=== PATIENT | female | born 1935 | race Caucasian/White ===

== ENCOUNTER 2016-04-01 15:24 | Emergency (ER) | payer OTHER ==
[~2016-04-01] VITALS: Ht 152.4 cm; Wt 65.6 kg
[~2016-04-01 15:24] MED LIST: APR50 PO; ASCO500T3 PO; ASPI1TAB2 PO; ATOR-22 PO; CEPH500C2 PO; CHOL100010 PO; CLOP1TAB15 PO; CLR10 PO; LOSA100T65 PO; MAGNTAB4 PO; METF1000 PO; METO-479 PO; MULTCHW PO; REPA1TAB40 PO; SALI0.6517 NAE
[2016-04-01 15:26] VITALS: TEMP 36.8; Ht 152.4 cm; Wt 65.6 kg
[2016-04-01] MEDS ORDERED: CLONIDINE HCL 0.1 MG TAB PO ONE (15:45)
--- NOTE | 2016-04-01 15:50 | EMERGENCY ROOM VISIT NOTE ---
History Report prepared by Tyrell: Rey Mccurdy Under the Supervision of: Dr. Soto Hammond D.O. First contact with patient: 15:30 Chief Complaint: HYPERTENSION Stated Complaint: HIGH BLOOD PRESSURE History of Present Illness The patient is a 80 year old female who presents to the Emergency Room with complaints of persistent hypertension that started prior to arrival today. She uses a cuff at home. The patient says her blood pressure has peaked around 205/ 90 today. The patient takes hydralazine, metoprolol, and Cozaar for her hypertension, and she took all 3 today already. The patient also complains of a bad headache that started being persistent around 0530 this morning. She notes that she had a more minor headache yesterday. The patient's face feels flushed and she feels a bit queazy. She denies any chest pain, shortness of breath, or vomiting. The patient last saw a cull grader in November when she was here in the hospital. She has an appointment for the of this month. The patient was told to come to the ED if her blood pressure gets high. She has not been sick recently. Source of History: patient Onset: Prior to arrival today Position: other (global - hypertension) Symptom Intensity: 205/90 Timing: other (persistent) Associated Symptoms: + headache, No SOB, No chest pain, No vomiting Note: Associated symptoms: Face feels flushed, a bit queazy. Review of Systems See HPI for pertinent positives & negatives. A total of 10 systems reviewed and were otherwise negative. Past Medical & Surgical Medical Problems: (1) DM type 2 (diabetes mellitus, type 2) (2) Dyslipidemia (3) HTN (hypertension) (4) Hypomagnesemia (5) Hyponatremia (6) TIA (transient ischemic attack) Surgical Problems: (1) S/P carpal tunnel release (2) S/P cholecystectomy Family History Hypertension FATHER MOTHER Social History Smoking Status: Never Smoker Alcohol Use: none Drug Use: none Marital Status: Occupation Status: retired Current/Historical Medications Scheduled Aspirin (Wilfred Aspirin Ec Low Dose), 1 TAB PO HS Atorvastatin (Lipitor), 20 MG PO DAILY Cholecalciferol (Vitamin D), 1,000 INTER.UNIT PO DAILY Clonidine Hcl (Catapres), 0.1 MG PO BID Clopidogrel (Plavix), 75 MG PO DAILY Escitalopram (Lexapro), 10 MG PO DAILY Fluticasone Propionate (Nasal) (Flonase Allergy Relief), 2 SPRAYS TJ DAILY Hydralazine HCl (Hydralazine HCl), 50 MG PO TID Loratadine (Claritin), 10 MG PO DAILY Losartan Potassium (Cozaar), 50 MG PO DAILY Magnesium Chloride (Slow-Mag Tab), 64 MG PO BID Metformin Hcl (Glucophage), 1 TAB PO BID Metoprolol Succinate (Toprol Xl), 1 TAB PO DAILY Multiple Vitamins W/ Minerals (Centrum Silver), 1 TAB PO DAILY Repaglinide (Prandin), 1 MG PO UD Sodium Chloride ([place] Nasal), 2 SPRAYS TJ UD Allergies Coded Allergies: Amlodipine (Unverified Allergy, Severe, SWELLING AND FLUSHING, 04/01/16) Dust (Unverified Allergy, Mild, COUGH, 04/01/16) Molds and Smuts (Unverified Allergy, Mild, SINUS DRAINAGE/COUGH, 04/01/16) LORENA Inhibitors (Verified Adverse Reaction, Unknown, COUGH, 04/01/16) Physical Exam Vital Signs Date Time Temp Pulse Resp B/P Pulse Ox O2 Delivery O2 Flow Rate FiO2 04/01/16 18:27 69 16 148/79 96 Room Air 04/01/16 18:09 64 04/01/16 16:35 77 18 225/84 96 Room Air 04/01/16 15:51 95 Room Air 04/01/16 15:51 95 Room Air 04/01/16 15:26 36.8 84 18 233/104 95 Room Air Physical Exam GENERAL: Patient is awake, alert, and in no acute distress. Patient is resting comfortably and showing no signs of anxiety EYES: The conjunctivae are clear. The pupils are round and reactive. EARS, NOSE, MOUTH AND THROAT: The nose is without any evidence of any deformity. Mucous membranes are moist tongue is midline NECK: The neck is nontender and supple. RESPIRATORY: Normal respiratory effort is noted there is no evidence of wheezing rhonchi or rales CARDIOVASCULAR: Regular rate and rhythm noted there no murmurs rubs or gallops normal S1 normal S2 GASTROINTESTINAL: The abdomen is soft. Bowel sounds are present in all quadrants. Abdomen is nontender MUSCULOSKELETAL/EXTREMITIES: There is no evidence of gross deformity full range of motion is noted in the hips and shoulders SKIN: There is no obvious evidence of any rash. There are no petechiae, pallor or cyanosis noted. NEUROLOGIC: Patient is awake alert and oriented x3 strength is symmetric patellar reflexes are 2+ bilaterally Medical Decision & Procedures ER Provider Diagnostic Interpretation: X ray results and stated below per my interpretation and radiology interpretation. Other radiology results per my review and radiologist interpretation: HEAD CT NONCONTRAST CT DOSE: 537.48 mGy.cm HISTORY: Headache. TECHNIQUE: Multiaxial CT images of the head were performed without the use of intravenous contrast. Automated exposure control was utilized for this study. Comparison: Head CT 12/12/2015. Findings: The paranasal sinuses and mastoid air cells are clear. The calvarium and skull base are intact. There is no mass, hematoma, midline shift, acute infarct. White matter hypodensity is nonspecific but suggestive of microvascular ischemic change. The ventricles and sulci demonstrate mild age-related involutional changes. Impression: No acute intracranial abnormality. Atrophy and microvascular ischemic changes. Electronically signed by: Dave Cano M.D. 04/01/2016 5:00 PM CHEST ONE VIEW PORTABLE CLINICAL HISTORY: EVALUATE RESPIRATORY DISTRESS. DYSPNEA dyspnea COMPARISON STUDY: No previous studies for comparison. FINDINGS: The bones soft tissues and hemidiaphragms are normal. The cardiomediastinal silhouette is normal. The lungs are clear. The pulmonary vasculature is normal. IMPRESSION: Negative chest. Electronically signed by: Vince Samaniego M.D. 04/01/2016 4:39 PM Laboratory Results 04/01/16 16:35 Red Blood Count 4.56, Mean Corpuscular Volume 85.1, Mean Corpuscular Hemoglobin 30.5, Mean Corpuscular Hemoglobin Concent 35.8, Mean Platelet Volume 8.9, Neutrophils (%) (Auto) 70.7, Lymphocytes (%) (Auto) 18.0, Monocytes (%) (Auto) 8.0, Eosinophils (%) (Auto) 2.7, Basophils (%) (Auto) 0.5, Neutrophils # (Auto) 5.33, Lymphocytes # (Auto) 1.36, Monocytes # (Auto) 0.60, Eosinophils # (Auto) 0.20, Basophils # (Auto) 0.04 04/01/16 16:35 Test 04/01/16 16:35 04/01/16 17:10 White Blood Count 7.54 K/uL (4.8-10.8) Red Blood Count 4.56 M/uL (4.2-5.4) Hemoglobin 13.9 g/dL (12.0-16.0) Hematocrit 38.8 % (37-47) Mean Corpuscular Volume 85.1 fL (80-100) Mean Corpuscular Hemoglobin 30.5 pg (25-34) Mean Corpuscular Hemoglobin Concent 35.8 g/dl (32-36) Platelet Count 174 K/uL (130-400) Mean Platelet Volume 8.9 fL (7.4-10.4) Neutrophils (%) (Auto) 70.7 % Lymphocytes (%) (Auto) 18.0 % Monocytes (%) (Auto) 8.0 % Eosinophils (%) (Auto) 2.7 % Basophils (%) (Auto) 0.5 % Neutrophils # (Auto) 5.33 K/uL (1.4-6.5) Lymphocytes # (Auto) 1.36 K/uL (1.2-3.4) Monocytes # (Auto) 0.60 K/uL (0.11-0.59) Eosinophils # (Auto) 0.20 K/uL (0-0.5) Basophils # (Auto) 0.04 K/uL (0-0.2) RDW Standard Deviation 40.3 fL (36.4-46.3) RDW Coefficient of Variation 13.1 % (11.5-14.5) Immature Granulocyte % (Auto) 0.1 % Immature Granulocyte # (Auto) 0.01 K/uL (0.00-0.02) Prothrombin Time 11.3 SECONDS (9.0-12.0) Prothromb Time International Ratio 1.1 (0.9-1.1) Activated Partial Thromboplast Time 26.1 SECONDS (21.0-31.0) Partial Thromboplastin Ratio 1.0 Anion Gap 15.0 mmol/L (3-11) Est Creatinine Clear Calc Drug Dose 50.2 ml/min Estimated GFR () 84.4 Estimated GFR (Non- 72.8 BUN/Creatinine Ratio 15.9 (10-20) Calcium Level 9.7 mg/dl (8.5-10.1) Magnesium Level 1.5 mg/dl (1.8-2.4) Total Bilirubin 0.4 mg/dl (0.2-1) Aspartate Amino Transf (AST/SGOT) 18 U/L (15-37) Alanine Aminotransferase (ALT/SGPT) 27 U/L (12-78) Alkaline Phosphatase 55 U/L (45-117) Total Creatine Kinase 51 U/L (26-192) Creatine Kinase MB 1.0 ng/ml (0.5-3.6) Creatine Kinase MB Ratio 2.0 (0-3.0) Troponin I < 0.015 ng/ml (0-0.045) Total Protein 7.2 gm/dl (6.4-8.2) Albumin 4.0 gm/dl (3.4-5.0) Globulin 3.2 gm/dl (2.5-4.0) Albumin/Globulin Ratio 1.3 (0.9-2) Urine Color YELLOW Urine Appearance CLEAR (CLEAR) Urine pH 7.0 (4.5-7.5) Urine Specific [place] 1.002 (1.000-1.030) Urine Protein NEG (NEG) Urine Glucose (UA) NEG (NEG) Urine Ketones NEG (NEG) Urine Occult Blood NEG (NEG) Urine Nitrite NEG (NEG) Urine Bilirubin NEG (NEG) Urine Urobilinogen NEG (NEG) Urine Leukocyte Esterase TRACE (NEG) Urine WBC (Auto) 1-5 /hpf (0-5) Urine RBC (Auto) 0-4 /hpf (0-4) Urine Hyaline Casts (Auto) 0 /lpf (0-5) Urine Epithelial Cells (Auto) 0-5 /lpf (0-5) Urine Bacteria (Auto) NEG (NEG) Laboratory results per my review. Medications Administered Medications (Trade) Dose Ordered Sig/Erick Route Start Time Stop Time Status Last Admin Dose Admin Clonidine HCl (Catapres Tab) 0.2 mg NOW ONCE PO 04/01/16 15:45 04/01/16 15:47 DC 04/01/16 16:14 0.2 MG Magnesium Sulfate (Magnesium Sulfate) 2 gm NOW STAT IV 04/01/16 17:12 04/01/16 17:13 DC 04/01/16 17:41 2 GM ECG Indication: other (hypertension) Rate (beats per minute): 80 Rhythm: normal sinus Findings: no ectopy, other (No acute ST segment abnormalities, LVH noted by voltage criteria) Change: no significant change (compared to 12/12/15) ED Course 1540: The patient was evaluated in room B9. A complete history and physical examination were performed. 1545: Ordered Catapres Tab 0.2 mg PO. 1712: Ordered Magnesium Sulfate 2 gm IV. 1800: I reevaluated the patient and she is feeling much better. The patient verbally expressed agreement and understanding of the treatment plan. The patient will be discharged. Medical Decision The patient's history was concerning for hypertension. Differential diagnosis: Etiologies such as benign hypertension, hypertensive emergency, cardiovascular pathology, pheochromocytoma, electrolyte abnormality, renal disease, endorgan damage, as well as others were entertained. Nursing notes reviewed. Additional history is obtained from the patient's family members. The patient is a 80-year-old female who presented to the emergency department for an evaluation of elevated blood pressure. The patient is had similar symptoms in the past. She states that she has been compliant with her blood pressure medications. The patient did not have any focal neurologic deficits. She had no meningismus. I discussed the patient's laboratory and radiographic studies with her. She was treated with blood pressure medications and I also replaced her magnesium. On subsequent reevaluation her blood pressure had significantly improved. She was encouraged to rest and avoid any strenuous activity. She was encouraged to continue all medications as prescribed. The machine adjuster leader case trim in emergency department was able to set the patient up with a follow-up appointment this week. She was also encouraged to return to the emergency apartment immediately if symptoms change worsen or the need arises. Impression Primary Impression: HTN (hypertension) Additional Impression: Hypomagnesemia Scribe Attestation The scribe's documentation has been prepared under my direction and personally reviewed by me in its entirety. I confirm that the note above accurately reflects all work, treatment, procedures, and medical decision making performed by me. Departure Information Dispostion Home / Self-Care Prescriptions Clonidine Hcl (CATAPRES) 0.1 Mg Tab 0.1 MG PO BID, #60 TAB Prov: Soto Hammond, DO 04/01/16 Referrals Vince Hook M.D. (PCP) Forms HOME CARE DOCUMENTATION FORM, IMPORTANT VISIT INFORMATION, WORK / SCHOOL INSTRUCTIONS Patient Instructions A Signature Page, Hypertension Control, My [facility] Additional Instructions Follow-up with your family this week for reevaluation. Continue all medications as prescribed. Rest and avoid any strenuous activity.
[2016-04-01 15:51] VITALS: O2SAT 95
--- NOTE | 2016-04-01 16:41 | DIAGNOSTIC IMAGING REPORT ---
CHEST ONE VIEW PORTABLE CLINICAL HISTORY: EVALUATE RESPIRATORY DISTRESS. DYSPNEA dyspnea COMPARISON STUDY: No previous studies for comparison. FINDINGS: The bones soft tissues and hemidiaphragms are normal. The cardiomediastinal silhouette is normal. The lungs are clear. The pulmonary vasculature is normal. IMPRESSION: Negative chest. Electronically signed by: Vince Samaniego M.D. 04/01/2016 4:39 PM
[2016-04-01 16:42] LABS: BASO % 0.5 %; BASO ABS # 0.04 K/uL (0-0.2); COMPLETE YES; EOS % 2.7 %; HEMATOCRIT 38.8 % (37-47); IG% 0.1 %; LYMPH ABS # 1.36 K/uL (1.2-3.4); MEAN CELL VOLUME 85.1 fL (80-100); MEAN CORPUSCULAR HEMOGLOBIN 30.5 pg (25-34); MEAN CORPUSCULAR HGB CONC 35.8 g/dl (32-36); MEAN PLATELET VOLUME 8.9 fL (7.4-10.4); NEUT % 70.7 %; PLATELET COUNT 174 K/uL (130-400); RED BLOOD COUNT 4.56 M/uL (4.2-5.4); WHITE BLOOD COUNT 7.54 K/uL (4.8-10.8)
[2016-04-01 16:51] LABS: INR 1.1 (0.9-1.1); PROTHROMBIN TIME (PATIENT) 11.3 SECONDS (9.0-12.0)
[2016-04-01 17:01] LABS: ALT/SGPT 27 U/L (12-78); BLOOD UREA NITROGEN 12 mg/dl (7-18); BUN/CREATININE RATIO 15.9 (10-20); CALCIUM 9.7 mg/dl (8.5-10.1); CARBON DIOXIDE 23 mmol/L (21-32); CHLORIDE 97 mmol/L (98-107); CREATININE 0.78 mg/dl (0.60-1.20); GLUCOSE 147 mg/dl (70-99); MAGNESIUM 1.5 mg/dl (1.8-2.4); POTASSIUM 3.9 mmol/L (3.5-5.1); SODIUM 135 mmol/L (136-145)
--- NOTE | 2016-04-01 17:01 | DIAGNOSTIC IMAGING REPORT ---
HEAD CT NONCONTRAST CT DOSE: 537.48 mGy.cm HISTORY: Headache. TECHNIQUE: Multiaxial CT images of the head were performed without the use of intravenous contrast. Automated exposure control was utilized for this study. Comparison: Head CT 12/12/2015. Findings: The paranasal sinuses and mastoid air cells are clear. The calvarium and skull base are intact. There is no mass, hematoma, midline shift, acute infarct. White matter hypodensity is nonspecific but suggestive of microvascular ischemic change. The ventricles and sulci demonstrate mild age-related involutional changes. Impression: No acute intracranial abnormality. Atrophy and microvascular ischemic changes. Electronically signed by: Dave Cano M.D. 04/01/2016 5:00 PM
[2016-04-01 17:06] LABS: ALB/GLOB RATIO 1.3 (0.9-2); ALKALINE PHOSPHATASE 55 U/L (45-117); AST/SGOT 18 U/L (15-37)
[2016-04-01] MEDS ORDERED: MAGNESIUM SULFATE 1GM / D5W 1 GM BAG IV STA (17:12)
[2016-04-01] MEDS ORDERED: LOSA1TAB PO (17:17)
[2016-04-01 17:21] LABS: URINE APPEARANCE CLEAR (CLEAR); URINE BILIRUBIN NEG (NEG); URINE COLOR YELLOW; URINE EPITHELIAL CELL AUTO 0-5 /lpf (0-5); URINE NITRITE NEG (NEG); URINE SPECIFIC GRAVITY 1.002 (1.000-1.030); UROBILINOGEN NEG (NEG)
[2016-04-01 17:24] LABS: MANUAL MICROSCOPIC REQUIRED? NO; REVIEW REQ? NO
[2016-04-01] MEDS ORDERED: CTP/1 PO (18:07)
[2016-04-01 19:48] VITALS: BP 103/49; PULSE 58; O2SAT 96
[2016-04-02] MEDS ORDERED: ESCI10TA17 PO (17:17)
[2016-04-02] MEDS ORDERED: FLUT0.15 NAE (22:11)
[2017-03-20] MEDS ORDERED: FURO-85 PO (14:41)
== END 2016-04-01 20:05 | disposition home or self-care (01) ==
LOC: C.EDB 15:26
DX: I10 Essential (primary) hypertension (principal); E83.42 Hypomagnesemia; E11.9 Type 2 diabetes mellitus without complications; E78.5 Hyperlipidemia, unspecified; Z86.73 Personal history of transient ischemic attack (TIA), and cerebral infarction without residual deficits; Z90.49 Acquired absence of other specified parts of digestive tract; Z79.82 Long term (current) use of aspirin; Z79.4 Long term (current) use of insulin; Z79.899 Other long term (current) drug therapy

== ENCOUNTER 2016-04-02 21:41 | Emergency (ER) | payer OTHER ==
[~2016-04-02] VITALS: Ht 152.4 cm; Wt 67.1 kg
[~2016-04-02 21:41] MED LIST changes: -ASCO500T3 PO; -CEPH500C2 PO; +CTP/1 PO; +ESCI10TA17 PO; -LOSA100T65 PO; +LOSA1TAB PO; -METO-479 PO; +METO1TAB68 PO; -REPA1TAB40 PO; +REPA1TAB42 PO
[2016-04-02 21:49] VITALS: TEMP 36.8; Ht 152.4 cm; Wt 67.1 kg
[2016-04-02] MEDS ORDERED: FLUT0.15 NAE (22:11)
[2016-04-02] MEDS ORDERED: SODIUM CHLORIDE 0.9% 1000ML 250 ML IV STA (22:42)
[2016-04-02] MEDS ORDERED: SODIUM CHLORIDE 0.9% 1000ML 1,000 ML IV STA (22:42)
[2016-04-02 22:53] LABS: BASO % 0.3 %; BASO ABS # 0.02 K/uL (0-0.2); COMPLETE YES; EOS % 2.8 %; IG% 0.3 %; LYMPH % 22.9 %; LYMPH ABS # 1.57 K/uL (1.2-3.4); MEAN CELL VOLUME 84.4 fL (80-100); MEAN CORPUSCULAR HEMOGLOBIN 30.7 pg (25-34); MEAN CORPUSCULAR HGB CONC 36.3 g/dl (32-36); MEAN PLATELET VOLUME 9.4 fL (7.4-10.4); NEUT % 64.7 %; PLATELET COUNT 202 K/uL (130-400); WHITE BLOOD COUNT 6.87 K/uL (4.8-10.8)
--- NOTE | 2016-04-02 22:55 | EMERGENCY ROOM VISIT NOTE ---
History Report prepared by Tyrell: Cleve Benjamin Under the Supervision of: Dr. Lonny Rose M.D. First contact with patient: 22:29 Chief Complaint: HYPERTENSION Stated Complaint: HIGH BLOOD PRESSURE, SHAKING, HEADACHE, NAUSEA History of Present Illness The patient is a 80 year old female who presents to the Emergency Room with complaints of intermittent hypertension starting today. She also complains of a headache. The patient also reports intermittent shakiness. She notes the shakiness normally occurs with low sodium levels. She was evaluated in the Emergency Room yesterday for similar symptoms but she started having shakiness today. Her sodium level yesterday was normal. The patient denies any fevers, cough, chest pain, shortness of breath, or any other complaints. She has taken all of her prescribed medications today besides the Clonidine. She had a fall a few months ago from which she is slowly recovering due to the fibromyalgia. The patient has been feeling anxious due to her pain after the fall. Today, she took half of a Lexapro pill without relief. Source of History: patient, family Onset: today Position: other (global) Quality: other (hypertension) Timing: intermittent Modifying Factors (Relieving): other (half of a Lexapro pill without relief) Associated Symptoms: + headache, No SOB, No chest pain, No cough, No fevers Review of Systems See HPI for pertinent positives & negatives. A total of 10 systems reviewed and were otherwise negative. Past Medical & Surgical Medical Problems: (1) DM type 2 (diabetes mellitus, type 2) (2) Dyslipidemia (3) HTN (hypertension) (4) Hypomagnesemia (5) Hyponatremia (6) TIA (transient ischemic attack) Surgical Problems: (1) S/P carpal tunnel release (2) S/P cholecystectomy Old medical records were reviewed. Nurse's notes were reviewed and I agree with. Hypertension Family History Hypertension FATHER MOTHER Social History Smoking Status: Never Smoker Alcohol Use: none Drug Use: none Marital Status: Occupation Status: retired Current/Historical Medications Scheduled Aspirin (Wilfred Aspirin Ec Low Dose), 1 TAB PO HS Atorvastatin (Lipitor), 20 MG PO DAILY Cholecalciferol (Vitamin D), 1,000 INTER.UNIT PO DAILY Clonidine Hcl (Catapres), 0.1 MG PO BID Clopidogrel (Plavix), 75 MG PO DAILY Hydralazine HCl (Hydralazine HCl), 50 MG PO TID Losartan Potassium (Cozaar), 50 MG PO DAILY Magnesium Chloride (Slow-Mag Tab), 64 MG PO BID Metformin Hcl (Glucophage), 1 TAB PO BID Metoprolol Succinate (Toprol Xl), 1 TAB PO DAILY Multiple Vitamins W/ Minerals (Centrum Silver), 1 TAB PO DAILY Repaglinide (Prandin), 1 MG PO UD Sodium Chloride ([place] Nasal), 2 SPRAYS TJ UD Scheduled PRN Escitalopram (Lexapro), 5 MG PO DAILY PRN for Anxiety Fluticasone Propionate (Nasal) (Flonase Allergy Relief), 2 SPRAYS TJ DAILY PRN for Nasal Congestion Loratadine (Claritin), 10 MG PO DAILY PRN for ALLERGIC REACTION Allergies Coded Allergies: Amlodipine (Unverified Allergy, Severe, SWELLING AND FLUSHING, 04/01/16) Dust (Unverified Allergy, Mild, COUGH, 04/01/16) Molds and Smuts (Unverified Allergy, Mild, SINUS DRAINAGE/COUGH, 04/01/16) LORENA Inhibitors (Verified Adverse Reaction, Unknown, COUGH, 04/01/16) Physical Exam Vital Signs Date Time Temp Pulse Resp B/P Pulse Ox O2 Delivery O2 Flow Rate FiO2 04/03/16 01:31 75 18 176/80 95 04/03/16 00:45 178/90 04/03/16 00:07 200/89 04/02/16 23:43 82 18 190/105 94 Room Air 04/02/16 23:03 193/86 04/02/16 22:30 196/104 04/02/16 21:49 36.8 95 18 212/106 96 Room Air Physical Exam General: Non-ill appearing, older female, in no acute distress. Mildly anxious and shaky at times. HEENT: Normal cephalic atraumatic. Pupils are equal round and reactive to light. Extraocular movements are intact. No nystagmus. Oropharynx is pink with moist mucous membranes. No swelling of the mouth lips or tongue. Neck: Supple with a midline trachea. No meningeal signs or stiffness, no JVD or bruits. No Stridor. Chest: Clear to auscultation bilaterally. No wheezes or rhonchi. No increased work of breathing. Heart: regular rate and rhythm. Abdomen: Soft nontender, nondistended without rebound guarding or rigidity. Extremities: No cyanosis clubbing or edema. No calf tenderness or assymetry Spine/Back. Non tender to palpation. No CVA tenderness Skin: Good turgor without rashes. Neurologic exam: Cranial nerves two through 12 are intact. Motor and sensation are intact and symmetrical throughout. Medical Decision & Procedures Laboratory Results 04/02/16 22:08 Red Blood Count 4.50, Mean Corpuscular Volume 84.4, Mean Corpuscular Hemoglobin 30.7, Mean Corpuscular Hemoglobin Concent 36.3, Mean Platelet Volume 9.4, Neutrophils (%) (Auto) 64.7, Lymphocytes (%) (Auto) 22.9, Monocytes (%) (Auto) 9.0, Eosinophils (%) (Auto) 2.8, Basophils (%) (Auto) 0.3, Neutrophils # (Auto) 4.45, Lymphocytes # (Auto) 1.57, Monocytes # (Auto) 0.62, Eosinophils # (Auto) 0.19, Basophils # (Auto) 0.02 04/02/16 22:08 Test 04/02/16 22:08 White Blood Count 6.87 K/uL (4.8-10.8) Red Blood Count 4.50 M/uL (4.2-5.4) Hemoglobin 13.8 g/dL (12.0-16.0) Hematocrit 38.0 % (37-47) Mean Corpuscular Volume 84.4 fL (80-100) Mean Corpuscular Hemoglobin 30.7 pg (25-34) Mean Corpuscular Hemoglobin Concent 36.3 g/dl (32-36) Platelet Count 202 K/uL (130-400) Mean Platelet Volume 9.4 fL (7.4-10.4) Neutrophils (%) (Auto) 64.7 % Lymphocytes (%) (Auto) 22.9 % Monocytes (%) (Auto) 9.0 % Eosinophils (%) (Auto) 2.8 % Basophils (%) (Auto) 0.3 % Neutrophils # (Auto) 4.45 K/uL (1.4-6.5) Lymphocytes # (Auto) 1.57 K/uL (1.2-3.4) Monocytes # (Auto) 0.62 K/uL (0.11-0.59) Eosinophils # (Auto) 0.19 K/uL (0-0.5) Basophils # (Auto) 0.02 K/uL (0-0.2) RDW Standard Deviation 39.7 fL (36.4-46.3) RDW Coefficient of Variation 12.8 % (11.5-14.5) Immature Granulocyte % (Auto) 0.3 % Immature Granulocyte # (Auto) 0.02 K/uL (0.00-0.02) Anion Gap 13.0 mmol/L (3-11) Est Creatinine Clear Calc Drug Dose 46.6 ml/min Estimated GFR () 76.1 Estimated GFR (Non- 65.6 BUN/Creatinine Ratio 16.9 (10-20) Calcium Level 8.9 mg/dl (8.5-10.1) Magnesium Level 1.7 mg/dl (1.8-2.4) Total Bilirubin 0.3 mg/dl (0.2-1) Direct Bilirubin 0.1 mg/dl (0-0.2) Aspartate Amino Transf (AST/SGOT) 20 U/L (15-37) Alanine Aminotransferase (ALT/SGPT) 27 U/L (12-78) Alkaline Phosphatase 65 U/L (45-117) Total Protein 7.6 gm/dl (6.4-8.2) Albumin 4.2 gm/dl (3.4-5.0) Lipase 107 U/L (73-393) Laboratory studies as stated above per my review. Medications Administered Medications (Trade) Dose Ordered Sig/Erick Route Start Time Stop Time Status Last Admin Dose Admin Sodium Chloride 250 ml @ 999 mls/hr Q16M STAT IV 04/02/16 22:42 04/02/16 22:57 DC 04/02/16 23:02 999 MLS/HR Sodium Chloride (Nss 1000ml) 1,000 ml @ 100 mls/hr Q10H STAT IV 04/02/16 22:42 04/03/16 01:56 DC 04/02/16 23:01 100 MLS/HR Clonidine HCl (Catapres Tab) 0.1 mg NOW ONCE PO 04/02/16 23:00 04/02/16 23:01 DC 04/02/16 23:01 0.1 MG ECG Indication: other (Hypertension) Rate (beats per minute): 82 Rhythm: normal sinus Findings: no acute ischemic change, no ectopy, other (LVH) Comparison ECG Date: April 01, 2016 Change: no significant change ED Course 2228: Past medical records reviewed. The patient was evaluated in room A03, and a complete history and physical examination were performed. 2242: Sodium Chloride 1000 ml @ 100 mls/hr IV, Sodium Chloride 250 ml @ 999 mls/ hr IV 0023: i reevaluated the patient who is feeling better. 2300: Clonidine HCl 0.1 mg PO 0010: Upon reevaluation, the patient is resting comfortably. I discussed the results and treatment plan with her. She verbalized agreement of the treatment plan. The patient was discharged home. Medical Decision Differential diagnosis includes but is not limited to hypertension, anxiety, electrolyte or metabolic abnormality, infection, anemia, arrhythmia. This patient comes in with a complaint of hypertension. She says her face gets red and she has a headache when this gets high. she also felt shaky tonight. she 's had no chest pain or shortness but she was concerned that her sodium was low as well. IV access established was gently hydrated with IV normal saline blood work was obtained. Her sodium is 131 and it was 135 yesterday, so it's not significantly different. her magnesium is is 1.7 which is up from 1.5 yesterday. EKG does not suggest acute coronary syndrome or arrhythmia. She has no acute electrolyte or metabolic abnormalities. She did receive clonidine 0.2 mg yesterday and this seemed to drop her blood pressure little bit too much. in light of this, I did give her clonidine 0.1 mg and this dropped her blood pressure to the 170s over 80. She is feeling much better and would like to go home at this point. I think this is reasonable, she does have a prescription for clonidine 0.1 mg which she just got filled. I told her that she if she has another episode and her blood pressures elevated she could actually use one of those 0.1 mg. She's given a follow-up with Dr. Guzman in about 36 hours and I told her to keep the appointment. I told her rest and drink plenty of fluids. Some of this could be anxiety related as well or related to her fibromyalgia potentially. She should return if: recurrence of symptoms, worsening of symptoms, any new problems or concerns. Again her blood pressures now significant lower and she's asymptomatic and will be discharged home with close follow-up with her doctor in 1-2 days. Impression Primary Impression: HTN (hypertension) Additional Impression: Anxiety Scribe Attestation The scribe's documentation has been prepared under my direction and personally reviewed by me in its entirety. I confirm that the note above accurately reflects all work, treatment, procedures, and medical decision making performed by me. Departure Information Dispostion Home / Self-Care Referrals Vince Hook M.D. (PCP) Forms HOME CARE DOCUMENTATION FORM, IMPORTANT VISIT INFORMATION, WORK / SCHOOL INSTRUCTIONS Patient Instructions A Signature Page, My [facility] Additional Instructions Rest. Check and log your blood pressure frequently and take it to your doctor's office on Thursday with your appointment Return to ER if: Worsening symptoms, chest pain, shortness of breath, recurrence of symptoms, fever or chills, any new problems or concerns.
[2016-04-02] MEDS ORDERED: CLONIDINE HCL 0.1 MG TAB PO ONE (23:00)
[2016-04-02 23:03] LABS: BUN/CREATININE RATIO 16.9 (10-20); CALCIUM 8.9 mg/dl (8.5-10.1); CREATININE 0.85 mg/dl (0.60-1.20); MAGNESIUM 1.7 mg/dl (1.8-2.4); POTASSIUM 3.7 mmol/L (3.5-5.1)
[2016-04-03 01:31] VITALS: BP 176/80; PULSE 75; O2SAT 95
== END 2016-04-03 01:31 | disposition home or self-care (01) ==
LOC: C.EDB 21:43 → C.EDA 04-03 01:31
DX: I10 Essential (primary) hypertension (principal); F41.9 Anxiety disorder, unspecified; E11.9 Type 2 diabetes mellitus without complications; E78.5 Hyperlipidemia, unspecified; E83.42 Hypomagnesemia; Z86.73 Personal history of transient ischemic attack (TIA), and cerebral infarction without residual deficits; Z79.02 Long term (current) use of antithrombotics/antiplatelets; Z79.82 Long term (current) use of aspirin; Z79.84 Long term (current) use of oral hypoglycemic drugs; Z79.899 Other long term (current) drug therapy; Z88.8 Allergy status to other drugs, medicaments and biological substances; Z82.49 Family history of ischemic heart disease and other diseases of the circulatory system

== ENCOUNTER 2016-07-09 10:49 | Emergency (ER) | payer OTHER ==
[~2016-07-09] VITALS: Ht 152.4 cm; Wt 66.4 kg
[~2016-07-09 10:49] MED LIST changes: +FLUT0.15 NAE; +METO-479 PO; -METO1TAB68 PO; +REPA1TAB40 PO; -REPA1TAB42 PO
[2016-07-09 10:56] VITALS: TEMP 36.6; Ht 152.4 cm; Wt 66.4 kg
[2016-07-09] MEDS ORDERED: CLON0.2D4 TOP (11:40)
[2016-07-09] MEDS ORDERED: LOSA50TA6 PO (11:41)
[2016-07-09] MEDS ORDERED: FURO-85 PO (11:42)
[2016-07-09] MEDS ORDERED: POTA10CA28 PO (11:43)
[2016-07-09] MEDS ORDERED: HydrALAZINE HCL 20 MG/ML VIAL IV. STA (11:43)
[2016-07-09] MEDS ORDERED: SALI0.6510 INH (11:46)
[2016-07-09 11:47] LABS: BASO % 1.1 %; BASO ABS # 0.06 K/uL (0-0.2); COMPLETE YES; EOS % 3.3 %; HEMATOCRIT 37.7 % (37-47); IG% 0.2 %; LYMPH % 19.2 %; LYMPH ABS # 1.04 K/uL (1.2-3.4); MEAN CELL VOLUME 85.7 fL (80-100); MEAN PLATELET VOLUME 8.8 fL (7.4-10.4); MONO % 10.7 %; NEUT % 65.5 %; PLATELET COUNT 177 K/uL (130-400); WHITE BLOOD COUNT 5.41 K/uL (4.8-10.8)
[2016-07-09] MEDS ORDERED: CHOL100010 PO (11:47)
[2016-07-09] MEDS ORDERED: GARLIC CAPSULE PO (11:49)
[2016-07-09 12:00] LABS: ALT/SGPT 27 U/L (12-78); AST/SGOT 16 U/L (15-37); BLOOD UREA NITROGEN 10 mg/dl (7-18); BUN/CREATININE RATIO 10.6 (10-20); CALCIUM 9.4 mg/dl (8.5-10.1); CARBON DIOXIDE 29 mmol/L (21-32); CHLORIDE 97 mmol/L (98-107); CREATININE 0.98 mg/dl (0.60-1.20); GLUCOSE 141 mg/dl (70-99); POTASSIUM 3.8 mmol/L (3.5-5.1); SODIUM 134 mmol/L (136-145)
[2016-07-09] MEDS ORDERED: CLONIDINE HCL 0.1 MG TAB PO ONE (12:00)
[2016-07-09 12:04] LABS: ALB/GLOB RATIO 1.3 (0.9-2); ALKALINE PHOSPHATASE 62 U/L (45-117)
--- NOTE | 2016-07-09 13:29 | EMERGENCY ROOM VISIT NOTE ---
History Report prepared by Tyrell: Latasha Kim Under the Supervision of: Dr. Miguel Ca D.O. First contact with patient: 11:43 Chief Complaint: HYPERTENSION Stated Complaint: BLOOD PRESSURE ISSUES, REFERRED BY MD History of Present Illness The patient is a 81 year old female who presents to the Emergency Room with complaints of persistent high blood pressure starting this morning. The patient was at the doctors this morning when they found that her blood pressure was elevated. She was referred to the ED. She does not report any symptoms. She believes that she might be anxious because her family is coming to visit her this weekend. She checks her blood pressure at home twice a week and it usually runs in the 125-130 range. She has been in the hospital before for high blood pressure over 200. Her sodium runs low sometimes. She takes hydralazine 3 times a day. She has not missed any doses. Source of History: patient Onset: this morning Position: other (global) Quality: other (high blood pressure) Timing: other (persistent) Note: Pt reports feeling anxious. Review of Systems See HPI for pertinent positives & negatives. A total of 10 systems reviewed and were otherwise negative. Past Medical & Surgical Medical Problems: (1) DM type 2 (diabetes mellitus, type 2) (2) Dyslipidemia (3) HTN (hypertension) (4) Hypomagnesemia (5) Hyponatremia (6) TIA (transient ischemic attack) Surgical Problems: (1) S/P carpal tunnel release (2) S/P cholecystectomy Family History Hypertension FATHER MOTHER Social History Smoking Status: Never Smoker Alcohol Use: none Drug Use: none Marital Status: Occupation Status: retired Current/Historical Medications Scheduled Aspirin (Wilfred Aspirin Ec Low Dose), 1 TAB PO HS Atorvastatin (Lipitor), 20 MG PO DAILY Cholecalciferol (Vitamin D), 1 CAP PO DAILY Clonidine Hcl (Kutbfyxn-Upa-6), 1 PATCH TOP WK Clopidogrel (Plavix), 75 MG PO DAILY Furosemide (Lasix), 20 MG PO DAILY Hydralazine HCl (Hydralazine HCl), 50 MG PO TID Losartan Potassium (Cozaar), 50 MG PO BID Magnesium Chloride (Slow-Mag Tab), 64 MG PO BID Metformin Hcl (Glucophage), 1 TAB PO BID Metoprolol Succinate (Toprol Xl), 1 TAB PO DAILY Multiple Vitamins W/ Minerals (Centrum Silver), 1 TAB PO DAILY Potassium Chloride (Micro-K Ext Rel), 10 MEQ PO DAILY Repaglinide (Prandin), 1 MG PO UD [Garlic Capsule], 1 CAP PO DAILY Scheduled PRN Fluticasone Propionate (Nasal) (Flonase Allergy Relief), 2 SPRAYS TJ DAILY PRN for Nasal Congestion Loratadine (Claritin), 10 MG PO DAILY PRN for ALLERGIC REACTION Saline ([place] Nasal [place]), 2 SPRAYS INH DAILY PRN for Nasal Congestion Allergies Coded Allergies: Amlodipine (Unverified Allergy, Severe, SWELLING AND FLUSHING, 07/09/16) Dust (Unverified Allergy, Mild, COUGH, 07/09/16) Molds and Smuts (Unverified Allergy, Mild, SINUS DRAINAGE/COUGH, 07/09/16) LORENA Inhibitors (Verified Adverse Reaction, Unknown, COUGH, 07/09/16) Physical Exam Vital Signs Date Time Temp Pulse Resp B/P Pulse Ox O2 Delivery O2 Flow Rate FiO2 07/09/16 13:54 58 18 125/63 96 07/09/16 12:30 61 16 143/66 96 Room Air 07/09/16 12:00 68 20 186/89 96 Room Air 07/09/16 11:21 68 207/88 07/09/16 11:20 71 07/09/16 10:56 36.6 70 18 221/88 95 Room Air Physical Exam CONSTITUTIONAL/VITAL SIGNS: Reviewed / noted above. GENERAL: Non-toxic in appearance. INTEGUMENTARY: Warm, dry, and [place]. HEAD: Normocephalic. EYES: without scleral icterus or trauma. ENT/OROPHARYNX: clear and moist. LYMPHADENOPATHY/NECK: Is supple without lymphadenopathy or meningismus. RESPIRATORY: Lungs clear and equal. CARDIOVASCULAR: Regular rate and rhythm. GI/ABDOMEN: Soft and nontender. No organomegaly or pulsatile mass. No rebound or guarding. Normal bowel sounds. EXTREMITIES: Warm and well perfused. BACK: No CVA tenderness. NEUROLOGICAL: Intact without focal deficits. PSYCHIATRIC: normal affect. MUSCULOSKELETAL: Normally developed with good muscle tone. Medical Decision & Procedures Laboratory Results 07/09/16 11:30 Red Blood Count 4.40, Mean Corpuscular Volume 85.7, Mean Corpuscular Hemoglobin 30.0, Mean Corpuscular Hemoglobin Concent 35.0, Mean Platelet Volume 8.8, Neutrophils (%) (Auto) 65.5, Lymphocytes (%) (Auto) 19.2, Monocytes (%) (Auto) 10.7, Eosinophils (%) (Auto) 3.3, Basophils (%) (Auto) 1.1, Neutrophils # (Auto ) 3.54, Lymphocytes # (Auto) 1.04, Monocytes # (Auto) 0.58, Eosinophils # (Auto ) 0.18, Basophils # (Auto) 0.06 07/09/16 11:30 Test 07/09/16 11:30 White Blood Count 5.41 K/uL (4.8-10.8) Red Blood Count 4.40 M/uL (4.2-5.4) Hemoglobin 13.2 g/dL (12.0-16.0) Hematocrit 37.7 % (37-47) Mean Corpuscular Volume 85.7 fL (80-100) Mean Corpuscular Hemoglobin 30.0 pg (25-34) Mean Corpuscular Hemoglobin Concent 35.0 g/dl (32-36) Platelet Count 177 K/uL (130-400) Mean Platelet Volume 8.8 fL (7.4-10.4) Neutrophils (%) (Auto) 65.5 % Lymphocytes (%) (Auto) 19.2 % Monocytes (%) (Auto) 10.7 % Eosinophils (%) (Auto) 3.3 % Basophils (%) (Auto) 1.1 % Neutrophils # (Auto) 3.54 K/uL (1.4-6.5) Lymphocytes # (Auto) 1.04 K/uL (1.2-3.4) Monocytes # (Auto) 0.58 K/uL (0.11-0.59) Eosinophils # (Auto) 0.18 K/uL (0-0.5) Basophils # (Auto) 0.06 K/uL (0-0.2) RDW Standard Deviation 40.3 fL (36.4-46.3) RDW Coefficient of Variation 12.9 % (11.5-14.5) Immature Granulocyte % (Auto) 0.2 % Immature Granulocyte # (Auto) 0.01 K/uL (0.00-0.02) Anion Gap 8.0 mmol/L (3-11) Est Creatinine Clear Calc Drug Dose 39.6 ml/min Estimated GFR () 63.6 Estimated GFR (Non- 54.9 BUN/Creatinine Ratio 10.6 (10-20) Calcium Level 9.4 mg/dl (8.5-10.1) Total Bilirubin 0.5 mg/dl (0.2-1) Aspartate Amino Transf (AST/SGOT) 16 U/L (15-37) Alanine Aminotransferase (ALT/SGPT) 27 U/L (12-78) Alkaline Phosphatase 62 U/L (45-117) Troponin I < 0.015 ng/ml (0-0.045) Total Protein 7.7 gm/dl (6.4-8.2) Albumin 4.3 gm/dl (3.4-5.0) Globulin 3.4 gm/dl (2.5-4.0) Albumin/Globulin Ratio 1.3 (0.9-2) Laboratory results as stated above per my review. Medications Administered Medications (Trade) Dose Ordered Sig/Erick Route Start Time Stop Time Status Last Admin Dose Admin Hydralazine HCl (HydrALAZINE INJ) 10 mg NOW STAT IV. 07/09/16 11:43 07/09/16 11:45 DC 07/09/16 11:52 10 MG Clonidine HCl (Catapres Tab) 0.2 mg NOW ONCE PO 07/09/16 12:00 07/09/16 12:01 DC 07/09/16 11:57 0.2 MG ECG Indication: other (hypertension) Rate (beats per minute): 65 Rhythm: normal sinus Findings: no ectopy, other (no acute injury) ED Course 1141: Previous medical records were reviewed. The patient was evaluated in room B3B. A complete history and physical examination was performed. 1143: Hydralazine HCl 10 mg IV. 1200: Clonidine HCl 0.2 mg PO. 1323: On reevaluation, the patient is resting comfortably. I discussed the results and findings with the patient. She verbalized agreement of the treatment plan. She was discharged home. Medical Decision the differential was considered includes acute myocardial infarction, acute coronary syndrome, myocarditis, pericarditis, pericardial effusions /tamponade, esophageal perforation, thoracic aortic dissection, pulmonary embolism, pneumonia, pneumothorax, pancreatitis, shingles, acute cholecystitis, perforated abdominal viscus. This is a 81-year-old female who presents to the ED with a chief complaint of hypertension. The patient was seen by Dr. Vanessa and was noticed to have high blood pressure the office. She was asymptomatic. She is sent here for evaluation. The patient denies any symptoms. Initial blood pressure was 220 systolic. The patient's exam was normal. Blood work, chemistry panel and troponin are negative. The patient was treated with clonidine 0.2 mg by mouth and hydralazine 10 mg IV. On reassessment, the patient continues to feel well. Her blood pressure has improved to the 150 systolic range. She is felt to be stable for discharge. Impression Primary Impression: HTN (hypertension) Scribe Attestation The scribe's documentation has been prepared under my direction and personally reviewed by me in its entirety. I confirm that the note above accurately reflects all work, treatment, procedures, and medical decision making performed by me. Departure Information Referrals Vince Hook M.D. (PCP) Patient Instructions My [facility] Additional Instructions Follow-up with your doctor for further care and evaluation in 17 days. Return to the emergency department for worsening or new symptoms or any concerns. You have been examined and treated today on an emergency basis only. This is not a substitute for, or an effort to provide, complete comprehensive medical care. It is impossible to recognize and treat all injuries or illnesses in a single emergency department visit. It is therefore important that you follow up closely with your doctor. Call as soon as possible for an appointment. Monitor your blood pressure twice a week as suggested by your PCP and notify your doctor of high pressures.
[2016-07-09 13:54] VITALS: BP 125/63; PULSE 58; O2SAT 96
== END 2016-07-09 13:57 | disposition home or self-care (01) ==
LOC: C.EDB 10:51
DX: I10 Essential (primary) hypertension (principal); E11.9 Type 2 diabetes mellitus without complications; E78.5 Hyperlipidemia, unspecified; Z86.73 Personal history of transient ischemic attack (TIA), and cerebral infarction without residual deficits; Z90.49 Acquired absence of other specified parts of digestive tract; Z98.890 Other specified postprocedural states; Z79.82 Long term (current) use of aspirin; Z79.84 Long term (current) use of oral hypoglycemic drugs; Z79.899 Other long term (current) drug therapy; Z88.8 Allergy status to other drugs, medicaments and biological substances; Z91.09 Other allergy status, other than to drugs and biological substances; Z82.49 Family history of ischemic heart disease and other diseases of the circulatory system

== ENCOUNTER → 2016-07-30 | Outpatient (CLI) | payer OTHER ==
[~2016-07-30] MED LIST changes: +CLON0.2D4 TOP; -CTP/1 PO; -ESCI10TA17 PO; +FURO-85 PO; +GARLIC CAPSULE PO; -LOSA1TAB PO; +LOSA50TA6 PO; +POTA10CA28 PO; +SALI0.6510 INH; -SALI0.6517 NAE
--- NOTE | 2016-07-31 06:10 | PAP/PSG TECHNICIAN REPORT ---
[facility] Maintenance Superintendent Polysomnogram Report Study name: None Report date: 07/31/2016 Study date: 07/30/2016 Referring Physician: Tom Bauman M.D. Name: JUAN F ALANIZ Interpreting Physician: Francisco J Bauman M.D. Date of : 1935 Maintenance Superintendent: Katiuska Briscoe, PSGT. Sex: Female Age: 81 StudyType: PSG Weight: 145 lbs Height: 81 years, Height 5' 0" Neck Circum:14.5 inches BMI: 28.32 Medications: PLAVIX 75 MG, METFORMIN 1000 MG, CATAPRESS 0.2 MG, COZAAR 50 MG, POTASSIUM CHLORIDE ER 10 MEQ, LASIX 20 MG, LIPITOR 20 MG, APRESOLINE 50 MG, LOSARTAN 100 MG, PRANDIN 1 MG, VENTOLIN, LEXAPRO 10 MG, APRESOLINE 50 MG, FLONASE 50 MCG/ACT. Patient History 81 YR. OLD FEMALE IN ROOM 5, PRESENTS TONIGHT FOR A DIAGNOSTIC SLEEP STUDY. PT. STATES THAT SHE SNORES AND HER FAMILY HAS WITNESSED APNEA.NECK=14.5 INCHES, ESS=5. Parameters Monitored NPSG: E1-M2, E2-M1, Fp1-M2, Fp2-M1, F3-M2, F4-M2, F4-M1, C3-M2, C4-M2, C4-M1, O1-M2, O2-M2, O2-M1, T3-M2, T4-M1, P3-M2, P4-M1, CHIN1, CHIN2, HR, EKG, Legs, PFLOW, SNOR, FLOW, CFLOW, [place] Volume, THOR, ABDO, SpO2, PLTH, CPRESS, ETCO2 Wave, ETCO2, pH Sleep Architecture Sleep Stages Time at Lights Off 9:42:25 PM STAGES Time (min.) TST (%) Time at Lights On 5:17:25 AM Wake 59.0 -- Total Recording Time (TRT) 455.00 min. N1 3.5 1 Total Sleep Period (TSP) 433.0 min. N2 387.0 98 Total Sleep Time (TST) 395.5min. N3 0.0 0 Awake Time 59.5 min. REM 5.0 1 Wake after Sleep Onset 41.0 min. Sleep Efficiency (SE) 87 % Sleep Onset Latency (DOUGLAS) 18.5 min. Number of Stage 1 Shifts None Awakenings 4 Stage Changes 15 Number of REM periods 1 REM 5.0 1 REM Latency 402.0 min. NREM 390.5 99 Body Position Analysis Supine Right Left Side Prone Vertical Total Sleep Time (min.) 145.8 0.0 253.8 253.76 0.0 0.2 Total Sleep Time (%) 36% 0% 64% 64 0% N/A% Total Sleep Time REM (min.) 5.0 0.0 0.0 None 0.0 0.0 Total Sleep Time NREM (min.) 136.7 0.0 253.8 None 0.0 0.0 Intermittent Wake (min.) 4.1 0.0 54.8 None 0.0 0.2 Total Sleep Period (%) 33% None None None None None Arousals Myoclonus (PLM) * Events Count Index Events Count Index Spontaneous 74 11 Events Awake (PLMW) 1 1.0 Respiratory 19 2.9 Events Asleep w/ Arousal (PLMA) 13 2.0 PLM 13 2 Events Asleep w/o Arousal (PLMS) 310 47.0 Snoring 45 7 Total Asleep 323 49.0 Total 151 23 Total 324 43 Respiratory Analysis * CA OA MA CH H RERA Total Count 0 28 1 0 137 0 166 Index 0.0 4.2 0.2 0 20.8 0 25.2 Mean Duration 0.0 25.3 31.2 0.00 21.0 0.0 21.8 Longest Duration 0.0 36.3 31.2 0.00 31.2 0.0 56.7 Respiratory Event Summary Total Supine ~Supine Right Left Prone REM NREM Apneas Count 29 21 8 N/A 8 N/A 1 28 Index 4.4 9 2 N/A 1.9 N/A 12 4 Hypopneas (4% Desat) Count 137 57 80 N/A 80 N/A 4 133 Index 20.8 24.1 19 N/A 18.9 N/A 48.0 20.4 Apneas & All Hypopneas Count 166 78 88 N/A 88 N/A 5 161 Index 25.2 33 21 N/A 21 N/A 60.0 24.7 Respiratory Events (Car Porter+All Hyp+RERA) Count 166 78 88 N/A 88 N/A 5 161 Index 25.2 33 21 N/A 20.8 N/A 60.0 24.7 Respiratory Related Arousal Count 19 78 9 N/A 9 N/A 2 17 Index 2.9 4 2 N/A 2 N/A 24 3 Snoring Analysis Supine Right Left Prone REM NREM Total Snore duration 83.1 min Snores count 1,014 N/A 1,482 N/A 16 2,480 2,496 Snore mean duration 2.0 Sec Snores index 429 N/A 350 N/A 192.0 381.0 378.7 TST with snoring (%) 21.0% Desaturation Event Summary: Minimum %SpO2 Event Count Mean/Min/Max Duration(sec.) Desaturation Index % Time In Bed > 90 185 23.2 / 9.3 / 59.8 28.6 85.3 86 - 90 8 13.5 / 9.3 / 17.0 7.3 14.4 81 - 85 0 N/A 0.0 0.3 76 - 80 0 N/A 0.0 0.0 71 - 75 0 N/A 0.0 0.0 66 - 70 0 N/A 0.0 0.0 61 - 65 0 N/A 0.0 0.0 56 - 60 0 N/A 0.0 0.0 51 - 55 0 N/A 0.0 0.0 < 50 0 N/A 0.0 0.0 Total REM NREM Awake <50% 0.0 min. 0.0 min. 0.0 min. 0.0 min. 51 - 60% 0.0 min. 0.0 min. 0.0 min. 0.0 min. 61 - 70% 0.0 min. 0.0 min. 0.0 min. 0.0 min. 71 - 80% 0.0 min. 0.0 min. 0.0 min. 0.0 min. 81 - 90% 66.8 min. 0.6 min. 52.9 min. 13.3 min. 91 - 100% 387.6 min. 4.5 min. 337.5 min. 45.7 min. Average 92 93 92 92 Minimum SpO2 82 83 82 85 Desaturation Event Index 24.6 60.0 27.8 0.0 # Desat. Events below 89% 71 2 69 N/A Time(%) with Saturation below 89% 2.6 0.1 2.4 0.1 Time(min.) with Saturation below 89% 11.8 0.4 11.1 0.3 Time (mins) REM (mins) NREM (mins) % of TST SpO2 Below 90% 161 2 N159 6.1 SpO2 Below 88% 29 0 0 1 Heart Rate Analysis Min (bpm) Max (bpm) Average (bpm) Awake 51 72 63 NREM 51 70 58 REM 52 58 54 Overall 51 70 58 Supplemental O2 Values Minimum O2 level: None Value Start Time End Time Maintenance Superintendent Comments PSG Study MS. Alaniz slept in the right, left, and supine positions. No cardiac arrhythmia or PLM's noted. No bruxism noted. Snoring was noted and scored as a 4 on a scale of 1 through 5. (0=no snoring, 5=snoring loud enough to be heard through a closed door or down the [address]) Ms. Alaniz awoke to use the restroom zero times during the night. Ms. Alaniz stated, I did not sleep as well as I do when I am in my own bed. The final report will be interpreted and signed by a sleep physician. The completed physician report will then be placed in the patient medical record. Therapy (cm H2O) 0 TIB (min.) 454.5 TST (min.) 395.5 Sleep Onset (min.) 18.5 REM Onset From Sleep (min.) 402.0 Sleep Efficiency % 87 Wakefulness (%) 13 Wakefulness (min.) 59.5 NREM 1 (%) 1 NREM 1 (min.) 3.5 NREM 2 (%) 98 NREM 2 (min.) 387.0 NREM 3 (%) 0 NREM 3 (min.) 0.0 REM (%) 1 REM (min.) 5.0 # Arousals 151 Arousal Index 23 # Snore 2,496 Snore Index 378.7 AHI 25.2 AHI Supine 33 AHI Non-Supine 21 NREM AHI 24.7 REM AHI 60.0 RDI 25.2 # Obstructive Apnea 28 # Central Apnea 0 # Mixed Apnea 1 # Hypopneas 137 RERAs 0 Total Respiratory Events 167 Time Below SpO2 89% (min.) 11.5 Mean NREM SpO2 (%) 92 Mean REM SpO2 (%) 93 Mean Sleep SpO2 (%) 92 Min NREM SpO2 (%) 82 Min REM SpO2 (%) 83 Position Supine (min.) 145.8 Position Non-supine (min.) 253.8 LM Index Sleep 49.0 LM Index NREM 49.2 LM Index REM 36.0 Mean Heart Rate (bpm) 58 Min Heart Rate (bpm) 51
--- NOTE | 2016-08-14 08:55 | POLYSOMNOGRAPH REPORT ---
REFERRING PERSON: Dr. Fracisco Bauman. CERAMIC TILER: Татьяна Briscoe. Ms. Carmona is a 81-year-old female who presents for a diagnostic sleep study. She has a history of snoring and witnessed apneas. Her [place] sleepiness scale score on the evening of this study is 5. BMI is 28.32. Following the technical and digital specifications of the [place] [employer] (AASM) a standard diagnostic polysomnogram was performed monitoring EEG, EOG, EMG (chin and leg deviations), oxygen saturation, body position, digital video, respiratory effort and airflow. The sleep Stage and event scoring was based on the AASM Manual for the Scoring of Sleep and Associated Events 2007 edition. Apneas are defined as a drop in the peak thermal sensor excursion by >90% of baseline for at least 10 seconds. Hypopneas were scored using the 4% oxygen desaturation rule (4A-Medicare) and a decrease in the nasal pressure excursions by >30% of baseline for at least 10 seconds. Respiratory effort-related arousal (RERA's) is defined as a sequence of breaths lasting at least 10 seconds characterized by increasing respiratory effort or flattening of the nasal pressure waveform leading to an arousal from sleep when the sequence of breaths does not meet criteria for an apnea or hypopnea. Apnea Hypopnea index (AHI) is defined as the number of apneas and hypopneas occurring in an hour of sleep. Respiratory disturbance index (RDI) is defined as the number of apneas, hypopneas, and RERA's occurring in an hour of sleep. Ms. Carmona's total sleep period time was 433 minutes. Total sleep time was 395.5 minutes. Sleep efficiency was 87%. Latency to sleep onset was 18.5 minutes with wake after sleep onset of 41 minutes. Total non-REM sleep time was 390.5 minutes. She spent 1% of that time in N1 sleep, 98% in N2 sleep and only 1% in REM sleep. There was no N3 sleep on this test. This is abnormal sleep architecture with a propensity for superficial sleep. REM latency was 402 minutes. Total REM sleep time was only 5 minutes or 1% of total sleep time. There were 151 cortical arousals from sleep. Seventy-four of these arousals were spontaneous, 19 were due to respiratory events, 13 due to periodic limb movements of sleep and 45 were due to snoring. There were 323 periodic limb movements noted on this test. Limb movement index was 49, limb movement with arousal index was 2. There were no central, 28 obstructive and 1 mixed apnea on this test. Additionally, this patient had 137 hypopnea. Apnea-hypopnea index was 25.2 consistent with moderately severe sleep apnea. Supine AHI was 33. REM AHI was 60. 2496 snoring events were recorded. Total sleep time with snoring was 21%. Mean saturation was 92% with desaturations to 82%. Saturations were less than 89% for 11.8 minutes of recorded time. There was no cardiac ectopy noted on this test. Heart rates ranged from a low of 51 beats per minute to a high of 70 beats per minute. IMPRESSION AND PLAN: A 81-year-old female with moderately-severe sleep apnea and mild nocturnal hypoxemia as well as loud snoring on this test. 1. This patient would likely benefit from positive airway pressure therapy. She should return to sleep lab for a full night titration and then based on those results be started on equipment at home. A download from her machine can be reviewed in 1 month both to check compliance as well as AHI and further pressure adjustments can occur at that time. 2. Should this patient be unwilling or unable to tolerate CPAP therapy, she should be referred to ear, nose and throat or oral surgery/dental medicine (if appropriate) to discuss alternative treatments for sleep disorder breathing. 3. Alternatively, this patient could be started on auto titrating CPAP with pressures of 5-15 cm. A download from her machine reviewed in 1 month both to check compliance as well as AHI, and she can be set to optimal pressure at that time.
== END | disposition home or self-care (01) ==
LOC: C.NEUR 20:00
PROVIDERS: ATTEND Family Medicine
DX: R06.81 Apnea, not elsewhere classified (principal); R06.83 Snoring; G47.10 Hypersomnia, unspecified

== ENCOUNTER 2017-03-18 17:04 | Inpatient (IN) | payer OTHER ==
[~2017-03-18] VITALS: Ht 152.4 cm; Wt 69.0 kg
--- NOTE | 2017-03-18 17:46 | EMERGENCY ROOM VISIT NOTE ---
History Report prepared by Tyrell: Faizan Covington Under the Supervision of: Dr. Baljit Rader M.D. First contact with patient: 17:25 Chief Complaint: HYPERTENSION Stated Complaint: HIGH BP 215/95 History of Present Illness The patient is a 81 year old female who presents to the Emergency Room with complaints of intermittent weakness that began about 1 week ago. She was seen in the hospital for similar symptoms in June of this year, with an inpatient stay about 2 years ago. When she starts having episodes of this weakness, she is found to be hypertensive. She took her blood pressure twice today which showed a systolic pressure of above 200 mmHg. She denies any current headaches, dizziness, chest pain, shortness of breath, vomiting, diarrhea, abnormal urinary symptoms, or numbness. She states that at times she feels nauseated and lightheaded. She has been eating and drinking normally. She did not call her PCP today before arrival. She notes that she recently took part in a sleep study and has been using a C-PAP machine at night. She currently takes Hydralazine, Lasix, Losartan, and Clonidine. Source of History: patient Onset: 1 week ago Position: other (Global) Symptom Intensity: moderate Quality: other (Weakness) Timing: constant Associated Symptoms: + nausea, No headache, No chest pain, No SOB, No vomiting, No diarrhea, No urinary symptoms, No numbness Review of Systems See HPI for pertinent positives and negatives. A total of ten systems were reviewed and were otherwise negative. Past Medical & Surgical Medical Problems: (1) DM type 2 (diabetes mellitus, type 2) (2) Dyslipidemia (3) HTN (hypertension) (4) Hyponatremia (5) TIA (transient ischemic attack) Surgical Problems: (1) S/P carpal tunnel release (2) S/P cholecystectomy Family History Hypertension FATHER MOTHER Social History Smoking Status: Never Smoker Smokeless Tobacco Use: No Alcohol Use: none Drug Use: none Marital Status: Occupation Status: retired Current/Historical Medications Scheduled Aspirin (Wilfred Aspirin Ec Low Dose), 1 TAB PO HS Atorvastatin (Lipitor), 20 MG PO DAILY Cholecalciferol (Vitamin D), 1,000 MG PO 2XWK Clonidine Hcl ([id number]-9), 1 PATCH TOP WK Clopidogrel (Plavix), 75 MG PO DAILY Escitalopram (Lexapro), 10 MG PO DAILY Furosemide (Lasix), 20 MG PO DAILY Garlic (Garlic), Unknown Dose PO DAILY Hydralazine HCl (Hydralazine HCl), 50 MG PO TID Losartan Potassium (Cozaar), 50 MG PO BID Magnesium Chloride (Slow-Mag Tab), 64 MG PO DAILY Metformin Hcl (Glucophage), 1,000 MG PO BID Metoprolol Succinate (Toprol Xl), 1 TAB PO DAILY Multiple Vitamins W/ Minerals (Centrum Silver), 1 TAB PO DAILY Potassium Chloride (Micro-K Ext Rel), 10 MEQ PO DAILY Repaglinide (Prandin), 1 MG PO UD Scheduled PRN Fluticasone Propionate (Nasal) (Flonase Allergy Relief), 2 SPRAYS TJ DAILY PRN for Nasal Congestion Loratadine (Claritin), 10 MG PO DAILY PRN for ALLERGIC REACTION Saline ([place] Nasal [place]), 2 SPRAYS INH DAILY PRN for Nasal Congestion Allergies Coded Allergies: Amlodipine (Unverified Allergy, Severe, SWELLING AND FLUSHING, 03/18/17) Dust (Unverified Allergy, Mild, COUGH, 03/18/17) Molds and Smuts (Unverified Allergy, Mild, SINUS DRAINAGE/COUGH, 03/18/17) LORENA Inhibitors (Verified Adverse Reaction, Unknown, COUGH, 03/18/17) Physical Exam Vital Signs Date Time Temp Pulse Resp B/P (MAP) Pulse Ox O2 Delivery O2 Flow Rate FiO2 03/18/17 19:30 58 18 185/89 96 Room Air 03/18/17 19:00 59 18 172/83 98 Room Air 03/18/17 18:34 60 20 184/88 95 Room Air 03/18/17 17:57 64 03/18/17 17:54 96 Room Air 03/18/17 17:16 36.9 70 18 206/86 95 Room Air Physical Exam GENERAL: Awake, alert, well-appearing, in no distress HENT: Normocephalic, atraumatic. Oropharynx reveals dry mucous membranes. EYES: Normal conjunctiva. Sclera non-icteric. NECK: Supple. No nuchal rigidity. FROM. No JVD. RESPIRATORY: Clear to auscultation. CARDIAC: Regular rate, normal rhythm. Extremities warm and well perfused. Pulses equal. ABDOMEN: Soft, non-distended. No tenderness to palpation. No rebound or guarding. No masses. RECTAL: Deferred. MUSCULOSKELETAL: Chest examination reveals no tenderness. The back is symmetrical on inspection without obvious abnormality. There is no CVA tenderness to palpation. No joint edema. LOWER EXTREMITIES: Calves are equal size bilaterally and non-tender. No edema. No discoloration. NEURO: Normal sensorium. No sensory or motor deficits noted. SKIN: No rash or jaundice noted. Medical Decision & Procedures ER Provider Diagnostic Interpretation: Radiology results as stated below per my review and radiologist interpretation: CHEST ONE VIEW PORTABLE HISTORY: 81 years-old Female CHEST PAIN acute atypical chest pain COMPARISON: Chest radiograph 04/01/2016 TECHNIQUE: Portable AP view of the chest FINDINGS: Cardiomediastinal and hilar silhouettes are within normal limits. Atherosclerosis of the aorta. Mild right hemidiaphragmatic elevation is unchanged. No pneumothorax, pleural effusion or focal airspace consolidation. No overt pulmonary edema. Bones of the chest appear grossly intact. Cholecystectomy clips noted. IMPRESSION: No acute process. The above report was generated using voice recognition software. It may contain grammatical, syntax or spelling errors. Electronically signed by: Chema aJramillo M.D. 03/18/2017 6:27 PM Dictated Date/Time: 03/18/2017 6:26 PM Laboratory Results 03/18/17 17:50 Red Blood Count 4.62, Mean Corpuscular Volume 86.1, Mean Corpuscular Hemoglobin 30.3, Mean Corpuscular Hemoglobin Concent 35.2, Mean Platelet Volume 8.9, Neutrophils (%) (Auto) 70.0, Lymphocytes (%) (Auto) 17.0, Monocytes (%) (Auto) 9.5, Eosinophils (%) (Auto) 2.7, Basophils (%) (Auto) 0.4, Neutrophils # (Auto) 5.74, Lymphocytes # (Auto) 1.39, Monocytes # (Auto) 0.78, Eosinophils # (Auto) 0.22, Basophils # (Auto) 0.03 03/18/17 17:50 Test 03/18/17 17:50 03/18/17 18:23 White Blood Count 8.19 K/uL (4.8-10.8) Red Blood Count 4.62 M/uL (4.2-5.4) Hemoglobin 14.0 g/dL (12.0-16.0) Hematocrit 39.8 % (37-47) Mean Corpuscular Volume 86.1 fL (80-100) Mean Corpuscular Hemoglobin 30.3 pg (25-34) Mean Corpuscular Hemoglobin Concent 35.2 g/dl (32-36) Platelet Count 192 K/uL (130-400) Mean Platelet Volume 8.9 fL (7.4-10.4) Neutrophils (%) (Auto) 70.0 % Lymphocytes (%) (Auto) 17.0 % Monocytes (%) (Auto) 9.5 % Eosinophils (%) (Auto) 2.7 % Basophils (%) (Auto) 0.4 % Neutrophils # (Auto) 5.74 K/uL (1.4-6.5) Lymphocytes # (Auto) 1.39 K/uL (1.2-3.4) Monocytes # (Auto) 0.78 K/uL (0.11-0.59) Eosinophils # (Auto) 0.22 K/uL (0-0.5) Basophils # (Auto) 0.03 K/uL (0-0.2) RDW Standard Deviation 41.1 fL (36.4-46.3) RDW Coefficient of Variation 13.1 % (11.5-14.5) Immature Granulocyte % (Auto) 0.4 % Immature Granulocyte # (Auto) 0.03 K/uL (0.00-0.02) Anion Gap 6.0 mmol/L (3-11) Est Creatinine Clear Calc Drug Dose 39.8 ml/min Estimated GFR () 63.6 Estimated GFR (Non- 54.9 BUN/Creatinine Ratio 17.4 (10-20) Calcium Level 9.3 mg/dl (8.5-10.1) Total Bilirubin 0.5 mg/dl (0.2-1) Direct Bilirubin 0.2 mg/dl (0-0.2) Aspartate Amino Transf (AST/SGOT) 17 U/L (15-37) Alanine Aminotransferase (ALT/SGPT) 33 U/L (12-78) Alkaline Phosphatase 69 U/L (45-117) Troponin I < 0.015 ng/ml (0-0.045) Pro-B-Type Natriuretic Peptide 394 pg/ml (0-1800) Total Protein 8.3 gm/dl (6.4-8.2) Albumin 4.5 gm/dl (3.4-5.0) Lipase 107 U/L (73-393) Urine Color YELLOW Urine Appearance CLEAR (CLEAR) Urine pH 7.0 (4.5-7.5) Urine Specific [place] 1.009 (1.000-1.030) Urine Protein 1+ (NEG) Urine Glucose (UA) NEG (NEG) Urine Ketones NEG (NEG) Urine Occult Blood NEG (NEG) Urine Nitrite NEG (NEG) Urine Bilirubin NEG (NEG) Urine Urobilinogen NEG (NEG) Urine Leukocyte Esterase TRACE (NEG) Urine WBC (Auto) 1-5 /hpf (0-5) Urine RBC (Auto) 5-10 /hpf (0-4) Urine Hyaline Casts (Auto) 0 /lpf (0-5) Urine Epithelial Cells (Auto) 5-10 /lpf (0-5) Urine Bacteria (Auto) NEG (NEG) Laboratory results reviewed by me Medications Administered Medications (Trade) Dose Ordered Sig/Erick Route Start Time Stop Time Status Last Admin Dose Admin Sodium Chloride 500 ml @ 999 mls/hr Q31M STAT IV 03/18/17 19:04 03/18/17 19:34 DC 03/18/17 19:10 999 MLS/HR ECG Indication: other (HTN) Rate (beats per minute): 63 Rhythm: normal sinus Findings: no acute ischemic change, left axis deviation Comparison ECG Date: July 09, 2016 Change: no significant change ED Course 1725: The patient was evaluated in room A4. A complete history and physical exam was performed. 1943: Upon reexamination, the patient is still not improving. I discussed the test results and treatment plan with her. [facility] The patient will be evaluated for further management. Medical Decision I reviewed the patient's past medical history, medications, and the nursing notes as described above. Differential diagnosis includes but is not limited to: arrhythmia, ACS, pneumonia, PE, bronchitis, electrolyte abnormality, dehydration, MN, UTI, and idiopathic hypertension. The patient is a 81 y/o woman with a pmhx of HTN, hyponatremia who presents to the ED with 1 week of fatigue and with elevated BP at home of SBP to 200s. On arrival the patient is in NAD, AF, with SBP 200s but otherwise VSS. Neuro intact. Labs demonstrate hyponatremia to 127. Patient appears clinically dry. Given IVF with subsequent improvement in SBP to 180s. Case d/w Arabella Molina hospitalist, who will admit the patient for further management. Medication Reconcilliation Current Medication List: was personally reviewed by me Blood Pressure Screening Patient's blood pressure: Elevated blood pressure Referred to the hospitalist Consults Time Called: 1939 Consulting Physician: Dr. Adame - [facility] Returned Call: 1942 I discussed the patient with him - he will evaluate the patient for further treatment. Impression Primary Impression: Hyponatremia Additional Impression: Dehydration Scribe Attestation The scribe's documentation has been prepared under my direction and personally reviewed by me in its entirety. I confirm that the note above accurately reflects all work, treatment, procedures, and medical decision making performed by me. Departure Information Dispostion Being Evaluated By Hospitalist Referrals Vince Hook M.D. (PCP) Patient Instructions My [facility] Problem Qualifiers
[2017-03-18 17:58] LABS: BASO % 0.4 %; BASO ABS # 0.03 K/uL (0-0.2); COMPLETE YES; EOS % 2.7 %; HEMATOCRIT 39.8 % (37-47); IG% 0.4 %; LYMPH ABS # 1.39 K/uL (1.2-3.4); MEAN CELL VOLUME 86.1 fL (80-100); MEAN CORPUSCULAR HEMOGLOBIN 30.3 pg (25-34); MEAN CORPUSCULAR HGB CONC 35.2 g/dl (32-36); MEAN PLATELET VOLUME 8.9 fL (7.4-10.4); MONO % 9.5 %; PLATELET COUNT 192 K/uL (130-400); RED BLOOD COUNT 4.62 M/uL (4.2-5.4); WHITE BLOOD COUNT 8.19 K/uL (4.8-10.8)
[2017-03-18] MEDS ORDERED: PRVHFAIN INH (18:07)
[2017-03-18] MEDS ORDERED: ESCI10TA17 PO (18:08)
[2017-03-18] MEDS ORDERED: MAGN64TA4 PO (18:10)
[2017-03-18 18:16] LABS: ALT/SGPT 33 U/L (12-78); AST/SGOT 17 U/L (15-37); BLOOD UREA NITROGEN 17 mg/dl (7-18); BUN/CREATININE RATIO 17.4 (10-20); CALCIUM 9.3 mg/dl (8.5-10.1); CARBON DIOXIDE 28 mmol/L (21-32); CHLORIDE 93 mmol/L (98-107); CREATININE 0.98 mg/dl (0.60-1.20); GLUCOSE 173 mg/dl (70-99); POTASSIUM 3.8 mmol/L (3.5-5.1); SODIUM 127 mmol/L (136-145)
[2017-03-18] MEDS ORDERED: SLWMEC PO (18:16)
[2017-03-18 18:21] LABS: ALKALINE PHOSPHATASE 69 U/L (45-117)
--- NOTE | 2017-03-18 18:28 | DIAGNOSTIC IMAGING REPORT ---
CHEST ONE VIEW PORTABLE HISTORY: 81 years-old Female CHEST PAIN acute atypical chest pain COMPARISON: Chest radiograph 04/01/2016 TECHNIQUE: Portable AP view of the chest FINDINGS: Cardiomediastinal and hilar silhouettes are within normal limits. Atherosclerosis of the aorta. Mild right hemidiaphragmatic elevation is unchanged. No pneumothorax, pleural effusion or focal airspace consolidation. No overt pulmonary edema. Bones of the chest appear grossly intact. Cholecystectomy clips noted. IMPRESSION: No acute process. The above report was generated using voice recognition software. It may contain grammatical, syntax or spelling errors. Electronically signed by: Chema Jaramillo M.D. 03/18/2017 6:27 PM Dictated Date/Time: 03/18/2017 6:26 PM
[2017-03-18 18:40] LABS: URINE APPEARANCE CLEAR (CLEAR); URINE BILIRUBIN NEG (NEG); URINE COLOR YELLOW; URINE NITRITE NEG (NEG); URINE SPECIFIC GRAVITY 1.009 (1.000-1.030); UROBILINOGEN NEG (NEG); ZZUR CULT IF INDIC CLEAN CATCH NO
[2017-03-18 19:01] LABS: MANUAL MICROSCOPIC REQUIRED? NO; REVIEW REQ? NO
[2017-03-18] MEDS ORDERED: SODIUM CHLORIDE 0.9% 500ML 500 ML IV STA (19:04)
[2017-03-18] MEDS ORDERED: GARL1CAP6 PO (21:12)
[2017-03-18] MEDS ORDERED: DEXTROSE 50% 50 ML SYR IV PRN (21:15)
[2017-03-18] MEDS ORDERED: GLUCOSE 40% GEL 15 GM TUBE PO PRN (21:15)
[2017-03-18] MEDS ORDERED: GLUCAGON FOR INJ 1 MG VIAL SQ PRN (21:15)
[2017-03-18] MEDS ORDERED: GLUCOSE 10 TABS/TUBE PO PRN (21:15)
[2017-03-18] MEDS ORDERED: ONDANSETRON INJ 2 MG/ML 2 ML VIAL IV PRN (21:15)
[2017-03-18] MEDS ORDERED: ACETAMINOPHEN 325 MG TAB PO PRN (21:15)
[2017-03-18] MEDS ORDERED: LOSARTAN POTASSIUM 50 MG TAB PO STA (21:24)
--- NOTE | 2017-03-18 21:45 | History and Physical ---
History & Physical Date & Time of Service: Mar 18, 2017 ~ 20:45 Chief Complaint: Elevated BPs Primary Care Physician: Vince Hook M.D. History of Present Illness 81 year old female who presents to the ED with elevated blood pressures and generalized weakness. Patient reports she has been feeling generally weak for about one week. She has been intermittently monitoring her BPs at home and reports the systolic number has been running in the 170s-low 200s. She was seen at her chiropractor office today and had a BP measured via wrist cuff and was told the systolic number was 200. Patient has had problems with labile BPs in the pas felt to be partially due to anxiety. She was started on a CPAP machine about 6 months ago and reports her BPs had improved. She also has history of hyponatremia in the setting of Maxzide use. 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 Patient reports she does not follow her fluid intake closely. Of note, she was started on Lasix at the beginning of the year. Patient reports a mild posterior headache. She denies unilateral weakness, numbness, or tingling. No slurred speech, facial droop, or difficulty swallowing. She denies chest pain and shortness of breath. She reports intermittent lightheadedness but denies dizziness or syncopal events. She has occasional nausea but denies abdominal pain or vomiting. She had one episode of diarrhea today. No BRPBR or dark, tarry stools. No fevers or chills. She denies urinary symptoms. In the ED, BP was found to be 206/86 and is improving without intervention. Na+ is 127. She was given NSS 500ml. Past Medical/Surgical History Medical Problems: (1) DM type 2 (diabetes mellitus, type 2) Status: Chronic (2) Dyslipidemia Status: Chronic (3) HTN (hypertension) Status: Chronic (4) Hyponatremia Status: Chronic (5) TIA (transient ischemic attack) Status: Chronic Surgical Problems: (1) S/P carpal tunnel release Status: Resolved (2) S/P cholecystectomy Status: Resolved Family History Hypertension FATHER MOTHER Social History Smoking Status: Never Smoker Alcohol Use: none Immunizations History of Influenza Vaccine: Yes Influenza Vaccine Date: Feb 27, 2017 History of Tetanus Vaccine?: Yes Tetanus Immunization Date: Dec 04, 2007 History of Pneumococcal: Yes Pneumococcal Date: Oct 09, 2014 Multi-Drug Resistant Organisms History of MDRO: No Allergies Coded Allergies: Amlodipine (Unverified Allergy, Severe, SWELLING AND FLUSHING, 03/18/17) Dust (Unverified Allergy, Mild, COUGH, 03/18/17) Molds and Smuts (Unverified Allergy, Mild, SINUS DRAINAGE/COUGH, 03/18/17) LORENA Inhibitors (Verified Adverse Reaction, Unknown, COUGH, 03/18/17) Home Medications Scheduled Aspirin (Wilfred Aspirin Ec Low Dose), 1 TAB PO HS Atorvastatin (Lipitor), 20 MG PO DAILY Cholecalciferol (Vitamin D), 1,000 MG PO 2XWK Clonidine Hcl ([place]-Nmi-5), 1 PATCH TOP WK Clopidogrel (Plavix), 75 MG PO DAILY Escitalopram (Lexapro), 10 MG PO DAILY Furosemide (Lasix), 20 MG PO DAILY Garlic (Garlic), Unknown Dose PO DAILY Hydralazine HCl (Hydralazine HCl), 50 MG PO TID Losartan Potassium (Cozaar), 50 MG PO BID Magnesium Chloride (Slow-Mag Tab), 64 MG PO DAILY Metformin Hcl (Glucophage), 1,000 MG PO BID Metoprolol Succinate (Toprol Xl), 1 TAB PO DAILY Multiple Vitamins W/ Minerals (Centrum Silver), 1 TAB PO DAILY Potassium Chloride (Micro-K Ext Rel), 10 MEQ PO DAILY Repaglinide (Prandin), 1 MG PO UD Scheduled PRN Fluticasone Propionate (Nasal) (Flonase Allergy Relief), 2 SPRAYS TJ DAILY PRN for Nasal Congestion Loratadine (Claritin), 10 MG PO DAILY PRN for ALLERGIC REACTION Saline ([place] Nasal [place]), 2 SPRAYS INH DAILY PRN for Nasal Congestion Review of Systems ROS per HPI, all other systems reviewed and negative Physical Exam Vital Signs Date Time Temp Pulse Resp B/P (MAP) Pulse Ox O2 Delivery O2 Flow Rate FiO2 03/18/17 19:30 58 18 185/89 96 Room Air 03/18/17 19:00 59 18 172/83 98 Room Air 03/18/17 18:34 60 20 184/88 95 Room Air 03/18/17 17:57 64 03/18/17 17:54 96 Room Air 03/18/17 17:16 36.9 70 18 206/86 95 Room Air General Appearance: WD/WN, no apparent distress Head: normocephalic, atraumatic Eyes: normal inspection, PERRL, EOMI, sclerae normal ENT: hearing grossly normal, + pertinent finding (mucous membranes moist) Neck: supple, no JVD, trachea midline Respiratory/Chest: lungs clear, normal breath sounds, no respiratory distress Cardiovascular: regular rate, rhythm, no edema, normal peripheral pulses Abdomen/GI: normal bowel sounds, non tender, soft, no organomegaly Extremities/Musculoskelatal: normal inspection, no calf tenderness, normal capillary refill Neurologic/Psych: no motor/sensory deficits, alert, normal mood/affect, oriented x 3 Skin: normal color, warm/dry Diagnostics Laboratory Results Results Past 24 Hours Test 03/18/17 17:50 03/18/17 18:23 Range/Units White Blood Count 8.19 4.8-10.8 K/uL Red Blood Count 4.62 4.2-5.4 M/uL Hemoglobin 14.0 12.0-16.0 g/dL Hematocrit 39.8 37-47 % Mean Corpuscular Volume 86.1 80-100 fL Mean Corpuscular Hemoglobin 30.3 25-34 pg Mean Corpuscular Hemoglobin Concent 35.2 32-36 g/dl Platelet Count 192 130-400 K/uL Mean Platelet Volume 8.9 7.4-10.4 fL Neutrophils (%) (Auto) 70.0 % Lymphocytes (%) (Auto) 17.0 % Monocytes (%) (Auto) 9.5 % Eosinophils (%) (Auto) 2.7 % Basophils (%) (Auto) 0.4 % Neutrophils # (Auto) 5.74 1.4-6.5 K/uL Lymphocytes # (Auto) 1.39 1.2-3.4 K/uL Monocytes # (Auto) 0.78 0.11-0.59 K/uL Eosinophils # (Auto) 0.22 0-0.5 K/uL Basophils # (Auto) 0.03 0-0.2 K/uL RDW Standard Deviation 41.1 36.4-46.3 fL RDW Coefficient of Variation 13.1 11.5-14.5 % Immature Granulocyte % (Auto) 0.4 % Immature Granulocyte # (Auto) 0.03 0.00-0.02 K/uL Sodium Level 127 136-145 mmol/L Potassium Level 3.8 3.5-5.1 mmol/L Chloride Level 93 98-107 mmol/L Carbon Dioxide Level 28 21-32 mmol/L Anion Gap 6.0 3-11 mmol/L Blood Urea Nitrogen 17 7-18 mg/dl Creatinine 0.98 0.60-1.20 mg/dl Est Creatinine Clear Calc Drug Dose 39.8 ml/min Estimated GFR () 63.6 Estimated GFR (Non- 54.9 BUN/Creatinine Ratio 17.4 10-20 Random Glucose 173 70-99 mg/dl Calcium Level 9.3 8.5-10.1 mg/dl Total Bilirubin 0.5 0.2-1 mg/dl Direct Bilirubin 0.2 0-0.2 mg/dl Aspartate Amino Transf (AST/SGOT) 17 15-37 U/L Alanine Aminotransferase (ALT/SGPT) 33 12-78 U/L Alkaline Phosphatase 69 45-117 U/L Troponin I < 0.015 0-0.045 ng/ml Pro-B-Type Natriuretic Peptide 394 0-1800 pg/ml Total Protein 8.3 6.4-8.2 gm/dl Albumin 4.5 3.4-5.0 gm/dl Lipase 107 73-393 U/L Urine Color YELLOW Urine Appearance CLEAR CLEAR Urine pH 7.0 4.5-7.5 Urine Specific [place] 1.009 1.000-1.030 Urine Protein 1+ NEG Urine Glucose (UA) NEG NEG Urine Ketones NEG NEG Urine Occult Blood NEG NEG Urine Nitrite NEG NEG Urine Bilirubin NEG NEG Urine Urobilinogen NEG NEG Urine Leukocyte Esterase TRACE NEG Urine WBC (Auto) 1-5 0-5 /hpf Urine RBC (Auto) 5-10 0-4 /hpf Urine Hyaline Casts (Auto) 0 0-5 /lpf Urine Epithelial Cells (Auto) 5-10 0-5 /lpf Urine Bacteria (Auto) NEG NEG Diagnostic Radiology CXR IMPRESSION: No acute process. Impression Assessment and Plan HYPERTENSIVE URGENCY - admit to tele - patient presenting with generalized weakness and reported elevated BPs at home with systolics in the low 200s; in the ED, BP was found to be 206/86 and is improving without intervention - patient has history of labile BPs; partially felt to be driven by anxiety; patient was prescribed escitalopram however only takes on occasion - would avoid currently due to hyponatremia - also started CPAP uses about 6 months ago which helped BPs - for now will continue home regimen of losartan 50mg BID, hydralazine 50mg TID , metoprolol succinate 100mg daily, and clonidine patch; will give evening does of losartan and hydralazine now, monitor BP response, titrate meds as needed with consideration of increasing hydrazine to 75mg TID - patient reports a mild headache; no focal deficits on exam - no reports of chest pain - due to reports of lightheadedness, will check orthostatics HYPONATREMIA - recent Na+ levels - 127 (04/2016), 135 (08/2016) - Na+ 127 today - hx of hyponatremia in the past in the setting of Maxzide use and also SIADH - was started on Lasix at the beginning of the year; does not follow FR - will hold Lasix and initiate FR - follow Na+ DM - hgb a1c 6.7 04/2016 - hold oral agents and utilize SSI while hospitalized - update a1c HX TIA - continue ASA, Plavix, and statin SHIVANI - CPAP as per home settings DVT PROPHYLAXIS - SCDs until BPs are controlled CODE STATUS - Patient is a full code as per my discussion with her. DISPO - In my clinical judgment this beneficiary meets acute admission criteria, established by [facility], that includes being hospitalized through two midnights. VTE Prophylaxis VTE Risk Assessment Done? Y/N: Yes Risk Level: Moderate Note ATTENDING ADDENDUM Record reviewed. Patient interviewed and examined. Care coordinated with FAHEEM Shepard. Please refer to her documentation for patient's history. 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 Presented to ED complaining of weakness and elevated blood pressures. EXAM: General- no acute distress VS- as noted HEENT- PERRL, EOMI, anicteric Neck- no JVD Lungs- clear Heart- RRR, S4, no S3 Abdomen- + BS, soft, nontender Extremities- no pretibial edema or calf tenderness Neuro- alert DATA: Sodium 127. Random glucose 173. Other lab studies as noted. ASSESSMENT AND PLAN: HYPERTENSIVE URGENCY BP upon presentation to ED 206/86. Repeat blood pressures improved. Continue metoprolol, losartan, hydralazine, clonidine. Follow and titrate Rx. HYPONATREMIA Prior history of hyponatremia, followed by Nephrology. 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 Fluid restriction recommended, but pt does not measure fluid intake on regular basis. Furosemide could be contributing factor. Change furosemide to PRN. 1500 ml fluid restriction. Follow. Please refer to DARRICK Salas's documentation for discussion of other issues. Corby Adame MD .
[2017-03-18 22:45] VITALS: BMI 28.5
[2017-03-18 22:50] VITALS: BP 182/72; PULSE 64; TEMP 36.7; O2SAT 97
[2017-03-18] MEDS: CHECK CLONIDINE PATCH PLACEMENT SCH (23:55)
[2017-03-19] VITALS (10 sets, daily range): BP systolic 106–177; BP diastolic 57–76; PULSE 54–67; TEMP 36.4–36.9; O2SAT 94–97; Ht 152.4 cm; Wt 69.0 kg
[2017-03-19 08:07] LABS: HEMATOCRIT 36.5 % (37-47); MEAN CELL VOLUME 87.1 fL (80-100); MEAN CORPUSCULAR HEMOGLOBIN 30.1 pg (25-34); MEAN CORPUSCULAR HGB CONC 34.5 g/dl (32-36); MEAN PLATELET VOLUME 9.1 fL (7.4-10.4); PLATELET COUNT 176 K/uL (130-400); RED BLOOD COUNT 4.19 M/uL (4.2-5.4); WHITE BLOOD COUNT 5.39 K/uL (4.8-10.8)
[2017-03-19] MEDS: CHECK CLONIDINE PATCH PLACEMENT SCH ×2 (08:26→16:09)
[2017-03-19] MEDS: ATORVASTATIN 20 MG TAB PO SCH (08:28)
[2017-03-19] MEDS: MAGNESIUM CHLORIDE 64MG DELAYED REL TAB PO SCH (08:29)
[2017-03-19] MEDS: LOSARTAN POTASSIUM 50 MG TAB PO SCH ×2 (08:29→20:51)
[2017-03-19] MEDS: CLOPIDOGREL BISULFATE 75 MG TAB PO SCH (08:30)
[2017-03-19] MEDS: METOPROLOL SUCC 50MG EXT REL TAB PO SCH (08:30)
[2017-03-19] MEDS: CEROVITE ADV FORMULA TAB PO SCH (08:31)
[2017-03-19 08:34] LABS: BUN/CREATININE RATIO 16.9 (10-20); CREATININE 1.03 mg/dl (0.60-1.20); ESTIMATED AVERAGE GLUCOSE 192 mg/dl; HA1C FLAG Normal (Normal)
[2017-03-19] MEDS: INSULIN ASPART 100 UNITS/ML 3 ML PEN SC SCH ×3 (12:09→20:51)
--- NOTE | 2017-03-19 16:16 | Progress Note ---
Subjective Date of Service: Mar 19, 2017. Subjective Pt evaluation today including: conversation w/ patient, physical exam, lab review, review of studies, review of inpatient medication list Saw/examined the patient in room 241 No problems/issues today states her headache has improved She was slightly weak when she came in, but feeling better Problem List Medical Problems: (1) Anxiety Status: Acute (2) Dehydration Status: Acute (3) Elevated troponin Status: Acute (4) Hypertensive emergency Status: Acute (5) Hyponatremia Status: Chronic (6) Weakness Status: Acute Review of Systems Constitutional: No fever, No chills, No weakness Respiratory: No cough, No sputum, No shortness of breath Cardiac: No chest pain, No edema, No palpitations Abdomen: No pain, No nausea, No vomiting, No diarrhea Female : No dysuria, No urinary frequency, No hematuria, No incontinence Heme: No abnormal bleeding/bruising Medications Current Inpatient Medications Medications (Trade) Dose Ordered Sig/Erick Route Start Time Stop Time Status Last Admin Dose Admin Acetaminophen (Tylenol Tab) 650 mg Q4H PRN PO 03/18/17 21:15 04/17/17 21:14 Ondansetron HCl (Zofran Inj) 4 mg Q6H PRN IV 03/18/17 21:15 04/17/17 21:14 Aspirin (Ecotrin Tab) 81 mg HS PO 03/19/17 21:00 04/18/17 20:59 Atorvastatin Calcium (Lipitor Tab) 20 mg DAILY PO 03/19/17 09:00 04/18/17 08:59 03/19/17 08:28 20 MG Clonidine HCl ([id number]-Qds-0 0.2mg/24hr Patch) 1 patch Mo@0900 TD 03/23/17 09:00 04/22/17 08:59 Clopidogrel Bisulfate (plAVix TAB) 75 mg DAILY PO 03/19/17 09:00 04/18/17 08:59 03/19/17 08:30 75 MG Hydralazine HCl (Apresoline Tab) 50 mg TID PO 03/19/17 09:00 04/18/17 08:59 03/19/17 12:09 50 MG Magnesium Chloride (Slow-Mag Tab) 64 mg DAILY PO 03/19/17 09:00 04/18/17 08:59 03/19/17 08:29 64 MG Metoprolol Succinate (Toprol Xl Tab) 100 mg DAILY PO 03/19/17 09:00 04/18/17 08:59 03/19/17 08:30 100 MG Multivitamins/ Minerals (Multivitamin W/ Minerals Tab) 1 tab DAILY PO 03/19/17 09:00 04/18/17 08:59 03/19/17 08:31 1 TAB Losartan Potassium (coZAAR TAB) 50 mg BID PO 03/19/17 09:00 04/18/17 08:59 03/19/17 08:29 50 MG Glucose (Glucose 40% Gel) 15-30 GRAMS 15 GRAMS... UD PRN PO 03/18/17 21:15 04/17/17 21:14 Glucose (Glucose Chew Tab) 4-8 Tablets 4 Tabl... UD PRN PO 03/18/17 21:15 04/17/17 21:14 Dextrose (Dextrose 50% 50ML Syringe) 25-50ML OF 50% DW IV FOR... UD PRN IV 03/18/17 21:15 04/17/17 21:14 Glucagon (Glucagon Inj) 1 mg UD PRN SQ 03/18/17 21:15 04/17/17 21:14 Miscellaneous (Remove Clonidine Patch) 1 ea Mo@0859 N/A 03/23/17 08:59 04/22/17 08:58 Miscellaneous Information (Check Clonidine Patch Placement) 1 ea QS N/A 03/19/17 00:00 04/18/17 00:00 03/19/17 08:26 1 EA Insulin Aspart (novoLOG ASPART) SLIDING SCALE If C... ACHS SC 03/19/17 11:15 04/18/17 11:14 03/19/17 12:09 8 UNITS Objective Vital Signs Date Time Temp Pulse Resp B/P (MAP) Pulse Ox O2 Delivery O2 Flow Rate FiO2 03/19/17 15:11 36.8 54 16 152/72 (98) 96 Room Air 03/19/17 13:36 60 156/71 (99) 03/19/17 12:00 Room Air 03/19/17 10:52 173/67 (102) 03/19/17 10:51 36.5 59 20 177/71 (106) 96 Room Air 03/19/17 08:02 36.7 59 19 148/69 (95) 94 Room Air 03/19/17 08:00 Room Air 03/19/17 04:30 Room Air 03/19/17 03:25 36.9 55 18 106/65 (79) 97 Room Air 67 128/57 (80) 63 123/61 (81) 03/19/17 00:25 Room Air 03/18/17 22:50 36.7 64 18 182/72 (108) 97 Room Air 03/18/17 22:45 Room Air 03/18/17 22:41 63 18 169/66 96 03/18/17 22:03 57 03/18/17 21:30 62 18 173/72 96 Room Air 03/18/17 19:30 58 18 185/89 96 Room Air 03/18/17 19:00 59 18 172/83 98 Room Air 03/18/17 18:34 60 20 184/88 95 Room Air 03/18/17 17:57 64 03/18/17 17:54 96 Room Air 03/18/17 17:16 36.9 70 18 206/86 95 Room Air Physical Exam General Appearance: no apparent distress Respiratory/Chest: chest non-tender, lungs clear, normal breath sounds, no respiratory distress, no accessory muscle use Cardiovascular: regular rate, rhythm, no edema, no murmur Abdomen: normal bowel sounds, non tender, soft Extremities: normal inspection, no pedal edema Neurologic/Psychiatric: no motor/sensory deficits, alert, normal mood/affect Laboratory Results Last 24 Hours Test 03/18/17 17:50 03/18/17 18:23 03/19/17 06:53 03/19/17 07:46 White Blood Count 8.19 K/uL 5.39 K/uL Red Blood Count 4.62 M/uL 4.19 M/uL Hemoglobin 14.0 g/dL 12.6 g/dL Hematocrit 39.8 % 36.5 % Mean Corpuscular Volume 86.1 fL 87.1 fL Mean Corpuscular Hemoglobin 30.3 pg 30.1 pg Mean Corpuscular Hemoglobin Concent 35.2 g/dl 34.5 g/dl Platelet Count 192 K/uL 176 K/uL Mean Platelet Volume 8.9 fL 9.1 fL Neutrophils (%) (Auto) 70.0 % Lymphocytes (%) (Auto) 17.0 % Monocytes (%) (Auto) 9.5 % Eosinophils (%) (Auto) 2.7 % Basophils (%) (Auto) 0.4 % Neutrophils # (Auto) 5.74 K/uL Lymphocytes # (Auto) 1.39 K/uL Monocytes # (Auto) 0.78 K/uL Eosinophils # (Auto) 0.22 K/uL Basophils # (Auto) 0.03 K/uL RDW Standard Deviation 41.1 fL 42.7 fL RDW Coefficient of Variation 13.1 % 13.4 % Immature Granulocyte % (Auto) 0.4 % Immature Granulocyte # (Auto) 0.03 K/uL Sodium Level 127 mmol/L 133 mmol/L Potassium Level 3.8 mmol/L 4.0 mmol/L Chloride Level 93 mmol/L 98 mmol/L Carbon Dioxide Level 28 mmol/L 30 mmol/L Anion Gap 6.0 mmol/L 5.0 mmol/L Blood Urea Nitrogen 17 mg/dl 17 mg/dl Creatinine 0.98 mg/dl 1.03 mg/dl Est Creatinine Clear Calc Drug Dose 39.8 ml/min 37.6 ml/min Estimated GFR () 63.6 59.9 Estimated GFR (Non- 54.9 51.7 BUN/Creatinine Ratio 17.4 16.9 Random Glucose 173 mg/dl 179 mg/dl Calcium Level 9.3 mg/dl 9.0 mg/dl Total Bilirubin 0.5 mg/dl Direct Bilirubin 0.2 mg/dl Aspartate Amino Transf (AST/SGOT) 17 U/L Alanine Aminotransferase (ALT/SGPT) 33 U/L Alkaline Phosphatase 69 U/L Troponin I < 0.015 ng/ml Pro-B-Type Natriuretic Peptide 394 pg/ml Total Protein 8.3 gm/dl Albumin 4.5 gm/dl Lipase 107 U/L Urine Color YELLOW Urine Appearance CLEAR Urine pH 7.0 Urine Specific [place] 1.009 Urine Protein 1+ Urine Glucose (UA) NEG Urine Ketones NEG Urine Occult Blood NEG Urine Nitrite NEG Urine Bilirubin NEG Urine Urobilinogen NEG Urine Leukocyte Esterase TRACE Urine WBC (Auto) 1-5 /hpf Urine RBC (Auto) 5-10 /hpf Urine Hyaline Casts (Auto) 0 /lpf Urine Epithelial Cells (Auto) 5-10 /lpf Urine Bacteria (Auto) NEG Bedside Glucose 192 mg/dl Estimated Average Glucose 192 mg/dl Hemoglobin A1c 8.3 % Test 03/19/17 10:55 03/19/17 15:54 Bedside Glucose 238 mg/dl Assessment and Plan This is a 81 year old female with a PMH of DM2, SHIVANI on CPAP, HTN, SIADH and hyponatremia presents to the ER after being sent by her chiropractor for high blood pressure Hypertensive Urgency she initially presented with SBP > 200 she is on clonidine patch, Cozaar, Hydralazine and metoprolol her BP is much improved will monitor BP and adjust accordingly Hyponatremia underlying SIADH fluid restriction of 1500mL she was taking Lasix daily; plan is to change this to M-W-F dosing Na is up from 127 to 133, will monitor Na DM2 Ha1c = 8.3%, uncontrolled diabetic education will continue metformin on discharge she will need Prandin on discharge - she was prescribed this, but has not been taking it SHIVANI CPAP Hx. of CVA continue duel antiplatelets DVT ppx SCDs FULL CODE
[2017-03-19] MEDS: ASPIRIN 81 MG ECTAB PO SCH (20:51)
[2017-03-19] MEDS ORDERED: INSULIN ASPART 100 UNITS/ML 3 ML PEN SC SCH (22:00)
[2017-03-20] VITALS (7 sets, daily range): BP systolic 131–171; BP diastolic 66–79; PULSE 50–65; TEMP 36.4–36.6; O2SAT 95–97
[2017-03-20 06:58] LABS: HEMATOCRIT 35.7 % (37-47); MEAN CELL VOLUME 86.4 fL (80-100); MEAN CORPUSCULAR HEMOGLOBIN 29.5 pg (25-34); MEAN CORPUSCULAR HGB CONC 34.2 g/dl (32-36); PLATELET COUNT 159 K/uL (130-400); RED BLOOD COUNT 4.13 M/uL (4.2-5.4); WHITE BLOOD COUNT 5.21 K/uL (4.8-10.8)
[2017-03-20 07:28] LABS: BUN/CREATININE RATIO 20.2 (10-20); CALCIUM 8.8 mg/dl (8.5-10.1); CREATININE 1.12 mg/dl (0.60-1.20); MAGNESIUM 1.8 mg/dl (1.8-2.4); POTASSIUM 4.3 mmol/L (3.5-5.1)
[2017-03-20] MEDS: ATORVASTATIN 20 MG TAB PO SCH (08:18)
[2017-03-20] MEDS: CEROVITE ADV FORMULA TAB PO SCH (08:19)
[2017-03-20] MEDS: CLOPIDOGREL BISULFATE 75 MG TAB PO SCH (08:19)
[2017-03-20] MEDS: LOSARTAN POTASSIUM 50 MG TAB PO SCH (08:19)
[2017-03-20] MEDS: METOPROLOL SUCC 50MG EXT REL TAB PO SCH (08:19)
[2017-03-20] MEDS: CHECK CLONIDINE PATCH PLACEMENT SCH ×2 (08:19)
[2017-03-20] MEDS: ASPIRIN 81 MG ECTAB PO SCH (08:20)
[2017-03-20] MEDS: MAGNESIUM CHLORIDE 64MG DELAYED REL TAB PO SCH (08:20)
[2017-03-20] MEDS: INSULIN ASPART 100 UNITS/ML 3 ML PEN SC SCH ×2 (08:23→12:46)
--- NOTE | 2017-03-20 14:36 | Progress Note ---
Subjective Date of Service: Mar 20, 2017. Subjective Pt evaluation today including: conversation w/ patient, physical exam, lab review, review of studies, review of inpatient medication list Problem List Medical Problems: (1) Anxiety Status: Acute (2) Dehydration Status: Acute (3) Elevated troponin Status: Acute (4) Hypertensive emergency Status: Acute (5) Hyponatremia Status: Chronic (6) Weakness Status: Acute Review of Systems Constitutional: No fever, No chills Respiratory: No cough, No sputum, No wheezing, No shortness of breath, No dyspnea on exertion, No dyspnea at rest, No hemoptysis Cardiac: No chest pain Abdomen: No pain, No nausea, No vomiting, No diarrhea, No constipation, No GI bleeding Heme: No abnormal bleeding/bruising Medications Current Inpatient Medications Medications (Trade) Dose Ordered Sig/Erick Route Start Time Stop Time Status Last Admin Dose Admin Acetaminophen (Tylenol Tab) 650 mg Q4H PRN PO 03/18/17 21:15 04/17/17 21:14 03/19/17 20:53 650 MG Ondansetron HCl (Zofran Inj) 4 mg Q6H PRN IV 03/18/17 21:15 04/17/17 21:14 Aspirin (Ecotrin Tab) 81 mg HS PO 03/19/17 21:00 04/18/17 20:59 03/20/17 08:20 81 MG Atorvastatin Calcium (Lipitor Tab) 20 mg DAILY PO 03/19/17 09:00 04/18/17 08:59 03/20/17 08:18 20 MG Clonidine HCl (Rzvbvqnq-Sku-1 0.2mg/24hr Patch) 1 patch Mo@0900 TD 03/23/17 09:00 04/22/17 08:59 Clopidogrel Bisulfate (plAVix TAB) 75 mg DAILY PO 03/19/17 09:00 04/18/17 08:59 03/20/17 08:19 75 MG Hydralazine HCl (Apresoline Tab) 50 mg TID PO 03/19/17 09:00 04/18/17 08:59 03/20/17 12:43 50 MG Magnesium Chloride (Slow-Mag Tab) 64 mg DAILY PO 03/19/17 09:00 04/18/17 08:59 03/20/17 08:20 64 MG Metoprolol Succinate (Toprol Xl Tab) 100 mg DAILY PO 03/19/17 09:00 04/18/17 08:59 03/20/17 08:19 100 MG Multivitamins/ Minerals (Multivitamin W/ Minerals Tab) 1 tab DAILY PO 03/19/17 09:00 04/18/17 08:59 03/20/17 08:19 1 TAB Losartan Potassium (coZAAR TAB) 50 mg BID PO 03/19/17 09:00 04/18/17 08:59 03/20/17 08:19 50 MG Glucose (Glucose 40% Gel) 15-30 GRAMS 15 GRAMS... UD PRN PO 03/18/17 21:15 04/17/17 21:14 Glucose (Glucose Chew Tab) 4-8 Tablets 4 Tabl... UD PRN PO 03/18/17 21:15 04/17/17 21:14 Dextrose (Dextrose 50% 50ML Syringe) 25-50ML OF 50% DW IV FOR... UD PRN IV 03/18/17 21:15 04/17/17 21:14 Glucagon (Glucagon Inj) 1 mg UD PRN SQ 03/18/17 21:15 04/17/17 21:14 Miscellaneous (Remove Clonidine Patch) 1 ea Mo@0859 N/A 03/23/17 08:59 04/22/17 08:58 Miscellaneous Information (Check Clonidine Patch Placement) 1 ea QS N/A 03/19/17 00:00 04/18/17 00:00 03/20/17 08:19 1 EA Insulin Aspart (novoLOG ASPART) SLIDING SCALE If C... ACHS SC 03/19/17 11:15 04/18/17 11:14 03/20/17 12:46 7 UNITS Objective Vital Signs Date Time Temp Pulse Resp B/P (MAP) Pulse Ox O2 Delivery O2 Flow Rate FiO2 03/20/17 12:00 96 Room Air 03/20/17 11:08 36.6 50 18 171/79 (109) 95 Room Air 03/20/17 08:33 65 131/68 (89) 61 139/77 (97) 64 147/72 (97) 03/20/17 08:00 96 Room Air 03/20/17 07:37 36.5 55 16 170/66 (100) 96 Room Air 03/20/17 03:00 Room Air 03/20/17 02:57 36.4 57 19 138/74 (95) 97 Room Air 03/19/17 23:35 CPAP 03/19/17 23:29 36.6 54 19 138/69 (92) 96 CPAP 03/19/17 20:00 96 Room Air 03/19/17 19:46 36.4 56 18 176/76 (109) 96 Room Air 03/19/17 16:00 96 Room Air 03/19/17 15:11 36.8 54 16 152/72 (98) 96 Room Air Physical Exam General Appearance: no apparent distress Respiratory/Chest: lungs clear, normal breath sounds, no respiratory distress, no accessory muscle use Cardiovascular: regular rate, rhythm, no edema, no murmur Abdomen: normal bowel sounds, non tender, soft Extremities: normal range of motion, non-tender, normal inspection, no pedal edema, no calf tenderness Neurologic/Psychiatric: no motor/sensory deficits, alert, normal mood/affect Laboratory Results Last 24 Hours Test 03/19/17 15:54 03/19/17 20:23 03/20/17 06:34 03/20/17 06:39 Bedside Glucose 138 mg/dl 147 mg/dl 188 mg/dl White Blood Count 5.21 K/uL Red Blood Count 4.13 M/uL Hemoglobin 12.2 g/dL Hematocrit 35.7 % Mean Corpuscular Volume 86.4 fL Mean Corpuscular Hemoglobin 29.5 pg Mean Corpuscular Hemoglobin Concent 34.2 g/dl RDW Standard Deviation 42.0 fL RDW Coefficient of Variation 13.2 % Platelet Count 159 K/uL Mean Platelet Volume 9.0 fL Sodium Level 131 mmol/L Potassium Level 4.3 mmol/L Chloride Level 98 mmol/L Carbon Dioxide Level 28 mmol/L Anion Gap 5.0 mmol/L Blood Urea Nitrogen 23 mg/dl Creatinine 1.12 mg/dl Est Creatinine Clear Calc Drug Dose 35.3 ml/min Estimated GFR () 54.1 Estimated GFR (Non- 46.7 BUN/Creatinine Ratio 20.2 Random Glucose 196 mg/dl Calcium Level 8.8 mg/dl Magnesium Level 1.8 mg/dl Test 03/20/17 11:10 Bedside Glucose 197 mg/dl Assessment and Plan This is a 81 year old female with a PMH of DM2, SHIVANI on CPAP, HTN, SIADH and hyponatremia presents to the ER after being sent by her chiropractor for high blood pressure Hypertensive Urgency 03/20 blood pressure improved will continue Clonidine patch, Cozaar, Hydralazine and Metoprolol outpatient PCP f/u on Thursday to recheck BP 03/19 she initially presented with SBP > 200 she is on clonidine patch, Cozaar, Hydralazine and metoprolol her BP is much improved will monitor BP and adjust accordingly Hyponatremia underlying SIADH fluid restriction of 1500mL she was taking Lasix daily; plan is to change this to dosing Na is up from 127 to 133, will monitor Na DM2 Ha1c = 8.3%, uncontrolled diabetic education will continue metformin on discharge she will need Prandin on discharge - she was prescribed this, but has not been taking it SHIVANI CPAP Hx. of CVA continue duel antiplatelets DVT ppx SCDs FULL CODE
[2017-03-20] MEDS ORDERED: FURO-85 PO (14:41)
--- NOTE | 2017-03-20 14:44 | Discharge Instructions ---
Discharge Instructions Date of Service Mar 20, 2017. Admission Reason for Admission: Hypertensive Urgency, Hyponatremia Discharge Discharge Diagnosis / Problem: Hypertensive Urgency, Hyponatremia, SIADH Discharge Goals Goal(s): Decrease discomfort, Improve function, Diagnostic testing, Therapeutic intervention Activity Recommendations Activity Limitations: resume your previous activity . Instructions / Follow-Up Instructions / Follow-Up Please follow-up with Dr. Hook on March 27 at 2:35PM * Your dose of Lasix is changed to 20mg only on - You should have your sodium rechecked next week as outpatient * You should continue your current blood pressure medications - PCP should recheck blood pressure in the office and adjust meds accordingly * Your Ha1c is 8.3% - continue metformin - PCP should consider adding Januvia or a second medication Current Hospital Diet Patient's current hospital diet: Diabetes Type 2 Diet Discharge Diet Recommended Diet: Diabetes Type 2 Diet Fluid Restriction: 1500 ml (6 cups) Pending Studies Studies pending at discharge: no Laboratory Results Hemoglobin A1c Test 03/19/17 07:46 Range/Units Estimated Average Glucose 192 mg/dl Hemoglobin A1c 8.3 H 4.5-5.6 % Medical Emergencies . Who to Call and When: Medical Emergencies: If at any time you feel your situation is an emergency, please call 911 immediately. . Non-Emergent Contact Non-Emergency issues call your: Primary Care Provider . . "Provider Documentation" section prepared by Jamie Youssef. . VTE Core Measure Inpt VTE Proph given/why not?: SCD's
--- NOTE | 2017-03-20 14:47 | Discharge Summary ---
Discharge Summary Date of Service Mar 20, 2017. Discharge Summary Admission Date: Mar 18, 2017 at 21:07 Discharge Date: Mar 20, 2017 Discharge Disposition: Home Principal Diagnosis: Hypertensive Urgency Hyponatremia Uncontrolled DM2 SIADH Medication Reconciliation Changed Medications: Furosemide (Lasix) 20 Mg Tab 20 MG PO MWF for 30 Days, TAB (Changed from: DAILY) Continued Medications: Aspirin (Wilfred Aspirin Ec Low Dose) 81 Mg Tab 1 TAB PO HS for 30 Days, #30 TAB 3 Refills Atorvastatin (Lipitor) 20 Mg Tab 20 MG PO DAILY, TAB Cholecalciferol (Vitamin D) 1,000 Unit Tab 1000 MG PO 2XWK Clonidine Hcl (Nixgnygo-Spp-8) 0.2 Mg/24 Hr Dis 1 PATCH TOP WK Clopidogrel (Plavix) 75 Mg Tab 75 MG PO DAILY, TAB Escitalopram (Lexapro) 10 Mg Tab 10 MG PO DAILY, TAB does not take regularly Fluticasone Propionate (Nasal) (Flonase Allergy Relief) 50 Mcg/Act Spr 2 SPRAYS TJ DAILY PRN for Nasal Congestion Garlic (Garlic) Unknown Strength Cap Unknown Dose PO DAILY Hydralazine HCl (Hydralazine HCl) 50 Mg Tab 50 MG PO TID, #90 TAB 5 Refills Loratadine (Claritin) 10 Mg Tab 10 MG PO DAILY PRN for ALLERGIC REACTION, TAB Losartan Potassium (Cozaar) 50 Mg Tab 50 MG PO BID, TAB Magnesium Chloride (Slow-Mag Tab) 64 Mg Tabcr 64 MG PO DAILY, TAB Metformin Hcl (Glucophage) 1,000 Mg Tab 1000 MG PO BID for 30 Days, #6 TAB 5 Refills Metoprolol Succinate (Toprol Xl) 100 Mg Tab 1 TAB PO DAILY for 30 Days, #30 TAB 5 Refills Multiple Vitamins W/ Minerals (Centrum Silver) 1 Chw Chw 1 TAB PO DAILY Potassium Chloride (Micro-K Ext Rel) 10 Meq Capcr 10 MEQ PO DAILY, CAP TAKE 1 TABLET BY MOUTH EVERY DAY YOU TAKE LASIX Repaglinide (Prandin) 1 Mg Tab 1 MG PO UD, TAB TAKE BEFORE MEAL IF SUGAR GREATER THAN 140 Saline (Vance Nasal [place]) 0.65 % Spr 2 SPRAYS INH DAILY PRN for Nasal Congestion Admission Information HPI (per Admitting provider): 81 year old female who presents to the ED with elevated blood pressures and generalized weakness. Patient reports she has been feeling generally weak for about one week. She has been intermittently monitoring her BPs at home and reports the systolic number has been running in the 170s-low 200s. She was seen at her chiropractor office today and had a BP measured via wrist cuff and was told the systolic number was 200. Patient has had problems with labile BPs in the pas felt to be partially due to anxiety. She was started on a CPAP machine about 6 months ago and reports her BPs had improved. She also has history of hyponatremia in the setting of Maxzide use. 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 Patient reports she does not follow her fluid intake closely. Of note, she was started on Lasix at the beginning of the year. Patient reports a mild posterior headache. She denies unilateral weakness, numbness, or tingling. No slurred speech, facial droop, or difficulty swallowing. She denies chest pain and shortness of breath. She reports intermittent lightheadedness but denies dizziness or syncopal events. She has occasional nausea but denies abdominal pain or vomiting. She had one episode of diarrhea today. No BRPBR or dark, tarry stools. No fevers or chills. She denies urinary symptoms. In the ED, BP was found to be 206/86 and is improving without intervention. Na+ is 127. She was given NSS 500ml. Physical Exam (per Admitting): General Appearance: WD/WN, no apparent distress Head: normocephalic, atraumatic Eyes: normal inspection, PERRL, EOMI, sclerae normal ENT: hearing grossly normal, + pertinent finding (mucous membranes moist) Neck: supple, no JVD, trachea midline Respiratory/Chest: lungs clear, normal breath sounds, no respiratory distress Cardiovascular: regular rate, rhythm, no edema, normal peripheral pulses Abdomen/GI: normal bowel sounds, non tender, soft, no organomegaly Extremities/Musculoskelatal: normal inspection, no calf tenderness, normal capillary refill Neurologic/Psych: no motor/sensory deficits, alert, normal mood/affect, oriented x 3 Skin: normal color, warm/dry Hospital Course This is a 81 year old female with a PMH of DM2, SHIVANI on CPAP, HTN, SIADH and hyponatremia presents to the ER after being sent by her chiropractor for high blood pressure Hypertensive Urgency 03/20 blood pressure improved will continue Clonidine patch, Cozaar, Hydralazine and Metoprolol outpatient PCP f/u on Thursday to recheck BP 03/19 she initially presented with SBP > 200 she is on clonidine patch, Cozaar, Hydralazine and metoprolol her BP is much improved will monitor BP and adjust accordingly Hyponatremia underlying SIADH fluid restriction of 1500mL she was taking Lasix daily; plan is to change this to dosing Na is up from 127 to 133, will monitor Na DM2 Ha1c = 8.3%, uncontrolled diabetic education will continue metformin on discharge she will need Prandin on discharge - she was prescribed this, but has not been taking it SHIVANI CPAP Hx. of CVA continue duel antiplatelets DVT ppx SCDs FULL CODE Total time spent on discharge = 40 minutes This includes examination of the patient, discharge planning, medication reconciliation, and communication with other providers. Discharge Instructions Please follow-up with Dr. Hook on March 27 at 2:35PM * Your dose of Lasix is changed to 20mg only on - You should have your sodium rechecked next week as outpatient * You should continue your current blood pressure medications - PCP should recheck blood pressure in the office and adjust meds accordingly * Your Ha1c is 8.3% - continue metformin - PCP should consider adding Januvia or a second medication
[2017-03-23] MEDS ORDERED: CLONIDINE HCL 0.2 MG/24 HR TRANSDERM SYS TD SCH (09:00)
== END 2017-03-20 15:04 | disposition home or self-care (01) | DRG 305 ==
LOC: C.EDB 17:05 → C.2T 21:07 → ENRESERV 22:17
PROVIDERS: ADMIT Hospitalist; ATTEND Family Medicine
DX: I16.0 Hypertensive urgency (principal); E22.2 Syndrome of inappropriate secretion of antidiuretic hormone; E11.9 Type 2 diabetes mellitus without complications; E78.5 Hyperlipidemia, unspecified; Z86.73 Personal history of transient ischemic attack (TIA), and cerebral infarction without residual deficits; E86.0 Dehydration; G47.33 Obstructive sleep apnea (adult) (pediatric); I10 Essential (primary) hypertension

== ENCOUNTER 2021-01-02 12:13 | Inpatient (IN) ==
[2021-01-02] MEDS ORDERED: LORazepam 0.25 MG/0.5 ML VIAL IV STA (13:11)
[2021-01-02 13:27] LABS: Basophils # (auto) 0.02 K/uL (0-0.2); Basophils % (auto) 0.2 %; Eosinophils # (auto) 0.11 K/uL (0-0.5); Eosinophils % (auto) 1.2 %; Hematocrit (blood only) 41.3 % (37-47); Hemoglobin 14.5 g/dL (12.0-16.0); Immature Granulocytes # (auto) 0.01 K/uL (0.00-0.02); Immature Granulocytes % (auto) 0.1 %; Lymphocytes # (auto) 1.08 K/uL (1.2-3.4); Lymphocytes % (auto) 11.8 %; Mean Corpuscular Hemoglobin 30.4 pg (25-34); Mean Corpuscular Hgb Conc 35.1 g/dL (32-36); Mean Corpuscular Volume 86.6 fL (80-100); Mean Platelet Volume 9.8 fL (7.4-10.4); Monocytes # (auto) 0.66 K/uL (0.11-0.59); Monocytes % (auto) 7.2 %; Neutrophils # (auto) 7.29 K/uL (1.4-6.5); Neutrophils % (auto) 79.5 %; Platelet Count 234 K/uL (130-400); RDW Standard Deviation 44.6 fL (36.4-46.3); Red Blood Count 4.77 M/uL (4.2-5.4); White Blood Count 9.17 K/uL (4.8-10.8)
[2021-01-02 13:37] LABS: BUN Creatinine Ratio 13.9 (10-20); Blood Urea Nitrogen 13 mg/dl (7-18); Calcium 9.5 mg/dl (8.5-10.1); Carbon Dioxide 24 mmol/L (21-32); Chloride 95 mmol/L (98-107); Creatinine Clr Calc Pharmacy 38.6 ml/min; Est GFR (African American) 63.4 ml/min; Est GFR (Non-African American) 54.7 ml/min; Glucose 163 mg/dl (70-99); Lipase 84 U/L (73-393); Potassium 3.9 mmol/L (3.5-5.1); Sodium 127 mmol/L (136-145)
[2021-01-02 13:39] LABS: INR 1.1 (0.9-1.1); Partial Thromboplastin Ratio 1.1; Partial Thromboplastin Time 30.2 Seconds (21.0-31.0); Prothrombin Time 11.4 Seconds (9.0-12.0)
[2021-01-02 13:41] LABS: Troponin I < 0.015 ng/ml (0-0.045)
[2021-01-02 13:58] LABS: Oxygen Saturation VBG 64.9 %; pH VBG 7.39 (7.36-7.41)
--- NOTE | 2021-01-02 14:00 | CT Scan Report ---
HEAD CT NONCONTRAST CT DOSE: 638.56 mGycm HISTORY: Headache. TECHNIQUE: Multiaxial CT images of the head were performed without the use of intravenous contrast. A utomated exposure control was utilized for this study. A dose lowering technique was utilized adheri ng to the principles of ALARA. Comparison: Head CT 05/14/2020. Findings: The paranasal sinuses and mastoid air cells are clear. The calvarium and skull base are int act. There is no mass, hematoma, midline shift, acute infarct. White matter hypodensity is nonspecifi c but suggestive of microvascular ischemic change. The ventricles and sulci demonstrate mild age-rela mark involutional changes. Impression: No significant change compared to the prior study. No acute intracranial abnormality. ACT 112: Negative or not required by law. Electronically signed by: Dave Cano M.D. 01/02/2021 1:58 PM
[2021-01-02] MEDS: SODIUM CHLORIDE 0.9% 500 ML IV SCH ×2 (14:46→18:38)
[2021-01-02] MEDS ORDERED: hydrALAZINE HCL 25 MG TAB PO STA (15:02)
--- NOTE | 2021-01-02 15:21 | History & Physical Report ---
Date of Service January 02, 2021 Assessment & Plan (1) Hypertensive urgency: Plan: Patient is 85-year-old female with PMH DM II, HTN, dyslipidemia, SHIVANI on CPAP, LVH, CKD III, TIA, anxiety presented to ER with complaint of not feeling well. Patient states past couple of days has been having generalized weakness. States is able to ambulate has not had any falls. She reports is also had intermittent frontal, posterior headache and aching of her maxillary sinuses. She states yesterday felt like she could feel her heart beating. She reports her daughter is a nurse and checked her pulse and reported that it was regular and not tachycardic. She reports she has been taking her blood pressure at home and systolics over 200. Patient states has been taking her blood pressure medication as directed. She also reports chronic intermittent nausea after taking her insulin. Patient states past couple of days has also had this and has not been eating or drinking much. She reports normal BM yesterday. Reports today had 3 loose BMs. States abdomen feels "queasy" denies any abdominal pain. Reports chronic intermittent left finger paresthesias, reports history of carpal tunnel reports this is at baseline. Denies chest pain. Denies fever/chills, diaphoresis, vomiting, constipation, hematochezia, melena, dizziness, syncope, vision changes, neck pain, SOB, orthopnea, cough, sore throat, choking, rhinorrhea, other paresthesias, extremity edema, rashes, urin bertha symptoms. In ER patient afebrile, P: 69, R: 18, BP one 211/82, 179/98, 95% on room air. Negative troponin, EKG without acute ST elevation, corrected sodium: 128. CT head no acute change. CXR: In ER given lorazepam 0.25 mg IV Hydralazine IV as needed Continue clonidine patch, hydralazine, losartan, metoprolol succinate If no improvement in BP consider cardiology consult (2) Hyponatremia: Plan: Acute on chronic hyponatremia Baseline sodium 132 Corrected sodium 128 for glucose 163. May be secondary to diarrhea, poor oral intake In ER given NSS at 125 ml/hour total 500 mL Monitor BMP (3) Weakness: Plan: Generalized tenderness for several days No focal findings on exam May be secondary to hypoglycemia PT OT eval (4) Diarrhea: Plan: Reported 3 episodes of loose stools today If recurrent diarrhea obtain C. difficile (5) DM type 2 (diabetes mellitus, type 2): Plan: A1c: 7.0 on 08/20/2020 Hold home meds NovoLog, Lantus per protocol (6) TIA (transient ischemic attack): Plan: History TIA versus hypertension emergency in past Continue aspirin, Plavix, atorvastatin (7) CKD (chronic kidney disease), stage III: Plan: Cr: 0.96. Baseline creatinine 1.0 Monitor renal functions, avoid nephrotoxic agents when possible (8) Dyslipidemia: Plan: Continue atorvastatin (9) Anxiety: Plan: Continue escitalopram (10) SHIVANI (obstructive sleep apnea): Plan: Continue CPAP at bedtime DVT Prophylaxis -Lovenox SQ Full code as per discussion with pt Follows with Dr Hook for routine care Pt was seen and care coordinated with Dr Mayo. See addendum History of Present Illness Chief Complaint: "Not feeling well" Primary Care Provider: Vince Hook MD Patient is 85-year-old female with PMH DM II, HTN, dyslipidemia, SHIVNAI on CPAP, LVH, CKD III, TIA, anxiety presented to ER with complaint of not feeling well. Patient states past couple of days has been having generalized weakness. States is able to ambulate has not had any falls. She reports is also had intermittent frontal, posterior headache and aching of her maxillary sinuses. She states yesterday felt like she could feel her heart beating. She reports her daughter is a nurse and checked her pulse and reported that it was regular and not tachycardic. She reports she has been taking her blood pressure at home and systolics over 200. Patient states has been taking her blood pressure medication as directed. She also reports chronic intermittent nausea after taking her insulin. Patient states past couple of days has also had this and has not been eating or drinking much. She reports normal BM yesterday. Reports today had 3 loose BMs. States abdomen feels "queasy" denies any abdominal pain. Reports chronic intermittent left finger paresthesias, reports history of carpal tunnel reports this is at baseline. Denies chest pain. Denies feve r/chills, diaphoresis, vomiting, constipation, hematochezia, melena, dizziness, syncope, vision changes, neck pain, SOB, orthopnea, cough, sore throat, choking, rhinorrhea, other paresthesias, extremity edema, rashes, urinary symptoms. In ER patient afebrile, P: 69, R: 18, BP one 211/82, 179/98, 95% on room air. Negative troponin, EKG without acute ST elevation, corrected sodium: 128. CT head no acute change. In ER given lorazepam 0.25 mg IV. Allergies Allergy/AdvReac Type Severity Reaction Status Date / Time amlodipine Allergy Severe SWELLING Unverified 01/02/21 14:48 AND FLUSHING mold Allergy Mild SINUS Unverified 01/02/21 14:48 DRAINAGE/COUGH hydrochlorothiazide AdvReac Severe hyponatremi Verified 01/02/21 14:48 [From Maxzide] a triamterene [From Maxzide] AdvReac Severe hyponatremi Verified 01/02/21 14:48 a LORENA Inhibitors AdvReac Unknown COUGH Verified 01/02/21 14:48 Home Medications Medication Instructions Recorded Confirmed Type atorvastatin 20 mg tablet 20 mg PO PM 03/24/18 01/02/21 History clopidogrel 75 mg tablet (Plavix) 75 mg PO DAILY 03/24/18 01/02/21 History losartan 50 mg tablet 50 mg PO BID 03/24/18 01/02/21 History escitalopram oxalate 10 mg tablet 10 mg PO PM 05/11/20 01/02/21 History mecobalamin (vitamin B12) 1,000 1,000 mcg PO DAILY 05/11/20 01/02/21 History mcg chewable tablet (B12 Active) clonidine 0.2 mg/24 hr weekly 0.2 mg TRANSDERMAL Q7D 05/12/20 01/02/21 History transdermal patch aspirin 81 mg tablet,delayed 81 mg PO QAM 30 Days #30 tab 05/15/20 01/02/21 Rx release needle (disp) 32 gauge 32 gauge x #100 ea 05/17/20 01/02/21 Rx 5/16" insulin glargine 100 unit/mL (3 14 unit SUBCUT QAM 01/02/21 01/02/21 History mL) subcutaneous pen (Joseaglar LeannPen U-100 Insulin) metformin 500 mg tablet 1,000 mg PO BIDM 01/02/21 01/02/21 History metoprolol succinate 100 mg 100 mg PO DAILY 01/02/21 01/02/21 History tablet,extended release 24 hr hydralazine 100 mg tablet 100 mg PO TID #90 tab 01/08/21 Rx spironolactone 25 mg tablet 12.5 mg PO DAILY #30 tab 01/08/21 Rx Past Med/Surg History Medical History Anxiety CKD (chronic kidney disease), stage III DM type 2 (diabetes mellitus, type 2) Dyslipidemia HTN (hypertension) Hypertensive urgency Hyponatremia Hyponatremia SHIVANI (obstructive sleep apnea) TIA (transient ischemic attack) TIA (transient ischemic attack) Type 2 diabetes mellitus Surgical History S/P carpal tunnel release S/P cholecystectomy Family History Other Diabetes Hypertension Social History Smoking Status: Never smoker Second Hand Exposure: No; Hx Alcohol Use: No Hx Substance Use: No Preferred Language: Czech Communication Ability: Effective Datacap Developer Required: No Beliefs That Will Affect Care: None marital status: Current Living Situation: Alone Current Living Situation Comment: patient was living with son until last Feels Safe at Home: Yes Assistive Devices: Glasses Review of Systems Review of Systems: All systems reviewed & are unremarkable except as noted in HPI & below Physical Exam Physical Exam: General: no acute distress, obese Head: normocephalic, atraumatic Eyes: PERRL, EOM's intact, conjunctiva non-injected, anicteric ENT: +hard of hearing, normal inspection external ears, nose, TM's torres, +cerumen in canal, mucous membranes mildly dry, no maxillary sinus tenderness to palpation Neck: supple, trachea midline Lungs: clear, no respiratory distress, no wheezing/rhonchi/rales CV: RRR, no murmur, no pretibial edema Abd: protuberant, normal BS, soft, non-tender to palpation Ext: no cyanosis, no calf tenderness Neuro: A&O x 3, No nystagmus, Facial sensation is intact and symmetric, The face is strong and symmetric, Soft palate elevates symmetrically, no dysarthria, Shoulder shrug intact, Tongue is midline, normal movement, no fasciculations. Normal affect Skin: warm, dry, RUE with clonidine patch in place Results & Data Results & Data ([facility]) Vital Signs (Past 12 Hours) Vital Signs Temp Pulse Resp BP Pulse Ox 01/02/21 14:57 191/103 H 01/02/21 14:50 58 L 15 206/83 H 96 01/02/21 14:40 58 L 19 95 01/02/21 14:35 58 L 18 95 01/02/21 14:30 56 L 19 179/98 H 95 01/02/21 14:20 56 L 17 92 01/02/21 14:10 56 L 17 93 01/02/21 14:00 60 17 204/95 H 94 01/02/21 13:55 93 01/02/21 13:30 62 16 96 01/02/21 13:20 61 17 97 01/02/21 13:10 64 13 96 01/02/21 13:00 62 16 193/75 H 94 01/02/21 12:50 64 16 95 01/02/21 12:40 64 18 96 01/02/21 12:30 74 18 96 01/02/21 12:21 68 14 96 01/02/21 12:19 37 C 69 18 211/82 H 95 Laboratory Results Short CBC 01/02/21 Range/Units 12:29 WBC 9.17 (4.8-10.8) K/uL Hgb 14.5 (12.0-16.0) g/dL Hct 41.3 (37-47) % Plt Count 234 (130-400) K/uL BMP 01/02/21 12:29 Sodium 127 L Potassium 3.9 Chloride 95 L Carbon Dioxide 24 BUN 13 Creatinine 0.96 Glucose 163 H Calcium 9.5 Cardiac Enzymes 01/02/21 Range/Units 12:29 Troponin I < 0.015 (0-0.045) ng/ml Diagnostic Findings Head CT 01/02/21 13:[address] DOSE: 638.56 mGycm HISTORY: Headache. TECHNIQUE: Multiaxial CT images of the head were performed without the use of intravenous contrast. Automated exposure control was utilized for this study. A dose lowering technique was utilized adhering to the principles of ALARA. Comparison: Head CT 05/14/2020. Findings: The paranasal sinuses and mastoid air cells are clear. The calvarium and skull base are intact. There is no mass, hematoma, midline shift, acute infarct. White matter hypodensity is nonspecific but suggestive of microvascular ischemic change. The ventricles and sulci demonstrate mild age-related involutional changes. Impression: No significant change compared to the prior study. No acute intracranial abnormality. ACT 112: Negative or not required by law. Electronically signed by: Dave Cano M.D. 01/02/2021 1:58 PM Code Status & VTE Plan VTE Prophylaxis Plan VTE Prophylaxis will be ordered: Yes Supervising Physician Co-Signing Physician Notes Pt was seen and examined. Agreed with Alessandra ESPINAL exam, assessment and plan. 85-year-old female with PMH DM II, HTN, dyslipidemia, SHIVANI on CPAP, LVH, CKD III, TIA, anxiety presented to ER with complaint of weakness. Pt said that she feels very weak lately. Her daughter has been checking to her BP and her BP has been runing in the systolic 200's. She has been having poor appetite. She has a diarrhea today and has 3 epidoses of BM. Denies any chest pain, fever/chills, diaphoresis, vomiting, constipation, hematochezia, melena, dizziness, syncope, vision changes, neck pain, SOB, orthopnea, cough, sore throat, choking, rhinorrhea, other paresthesias, extremity edema, rashes, urinary symptoms. In the ER BP was 211/82. Negative troponin, and sodium 127. EKG without acute ST elevation. CT head showed no acute intracranial abnormality. Continue clonidine patch, hydralazine, losartan, metoprolol succinate. Will consider to increase Hydralazine. Will monitor BMP. Continue monitor BP and adjust meds. MD Gael
--- NOTE | 2021-01-02 17:55 | Electrocardiogram Report ---
Test Reason : Blood Pressure : / mmHG Vent. Rate : 070 BPM Atrial Rate : 070 BPM P-R Int : 148 ms QRS Dur : 092 ms QT Int : 416 ms P-R-T Axes : 063 -47 099 degrees QTc Int : 449 ms Poor data quality, interpretation may be adversely affected Normal sinus rhythm Possible Left atrial enlargement Left anterior fascicular block Left ventricular hypertrophy Nonspecific ST and T wave abnormality Abnormal ECG When compared with ECG of 11-MAY-2020 19:19, T wave inversion no longer evident in Inferior leads Confirmed by Long Olivia ([id number]) on 01/02/2021 5:55:40 PM Referred By: REFERRED SELF Confirmed By:Manoj Olivia
[2021-01-02] MEDS ORDERED: INFLUENZA VACCINE HIGH DOSE PF 65+ 0.7 ML SYR IM ONE (18:25)
--- NOTE | 2021-01-02 18:32 | XRay Report ---
XR chest 2V PA/lateral HISTORY: Atypical Chest Pain COMPARISON: Chest 03/10/2021. FINDINGS: The lungs are clear. Cardiac silhouette is normal in size. No pleural effusions. No pneumot horax. Prior cholecystectomy. IMPRESSION: No acute process. ACT 112: Negative or not required by law. Electronically signed by: Dave Cano M.D. 01/02/2021 6:31 PM
[2021-01-02] MEDS ORDERED: GLUCOSE 10 TABS/TUBE PO PRN (18:37)
[2021-01-02] MEDS ORDERED: hydrALAZINE HCL 20 MG/ML VIAL IV PRN (18:37)
[2021-01-02] MEDS ORDERED: GLUCOSE 40% GEL 15 GM TUBE PO PRN (18:37)
[2021-01-02] MEDS ORDERED: POLYETHYLENE (MIRALAX) 17 GM PACK PO PRN (18:37)
[2021-01-02] MEDS ORDERED: GLUCAGON FOR INJ 1 MG VIAL SQ PRN (18:37)
[2021-01-02] MEDS ORDERED: CARBOHYDRATES FOR HYPOGLYCEMIA PO PRN (18:37)
[2021-01-02] MEDS ORDERED: DEXTROSE 50% 50 ML SYRINGE IV PRN (18:37)
[2021-01-02] MEDS: ACETAMINOPHEN 325 MG TAB PO PRN (19:21)
--- NOTE | 2021-01-02 19:32 | Emergency Department Note ---
History of Present Illness General Chief complaint: Hypertension Stated complaint: HTN, H/A Time Seen by Provider: 01/02/21 13:03 History of Present Illness Provider complaint: Headache high blood pressure Onset (ago): day(s) 2 Location: head Pain Consistency: + constant Maximum Pain Intensity: 8 Current Pain Intensity: 8 Quality: + aching and + dull Relieved By: + none Exacerbated By: + none Associated symptoms: + headaches; no chest pain, no cough, no fever/chills, no nausea/vomiting, no shortness of breath or no weakness 85-year-old female presents emergency department for headache and high blood pressure. Patient states that her symptoms began 3 days ago. Patient states she has been taking all of her blood pressure medication. Patient does states she feels weak. Patient reports no fevers. She reports no trauma. She reports no chest pain or difficulty breathing. Home Medications Medication Instructions Recorded Confirmed Type atorvastatin 20 mg tablet 20 mg PO PM 03/24/18 01/02/21 History clopidogrel 75 mg tablet (Plavix) 75 mg PO DAILY 03/24/18 01/02/21 History hydralazine 50 mg tablet 50 mg PO TID 03/24/18 01/02/21 History losartan 50 mg tablet 50 mg PO BID 03/24/18 01/02/21 History escitalopram oxalate 10 mg tablet 10 mg PO PM 05/11/20 01/02/21 History mecobalamin (vitamin B12) 1,000 1,000 mcg PO DAILY 05/11/20 01/02/21 History mcg chewable tablet (B12 Active) clonidine 0.2 mg/24 hr weekly 0.2 mg TRANSDERMAL Q7D 05/12/20 01/02/21 History transdermal patch aspirin 81 mg tablet,delayed 81 mg PO QAM 30 Days #30 tab 05/15/20 01/02/21 Rx release needle (disp) 32 gauge 32 gauge x #100 ea 05/17/20 01/02/21 Rx 5/16" insulin glargine 100 unit/mL (3 14 unit SUBCUT QAM 01/02/21 01/02/21 History mL) subcutaneous pen (Basaglar KwikPen U-100 Insulin) metformin 500 mg tablet 1,000 mg PO BIDM 01/02/21 01/02/21 History metoprolol succinate 100 mg 100 mg PO DAILY 01/02/21 01/02/21 History tablet,extended release 24 hr Allergies Allergy/AdvReac Type Severity Reaction Status Date / Time amlodipine Allergy Severe SWELLING Unverified 01/02/21 14:48 AND FLUSHING mold Allergy Mild SINUS Unverified 01/02/21 14:48 DRAINAGE/COUGH hydrochlorothiazide AdvReac Severe hyponatremi Verified 01/02/21 14:48 [From Maxzide] a triamterene [From Maxzide] AdvReac Severe hyponatremi Verified 01/02/21 14:48 a LORENA Inhibitors AdvReac Unknown COUGH Verified 01/02/21 14:48 Past Med/Surg History Medical History Anxiety CKD (chronic kidney disease), stage III DM type 2 (diabetes mellitus, type 2) Dyslipidemia HTN (hypertension) Hypertensive urgency Hyponatremia Hyponatremia SHIVANI (obstructive sleep apnea) TIA (transient ischemic attack) TIA (transient ischemic attack) Type 2 diabetes mellitus Surgical History S/P carpal tunnel release S/P cholecystectomy Family History Other Diabetes Hypertension Social History Smoking Status: Never smoker Second Hand Exposure: No; Hx Alcohol Use: No Hx Substance Use: No Preferred Language: German Communication Ability: Effective Crab Picker Required: No Beliefs That Will Affect Care: None marital status: Current Living Situation: Alone Current Living Situation Comment: patient was living with son until last Feels Safe at Home: Yes Assistive Devices: Glasses Review of Systems A total of 10 systems reviewed and were otherwise negative Physical Exam Vital Signs Vital Signs - 24 hr 01/02/21 12:19 01/02/21 12:21 01/02/21 12:30 Temperature 37 C Temperature Source Oral Pulse Rate 69 68 74 Pulse Rate from SpO2 Sensor 68 73 Respiratory Rate 18 14 18 Respiratory Effort / Characteristics Non-Labored Respiratory Depth Normal Blood Pressure 211/82 H Blood Pressure Mean 125 Pulse Oximetry 95 96 96 Oxygen Delivery Method Room Air Sepsis Recent Fever Within 48 Hours No Sepsis New/Unexplained Change in Mental Status No Sepsis Action Taken by Nursing No Action Required 01/02/21 12:40 01/02/21 12:50 01/02/21 13:00 Temperature Temperature Source Pulse Rate 64 64 62 Pulse Rate from SpO2 Sensor 63 64 61 Respiratory Rate 18 16 16 Respiratory Effort / Characteristics Respiratory Depth Blood Pressure 193/75 H Blood Pressure Mean 114 Pulse Oximetry 96 95 94 Oxygen Delivery Method Sepsis Recent Fever Within 48 Hours Sepsis New/Unexplained Change in Mental Status Sepsis Action Taken by Nursing 01/02/21 13:10 01/02/21 13:20 01/02/21 13:30 Temperature Temperature Source Pulse Rate 64 61 62 Pulse Rate from SpO2 Sensor 64 61 63 Respiratory Rate 13 17 16 Respiratory Effort / Characteristics Respiratory Depth Blood Pressure Blood Pressure Mean Pulse Oximetry 96 97 96 Oxygen Delivery Method Room Air Sepsis Recent Fever Within 48 Hours Sepsis New/Unexplained Change in Mental Status Sepsis Action Taken by Nursing 01/02/21 13:55 01/02/21 14:00 01/02/21 14:10 Temperature Temperature Source Pulse Rate 60 56 L Pulse Rate from SpO2 Sensor 59 L 60 56 L Respiratory Rate 17 17 Respiratory Effort / Characteristics Respiratory Depth Blood Pressure 204/95 H Blood Pressure Mean 131 Pulse Oximetry 93 94 93 Oxygen Delivery Method Sepsis Recent Fever Within 48 Hours Sepsis New/Unexplained Change in Mental Status Sepsis Action Taken by Nursing 01/02/21 14:20 01/02/21 14:30 Temperature Temperature Source Pulse Rate 56 L 56 L Pulse Rate from SpO2 Sensor 55 L 56 L Respiratory Rate 17 19 Respiratory Effort / Characteristics Respiratory Depth Blood Pressure 179/98 H Blood Pressure Mean 125 Pulse Oximetry 92 95 Oxygen Delivery Method Sepsis Recent Fever Within 48 Hours Sepsis New/Unexplained Change in Mental Status Sepsis Action Taken by Nursing Physical Exam GENERAL: She is oriented to person, place, and time. She appears well-developed and well-nourished. She does not appear distressed. HENT: Exam performed. -Head: Normocephalic and atraumatic. -Right Ear: External ear normal. No mastoid tenderness. -Left Ear: External ear normal. No mastoid tenderness. -Mouth/Throat: The oropharynx is clear and moist. No trismus in the jaw. No dental abscesses or uvula swelling. No oropharyngeal exudate or tonsillar abscesses. EYES: Conjunctivae and EOM are normal. Pupils are equal, round, and reactive to light. Right eye exhibits no discharge. Left eye exhibits no discharge. No scleral icterus. NECK: Normal range of motion. Neck supple. No JVD present. No spinous process tenderness present. No carotid bruit present. No rigidity. No tracheal deviation and normal range of motion present. No Brudzinski's sign and no Kernig's sign noted. CV: Normal rate, regular rhythm, normal heart sounds and intact distal pulses. There is no peripheral edema. Palpable radial pulses bue. PULM/CHEST: Effort normal and breath sounds normal. No respiratory distress. No stridor. She has no wheezes. She has no rales. -Chest Wall: She exhibits no tenderness. ABD: The abdomen is soft. Bowel sounds are normal. She has no distension. No mass is present. There is no tenderness. There is no rebound, no guarding, no Frank's sign and no tenderness at McBurney's point. Rovsig negative MUSC/SKEL: Normal range of motion. There is no peripheral edema, tenderness or deformity. LYMPH: No cervical adenopathy. NEURO: She is alert and oriented to person, place, and time. She has normal strength. No cranial nerve deficit or sensory deficit. Coordination and gait normal. GCS eye subscore is 4. GCS verbal subscore is 5. GCS motor subscore is 6. Cerebellar tests wnl. SKIN: Skin is warm and dry. She is not diaphoretic. PSYCH: She has a normal mood and affect. Behavior is normal. Judgment and thought content normal. Course Course 1303: The patient was evaluated in room B12. A complete history and physical exam was performed Cardiac monitoring: An order was placed for continuous cardiac monitoring. The monitor shows a rate of 70 with sinus rhythm While in the room the patient's daughter Florence called on the phone. She is a nurse in half-way. She states that yesterday the patient was not wearing her CPAP which does have a tendency to cause her blood pressure to be elevated. She also reports that the patient has been increasingly anxious over the last 48 hours and that usually causes her blood pressure to be elevated also. 1405: Imaging within normal limits. Labs show hyponatremia. Patient has no history of hyponatremia. [facility] discussed with Farida who stated to admit to Dr. Watson Administered Medications Acetaminophen (Acetaminophen 325 Mg Tab) 650 mg PO Q4H PRN PRN Reason: Pain or Fever Stop: 02/01/21 18:36 Last Admin: 01/02/21 19:21 Dose: 650 mg Documented by: [id number] Discontinued Medications Hydralazine HCl (Hydralazine Hcl 25 Mg Tab) 50 mg PO NOW STA Stop: 01/02/21 15:03 Last Admin: 01/02/21 15:20 Dose: 50 mg Documented by: [id number] Lorazepam (Ativan) 0.25 mg in 0.5 mls @ 0.5 mls/min IV NOW STA Stop: 01/02/21 13:12 Last Admin: 01/02/21 13:29 Dose: 0.5 mls/min Documented by: [id number] Sodium Chloride (Nss) 500 mls @ 125 mls/hr IV .Q4H YANA Stop: 02/01/21 14:29 Last Infusion: 01/02/21 19:04 Dose: 0 mls/hr Documented by: [id number] Admin: 01/02/21 18:38 Dose: Not Given Documented by: [id number] Admin: 01/02/21 14:46 Dose: 125 mls/hr Documented by: [id number] Medical Decision Making Laboratory Data Result diagrams: 01/02/21 12:29 01/02/21 12:29 Lab Results 01/02/21 01/02/21 01/02/21 Range/Units 12:29 12:29 12:29 WBC 9.17 (4.8-10.8) K/uL RBC 4.77 (4.2-5.4) M/uL Hgb 14.5 (12.0-16.0) g/dL Hct 41.3 (37-47) % MCV 86.6 (80-100) fL MCH 30.4 (25-34) pg MCHC 35.1 (32-36) g/dL RDW Std Deviation 44.6 (36.4-46.3) fL RDW Coeff of Devyn 14.0 (11.5-14.5) % Plt Count 234 (130-400) K/uL MPV 9.8 (7.4-10.4) fL Immature Gran % (Auto) 0.1 % Neut % (Auto) 79.5 % Lymph % (Auto) 11.8 % Irwin % (Auto) 7.2 % Eos % (Auto) 1.2 % Baso % (Auto) 0.2 % Neut # (Auto) 7.29 H (1.4-6.5) K/uL Lymph # (Auto) 1.08 L (1.2-3.4) K/uL Irwin # (Auto) 0.66 H (0.11-0.59) K/uL Eos # (Auto) 0.11 (0-0.5) K/uL Baso # (Auto) 0.02 (0-0.2) K/uL Immature Gran # (Auto) 0.01 (0.00-0.02) K/uL PT 11.4 (9.0-12.0) Seconds INR 1.1 (0.9-1.1) APTT 30.2 (21.0-31.0) Seconds PTT Ratio 1.1 VBG pH (7.36-7.41) VBG pCO2 (38-50) mmHg VBG pO2 mmHg VBG HCO3 mmol/L VBG O2 Saturation % VBG Base Excess mEq/L Barometric Pressure mm/Hg Sodium 127 L (136-145) mmol/L Potassium 3.9 (3.5-5.1) mmol/L Chloride 95 L (98-107) mmol/L Carbon Dioxide 24 (21-32) mmol/L Anion Gap 9.0 (3-11) BUN 13 (7-18) mg/dl Creatinine 0.96 (0.6-1.2) mg/dl Est Cr Clr Drug Dosing 38.6 ml/min Est GFR ( Amer) 63.4 ml/min Est GFR (Non-Af Amer) 54.7 ml/min BUN/Creatinine Ratio 13.9 (10-20) Glucose 163 H (70-99) mg/dl Calcium 9.5 (8.5-10.1) mg/dl Troponin I < 0.015 (0-0.045) ng/ml Lipase 84 (73-393) U/L COVID-19 Eval Order SARS-CoV-2 (PCR) (Negative) 01/02/21 01/02/21 01/02/21 Range/Units 13:24 13:24 13:43 WBC (4.8-10.8) K/uL RBC (4.2-5.4) M/uL Hgb (12.0-16.0) g/dL Hct (37-47) % MCV (80-100) fL MCH (25-34) pg MCHC (32-36) g/dL RDW Std Deviation (36.4-46.3) fL RDW Coeff of Devyn (11.5-14.5) % Plt Count (130-400) K/uL MPV (7.4-10.4) fL Immature Gran % (Auto) % Neut % (Auto) % Lymph % (Auto) % Irwin % (Auto) % Eos % (Auto) % Baso % (Auto) % Neut # (Auto) (1.4-6.5) K/uL Lymph # (Auto) (1.2-3.4) K/uL Irwin # (Auto) (0.11-0.59) K/uL Eos # (Auto) (0-0.5) K/uL Baso # (Auto) (0-0.2) K/uL Immature Gran # (Auto) (0.00-0.02) K/uL PT (9.0-12.0) Seconds INR (0.9-1.1) APTT (21.0-31.0) Seconds PTT Ratio VBG pH 7.39 (7.36-7.41) VBG pCO2 44 (38-50) mmHg VBG pO2 35 mmHg VBG HCO3 26 mmol/L VBG O2 Saturation 64.9 % VBG Base Excess 1.0 mEq/L Barometric Pressure 740.3 mm/Hg Sodium (136-145) mmol/L Potassium (3.5-5.1) mmol/L Chloride (98-107) mmol/L Carbon Dioxide (21-32) mmol/L Anion Gap (3-11) BUN (7-18) mg/dl Creatinine (0.6-1.2) mg/dl Est Cr Clr Drug Dosing ml/min Est GFR ( Amer) ml/min Est GFR (Non-Af Amer) ml/min BUN/Creatinine Ratio (10-20) Glucose (70-99) mg/dl Calcium (8.5-10.1) mg/dl Troponin I (0-0.045) ng/ml Lipase (73-393) U/L COVID-19 Eval Order Covid19 at [facility] SARS-CoV-2 (PCR) NEGATIVE (Negative) Imaging Data Radiologist's Impression: Head CT 01/02/21 13:[address] DOSE: 638.56 mGycm HISTORY: Headache. TECHNIQUE: Multiaxial CT images of the head were performed without the use of intravenous contrast. Automated exposure control was utilized for this study. A dose lowering technique was utilized adhering to the principles of ALARA. Comparison: Head CT 05/14/2020. Findings: The paranasal sinuses and mastoid air cells are clear. The calvarium and skull base are intact. There is no mass, hematoma, midline shift, acute infarct. White matter hypodensity is nonspecific but suggestive of microvascular ischemic change. The ventricles and sulci demonstrate mild age-related involu tional changes. Impression: No significant change compared to the prior study. No acute intracranial abnormality. ACT 112: Negative or not required by law. Electronically signed by: Dave Cano M.D. 01/02/2021 1:58 PM Chest X-Ray 01/02/21 13:13 XR chest 2V PA/lateral HISTORY: Atypical Chest Pain COMPARISON: Chest 03/10/2021. FINDINGS: The lungs are clear. Cardiac silhouette is normal in size. No pleural effusions. No pneumothorax. Prior cholecystectomy. IMPRESSION: No acute process. ACT 112: Negative or not required by law. Electronically signed by: Dave Cano M.D. 01/02/2021 6:31 PM ECG Data Indication: + other (headache) Rate (beats per minute): 70 Rhythm: + normal sinus ECG Intervals/blocks: + Normal QRS, + Normal TX and + Normal QT-c ECG ST segments: + Normal ST segments ECG Findings: + LVH MDM Narrative 1303: The patient was evaluated in room B12. A complete history and physical exam was performed Cardiac monitoring: An order was placed for continuous cardiac monitoring. The monitor shows a rate of 70 with sinus rhythm While in the room the patient's daughter Florence called on the phone. She is a nurse in half-way. She states that yesterday the patient was not wearing her CPAP which does have a tendency to cause her blood pressure to be elevated. She also reports that the patient has been increasingly anxious over the last 48 hours and that usually causes her blood pressure to be elevated also. 1405: Imaging within normal limits. Labs show hyponatremia. Patient has no history of hyponatremia. [facility] discussed with Farida who stated to admit to Dr. Compare Impression & Plan Hyponatremia Discharge Plan Visit Data Chief Complaint: Hypertension Stated Complaint: HTN, H/A Discharge Problem: Hyponatremia Patient Disposition: Admitted As Inpatient Discharge Instructions Interventions: ED Discharge Assessment Last Done: 01/02/21 16:50
[2021-01-02] MEDS: CHECK CLONIDINE PATCH PLACEMENT SCH (19:39)
[2021-01-02] MEDS: ENOXAPARIN INJ 40 MG/0.4 ML SYR SQ SCH (20:55)
[2021-01-02] MEDS: INSULIN GLARGINE SOLOSTAR 100 UNITS/ML 3 ML PEN SC SCH (20:56)
[2021-01-02] MEDS: ESCITALOPRAM OXALATE 10 MG TAB PO SCH (20:56)
[2021-01-02] MEDS: INSULIN ASPART 100 UNITS/ML 3 ML PEN SC SCH ×2 (20:56→21:48)
[2021-01-02] MEDS: LOSARTAN POTASSIUM 50 MG TAB PO SCH (20:57)
[2021-01-02] MEDS: ATORVASTATIN 20 MG TAB PO SCH (20:57)
[2021-01-02] MEDS: hydrALAZINE TAB 50 MG TAB PO SCH (20:57)
[2021-01-03] MEDS: CHECK CLONIDINE PATCH PLACEMENT SCH ×4 (01:15→23:25)
[2021-01-03 07:41] LABS: Hematocrit (blood only) 37.5 % (37-47); Hemoglobin 12.8 g/dL (12.0-16.0); Mean Corpuscular Hgb Conc 34.1 g/dL (32-36); Mean Corpuscular Volume 87.8 fL (80-100); Mean Platelet Volume 9.1 fL (7.4-10.4); Platelet Count 182 K/uL (130-400); RDW Coefficient of Variation 13.9 % (11.5-14.5); RDW Standard Deviation 44.7 fL (36.4-46.3); Red Blood Count 4.27 M/uL (4.2-5.4); White Blood Count 6.54 K/uL (4.8-10.8)
[2021-01-03 08:05] LABS: BUN Creatinine Ratio 19.9 (10-20); Calcium 8.6 mg/dl (8.5-10.1); Creatinine Clr Calc Pharmacy 38.8 ml/min; Est GFR (Non-African American) 56.1 ml/min; Potassium 3.8 mmol/L (3.5-5.1)
[2021-01-03] MEDS ORDERED: NON-FORMULARY MEDICATION (Mecobalamin (Vitamin B12) [B12 Active] 1,000 mcg Tablet,Chewable PO SCH (09:00)
[2021-01-03] MEDS: hydrALAZINE TAB 50 MG TAB PO SCH (09:13)
[2021-01-03] MEDS: LOSARTAN POTASSIUM 50 MG TAB PO SCH ×2 (09:13→22:16)
[2021-01-03] MEDS: CLOPIDOGREL BISULFATE 75 MG TAB PO SCH (09:14)
[2021-01-03] MEDS: INSULIN GLARGINE SOLOSTAR 100 UNITS/ML 3 ML PEN SC SCH ×2 (09:14→22:18)
[2021-01-03] MEDS: ASPIRIN 81 MG ECTAB PO SCH (09:14)
[2021-01-03] MEDS: INSULIN ASPART 100 UNITS/ML 3 ML PEN SC SCH ×4 (09:15→22:19)
[2021-01-03] MEDS: METOPROLOL SUCC 50MG EXT REL TAB PO SCH (09:17)
[2021-01-03 09:43] LABS: Estimated Average Glucose 169 mg/dl; Hemoglobin A1C 7.5 % (4.5-5.6)
[2021-01-03] MEDS ORDERED: hydrALAZINE HCL 25 MG TAB PO STA ×2 (10:11→23:28)
[2021-01-03] MEDS: hydrALAZINE HCL 25 MG TAB PO SCH ×2 (15:14→22:16)
[2021-01-03] MEDS: ENOXAPARIN INJ 40 MG/0.4 ML SYR SQ SCH (22:16)
[2021-01-03] MEDS: ATORVASTATIN 20 MG TAB PO SCH (22:16)
[2021-01-03] MEDS: ESCITALOPRAM OXALATE 10 MG TAB PO SCH (22:16)
--- NOTE | 2021-01-03 22:56 | Hospitalist Progress Note ---
Date of Service January 03, 2021 Assessment & Plan (1) Hypertensive urgency: Plan: Present on admission with generalized weakness BP on admission was 211/82, 179/98, 95% on room air. Negative troponin EKG without acute ST elevation, corrected sodium: 128. CT head showed no acute change. Continue clonidine patch losartan, metoprolol succinate with home dose Hydralazine increased to 75 mg 3 times daily If no improvement in BP consider cardiology consult (2) Hyponatremia: Plan: Acute on chronic hyponatremia Possible related to diarrhea Sodium on admission 127 with baseline Baseline sodium 132 Corrected sodium 128 for glucose 163. Received IV normal saline Sodium 131 today Continue monitor BMP (3) Weakness: Plan: Generalized tenderness for several days CT head showed no acute intracranial abnormalities No focal findings on exam Continue PT OT eval (4) Diarrhea: Plan: Stool did not collected since stool has been firm Clinically improved (5) DM type 2 (diabetes mellitus, type 2): Plan: Most recent hemoglobin A1c 7.5 on 01/03 Hold home meds NovoLog, Lantus per protocol (6) TIA (transient ischemic attack): Plan: History TIA versus hypertension emergency in past Continue aspirin, Plavix, atorvastatin (7) CKD (chronic kidney disease), stage III: Plan: Cr: 0.96. Baseline creatinine 1.0 Monitor renal functions, avoid nephrotoxic agents when possible (8) Dyslipidemia: Plan: Continue atorvastatin (9) Anxiety: Plan: Continue escitalopram (10) SHIVANI (obstructive sleep apnea): Plan: Continue CPAP at bedtime DVT Prophylaxis Lovenox SQ Full code Admission and Anticipated Discharge Date Admission Date: January 02, 2021 Subjective Patient was seen and evaluate for follow of uncontrolled blood pressure History at the end of the bed with no acute distress Patient said last night she had a good night Denies any chest pain, palpitation, dizziness, shortness of breath. Review of Systems Review of Systems: All systems reviewed & are unremarkable except as noted in Subjective Physical Exam Physical Exam: General- No acute distress Head- atraumatic Eyes- PERRL, EOMI, ENT-+decreased hearing function Neck- supple, no JVD Lungs- clear to auscultation Heart- regular rhythm; no murmur Abdomen- normal bowel sounds, soft, nontender Extremities- no calf tenderness Neuro- alert, oriented x 3; PERRL, EOMI; no facial palsy; no dysarthria Skin- warm & dry Results & Data Results & Data ([facility]) Vital Signs (Past 12 Hours) Vital Signs Temp Pulse Pulse Resp BP Pulse Ox 01/03/21 19:00 36.9 C 60 20 208/77 H 93 01/03/21 17:20 178/82 H 01/03/21 16:00 63 01/03/21 15:38 36.6 C 61 16 189/71 H 94
[2021-01-04] MEDS ORDERED: OPTIRAY 320 100ml IV ONE (00:37)
--- NOTE | 2021-01-04 01:20 | Communication Note ---
Date of Service: January 04, 2021
[2021-01-04] MEDS ORDERED: ALBUMIN 25% 12.5 GM/50 ML VIAL IV ONE (01:21)
[2021-01-04 06:53] LABS: BUN Creatinine Ratio 18.9 (10-20); Calcium 8.8 mg/dl (8.5-10.1); Creatinine Clr Calc Pharmacy 38.1 ml/min; Est GFR (African American) 63.4 ml/min; Est GFR (Non-African American) 54.7 ml/min; Potassium 3.9 mmol/L (3.5-5.1)
--- NOTE | 2021-01-04 07:48 | CT Scan Report ---
CT soft tissue neck w con HISTORY: Right-sided parotid swelling, lymphadenopathy TECHNIQUE: Multiaxial CT images of the neck were performed following the use of intravenous contrast and reformatted in the sagittal and coronal planes. COMPARISON STUDY: None. FINDINGS: The visualized brain parenchyma and orbits are unremarkable. The pterygopalatine fossa and parapharyngeal fat spaces are well-maintained. The major mucosal airways services are intact. The epi glottis and prevertebral soft tissues are normal in thickness. There is a 1.1 cm right thyroid nodule . This does not meet CT criteria for follow-up. Partially visualized 3 mm nodule within the left uppe r lobe. No fractures within the visualized osseous structures. The paranasal sinuses and mastoid air cells are clear. Mild hyperenhancement and mild fat stranding/edema involving the right parotid gland . No ductal dilatation or stone identified. This favors a parotitis. No loculated fluid collections t o suggest an abscess. No significant cervical lymphadenopathy. The major cervical vessels are patent. IMPRESSION: Mild hyperenhancement and mild fat stranding/edema involving the right parotid gland. This favors a parotitis. ACT 112: Negative or not required by law. Electronically signed by: Dave Cano M.D. 01/04/2021 7:47 AM
[2021-01-04] MEDS: hydrALAZINE TAB 50 MG TAB PO SCH ×3 (07:52→20:50)
[2021-01-04] MEDS: METOPROLOL SUCC 50MG EXT REL TAB PO SCH (07:52)
[2021-01-04] MEDS: LOSARTAN POTASSIUM 50 MG TAB PO SCH ×2 (07:53→20:51)
[2021-01-04] MEDS: ASPIRIN 81 MG ECTAB PO SCH (07:54)
[2021-01-04] MEDS: CLOPIDOGREL BISULFATE 75 MG TAB PO SCH (07:54)
[2021-01-04] MEDS: CHECK CLONIDINE PATCH PLACEMENT SCH ×2 (07:56→16:25)
[2021-01-04] MEDS: INSULIN ASPART 100 UNITS/ML 3 ML PEN SC SCH ×4 (08:30→20:48)
[2021-01-04] MEDS: INSULIN GLARGINE SOLOSTAR 100 UNITS/ML 3 ML PEN SC SCH ×2 (08:33→20:49)
--- NOTE | 2021-01-04 09:01 | Cardiology Consultation ---
Date of Consultation January 04, 2021 Assessment & Plan (1) Hypertensive urgency: (2) Hyponatremia: (3) SHIVANI (obstructive sleep apnea): Patient admitted for hypertensive urgency. Home meds include metoprolol 100 mg daily, hydralazine 50 TID, losartan 50 mg BID, and clonidine patch. She has a history of worsening hyponatremia on triamterene/HCTZ. She was previously intolerant of CCB including amlodipine which resulted in significant edema. Since admission her hydralazine was titrated to 75 TID, and now 100 mg TID Last night she used her CPAP for first time since admission. Her BP pressures this morning are much improved and appear well controlled. Could consider trial of low dose Aldactone if BP trends higher. Her sodium levels have also improved this morning. As long as her BP remains controlled throughout the morning and early afternoon, stable for discharge this afternoon. She was encouraged to be compliant with her CPAP at home. Case discussed with Dr. Rodrigues Supervising Physician Co-Signing Physician Notes Patient seen and examined the bedside. Poor historian. Denies chest pain or shortness of breath. Telemetry reveals sinus rhythm/sinus bradycardia with heart rate ranging from 50-60 bpm. Admitted with hypertensive urgency. Blood pressure improved with titration of hydralazine and CPAP overnight. Multiple drug intolerances noted. PE: VSS. Gen: NAD, awake and alert. Poor historian. Heart: Regular rhythm, normal S1-S2, no murmur. Lungs: Clear bilateral, no rales, rhonchi, wheeze. Extremities: No clubbing, cyanosis, or edema. A/P: Agree with above PA-C history, physical exam, assessment and plan. Hydralazine titrated to 100 mg 3 times daily. Continue to monitor blood pressure per protocol. Sodium restriction advised. Consider addition of Aldactone in future if necessary. Encourage compliance with CPAP. History of Present Illness Reason for Consultation: Hypertensive urgency Requesting Physician: Dr. Mayo Attending Physician: Dr. Rodrigues History of Present Illness Patient is an 85 year female known to [facility] cardiology, following with Sanjay Vaughan and Dr. Caballero intermittently as an outpatient for history of hyperte nsive heart disease and difficult to control hypertension History includes 1. Hypertension, hypertensive heart disease 2. Grade 2 diastolic dysfunction 3. Obstructive sleep apnea on CPAP therapy. 4. History of TIA with history of internal carotid vascular disease 5. Dyslipidemia 6. Generalized anxiety 7. History of hyponatremia with past use of thiazide diuretic 8. History of significant fluid retention and rash with past use of amlodipine. 9. Type 2 diabetes mellitus, uncontrolled - hemoglobin A1c 9.4% on May 11, 2020 10. Stage 3 chronic kidney disease 11. Essential tremor. Patient admitted earlier this year with hypertensive urgency. She was treated with labetalol, nitropaste, losartan, clonidine patch, hydralazine. EKG on presentation revealed sinus bradycardia at 59 bpm with left axis deviation, voltage criteria for LVH, nonspecific ST abnormality. At f/u appt, patient had stopped labetalol for unknown reasons, and transitioned back to metoprolol. Of note, she had significant edema with past use of amlodipine and had hyponatremia with past use of hydrochlorothiazide. Earlier this week, patient reported generalized symptoms of not feeling well at home with mild headaches. she found her systolic BP at home was > 200 on several occasions and came to the ER for evaluation. Upon admission her her BP was significantly elevated. Sodium levels were lower than her prior baseline. Troponin unremarkable. EKG without acute changes. Hydralazine was titrated to 75 mg and then 100 mg TID since admission. She resumed CPAP therapy last night as well. At time of consult, patient resting in bed comfortably. Notes mild sinus congestion this morning, which she attributes to using CPAP machine last night for the first time in several days. She admits to not sleeping with CPAP continuously at home. She denies chest pain or SOB. Headaches resolved. The 2 most recent BP readings have been excellent. She voices no acute complaints today. she is hoping if BP remains controlled, she can go home today. No orthopnea, PND or edema. No fever, cough, chills. Allergies Allergy/AdvReac Type Severity Reaction Status Date / Time amlodipine Allergy Severe SWELLING Unverified 01/02/21 14:48 AND FLUSHING mold Allergy Mild SINUS Unverified 01/02/21 14:48 DRAINAGE/COUGH hydrochlorothiazide AdvReac Severe hyponatremi Verified 01/02/21 14:48 [From Maxzide] a triamterene [From Maxzide] AdvReac Severe hyponatremi Verified 01/02/21 14:48 a LORENA Inhibitors AdvReac Unknown COUGH Verified 01/02/21 14:48 Home Medications Medication Instructions Recorded Confirmed Type atorvastatin 20 mg tablet 20 mg PO PM 03/24/18 01/02/21 History clopidogrel 75 mg tablet (Plavix) 75 mg PO DAILY 03/24/18 01/02/21 History hydralazine 50 mg tablet 50 mg PO TID 03/24/18 01/02/21 History losartan 50 mg tablet 50 mg PO BID 03/24/18 01/02/21 History escitalopram oxalate 10 mg tablet 10 mg PO PM 05/11/20 01/02/21 History mecobalamin (vitamin B12) 1,000 1,000 mcg PO DAILY 05/11/20 01/02/21 History mcg chewable tablet (B12 Active) clonidine 0.2 mg/24 hr weekly 0.2 mg TRANSDERMAL Q7D 05/12/20 01/02/21 History transdermal patch aspirin 81 mg tablet,delayed 81 mg PO QAM 30 Days #30 tab 05/15/20 01/02/21 Rx release needle (disp) 32 gauge 32 gauge x #100 ea 05/17/20 01/02/21 Rx 5/16" insulin glargine 100 unit/mL (3 14 unit SUBCUT QAM 01/02/21 01/02/21 History mL) subcutaneous pen (Basaglar KwikPen U-100 Insulin) metformin 500 mg tablet 1,000 mg PO BIDM 01/02/21 01/02/21 History metoprolol succinate 100 mg 100 mg PO DAILY 01/02/21 01/02/21 History tablet,extended release 24 hr Patient History Medical History Anxiety CKD (chronic kidney disease), stage III DM type 2 (diabetes mellitus, type 2) Dyslipidemia HTN (hypertension) Hypertensive urgency Hyponatremia Hyponatremia SHIVANI (obstructive sleep apnea) TIA (transient ischemic attack) TIA (transient ischemic attack) Type 2 diabetes mellitus Surgical History S/P carpal tunnel release S/P cholecystectomy Family History Other Diabetes Hypertension Social History Smoking Status: Never smoker Second Hand Exposure: No; Hx Alcohol Use: No Hx Substance Use: No Preferred Language: Botswanan Communication Ability: Effective Teacher Of The Deaf/Hard Of Hearing Required: No Beliefs That Will Affect Care: None marital status: Current Living Situation: Alone Current Living Situation Comment: patient was living with son until last Feels Safe at Home: Yes Assistive Devices: Cane and Glasses Review of Systems Review of Systems: All systems reviewed & are unremarkable except as noted in HPI & below Physical Exam Constitutional: WD/WN, vitals as above Neck: trachea midline, no thyromegaly Respiratory: normal respiratory effort, lungs clear to auscultation Cardiovascular: RRR, no murmur, no edema Vessels: no JVD Extremities: no edema Gastrointestinal (Abdomen): normal bowel sounds, soft, nontender, no hepatosplenomegaly Musculoskeletal: no cyanosis or clubbing, extremities motor strength 5/5 Skin: no rashes, warm and dry Neurologic: PERRL, EOMI, accommodation nl, no face palsy, no dysarthria Psychiatric: A+Ox3, euthymic affect Results & Data ([facility]) Vital Signs (Past 12 Hours) Vital Signs Temp Pulse Pulse Resp BP Pulse Ox 01/04/21 07:00 36.4 C L 58 L 20 193/78 H 95 01/04/21 03:00 36.7 C 60 20 143/74 H 92 01/04/21 02:00 58 L 01/03/21 23:00 36.7 C 58 L 20 185/73 H 96 Laboratory Results 01/04/21 01/04/21 01/04/21 Range/Units 11:22 07:32 05:44 Sodium 132 L (136-145) mmol/L Potassium 3.9 (3.5-5.1) mmol/L Chloride 99 (98-107) mmol/L Carbon Dioxide 27 (21-32) mmol/L Anion Gap 6.0 (3-11) BUN 18 (7-18) mg/dl Creatinine 0.96 (0.6-1.2) mg/dl Est Cr Clr Drug Dosing 38.1 ml/min Est GFR ( Amer) 63.4 ml/min Est GFR (Non-Af Amer) 54.7 ml/min BUN/Creatinine Ratio 18.9 (10-20) Glucose 138 H (70-99) mg/dl POC Glucose 227 H 160 H (70-99) mg/dl Calcium 8.8 (8.5-10.1) mg/dl 01/03/21 01/03/21 Range/Units 20:41 16:47 Sodium (136-145) mmol/L Potassium (3.5-5.1) mmol/L Chloride (98-107) mmol/L Carbon Dioxide (21-32) mmol/L Anion Gap (3-11) BUN (7-18) mg/dl Creatinine (0.6-1.2) mg/dl Est Cr Clr Drug Dosing ml/min Est GFR ( Amer) ml/min Est GFR (Non-Af Amer) ml/min BUN/Creatinine Ratio (10-20) Glucose (70-99) mg/dl POC Glucose 170 H 105 H (70-99) mg/dl Calcium (8.5-10.1) mg/dl Diagnostic Findings Telemetry reviewed - sinus laura and NSR in the 50-60's. No arrhythmias. EKG reviewed from admission - Normal sinus rhythm Left axis deviation possible LVH Nonspecific ST and T wave abnormality Compared with prior EKG, T wave inversion no longer evident in inferior leads. Chest xray on admission - IMPRESSION: No acute process. Head CT on admission: Impression: No significant change compared to the prior study. No acute intracranial abnormality. Echo report reviewed dated Apr 2020 at [facility]: Normal LV chamber size with moderate concentric LVH Normal LV systolic function with EF 60-65% No wall motion abnormalities. Grade 2 diastolic dysfunction Mild aortic valve sclerosis without stenosis Mild mitral regurgitation Moderate LAE Interatrial septum is intact with no evidence of ASD Medications Administered Current Inpatient Medications Acetaminophen (Acetaminophen 325 Mg Tab) 650 mg PO Q4H PRN PRN Reason: Pain or Fever Stop: 02/01/21 18:36 Last Admin: 01/02/21 19:21 Dose: 650 mg Documented by: Aspirin (Aspirin 81 Mg Ectab) 81 mg PO QAM [facility] Stop: 02/02/21 08:59 Last Admin: 01/04/21 07:54 Dose: 81 mg Documented by: Atorvastatin Calcium (Atorvastatin 20 Mg Tab) 20 mg PO PM [facility] Stop: 02/01/21 20:59 Last Admin: 01/03/21 22:16 Dose: 20 mg Documented by: Clonidine HCl (Clonidine Hcl 0.2 Mg/24 Hr Transderm Sys) 1 patch TD Q7D@1837 [facility] Stop: 02/07/21 18:36 Clopidogrel Bisulfate (Clopidogrel Bisulfate 75 Mg Tab) 75 mg PO DAILY YANA Stop: 02/02/21 08:59 Last Admin: 01/04/21 07:54 Dose: 75 mg Documented by: Dextrose (Dextrose 50% 50 Ml Syringe) 25 - 50 ml IV UD PRN; Protocol PRN Reason: Hypoglycemia Protocol Stop: 02/01/21 18:36 Enoxaparin Sodium (Enoxaparin Inj 40 Mg/0.4 Ml Syr) 40 mg SQ Q24H YANA Stop: 02/01/21 20:59 Last Admin: 01/03/21 22:16 Dose: 40 mg Documented by: Escitalopram Oxalate (Escitalopram Oxalate 10 Mg Tab) 10 mg PO PM YANA Stop: 02/01/21 20:59 Last Admin: 01/03/21 22:16 Dose: 10 mg Documented by: Glucagon (Glucagon For Inj 1 Mg Vial) 1 mg SQ UD PRN; Protocol PRN Reason: Hypoglycemia Protocol Stop: 02/01/21 18:36 Glucose (Glucose 10 Tabs/Tube) 4 - 8 tabs PO UD PRN; Protocol PRN Reason: Hypoglycemia Protocol Stop: 02/01/21 18:36 Glucose (Glucose 40% Gel 15 Gm Tube) 15 - 30 gm PO UD PRN; Protocol PRN Reason: Hypoglycemia Protocol Stop: 02/01/21 18:36 Hydralazine HCl (Hydralazine Hcl 20 Mg/Ml Vial) 10 mg IV Q6H PRN PRN Reason: Hypertension Stop: 02/01/21 18:36 Hydralazine HCl (Hydralazine Tab 50 Mg Tab) 100 mg PO TID YANA Stop: 02/03/21 08:59 Last Admin: 01/04/21 07:52 Dose: 100 mg Documented by: Insulin Aspart (Insulin Aspart 100 Units/Ml 3 Ml Pen) 0 units SC ACHS YANA Stop: 02/01/21 18:36 Last Admin: 01/04/21 08:30 Dose: 4 units Documented by: Insulin Glargine (Insulin Glargine Solostar 100 Units/Ml 3 Ml Pen) 0 - 7 units SC BID YANA Stop: 02/01/21 20:59 Last Admin: 01/04/21 08:33 Dose: 4 units Documented by: Losartan Potassium (Losartan Potassium 50 Mg Tab) 50 mg PO BID YANA Stop: 02/01/21 20:59 Last Admin: 01/04/21 07:53 Dose: 50 mg Documented by: Metoprolol Succinate (Metoprolol Succ 50mg Ext Rel Tab) 100 mg PO DAILY [facility] Stop: 02/02/21 08:59 Last Admin: 01/04/21 07:52 Dose: 100 mg Documented by: Miscellaneous (Carbohydrates For Hypoglycemia ) 15 - 30 gm PO UD PRN PRN Reason: Hypoglycemia Protocol Stop: 02/01/21 18:36 Miscellaneous (Remove Clonidine Patch) 1 ea N/A CQWK [facility] Stop: 02/01/21 18:36 Last Admin: 01/02/21 19:37 Dose: Not Given Documented by: Miscellaneous (Check Clonidine Patch Placement) 1 ea N/A QS [facility] Stop: 02/01/21 18:36 Last Admin: 01/04/21 07:56 Dose: 1 ea Documented by: Polyethylene Glycol (Polyethylene (Miralax) 17 Gm Pack) 17 gm PO DAILY PRN PRN Reason: Constipation Stop: 02/01/21 18:36
[2021-01-04] MEDS ORDERED: SODIUM CHLORIDE 0.65% NA SOLN 45 ML (OCEAN) PRN (13:50)
[2021-01-04] MEDS: FLUTICASONE PROPIONATE NA SPR 16 GM BTL SCH (14:17)
[2021-01-04] MEDS: ESCITALOPRAM OXALATE 10 MG TAB PO SCH (20:51)
[2021-01-04] MEDS: ENOXAPARIN INJ 40 MG/0.4 ML SYR SQ SCH (20:51)
[2021-01-04] MEDS: ATORVASTATIN 20 MG TAB PO SCH (20:52)
[2021-01-04] MEDS: guaiFENesin 600 MG TABCR PO SCH (20:58)
--- NOTE | 2021-01-04 23:51 | Hospitalist Progress Note ---
Date of Service January 04, 2021 Assessment & Plan (1) Hypertensive urgency: Plan: Present on admission with generalized weakness BP on admission was 211/82, 179/98, 95% on room air. Negative troponin EKG without acute ST elevation CT head showed no acute change. Continue clonidine patch losartan, metoprolol succinate with home dose Hydralazine increased to 100 mg 3 times daily Cardiology on board Plan to start on Aldactone in the future if BP continues to elevate Continue to use CPAP at night (2) Hyponatremia: Plan: Acute on chronic hyponatremia Possible related to diarrhea Sodium on admission 127 with baseline Baseline sodium 132 Corrected sodium 128 for glucose 163. Received IV normal saline Sodium 132 today Continue monitor BMP (3) Weakness: Plan: Generalized tenderness for several days CT head showed no acute intracranial abnormalities No focal findings on exam Continue PT OT eval (4) Diarrhea: Plan: Stool did not collected since stool has been firm Clinically improved (5) DM type 2 (diabetes mellitus, type 2): Plan: Most recent hemoglobin A1c 7.5 on 01/03 Hold home meds NovoLog, Lantus per protocol (6) TIA (transient ischemic attack): Plan: History TIA versus hypertension emergency in past Continue aspirin, Plavix, atorvastatin (7) CKD (chronic kidney disease), stage III: Plan: Cr: 0.96. Baseline creatinine 1.0 Monitor renal functions, avoid nephrotoxic agents when possible (8) Dyslipidemia: Plan: Continue atorvastatin (9) Anxiety: Plan: Continue escitalopram (10) SHIVANI (obstructive sleep apnea): Plan: Continue CPAP at bedtime DVT Prophylaxis Lovenox SQ Full code Admission and Anticipated Discharge Date Admission Date: January 02, 2021 Subjective Patient was seen and evaluate for follow of uncontrolled blood pressure Lying in bed with no acute distress Pt said that she having alot of sinus congestion Denies any chest pain, palpitation, dizziness, shortness of breath. Review of Systems Review of Systems: All systems reviewed & are unremarkable except as noted in Subjective Physical Exam Physical Exam: General- No acute distress Head- atraumatic Eyes- PERRL, EOMI, ENT-+decreased hearing function Neck- supple, no JVD Lungs- clear to auscultation Heart- regular rhythm; no murmur Abdomen- normal bowel sounds, soft, nontender Extremities- no calf tenderness Neuro- alert, oriented x 3; PERRL, EOMI; no facial palsy; no dysarthria Skin- warm & dry Results & Data Results & Data ([facility]) Vital Signs (Past 12 Hours) Vital Signs Temp Pulse Pulse Resp BP BP Pulse Ox 01/04/21 19:00 36.7 C 59 L 20 191/76 H 94 01/04/21 15:00 61 01/04/21 14:23 60 169/67 H
[2021-01-05] MEDS: CHECK CLONIDINE PATCH PLACEMENT SCH ×4 (01:02→21:51)
[2021-01-05] MEDS: LOSARTAN POTASSIUM 50 MG TAB PO SCH ×2 (08:16→21:49)
[2021-01-05] MEDS: FLUTICASONE PROPIONATE NA SPR 16 GM BTL SCH (08:17)
[2021-01-05] MEDS: METOPROLOL SUCC 50MG EXT REL TAB PO SCH (08:17)
[2021-01-05] MEDS: CLOPIDOGREL BISULFATE 75 MG TAB PO SCH (08:17)
[2021-01-05] MEDS: ASPIRIN 81 MG ECTAB PO SCH (08:17)
[2021-01-05] MEDS: guaiFENesin 600 MG TABCR PO SCH ×2 (08:18→21:47)
[2021-01-05] MEDS: INSULIN ASPART 100 UNITS/ML 3 ML PEN SC SCH ×4 (08:18→21:49)
[2021-01-05] MEDS: hydrALAZINE TAB 50 MG TAB PO SCH ×3 (08:18→21:47)
[2021-01-05] MEDS: INSULIN GLARGINE SOLOSTAR 100 UNITS/ML 3 ML PEN SC SCH ×2 (08:20→21:50)
[2021-01-05] MEDS: hydrALAZINE HCL 20 MG/ML VIAL IV PRN (15:24)
[2021-01-05] MEDS: ESCITALOPRAM OXALATE 10 MG TAB PO SCH (21:48)
[2021-01-05] MEDS: ENOXAPARIN INJ 40 MG/0.4 ML SYR SQ SCH (21:48)
[2021-01-05] MEDS: ATORVASTATIN 20 MG TAB PO SCH (21:49)
--- NOTE | 2021-01-05 21:52 | Hospitalist Progress Note ---
Date of Service January 05, 2021 Assessment & Plan (1) Hypertensive urgency: Plan: Present on admission with generalized weakness BP on admission was 211/82, 179/98, 95% on room air. Negative troponin EKG without acute ST elevation CT head showed no acute change. Continue clonidine patch losartan, metoprolol succinate with home dose Hydralazine increased to 100 mg 3 times daily Cardiology on board Plan to start on Aldactone in the future if BP continues to elevate Continue Hydralazine 100mg TID Continue to use CPAP at night (2) Hyponatremia: Plan: Acute on chronic hyponatremia Possible related to diarrhea Sodium on admission 127 with baseline Baseline sodium 132 Corrected sodium 128 for glucose 163. Received IV normal saline Sodium 132 Continue monitor BMP (3) Weakness: Plan: Generalized tenderness for several days CT head showed no acute intracranial abnormalities No focal findings on exam Continue PT OT eval (4) Diarrhea: Plan: Stool did not collected since stool has been firm Clinically improved (5) DM type 2 (diabetes mellitus, type 2): Plan: Most recent hemoglobin A1c 7.5 on 01/03 Hold home meds NovoLog, Lantus per protocol (6) TIA (transient ischemic attack): Plan: History TIA versus hypertension emergency in past Continue aspirin, Plavix, atorvastatin (7) CKD (chronic kidney disease), stage III: Plan: Cr: 0.96. Baseline creatinine 1.0 Monitor renal functions, avoid nephrotoxic agents when possible (8) Dyslipidemia: Plan: Continue atorvastatin (9) Anxiety: Plan: Continue escitalopram (10) SHIVANI (obstructive sleep apnea): Plan: Continue CPAP at bedtime DVT Prophylaxis Lovenox SQ Full code Admission and Anticipated Discharge Date Admission Date: January 02, 2021 Subjective Patient was seen and evaluate for follow of uncontrolled blood pressure Lying in bed with no acute distress Pt said that she feels much better today BP continues to be fluctuated Denies any chest pain, palpitation, dizziness, shortness of breath. Review of Systems Review of Systems: All systems reviewed & are unremarkable except as noted in Subjective Physical Exam Physical Exam: General- No acute distress Head- atraumatic Eyes- PERRL, EOMI, ENT-+decreased hearing function Neck- supple, no JVD Lungs- clear to auscultation Heart- regular rhythm; no murmur Abdomen- normal bowel sounds, soft, nontender Extremities- no calf tenderness Neuro- alert, oriented x 3; PERRL, EOMI; no facial palsy; no dysarthria Skin- warm & dry Results & Data Results & Data ([facility]) Vital Signs (Past 12 Hours) Vital Signs Temp Pulse Resp BP BP Pulse Ox 01/05/21 19:00 37.1 C 61 20 180/84 H 99 01/05/21 16:34 180/62 H 01/05/21 15:29 36.9 C 68 20 190/70 H 93 01/05/21 11:41 36.9 C 61 18 175/76 H 93
[2021-01-06] MEDS: LOSARTAN POTASSIUM 50 MG TAB PO SCH ×2 (07:25→20:33)
[2021-01-06] MEDS: hydrALAZINE TAB 50 MG TAB PO SCH ×3 (07:25→20:33)
[2021-01-06] MEDS: guaiFENesin 600 MG TABCR PO SCH ×2 (07:26→20:33)
[2021-01-06] MEDS: CLOPIDOGREL BISULFATE 75 MG TAB PO SCH (07:26)
[2021-01-06] MEDS: CHECK CLONIDINE PATCH PLACEMENT SCH ×2 (07:26→15:21)
[2021-01-06] MEDS: ASPIRIN 81 MG ECTAB PO SCH (07:26)
[2021-01-06] MEDS: METOPROLOL SUCC 50MG EXT REL TAB PO SCH ×2 (07:27→10:50)
[2021-01-06] MEDS: FLUTICASONE PROPIONATE NA SPR 16 GM BTL SCH (07:27)
[2021-01-06 07:56] LABS: BUN Creatinine Ratio 19.9 (10-20); Calcium 9.1 mg/dl (8.5-10.1); Creatinine Clr Calc Pharmacy 43.8 ml/min; Est GFR (African American) 75.6 ml/min; Est GFR (Non-African American) 65.2 ml/min
[2021-01-06] MEDS: INSULIN ASPART 100 UNITS/ML 3 ML PEN SC SCH ×4 (08:52→20:35)
[2021-01-06] MEDS: INSULIN GLARGINE SOLOSTAR 100 UNITS/ML 3 ML PEN SC SCH ×2 (08:53→20:34)
[2021-01-06] MEDS: SPIRONOLACTONE 12.5 MG TAB PO SCH (09:20)
[2021-01-06] MEDS: LORATADINE 10 MG TAB PO SCH (12:46)
--- NOTE | 2021-01-06 17:29 | Hospitalist Progress Note ---
Date of Service January 06, 2021 Assessment & Plan (1) Hypertensive urgency: Plan: Present on admission with generalized weakness BP on admission was 211/82, 179/98, 95% on room air. Negative troponin EKG without acute ST elevation CT head showed no acute change. Continue clonidine patch losartan, metoprolol succinate with home dose Hydralazine increased to 100 mg 3 times daily Cardiology on board Plan to start on Aldactone in the future if BP continues to elevate Continue Hydralazine 100mg TID Continue to use CPAP at night (2) Hyponatremia: Plan: Acute on chronic hyponatremia Possible related to diarrhea Sodium on admission 127 with baseline Baseline sodium 132 Corrected sodium 128 for glucose 163. Received IV normal saline Sodium 132 Continue monitor BMP (3) Weakness: Plan: Generalized tenderness for several days CT head showed no acute intracranial abnormalities No focal findings on exam Continue PT OT eval (4) Diarrhea: Plan: Stool did not collected since stool has been firm Clinically improved (5) DM type 2 (diabetes mellitus, type 2): Plan: Most recent hemoglobin A1c 7.5 on 01/03 Hold home meds NovoLog, Lantus per protocol (6) TIA (transient ischemic attack): Plan: History TIA versus hypertension emergency in past Continue aspirin, Plavix, atorvastatin (7) CKD (chronic kidney disease), stage III: Plan: Cr: 0.96. Baseline creatinine 1.0 Monitor renal functions, avoid nephrotoxic agents when possible (8) Dyslipidemia: Plan: Continue atorvastatin (9) Anxiety: Plan: Continue escitalopram (10) SHIVANI (obstructive sleep apnea): Plan: Continue CPAP at bedtime DVT Prophylaxis Lovenox SQ Full code Admission and Anticipated Discharge Date Admission Date: January 02, 2021 Subjective Patient was seen and evaluate for follow of uncontrolled blood pressure Lying in bed with no acute distress Pt said that she feels much better today BP continues to be fluctuated Denies any chest pain, palpitation, dizziness, shortness of breath. Review of Systems Review of Systems: All systems reviewed & are unremarkable except as noted in Subjective Physical Exam Physical Exam: General- No acute distress Head- atraumatic Eyes- PERRL, EOMI, ENT-+decreased hearing function Neck- supple, no JVD Lungs- clear to auscultation Heart- regular rhythm; no murmur Abdomen- normal bowel sounds, soft, nontender Extremities- no calf tenderness Neuro- alert, oriented x 3; PERRL, EOMI; no facial palsy; no dysarthria Skin- warm & dry Results & Data Results & Data ([facility]) Vital Signs (Past 12 Hours) Vital Signs Temp Pulse Resp BP BP Pulse Ox 01/06/21 15:46 36.5 C 61 16 152/66 H 94 01/06/21 13:45 63 148/67 H 01/06/21 11:46 36.6 C 65 18 147/74 H 90 01/06/21 10:51 133/64 01/06/21 07:52 36.7 C 54 L 18 174/70 H 97
[2021-01-06] MEDS: ATORVASTATIN 20 MG TAB PO SCH (20:33)
[2021-01-06] MEDS: ESCITALOPRAM OXALATE 10 MG TAB PO SCH (20:34)
[2021-01-06] MEDS: ENOXAPARIN INJ 40 MG/0.4 ML SYR SQ SCH (20:35)
[2021-01-06] MEDS ORDERED: COUGH DROP (SUGAR FREE) LOZ 24 LOZ/1 BOX BUCCAL ONE (20:37)
[2021-01-06] MEDS ORDERED: COUGH DROP (SUGAR FREE) LOZ 24 LOZ/1 BOX BUCCAL STA (20:38)
[2021-01-07] MEDS: CHECK CLONIDINE PATCH PLACEMENT SCH ×3 (00:12→15:50)
[2021-01-07] MEDS: hydrALAZINE TAB 50 MG TAB PO SCH ×3 (08:14→20:01)
[2021-01-07] MEDS: CLOPIDOGREL BISULFATE 75 MG TAB PO SCH (08:15)
[2021-01-07] MEDS: METOPROLOL SUCC 50MG EXT REL TAB PO SCH (08:16)
[2021-01-07] MEDS: LORATADINE 10 MG TAB PO SCH (08:16)
[2021-01-07] MEDS: SPIRONOLACTONE 12.5 MG TAB PO SCH (08:16)
[2021-01-07] MEDS: INSULIN GLARGINE SOLOSTAR 100 UNITS/ML 3 ML PEN SC SCH ×2 (08:19→20:05)
[2021-01-07] MEDS: INSULIN ASPART 100 UNITS/ML 3 ML PEN SC SCH ×4 (08:20→20:06)
[2021-01-07] MEDS: guaiFENesin 600 MG TABCR PO SCH ×2 (08:25→20:00)
[2021-01-07] MEDS: FLUTICASONE PROPIONATE NA SPR 16 GM BTL SCH (08:25)
[2021-01-07] MEDS: ASPIRIN 81 MG ECTAB PO SCH (08:25)
[2021-01-07] MEDS: LOSARTAN POTASSIUM 50 MG TAB PO SCH ×2 (09:16→20:00)
[2021-01-07 10:18] LABS: BUN Creatinine Ratio 19.5 (10-20); Calcium 8.7 mg/dl (8.5-10.1); Creatinine Clr Calc Pharmacy 35.1 ml/min; Est GFR (African American) 57.5 ml/min; Est GFR (Non-African American) 49.6 ml/min
[2021-01-07] MEDS ORDERED: hydrALAZINE HCL 20 MG/ML VIAL IV STA (16:42)
[2021-01-07] MEDS: hydrALAZINE HCL 20 MG/ML VIAL IV PRN (16:52)
[2021-01-07] MEDS: ESCITALOPRAM OXALATE 10 MG TAB PO SCH (20:01)
[2021-01-07] MEDS: ENOXAPARIN INJ 40 MG/0.4 ML SYR SQ SCH (20:01)
[2021-01-07] MEDS: ATORVASTATIN 20 MG TAB PO SCH (20:02)
--- NOTE | 2021-01-07 23:39 | Hospitalist Progress Note ---
Date of Service January 07, 2021 Assessment & Plan (1) Hypertensive urgency: Plan: Present on admission with generalized weakness BP on admission was 211/82, 179/98, 95% on room air. Negative troponin EKG without acute ST elevation CT head showed no acute change. Continue clonidine patch losartan, metoprolol succinate with home dose Hydralazine increased to 100 mg 3 times daily Cardiology on board Continue Aldactone 12.5 mg Continue Hydralazine 100mg TID Continue to use CPAP at night BP stable (2) Hyponatremia: Plan: Acute on chronic hyponatremia Possible related to diarrhea Sodium on admission 127 with baseline Baseline sodium 132 Corrected sodium 128 for glucose 163. Received IV normal saline Sodium 128 today Continue monitor BMP (3) Weakness: Plan: Generalized tenderness for several days CT head showed no acute intracranial abnormalities No focal findings on exam Continue PT OT eval (4) Diarrhea: Plan: Stool did not collected since stool has been firm Clinically improved (5) DM type 2 (diabetes mellitus, type 2): Plan: Most recent hemoglobin A1c 7.5 on 01/03 Hold home meds NovoLog, Lantus per protocol (6) TIA (transient ischemic attack): Plan: History TIA versus hypertension emergency in past Continue aspirin, Plavix, atorvastatin (7) CKD (chronic kidney disease), stage III: Plan: Cr: 0.96. Baseline creatinine 1.0 Monitor renal functions, avoid nephrotoxic agents when possible (8) Dyslipidemia: Plan: Continue atorvastatin (9) Anxiety: Plan: Continue escitalopram (10) SHIVANI (obstructive sleep apnea): Plan: Continue CPAP at bedtime DVT Prophylaxis Lovenox SQ Full code Disposition Will discharge home tomorrow Admission and Anticipated Discharge Date Admission Date: January 02, 2021 Subjective Patient was seen and evaluate for follow of uncontrolled blood pressure Lying in bed with no acute distress BP seem to improved today Denies any chest pain, palpitation, dizziness, shortness of breath. Review of Systems Review of Systems: All systems reviewed & are unremarkable except as noted in Subjective Physical Exam Physical Exam: General- No acute distress Head- atraumatic Eyes- PERRL, EOMI, ENT-+decreased hearing function Neck- supple, no JVD Lungs- clear to auscultation Heart- regular rhythm; no murmur Abdomen- normal bowel sounds, soft, nontender Extremities- no calf tenderness Neuro- alert, oriented x 3; PERRL, EOMI; no facial palsy; no dysarthria Skin- warm & dry Results & Data Results & Data ([facility]) Vital Signs (Past 12 Hours) Vital Signs Temp Pulse Pulse Resp BP BP Pulse Ox 01/07/21 23:38 36.9 C 54 L 18 159/68 H 94 01/07/21 20:13 36.6 C 67 18 147/68 H 93 01/07/21 18:38 154/71 H 01/07/21 16:08 189/70 H 01/07/21 15:33 57 L 01/07/21 12:01 36.7 C 56 L 17 147/70 H 96
[2021-01-08] MEDS: CHECK CLONIDINE PATCH PLACEMENT SCH ×3 (00:06→17:12)
[2021-01-08 07:50] LABS: BUN Creatinine Ratio 24.5 (10-20); Calcium 9.2 mg/dl (8.5-10.1); Creatinine Clr Calc Pharmacy 40.5 ml/min; Est GFR (African American) 68.5 ml/min; Est GFR (Non-African American) 59.1 ml/min; Potassium 4.2 mmol/L (3.5-5.1)
[2021-01-08] MEDS: hydrALAZINE TAB 50 MG TAB PO SCH ×2 (08:16→14:32)
[2021-01-08] MEDS: ASPIRIN 81 MG ECTAB PO SCH (08:16)
[2021-01-08] MEDS: guaiFENesin 600 MG TABCR PO SCH (08:17)
[2021-01-08] MEDS: METOPROLOL SUCC 50MG EXT REL TAB PO SCH (08:17)
[2021-01-08] MEDS: SPIRONOLACTONE 12.5 MG TAB PO SCH (08:17)
[2021-01-08] MEDS: CLOPIDOGREL BISULFATE 75 MG TAB PO SCH (08:17)
[2021-01-08] MEDS: LOSARTAN POTASSIUM 50 MG TAB PO SCH (08:17)
[2021-01-08] MEDS: LORATADINE 10 MG TAB PO SCH (08:18)
[2021-01-08] MEDS: FLUTICASONE PROPIONATE NA SPR 16 GM BTL SCH (08:18)
[2021-01-08] MEDS: INSULIN GLARGINE SOLOSTAR 100 UNITS/ML 3 ML PEN SC SCH (08:19)
[2021-01-08] MEDS: INSULIN ASPART 100 UNITS/ML 3 ML PEN SC SCH ×3 (08:20→17:11)
[2021-01-08] MEDS: ACETAMINOPHEN 325 MG TAB PO PRN (08:43)
[2021-01-08] MEDS: hydrALAZINE HCL 20 MG/ML VIAL IV PRN (11:38)
--- NOTE | 2021-01-23 09:33 | Discharge Summary ---
Date of Service January 08, 2021 Admission HPI Per Admitting Provider Patient is 85-year-old female with PMH DM II, HTN, dyslipidemia, SHIVANI on CPAP, LVH, CKD III, TIA, anxiety presented to ER with complaint of not feeling well. Patient states past couple of days has been having generalized weakness. States is able to ambulate has not had any falls. She reports is also had intermittent frontal, posterior headache and aching of her maxillary sinuses. She states yesterday felt like she could feel her heart beating. She reports her daughter is a nurse and checked her pulse and reported that it was regular and not tachycardic. She reports she has been taking her blood pressure at home and systolics over 200. Patient states has been taking her blood pressure medication as directed. She also reports chronic intermittent nausea after taking her insulin. Patient states past couple of days has also had this and has not been eating or drinking much. She reports normal BM yesterday. Reports today had 3 loose BMs. States abdomen feels "queasy" denies any abdominal pain. Reports chronic intermittent left finger paresthesias, reports history of carpal tunnel reports this is at baseline. Denies chest pain. Denies fever/chills, diaphoresis, vomiting, constipation, hematochezia, melena, dizziness, syncope, vision changes, neck pain, SOB, orthopnea, cough, sore throat, choking, rhinorrhea, other paresthesias, extremity edema, rashes, urinary symptoms. In ER patient afebrile, P: 69, R: 18, BP one 211/82, 179/98, 95% on room air. Negative troponin, EKG without acute ST elevation, corrected sodium: 128. CT head no acute change. In ER given lorazepam 0.25 mg IV. Admission Exam Per Admitting Provider General: no acute distress, obese Head: normocephalic, atraumatic Eyes: PERRL, EOM's intact, conjunctiva non-injected, anicteric ENT: +hard of hearing, normal inspection external ears, nose, TM's torres, +cerumen in canal, mucous membranes mildly dry, no maxillary sinus tenderness to palpation Neck: supple, trachea midline Lungs: clear, no respiratory distress, no wheezing/rhonchi/rales CV: RRR, no murmur, no pretibial edema Abd: protuberant, normal BS, soft, non-tender to palpation Ext: no cyanosis, no calf tenderness Neuro: A&O x 3, No nystagmus, Facial sensation is intact and symmetric, The face is strong and symmetric, Soft palate elevates symmetrically, no dysarthria, Shoulder shrug intact, Tongue is midline, normal movement, no fasciculations. Normal affect Skin: warm, dry, RUE with clonidine patch in place Principal Diagnosis Hypertensive urgency: Hyponatremia: Weakness: Diarrhea: DM type 2 (diabetes mellitus, type 2): Discharge Exam General- No acute distress Head- atraumatic Eyes- PERRL, EOMI, ENT-+decreased hearing function Neck- supple, no JVD Lungs- clear to auscultation Heart- regular rhythm; no murmur Abdomen- normal bowel sounds, soft, nontender Extremities- no calf tenderness Neuro- alert, oriented x 3; PERRL, EOMI; no facial palsy; no dysarthria Skin- warm & dry Discharge Data Allergies Allergy/AdvReac Type Severity Reaction Status Date / Time amlodipine Allergy Severe SWELLING Unverified 01/02/21 14:48 AND FLUSHING mold Allergy Mild SINUS Unverified 01/02/21 14:48 DRAINAGE/COUGH hydrochlorothiazide AdvReac Severe hyponatremi Verified 01/02/21 14:48 [From Maxzide] a triamterene [From Maxzide] AdvReac Severe hyponatremi Verified 01/02/21 14:48 a LORENA Inhibitors AdvReac Unknown COUGH Verified 01/02/21 14:48 Consultations 01/02/21 14:07 ED Decision to Admit Stat 01/03/21 22:09 Consult Cardiology Routine Ordered Studies 01/02/21 13:12 CT head/brain wo con Stat 01/03/21 23:31 CT soft tissue neck w con Urgent CT soft tissue neck w con HISTORY: Right-sided parotid swelling, lymphadenopathy TECHNIQUE: Multiaxial CT images of the neck were performed following the use of intravenous contrast and reformatted in the sagittal and coronal planes. COMPARISON STUDY: None. FINDINGS: The visualized brain parenchyma and orbits are unremarkable. The pterygopalatine fossa and parapharyngeal fat spaces are well-maintained. The major mucosal airways services are intact. The epiglottis and prevertebral soft tissues are normal in thickness. There is a 1.1 cm right thyroid nodule. This does not meet CT criteria for follow-up. Partially visualized 3 mm nodule within the left upper lobe. No fractures within the visualized osseous structures. The paranasal sinuses and mastoid air cells are clear. Mild hyperenhancement and mild fat stranding/edema involving the right parotid gland. No ductal dilatation or stone identified. This favors a parotitis. No loculated fluid collections to suggest an abscess. No significant cervical lymphadenopathy. The major cervical vessels are patent. IMPRESSION: Mild hyperenhancement and mild fat stranding/edema involving the right parotid gland. This favors a parotitis. ACT 112: Negative or not required by law. Electronically signed by: Dave Cano M.D. 01/04/2021 7:47 AM Dictated: 01/04/2143Transcribed: 01/04/21742 XR chest 2V PA/lateral HISTORY: Atypical Chest Pain COMPARISON: Chest 03/10/2021. FINDINGS: The lungs are clear. Cardiac silhouette is normal in size. No pleural effusions. No pneumothorax. Prior cholecystectomy. IMPRESSION: No acute process. ACT 112: Negative or not required by law. Electronically signed by: Dave Cano M.D. 01/02/2021 6:31 PM Dictated: 01/02/211828Transcribed: 01/02/211828 HEAD CT NONCONTRAST CT DOSE: 638.56 mGycm HISTORY: Headache. TECHNIQUE: Multiaxial CT images of the head were performed without the use of intravenous contrast. Automated exposure control was utilized for this study. A dose lowering technique was utilized adhering to the principles of ALARA. Comparison: Head CT 05/14/2020. Findings: The paranasal sinuses and mastoid air cells are clear. The calvarium and skull base are intact. There is no mass, hematoma, midline shift, acute infarct. White matter hypodensity is nonspecific but suggestive of microvascular ischemic change. The ventricles and sulci demonstrate mild age-related involutional changes. Impression: No significant change compared to the prior study. No acute intracranial abnormality. ACT 112: Negative or not required by law. Electronically signed by: Dave Cano M.D. 01/02/2021 1:58 PM Dictated: 01/02/21 1355Transcribed: 01/02/21 135 Hospital Course (1) Hypertensive urgency: Patient is 85-year-old female with PMH DM II, HTN, dyslipidemia, SHIVANI on CPAP, LVH, CKD III, TIA, anxiety presented to ER with complaint of not feeling well. Patient states past couple of days has been having generalized weakness. States is able to ambulate has not had any falls. She reports is also had intermittent frontal, posterior headache and aching of her maxillary sinuses. She states yesterday felt like she could feel her heart beating. She reports her daughter is a nurse and checked her pulse and reported that it was regular and not tachycardic. She reports she has been taking her blood pressure at home and systolics over 200. Patient states has been taking her blood pressure medication as directed. She also reports chronic intermittent nausea after taking her insulin. Patient states past couple of days has also had this and has not been eating or drinking much. She reports normal BM yesterday. Reports today had 3 loose BMs. States abdomen feels "queasy" denies any abdominal pain. Reports chronic intermittent left finger paresthesias, reports history of carpal tunnel reports this is at baseline. Denies chest pain. Denies fever/chills, diaphoresis, vomiting, constipation, hematochezia, melena, dizziness, syncope, vision changes, neck pain, SOB, orthopnea, cough, sore throat, choking, rhinorrhea, other paresthesias, extremity edema, rashes, urinary symptoms. In ER patient afebrile, P: 69, R: 18, BP one 211/82, 179/98, 95% on room air. Negative troponin, EKG without acute ST elevation, corrected sodium: 128. CT head no acute change. CXR: In ER given lorazepam 0.25 mg IV Hydralazine IV as needed Continue clonidine patch, hydralazine, losartan, metoprolol succinate If no improvement in BP consider cardiology consult (2) Hyponatremia: Acute on chronic hyponatremia Baseline sodium 132 Corrected sodium 128 for glucose 163. May be secondary to diarrhea, poor oral intake In ER given NSS at 125 ml/hour total 500 mL Monitor BMP (3) Weakness: Generalized tenderness for several days No focal findings on exam May be secondary to hypoglycemia PT OT eval (4) Diarrhea: Reported 3 episodes of loose stools today If recurrent diarrhea obtain C. difficile (5) DM type 2 (diabetes mellitus, type 2): A1c: 7.0 on 08/20/2020 Hold home meds NovoLog, Lantus per protocol (6) TIA (transient ischemic attack): History TIA versus hypertension emergency in past Continue aspirin, Plavix, atorvastatin (7) CKD (chronic kidney disease), stage III: Cr: 0.96. Baseline creatinine 1.0 Monitor renal functions, avoid nephrotoxic agents when possible (8) Dyslipidemia: Continue atorvastatin (9) Anxiety: Continue escitalopram (10) SHIVANI (obstructive sleep apnea): Continue CPAP at bedtime DVT Prophylaxis -Lovenox SQ Full code as per discussion with pt Follows with Dr Hook for routine care Pt was seen and care coordinated with Dr Mayo. See addendum Total Time Total Time Spent Total Time Spent (In Minutes): 35 minutes Discharge Plan Discharge Items Patient Disposition: Home - Self-Care Reason For Visit: HTN URGENCY Discharge Diagnosis: Hypertensive urgency: Hyponatremia: Weakness: Diarrhea: DM type 2 (diabetes mellitus, type 2): Activity: Resume your previous activity Non-emergency contact: Primary Care Provider Call non-emergency contact if: you have any medication questions Follow-up/Referrals: Vince Hook MD [Primary Care Provider] - (Date & Time 01/11/2021 11:20 AM Provider Vince Hook MD [facility] ) Diet: Carb Consistent or DM2, Heart Healthy and Low Sodium (2gm) Addtl Attending Provider Instructions: Follow up with your primary care provider 01/11/2021 11:20 AM Provider Vince Hook MD [facility] Follow up with a low salt diet Hydralazine increased to 100mg three times daily Continue monitor your blood pressure and bring your blood pressure log at your next appointment with your provider Your physician will need to titrate the spironolactone if needed Check BMP on Thursday to monitor your electrolytes and your renal function while on spironolactone Fall precaution Pending Studies at Discharge: No Stand-Alone Forms: My [place], Smoking Cessation Medications and DC Order Prescriptions: New hydralazine 100 mg tablet 100 mg PO TID Qty: 90 RF: 0 Continued escitalopram oxalate 10 mg Tablet 10 mg PO PM RF: 0 B12 Active 1,000 mcg Tablet,Chewable 1,000 mcg PO DAILY RF: 0 clonidine 0.2 mg/24 hr patch weekly 0.2 mg transdermal Q7D RF: 0 aspirin 81 mg Tablet,Delayed Release (Dr/Ec) 81 mg PO QAM 30 Days Qty: 30 RF: 3 (DME) needle (disp) 32 gauge 32 gauge x 5/16" needle See Rx Instructions .ROUTE .MEDSUPPLY Qty: 100 RF: 3 atorvastatin 20 mg Tablet 20 mg PO PM RF: 0 clopidogrel [Plavix] 75 mg Tablet 75 mg PO DAILY RF: 0 metformin 500 mg tablet 1,000 mg PO BIDM RF: 0 Basaglar KwikPen U-100 Insulin 100 unit/mL (3 mL) insulin pen 14 unit subcut QAM RF: 0 metoprolol succinate 100 mg tablet extended release 24 hr 100 mg PO DAILY RF: 0 Discontinued hydralazine 50 mg Tablet 50 mg PO TID RF: 0 No Action losartan 50 mg Tablet 100 mg PO DAILY Qty: 30 RF: 0 Discharge Orders: Discharge Order (Routine); Ordered 01/08/21 Ordered By: Eze Anders/Other Patient Handouts: A1C, Managing Type 2 Diabetes Admission Data Admit Date/Time: 01/02/21 14:31 Attending Provider: Eze Mayo Admit Provider: Eze Mayo Primary Care Provider: Vince Hook Other Providers: Eze Mayo ; Danish Rodrigues Other Interventions: Discharge Summary Assessment (RN) Last Done: 01/08/21 17:51
== END 2021-01-08 18:40 | disposition home or self-care (01) | DRG 305 ==
LOC: ED 12:13 → 2N 14:31

== ENCOUNTER 2021-01-14 15:36 | Inpatient (IN) ==
[2021-01-14] MEDS ORDERED: LABETALOL HCL IV 5 MG/ML 20ML IV STA (15:58)
[2021-01-14] MEDS ORDERED: SODIUM CHLORIDE 0.9% 500 ML IV SCH (16:00)
--- NOTE | 2021-01-14 16:05 | Emergency Department Note ---
Impression & Plan Weakness, Hypertension, Limb tremor, Acute hyponatremia ED Provider Note NAME: JUAN F ALANIZ AGE: 85 SEX: F : 1935 ARRIVES VIA: Ambulance INFORMANT: [Patient] ED PROVIDER(S): [Milton Huynh MD] CHIEF COMPLAINT: Hypertension, weakness HISTORY OF PRESENT ILLNESS: The patient is an 85-year-old female presents by EMS for high blood pressure and weakness. The patient has been weak since she left the hospital just about a week ago. She had been admitted for high blood pressure. She had her hydralazine increased. The patient states that after talking with her doctors office and with her daughter who works as a nurse, the patient has decreased her hydralazine dosing as she thinks that some of the side effects may be causing her weakness. Instead of taking the prescribed amount, she is taking half the amount. The patient complains of some body shaking today, her weakness was much worse today. It is diffuse weakness, not one-sided. She has not had chest pain or shortness of breath. No cough or cold or congestion. No urinary complaints. No abdominal pain. Of note, the patient does live alone. REVIEW OF SYSTEMS: See HPI for pertinent positives and negatives. A total of ten systems were reviewed and were otherwise negative. PMHx/PSHx: See Below SOCIAL HISTORY: See Below. PHYSICAL EXAM: GENERAL: Patient is in no acute distress. HEENT: No acute trauma, normocephalic atraumatic, mucous membranes moist, no nasal congestion, no scleral icterus. NECK: No stridor, no adenopathy, no meningismus, trachea is midline. LUNGS: Clear to auscultation bilaterally, no wheeze, no rhonchi, breath sounds equal. HEART: Without murmurs gallops or rubs, regular rate and rhythm. ABDOMEN: Soft, nontender, bowel sounds positive, no hernias, no peritonitis. EXTREMITIES: No cyanosis or edema, full range of motion of all the joints without pain or difficulty, no signs for acute trauma. NEUROLOGIC: Oriented x 3, no acute motor or sensory deficits, no focal weakness. Some generalized extremity tremor in the upper extremities noted. SKIN: No rash, no jaundice, no diaphoresis. DIFFERENTIAL DIAGNOSIS: Infection, dehydration, metabolic abnormality, hypo/hyperglycemia, medication noncompliance, depression, electrolyte disturbance, anemia, hypoxia, cardiac sources, intracerebral event, toxicologic issues, stroke, TIA, as well as other pathologies. EMERGENCY DEPARTMENT COURSE/PROCEDURES: ECG: Indication was weakness. The ECG shows what seems to be a normal sinus rhythm with a rate of 97. LVH is present. There is significant baseline artifact. No obvious ST elevation. No PVCs. The QTc is 464. Continuous Cardiac Monitoring: An order was placed for continuous cardiac monitoring. The monitor shows a rate of 95 with normal sinus rhythm. MEDICAL DECISION MAKING: There is no leukocytosis or concerning anemia. There is a normal platelet count. Sodium was quite low at 119, no kidney failure. Magnesium was low at 1.7. ECG shows a sinus rhythm, there was no acute ischemia. Cardiac enzyme testing x1 is not consistent with acute cardiac injury. Patient appeared to be in a euthyroid state. Urinalysis was suggestive of infection. Covid testing is currently pending. Chest film does not show pneumonia or CHF. Brain CT shows no acute bleed or mass-effect. On exam, the patient was a bit shaky, some tremor was noted in her extremities. No focal neurologic deficits. The patient received IV saline, 500 cc. She was given IV magnesium. He was ordered for IV labetalol. The patient is in need of a hospital stay. She is markedly hyponatremic. She is hypertensive. She is weak. She may even have a UTI. I did speak with the patient and case resolution specialist. The on-call hospitalist was consulted. Past Med/Surg History Medical History Anxiety CKD (chronic kidney disease), stage III DM type 2 (diabetes mellitus, type 2) Dyslipidemia HTN (hypertension) Hypertensive urgency Hyponatremia Hyponatremia SHIVANI (obstructive sleep apnea) TIA (transient ischemic attack) TIA (transient ischemic attack) Type 2 diabetes mellitus Surgical History S/P carpal tunnel release S/P cholecystectomy Family History Other Diabetes Hypertension Social History Smoking Status: Never smoker Second Hand Exposure: No; Hx Alcohol Use: No Hx Substance Use: No Preferred Language: Norwegian Communication Ability: Effective Visual Education Teacher Required: No Beliefs That Will Affect Care: None marital status: Current Living Situation: Alone Feels Safe at Home: Yes Assistive Devices: Glasses Allergies Allergies Allergy/AdvReac Type Severity Reaction Status Date / Time amlodipine Allergy Severe SWELLING Unverified 01/02/21 14:48 AND FLUSHING mold Allergy Mild SINUS Unverified 01/02/21 14:48 DRAINAGE/COUGH hydrochlorothiazide AdvReac Severe hyponatremi Verified 01/02/21 14:48 [From Maxzide] a triamterene [From Maxzide] AdvReac Severe hyponatremi Verified 01/02/21 14:48 a LORENA Inhibitors AdvReac Unknown COUGH Verified 01/02/21 14:48 Home Meds Home Medications Medication Instructions Recorded Confirmed atorvastatin 20 mg tablet 20 mg PO PM 03/24/18 01/14/21 clopidogrel 75 mg tablet (Plavix) 75 mg PO DAILY 03/24/18 01/14/21 losartan 50 mg tablet 50 mg PO BID 03/24/18 01/14/21 escitalopram oxalate 10 mg tablet 10 mg PO PM 05/11/20 01/14/21 mecobalamin (vitamin B12) 1,000 1,000 mcg PO DAILY 05/11/20 01/14/21 mcg chewable tablet (B12 Active) clonidine 0.2 mg/24 hr weekly 0.2 mg TRANSDERMAL Q7D 05/12/20 01/14/21 transdermal patch insulin glargine 100 unit/mL (3 14 unit SUBCUT QAM 01/02/21 01/14/21 mL) subcutaneous pen (Basaglar KwikPen U-100 Insulin) metformin 500 mg tablet 1,000 mg PO BIDM 01/02/21 01/14/21 metoprolol succinate 100 mg 100 mg PO DAILY 01/02/21 01/14/21 tablet,extended release 24 hr Previous Rx's Medication Instructions Recorded aspirin 81 mg tablet,delayed 81 mg PO QAM 30 Days #30 tab 05/15/20 release needle (disp) 32 gauge 32 gauge x #100 ea 05/17/2008/12" hydralazine 100 mg tablet 100 mg PO TID #90 tab 01/08/21 spironolactone 25 mg tablet 12.5 mg PO DAILY #30 tab 01/08/21 Results & Data (ED) Vital Signs Vital Signs - 24 hr 01/14/21 15:41 01/14/21 16:08 01/14/21 16:13 Pulse Rate 86 Pulse Rate [Left] 89 Pulse Rhythm [Left] Regular Respiratory Rate 16 21 Respiratory Effort / Characteristics Respiratory Depth Normal Blood Pressure Blood Pressure [Right Arm] 176/95 H Blood Pressure Mean Blood Pressure Mean [Right Arm] 122 Pulse Oximetry 96 96 Oxygen Delivery Method Room Air Room Air Sepsis Recent Fever Within 48 Hours No Sepsis New/Unexplained Change in Mental Status No Sepsis Action Taken by Nursing No Action Required 01/14/21 16:15 01/14/21 16:30 01/14/21 17:04 Pulse Rate 78 75 81 Pulse Rate [Left] 78 Pulse Rhythm [Left] Respiratory Rate 16 19 15 Respiratory Effort / Characteristics Respiratory Depth Blood Pressure 174/75 H Blood Pressure [Right Arm] 174/75 H Blood Pressure Mean 108 Blood Pressure Mean [Right Arm] 108 Pulse Oximetry 95 98 98 Oxygen Delivery Method Room Air Sepsis Recent Fever Within 48 Hours Sepsis New/Unexplained Change in Mental Status Sepsis Action Taken by Nursing 01/14/21 17:08 01/14/21 17:30 01/14/21 17:39 Pulse Rate 78 Pulse Rate [Left] 79 Pulse Rhythm [Left] Regular Respiratory Rate 20 19 Respiratory Effort / Characteristics Respiratory Depth Blood Pressure Blood Pressure [Right Arm] 190/89 H 186/88 H Blood Pressure Mean Blood Pressure Mean [Right Arm] 122 120 Pulse Oximetry 97 97 Oxygen Delivery Method Room Air Sepsis Recent Fever Within 48 Hours Sepsis New/Unexplained Change in Mental Status Sepsis Action Taken by Nursing 01/14/21 17:57 Pulse Rate Pulse Rate [Left] 74 Pulse Rhythm [Left] Regular Respiratory Rate 20 Respiratory Effort / Characteristics Non-Labored Respiratory Depth Normal Blood Pressure Blood Pressure [Right Arm] 184/94 H Blood Pressure Mean Blood Pressure Mean [Right Arm] 124 Pulse Oximetry 97 Oxygen Delivery Method Room Air Sepsis Recent Fever Within 48 Hours Sepsis New/Unexplained Change in Mental Status Sepsis Action Taken by [facility] Medications Current Medication List: was personally reviewed by me Laboratory Data Attestation: I reviewed the patient's lab results. Result diagrams: 01/14/21 16:07 01/14/21 16:07 Lab Results 01/14/21 01/14/21 01/14/21 Range/Units 16:07 16:07 17:15 WBC 8.70 (4.8-10.8) K/uL RBC 4.75 (4.2-5.4) M/uL Hgb 14.4 (12.0-16.0) g/dL Hct 40.8 (37-47) % MCV 85.9 (80-100) fL MCH 30.3 (25-34) pg MCHC 35.3 (32-36) g/dL RDW Std Deviation 40.7 (36.4-46.3) fL RDW Coeff of Devyn 13.0 (11.5-14.5) % Plt Count 261 (130-400) K/uL MPV 9.5 (7.4-10.4) fL Immature Gran % (Auto) 0.3 % Neut % (Auto) 71.2 % Lymph % (Auto) 16.3 % [place] % (Auto) 10.2 % Eos % (Auto) 1.7 % Baso % (Auto) 0.3 % Neut # (Auto) 6.18 (1.4-6.5) K/uL Lymph # (Auto) 1.42 (1.2-3.4) K/uL [place] # (Auto) 0.89 H (0.11-0.59) K/uL Eos # (Auto) 0.15 (0-0.5) K/uL Baso # (Auto) 0.03 (0-0.2) K/uL Immature Gran # (Auto) 0.03 H (0.00-0.02) K/uL Sodium 119 L* (136-145) mmol/L Potassium 4.4 (3.5-5.1) mmol/L Chloride 86 L (98-107) mmol/L Carbon Dioxide 22 (21-32) mmol/L Anion Gap 11.0 (3-11) BUN 16 (7-18) mg/dl Creatinine 1.06 (0.6-1.2) mg/dl Est Cr Clr Drug Dosing Not Reportable Est GFR ( Amer) 56.2 ml/min Est GFR (Non-Af Amer) 48.5 ml/min BUN/Creatinine Ratio 14.7 (10-20) Glucose 156 H (70-99) mg/dl Calcium 9.4 (8.5-10.1) mg/dl Magnesium 1.7 L (1.8-2.4) mg/dl Total Bilirubin 0.5 (0.2-1) mg/dl AST 17 (15-37) U/L ALT 32 (12-78) U/L Alkaline Phosphatase 65 (45-117) U/L Troponin I < 0.015 (0-0.045) ng/ml Total Protein 7.8 (6.4-8.2) gm/dl Albumin 4.2 (3.4-5.0) gm/dl Globulin 3.6 (2.5-4.0) gm/dl Albumin/Globulin Ratio 1.2 (0.9-2) TSH 0.779 (0.300-4.500) uIu/ml Urine Color Yellow Urine Appearance Cloudy A (Clear) Urine pH 7.5 (4.5-7.5) Ur Specific Rico 1.006 (1.000-1.030) Urine Protein Negative (Negative) Urine Glucose (UA) Negative (Negative) Urine Ketones Negative (Negative) Urine Blood Negative (Negative) Urine Nitrite Positive A (Negative) Urine Bilirubin Negative (Negative) Urine Urobilinogen Negative (Negative) Ur Leukocyte Esterase 1+ H (Negative) Urine WBC (Auto) >30 H (0-5) /hpf Urine RBC (Auto) 0-4 (0-4) /hpf U Hyaline Cast (Auto) 0 (0-5) /lpf U Epithel Cells (Auto) 0-5 (0-5) /lpf Urine Bacteria (Auto) 4+ H (Negative) Urine Osmolality (500-800) mOsm/kg Ur Random Sodium mmol/L COVID-19 Eval Order 01/14/21 01/14/21 01/14/21 Range/Units 17:15 17:15 17:45 WBC (4.8-10.8) K/uL RBC (4.2-5.4) M/uL Hgb (12.0-16.0) g/dL Hct (37-47) % MCV (80-100) fL MCH (25-34) pg MCHC (32-36) g/dL RDW Std Deviation (36.4-46.3) fL RDW Coeff of Devyn (11.5-14.5) % Plt Count (130-400) K/uL MPV (7.4-10.4) fL Immature Gran % (Auto) % Neut % (Auto) % Lymph % (Auto) % [place] % (Auto) % Eos % (Auto) % Baso % (Auto) % Neut # (Auto) (1.4-6.5) K/uL Lymph # (Auto) (1.2-3.4) K/uL [place] # (Auto) (0.11-0.59) K/uL Eos # (Auto) (0-0.5) K/uL Baso # (Auto) (0-0.2) K/uL Immature Gran # (Auto) (0.00-0.02) K/uL Sodium (136-145) mmol/L Potassium (3.5-5.1) mmol/L Chloride (98-107) mmol/L Carbon Dioxide (21-32) mmol/L Anion Gap (3-11) BUN (7-18) mg/dl Creatinine (0.6-1.2) mg/dl Est Cr Clr Drug Dosing Est GFR ( Amer) ml/min Est GFR (Non-Af Amer) ml/min BUN/Creatinine Ratio (10-20) Glucose (70-99) mg/dl Calcium (8.5-10.1) mg/dl Magnesium (1.8-2.4) mg/dl Total Bilirubin (0.2-1) mg/dl AST (15-37) U/L ALT (12-78) U/L Alkaline Phosphatase (45-117) U/L Troponin I (0-0.045) ng/ml Total Protein (6.4-8.2) gm/dl Albumin (3.4-5.0) gm/dl Globulin (2.5-4.0) gm/dl Albumin/Globulin Ratio (0.9-2) TSH (0.300-4.500) uIu/ml Urine Color Urine Appearance (Clear) Urine pH (4.5-7.5) Ur Specific Rico (1.000-1.030) Urine Protein (Negative) Urine Glucose (UA) (Negative) Urine Ketones (Negative) Urine Blood (Negative) Urine Nitrite (Negative) Urine Bilirubin (Negative) Urine Urobilinogen (Negative) Ur Leukocyte Esterase (Negative) Urine WBC (Auto) (0-5) /hpf Urine RBC (Auto) (0-4) /hpf U Hyaline Cast (Auto) (0-5) /lpf U Epithel Cells (Auto) (0-5) /lpf Urine Bacteria (Auto) (Negative) Urine Osmolality 253 L (500-800) mOsm/kg Ur Random Sodium 72 mmol/L COVID-19 Eval Order Covid19 at [facility] Administered Medications Discontinued Medications Sodium Chloride (Nss) 500 mls @ 999 mls/hr IV .Q31M YANA Stop: 01/14/21 16:30 Last Admin: 01/14/21 16:13 Dose: 999 mls/hr Documented by: [id number] Magnesium Sulfate/Dextrose (Magnesium Sulfate / D5w) 1 gm in 100 mls @ 100 mls/hr IV NOW STA Stop: 01/14/21 18:16 Last Admin: 01/14/21 17:45 Dose: 100 mls/hr Documented by: [id number] Labetalol HCl (Labetalol Hcl Iv 5 Mg/Ml 20ml) 10 mg IV NOW STA Stop: 01/14/21 15:59 Last Admin: 01/14/21 16:10 Dose: 10 mg Documented by: [id number] Cosigned by: [id number] Imaging Data Radiologist's Impression: Head CT 01/14/21 15:58 CT head/brain wo con CLINICAL HISTORY: weakness Technique: Contiguous axial CT images of the head were acquired from the base of the skull to the vertex without intravenous contrast administration. Images were viewed in brain, subdural and bone windows. Automated dose lowering techniques and/or adjustment according to patient size were utilized for this exam. Comparison: None available at the time of this dictation. Findings: The ventricles, basal cisterns, and cerebral sulci are normal. There is no acute intracranial hemorrhage or evidence of acute territorial infarction. Neither mass effect, shift of the midline structures, nor abnormal extra-axial fluid collections are shown. Imaged portions of the paranasal sinuses and mastoid air cells are clear. The orbits appear normal. There are no acute fractures of the calvaria or scalp swelling. Hyperostosis frontalis is incidentally noted. Impression: No acute intracranial hemorrhage, evidence of acute territorial infarction, or other acute intracranial disease process. ACT 112: Negative or not required by law. Electronically signed by: Ubaldo Ahn M.D. 01/14/2021 5:03 PM Chest X-Ray 01/14/21 15:59 XR chest 1V portable CLINICAL HISTORY: weakness TECHNIQUE: Single frontal radiograph of the chest was obtained. Comparison: None available at the time of this dictation. FINDINGS: No lines and tubes are seen. The cardiomediastinal silhouette is normal. The kulwant gs are clear. No evidence of pleural effusion or pneumothorax. IMPRESSION: No acute chest disease. ACT 112: Negative or not required by law. Electronically signed by: Ubaldo Ahn M.D. 01/14/2021 4:32 PM Discharge Plan Visit Data Chief Complaint: Hypertension ED Provider: Milton Huynh Discharge Problem: Weakness, Hypertension, Limb tremor, Acute hyponatremia Patient Disposition: Admitted As Inpatient Condition: Fair Forms Stand Alone Forms: My [facility] [employer] Prescriptions Prescriptions: No Action escitalopram oxalate 10 mg Tablet 10 mg PO PM RF: 0 B12 Active 1,000 mcg Tablet,Chewable 1,000 mcg PO DAILY RF: 0 clonidine 0.2 mg/24 hr patch weekly 0.2 mg transdermal Q7D RF: 0 aspirin 81 mg Tablet,Delayed Release (Dr/Ec) 81 mg PO QAM 30 Days Qty: 30 RF: 3 (DME) needle (disp) 32 gauge 32 gauge x 5/16" needle See Rx Instructions .ROUTE .MEDSUPPLY Qty: 100 RF: 3 losartan 50 mg Tablet 50 mg PO BID RF: 0 atorvastatin 20 mg Tablet 20 mg PO PM RF: 0 clopidogrel [Plavix] 75 mg Tablet 75 mg PO DAILY RF: 0 metformin 500 mg tablet 1,000 mg PO BIDM RF: 0 Basaglar KwikPen U-100 Insulin 100 unit/mL (3 mL) insulin pen 14 unit subcut QAM RF: 0 metoprolol succinate 100 mg tablet extended release 24 hr 100 mg PO DAILY RF: 0 hydralazine 100 mg tablet 100 mg PO TID Qty: 90 RF: 0 spironolactone 25 mg Tablet 12.5 mg PO DAILY Qty: 30 RF: 0 Referrals Referrals: Vince Hook MD [Primary Care Provider] -
[2021-01-14 16:22] LABS: Basophils # (auto) 0.03 K/uL (0-0.2); Basophils % (auto) 0.3 %; Eosinophils # (auto) 0.15 K/uL (0-0.5); Eosinophils % (auto) 1.7 %; Hematocrit (blood only) 40.8 % (37-47); Hemoglobin 14.4 g/dL (12.0-16.0); Immature Granulocytes # (auto) 0.03 K/uL (0.00-0.02); Immature Granulocytes % (auto) 0.3 %; Lymphocytes # (auto) 1.42 K/uL (1.2-3.4); Lymphocytes % (auto) 16.3 %; Mean Corpuscular Hemoglobin 30.3 pg (25-34); Mean Corpuscular Hgb Conc 35.3 g/dL (32-36); Mean Corpuscular Volume 85.9 fL (80-100); Mean Platelet Volume 9.5 fL (7.4-10.4); Monocytes # (auto) 0.89 K/uL (0.11-0.59); Monocytes % (auto) 10.2 %; Neutrophils # (auto) 6.18 K/uL (1.4-6.5); Neutrophils % (auto) 71.2 %; Platelet Count 261 K/uL (130-400); RDW Standard Deviation 40.7 fL (36.4-46.3); Red Blood Count 4.75 M/uL (4.2-5.4)
--- NOTE | 2021-01-14 16:33 | XRay Report ---
XR chest 1V portable CLINICAL HISTORY: weakness TECHNIQUE: Single frontal radiograph of the chest was obtained. Comparison: None available at the time of this dictation. FINDINGS: No lines and tubes are seen. The cardiomediastinal silhouette is normal. The lungs are clear. No evid ence of pleural effusion or pneumothorax. IMPRESSION: No acute chest disease. ACT 112: Negative or not required by law. Electronically signed by: Ubaldo Ahn M.D. 01/14/2021 4:32 PM
--- NOTE | 2021-01-14 17:04 | CT Scan Report ---
CT head/brain wo con CLINICAL HISTORY: weakness Technique: Contiguous axial CT images of the head were acquired from the base of the skull to the odalis jasmine without intravenous contrast administration. Images were viewed in brain, subdural and bone [facility]. Automated dose lowering techniques and/or adjustment according to patient size were utilized for this exam. Comparison: None available at the time of this dictation. Findings: The ventricles, basal cisterns, and cerebral sulci are normal. There is no acute intracranial hemorrh age or evidence of acute territorial infarction. Neither mass effect, shift of the midline structures , nor abnormal extra-axial fluid collections are shown. Imaged portions of the paranasal sinuses and mastoid air cells are clear. The orbits appear normal. There are no acute fractures of the calvaria or scalp swelling. Hyperostosis frontalis is incidental ly noted. Impression: No acute intracranial hemorrhage, evidence of acute territorial infarction, or other acute intracrani al disease process. ACT 112: Negative or not required by law. Electronically signed by: Ubaldo Ahn M.D. 01/14/2021 5:03 PM
[2021-01-14 17:09] LABS: Alanine Aminotransferase 32 U/L (12-78); Albumin Globulin Ratio 1.2 (0.9-2); Albumin Level 4.2 gm/dl (3.4-5.0); Alkaline Phosphatase 65 U/L (45-117); Aspartate Aminotransferase 17 U/L (15-37); BUN Creatinine Ratio 14.7 (10-20); Bilirubin,Total 0.5 mg/dl (0.2-1); Blood Urea Nitrogen 16 mg/dl (7-18); Calcium 9.4 mg/dl (8.5-10.1); Carbon Dioxide 22 mmol/L (21-32); Chloride 86 mmol/L (98-107); Est GFR (African American) 56.2 ml/min; Est GFR (Non-African American) 48.5 ml/min; Globulin 3.6 gm/dl (2.5-4.0); Glucose 156 mg/dl (70-99); Magnesium 1.7 mg/dl (1.8-2.4); Potassium 4.4 mmol/L (3.5-5.1); Sodium 119 mmol/L (136-145); Thyroid Stimulating Hormone 0.779 uIu/ml (0.300-4.500); Total Protein 7.8 gm/dl (6.4-8.2); Troponin I < 0.015 ng/ml (0-0.045)
[2021-01-14] MEDS ORDERED: MAGNESIUM SULFATE / D5W 1 GM/100 ML BAG IV STA (17:17)
[2021-01-14 17:29] LABS: Appearance Urine Cloudy (Clear); Bacteria Urine Automated 4+ (Negative); Bilirubin Urine Negative (Negative); Blood Urine Negative (Negative); Cast Urine Automated 0 /lpf (0-5); Color Urine Yellow; Epithelial Cell Urine Auto 0-5 /lpf (0-5); Glucose Urine UA Negative (Negative); Ketones Urine Negative (Negative); Leukocyte Esterase Urine 1+ (Negative); Nitrite Urine Positive (Negative); Protein Urine Negative (Negative); RBC Urine Automated 0-4 /hpf (0-4); Specific Gravity Urine 1.006 (1.000-1.030); Urobilinogen Urine Negative (Negative); WBC Urine Automated >30 /hpf (0-5); pH Urine 7.5 (4.5-7.5)
[2021-01-14] MEDS ORDERED: cefTRIAXone SODIUM 2,000 MG/70 ML BAG IV STA (17:39)
[2021-01-14] MEDS ORDERED: hydrALAZINE TAB 50 MG TAB PO STA (17:54)
[2021-01-14] MEDS ORDERED: FUROSEMIDE 40 MG/4 ML VIAL IV STA (18:08)
--- NOTE | 2021-01-14 18:22 | History & Physical Report ---
Date of Service January 14, 2021 Assessment & Plan (1) Weakness: (2) Hyponatremia: (3) UTI (urinary tract infection): (4) Hypertensive urgency: (5) Hypomagnesemia: (6) DM type 2 (diabetes mellitus, type 2): Plan: This is a 85-year-old female who has significant past medical history of T2DM, HTN, HLD, PAF, CKD stage III, SHIVANI on CPAP, essential tremor who presents to ED secondary to weakness and hypertension x 1 week. Weakness Acute on chronic hyponatremia Patient baseline sodium 132 Consult nephrology - discussed with Dr. Manuel Corrected sodium 120 Give Lasix 30mg IV x 1 now; NSS 75cc/hr urea 15g bid FR 1500cc/hr BMP at 1900 urine [id number], urine osm 253, serum osm pending received 500ml IVF in ED increase no more than 4-6meq in 24 hour UTI prior culture ESBL resistant to rocephin she does not meet SIRS/SEPSIS criteria urine/blood culture pending HTN Urgency pt presents with SBP > 180 received 10mg IV labetolol, monitor closely continue hydralazine 100mg tid, losartan 50mg bid, clonidine patch 0.2mg/7 day, Aldactone 12.5mg daily consult cardiology Dr. Dsouza pt unable to tolerate CCB and thiazides in setting of hyponatremia Hypomagnesemia mag 1.7, received 1g mag sulfate repeat in a.m., replace as needed T2DM Last A1c 7.5 on 01/03/2021 Hold Metformin and home Lantus Lantus/NovoLog per protocol DVT ppx: SQ Lovenox Dispo: PCU PCP: Miladys FULL CODE Patient was seen and examined in collaboration with Dr. Amezcua, please see addendum History of Present Illness Chief Complaint: Weakness x 1 week. Primary Care Provider: Vince Hook MD This is a 85-year-old female who has significant past medical history of T2DM, HTN, HLD, PAF, CKD stage III, SHIVANI on CPAP, essential tremor who presents to ED secondary to weakness and hypertension x 1 week. Of significance patient was recently hospitalized January 02 through January 07 secondary to hypertensive urgency. During hospitalization her hydralazine was titrated 100 mg 3 times a day. She remains on metoprolol succinate 100 mg daily, losartan 50 mg twice daily, Aldactone 12.5 mg and clonidine 0.2 mg transdermal patch every 7 days. Previously she is intolerant to CCB's as well as thiazide secondary to worsening hyponatremia. She felt well on day of discharge for the past week has continued to felt increasingly weak, lightheaded and, "shaky." She also admits to increased urinary urgency and 2 episodes of loose stool yesterday. She does have chronic intermittent loose stool and feels this is not unusual for her. She denies any fever, chills, sweats, dizziness, syncope, chest pain, shortness of breath, cough, URI symptoms, nausea, vomiting, abdominal pain. She feels her appetite has otherwise been okay. She admits to eating 2 pieces of toast and strawberries this morning and applesauce for dinner yesterday. She also admits to drinking coffee, water and Gatorade but is having a hard time quantifying the amount she drinks. She does prepare most of her meals unless her family brings it into her. She denies any falls. Her family sets of her medications and she did take her morning medications. In ED patient was hemodynamically stable although significantly hypertensive with a BP of 184/94. She was severely hyponatremic with a sodium serum sodium of 119, corrected to 120 for hyperglycemia. Her CBC was otherwise unremarkable. She did have low magnesium at 1.7 and urinalysis concerning for UTI. Her chest x-ray and head CT was without acute abnormality. In ED she received 500ml IV fluid, 10 mg IV labetalol and 1 g IV magnesium. Allergies Allergy/AdvReac Type Severity Reaction Status Date / Time amlodipine Allergy Severe SWELLING Unverified 01/02/21 14:48 AND FLUSHING mold Allergy Mild SINUS Unverified 01/02/21 14:48 DRAINAGE/COUGH hydrochlorothiazide AdvReac Severe hyponatremi Verified 01/02/21 14:48 [From Maxzide] a triamterene [From Maxzide] AdvReac Severe hyponatremi Verified 01/02/21 14:48 a LORENA Inhibitors AdvReac Unknown COUGH Verified 01/02/21 14:48 Home Medications Medication Instructions Recorded Confirmed Type atorvastatin 20 mg tablet 20 mg PO PM 03/24/18 01/14/21 History clopidogrel 75 mg tablet (Plavix) 75 mg PO DAILY 03/24/18 01/14/21 History escitalopram oxalate 10 mg tablet 10 mg PO PM 05/11/20 01/14/21 History mecobalamin (vitamin B12) 1,000 1,000 mcg PO DAILY 05/11/20 01/14/21 History mcg chewable tablet (B12 Active) clonidine 0.2 mg/24 hr weekly 0.2 mg TRANSDERMAL Q7D 05/12/20 01/14/21 History transdermal patch aspirin 81 mg tablet,delayed 81 mg PO QAM 30 Days #30 tab 05/15/20 01/14/21 Rx release needle (disp) 32 gauge 32 gauge x #100 ea 05/17/20 01/14/21 Rx 5/16" insulin glargine 100 unit/mL (3 14 unit SUBCUT QAM 01/02/21 01/14/21 History mL) subcutaneous pen (Basaglar KwikPen U-100 Insulin) metformin 500 mg tablet 1,000 mg PO BIDM 01/02/21 01/14/21 History metoprolol succinate 100 mg 100 mg PO DAILY 01/02/21 01/14/21 History tablet,extended release 24 hr hydralazine 100 mg tablet 100 mg PO TID #90 tab 01/08/21 01/14/21 Rx losartan 50 mg tablet 100 mg PO DAILY #30 tab 01/19/21 Rx Past Med/Surg History Medical History Anxiety CKD (chronic kidney disease), stage III DM type 2 (diabetes mellitus, type 2) Dyslipidemia HTN (hypertension) Hypertensive urgency Hyponatremia Hyponatremia SHIVANI (obstructive sleep apnea) TIA (transient ischemic attack) TIA (transient ischemic attack) Type 2 diabetes mellitus Surgical History S/P carpal tunnel release S/P cholecystectomy Family History Other Diabetes Hypertension Social History Smoking Status: Never smoker Second Hand Exposure: No; Hx Alcohol Use: No Hx Substance Use: No Preferred Language: Greenlandic Communication Ability: Effective Clerk Travel Reservations Required: No Beliefs That Will Affect Care: None marital status: Current Living Situation: Alone Other Information That Helps Us Care for You: No Feels Safe at Home: Yes Assistive Devices: Glasses Review of Systems Review of Systems: All systems reviewed & are unremarkable except as noted in HPI & below Physical Exam Physical Exam: Constitutional: WD/WN, elderly, female, noted essential head tremor, vitals as above, NAD, sitting up in bed, pleasant, conversing easily Head: Normocephalic, Atraumatic Eyes: PERRL, conjunctivae normal, anicteric sclerae ENMT: external ear and nose normal, oropharynx normal Neck: trachea midline, no thyromegaly normal visual inspection Respiratory: normal respiratory effort, lungs clear to auscultation, no wheeze, rales, rhonchi. Normal insp/exp effort, no accessory muscle use Cardiovascular: RRR, no murmur, no edema Vessels: no JVD or carotid bruit Chest: normal inspection of chest Abdomen: normal bowel sounds, soft, nontender, no hepatosplenomegaly Musculoskeletal: no cyanosis or clubbing, extremities motor strength 5/5 Skin: no rashes, warm and dry moderate turgor Neurologic: + Essential head tremor, PERRL, EOMI, accommodation nl, no face palsy, no dysarthria CN's II-XI intact bilaterally and moves all extremities Psychiatric: A+Ox3, euthymic affect Lymphatic: no cervical or axillary lymphadenopathy : deferred Results & Data Results & Data ([facility]) Vital Signs (Past 12 Hours) Vital Signs Pulse Pulse Resp BP BP Pulse Ox 01/14/21 17:39 186/88 H 01/14/21 17:30 78 19 97 01/14/21 17:08 79 20 190/89 H 97 01/14/21 17:04 81 15 98 01/14/21 16:30 75 19 98 01/14/21 16:15 78 78 16 174/75 H 174/75 H 95 01/14/21 16:13 86 21 96 01/14/21 16:08 89 16 176/95 H [address] 01/14/21 15:58 CT head/brain wo con CLINICAL HISTORY: weakness Technique: Contiguous axial CT images of the head were acquired from the base of the skull to the vertex without intravenous contrast administration. Images were viewed in brain, subdural and bone windows. Automated dose lowering techniques and/or adjustment according to patient size were utilized for this exam. Comparison: None available at the time of this dictation. Findings: The ventricles, basal cisterns, and cerebral sulci are normal. There is no acute intracranial hemorrhage or evidence of acute territorial infarction. Neither mass effect, shift of the midline structures, nor abnormal extra-axial fluid collections are shown. Imaged portions of the paranasal sinuses and mastoid air cells are clear. The orbits appear normal. There are no acute fractures of the calvaria or scalp swelling. Hyperostosis frontalis is incidentally noted. Impression: No acute intracranial hemorrhage, evidence of acute territorial infarction, or other acute intracranial disease process. ACT 112: Negative or not required by law. Electronically signed by: Ubaldo Ahn M.D. 01/14/2021 5:03 PM Chest X-Ray 01/14/21 15:59 XR chest 1V portable CLINICAL HISTORY: weakness TECHNIQUE: Single frontal radiograph of the chest was obtained. Comparison: None available at the time of this dictation. FINDINGS: No lines and tubes are seen. The cardiomediastinal silhouette is normal. The lungs are clear. No evidence of pleural effusion or pneumothorax. IMPRESSION: No acute chest disease. ACT 112: Negative or not required by law. Electronically signed by: Ubaldo Ahn M.D. 01/14/2021 4:32 PM Medications Administered Medication List Discontinued Medications Sodium Chloride (Nss) 500 mls @ 999 mls/hr IV .Q31M YANA Stop: 01/14/21 16:30 Last Admin: 01/14/21 16:13 Dose: 999 mls/hr Documented by: [id number] Magnesium Sulfate/Dextrose (Magnesium Sulfate / D5w) 1 gm in 100 mls @ 100 mls/hr IV NOW STA Stop: 01/14/21 18:16 Last Admin: 01/14/21 17:45 Dose: 100 mls/hr Documented by: [id number] Labetalol HCl (Labetalol Hcl Iv 5 Mg/Ml 20ml) 10 mg IV NOW STA Stop: 01/14/21 15:59 Last Admin: 01/14/21 16:10 Dose: 10 mg Documented by: [id number] Cosigned by: [id number] COVID-19 Results Results COVID-19 Adm Lab Results: RBC 4.48 M/uL (4.2-5.4) 01/15/21 WBC 8.96 K/uL (4.8-10.8) 01/15/21 Hgb 13.4 g/dL (12.0-16.0) 01/15/21 Hct 38.3 % (37-47) 01/15/21 Plt Count 257 K/uL (130-400) 01/15/21 Neutrophils (%) (Auto) 71.2 % 01/14/21 Lymphocytes (%) (Auto) 16.3 % 01/14/21 Monocytes # (Auto) 0.89 K/uL (0.11-0.59) H 01/14/21 Eosinophils # (Auto) 0.15 K/uL (0-0.5) 01/14/21 Immature Granulocyte % (Auto) 0.3 % 01/14/21 Neutrophils # (Auto) 6.18 K/uL (1.4-6.5) 01/14/21 Lymphocytes # (Auto) 1.42 K/uL (1.2-3.4) 01/14/21 Monocytes # (Auto) 0.89 K/uL (0.11-0.59) H 01/14/21 Eosinophils # (Auto) 0.15 K/uL (0-0.5) 01/14/21 Basophils # (Auto) 0.03 K/uL (0-0.2) 01/14/21 Immature Granulocyte # (Auto) 0.03 K/uL (0.00-0.02) H 01/14/21 Na 131 mmol/L (136-145) L 01/19/21 K 4.3 mmol/L (3.5-5.1) 01/19/21 Cl 97 mmol/L (98-107) L 01/19/21 CO2 27 mmol/L (21-32) 01/19/21 Anion Gap 6.0 (3-11) 01/19/21 BUN 27 mg/dl (7-18) H 01/19/21 Creatinine 0.93 mg/dl (0.6-1.2) 01/19/21 BUN/Creatinine Ratio 29.5 (10-20) H 01/19/21 Glucose Level 154 mg/dl (70-99) H 01/19/21 Ca 9.5 mg/dl (8.5-10.1) 01/19/21 Phosphorus Level 3.8 mg/dl (2.5-4.9) 01/15/21 Total Bilirubin 0.5 mg/dl (0.2-1) 01/15/21 AST/SGOT 13 U/L (15-37) L 01/15/21 ALT/SGPT 26 U/L (12-78) 01/15/21 Alkaline Phosphatase 62 U/L (45-117) 01/15/21 Total Protein 7.3 gm/dl (6.4-8.2) 01/15/21 Albumin 3.8 gm/dl (3.4-5.0) 01/15/21 Globulin 3.5 gm/dl (2.5-4.0) 01/15/21 Albumin/Globulin Ratio 1.1 (0.9-2) 01/15/21 Troponin I < 0.015 ng/ml (0-0.045) 01/14/21 COVID-19 PCR NEGATIVE (Negative) 01/14/21 Chest X-Ray 01/14/21 Code Status & VTE Plan Code Status Full code VTE Prophylaxis Plan VTE Prophylaxis will be ordered: Yes Supervising Physician Co-Signing Physician Notes delayed entry date of service noted above Attending Addendum: care coordinated with MARICRUZ Beckham. please refer to her notes for full details, I agree with her notes patient seen and examined, records reviewed by myself as well on exam, patient seen resting in bed, somewhat weak but alert, oriented no chest pain, dyspnea, palpitations, dizziness has mild dysuria no other symptoms VS noted and reviewed oriented x 3 , not in distress, speaks in sentences with no effort nor accessory muscle use dry oral mucosa normal rate, regular rhythm, no murmurs clear breath sounds bilaterally non distended, soft, nontender no bipedal edema, erythema, warmth no neuro deficits WBC 8.9 Hg 13.4 Crea 0.9 ASSESSMENT AND PLAN HYPONATREMIA, LIKELY HYPOVOLEMIC, SIADH Lasix, IV NSS Nephro on booard POSSIBLE UTI Macrobid other diagnoses and plan of care as per MARICRUZ Amezcua MD
[2021-01-14] MEDS: SODIUM CHLORIDE 0.9% 1000ML 1,000 ML IV SCH ×2 (19:32→23:53)
[2021-01-14 20:34] LABS: BUN Creatinine Ratio 13.2 (10-20); Blood Urea Nitrogen 13 mg/dl (7-18); Calcium 9.1 mg/dl (8.5-10.1); Carbon Dioxide 24 mmol/L (21-32); Chloride 89 mmol/L (98-107); Est GFR (African American) 61.1 ml/min; Est GFR (Non-African American) 52.7 ml/min; Glucose 176 mg/dl (70-99); Sodium 120 mmol/L (136-145)
[2021-01-14] MEDS ORDERED: GLUCOSE 10 TABS/TUBE PO PRN (22:13)
[2021-01-14] MEDS ORDERED: DEXTROSE 50% 50 ML SYRINGE IV PRN (22:13)
[2021-01-14] MEDS ORDERED: ONDANSETRON INJ 2 MG/ML 2 ML VIAL IV PRN (22:13)
[2021-01-14] MEDS ORDERED: CARBOHYDRATES FOR HYPOGLYCEMIA PO PRN (22:13)
[2021-01-14] MEDS ORDERED: GLUCOSE 40% GEL 15 GM TUBE PO PRN (22:13)
[2021-01-14] MEDS ORDERED: GLUCAGON FOR INJ 1 MG VIAL SQ PRN (22:13)
[2021-01-14] MEDS ORDERED: ALUMINUM/MAGNESIUM SUSP 30 ML UDC PO PRN (22:13)
[2021-01-14] MEDS ORDERED: POLYETHYLENE (MIRALAX) 17 GM PACK PO PRN (22:13)
[2021-01-14] MEDS: LOSARTAN POTASSIUM 50 MG TAB PO SCH (23:50)
[2021-01-14] MEDS: ATORVASTATIN 20 MG TAB PO SCH (23:50)
[2021-01-14] MEDS: hydrALAZINE TAB 50 MG TAB PO SCH (23:51)
[2021-01-14] MEDS: ESCITALOPRAM OXALATE 10 MG TAB PO SCH (23:51)
[2021-01-14] MEDS: INSULIN ASPART 100 UNITS/ML 3 ML PEN SC SCH (23:51)
[2021-01-14] MEDS: NITROFURANTOIN MONOHYDRATE 100 MG CAP PO SCH (23:52)
[2021-01-14] MEDS: INSULIN GLARGINE SOLOSTAR 100 UNITS/ML 3 ML PEN SC SCH (23:52)
[2021-01-14] MEDS: UREA (UREA-NA) 15 GM PACK PO SCH (23:54)
[2021-01-14] MEDS: CHECK CLONIDINE PATCH PLACEMENT SCH (23:54)
[2021-01-14] MEDS: ENOXAPARIN INJ 40 MG/0.4 ML SYR SQ SCH (23:55)
[2021-01-15 05:28] LABS: Hematocrit (blood only) 38.3 % (37-47); Hemoglobin 13.4 g/dL (12.0-16.0); Mean Corpuscular Hemoglobin 29.9 pg (25-34); Mean Corpuscular Volume 85.5 fL (80-100); Platelet Count 257 K/uL (130-400); RDW Coefficient of Variation 13.2 % (11.5-14.5); RDW Standard Deviation 41.3 fL (36.4-46.3); Red Blood Count 4.48 M/uL (4.2-5.4); White Blood Count 8.96 K/uL (4.8-10.8)
[2021-01-15 05:50] LABS: Albumin Level 3.8 gm/dl (3.4-5.0); BUN Creatinine Ratio 34.1 (10-20); Creatinine Clr Calc Pharmacy 36.3 ml/min; Est GFR (African American) 59.6 ml/min; Est GFR (Non-African American) 51.4 ml/min; Potassium 4.2 mmol/L (3.5-5.1)
[2021-01-15 06:05] LABS: Albumin Globulin Ratio 1.1 (0.9-2); Bilirubin,Total 0.5 mg/dl (0.2-1); Globulin 3.5 gm/dl (2.5-4.0); Total Protein 7.3 gm/dl (6.4-8.2)
[2021-01-15] MEDS: INSULIN ASPART 100 UNITS/ML 3 ML PEN SC SCH ×4 (07:58→20:44)
[2021-01-15] MEDS: CHECK CLONIDINE PATCH PLACEMENT SCH ×2 (07:58→16:50)
[2021-01-15] MEDS: ASPIRIN 81 MG ECTAB PO SCH (08:00)
[2021-01-15] MEDS: CYANOCOBALAMIN 500 MCG TABLET (VITAMIN B-12) PO SCH (08:01)
[2021-01-15] MEDS: CLOPIDOGREL BISULFATE 75 MG TAB PO SCH (08:01)
[2021-01-15] MEDS: METOPROLOL SUCC 50MG EXT REL TAB PO SCH (08:01)
[2021-01-15] MEDS: hydrALAZINE TAB 50 MG TAB PO SCH ×2 (08:02→14:04)
[2021-01-15] MEDS: UREA (UREA-NA) 15 GM PACK PO SCH ×2 (08:04→20:34)
[2021-01-15] MEDS: INSULIN GLARGINE SOLOSTAR 100 UNITS/ML 3 ML PEN SC SCH ×2 (08:04→20:44)
[2021-01-15] MEDS: NITROFURANTOIN MONOHYDRATE 100 MG CAP PO SCH ×2 (08:04→20:33)
[2021-01-15] MEDS: LOSARTAN POTASSIUM 50 MG TAB PO SCH ×2 (08:04→20:34)
[2021-01-15] MEDS ORDERED: SPIRONOLACTONE 12.5 MG TAB PO SCH (09:00)
--- NOTE | 2021-01-15 09:03 | Cardiology Consultation ---
Date of Consultation January 15, 2021 Assessment & Plan (1) Hyponatremia: (2) CKD (chronic kidney disease), stage III: (3) Weakness: (4) Hypertensive urgency: (5) SHIVANI (obstructive sleep apnea): (6) TIA (transient ischemic attack): (7) DM type 2 (diabetes mellitus, type 2): It was my pleasure to see Mrs. Carmona in consultation today. She does have difficult to control hypertension and has been having issues with multiple antihypertensive agents in the past including calcium channel olya and diuretics. It sounds as though she has been noncompliant with her hydralazine due to possible flushing so at this time I will attempt to start her on Terazosin and increase as needed and try to wean her off her hydralazine. In the meantime, I have added long-acting nitrates along to her hydralazine. She should be maintained on her outpatient doses of clonidine, aspirin, Plavix, spironolactone and losartan Monitor on telemetry overnight. History of Present Illness Reason for Consultation: Hypertensive urgency Requesting Physician: Dr. Salazar Attending Physician: Sage Amezcua MD History of Present Illness Patient seen and examined in ER holding, chart reviewed. She is a very pleasant 85-year-old woman who is previously followed with myself and more recently Vince Vaughan of our cardiology practice for her difficult to control hypertension. She presented to [facility] emergency department on 01/14/2021 with complaints of worsening weakness and hypertension for 1 week. Since her most recent hospitalization her daughter reported that she seems to be having flushing with her hydralazine and the patient was noncompliant with it but the patient states that she is taking it currently. Upon arrival to the emergency department she was found to be significantly hyponatremic, hypertensive and a possible UTI. With resumption of her home medications her blood pressure has improved. She denies any cardiac complaints of chest pain, shortness of breath or palpitations. Pas medical hx as per most recent cardiology visit: 1. Hypertension, hypertensive heart disease 2. Grade 2 diastolic dysfunction 3. Obstructive sleep apnea on CPAP therapy. 4. History of TIA 5. Dyslipidemia 6. Generalized anxiety 7. History of hyponatremia with past use of thiazide diuretic 8. History of significant fluid retention and rash with past use of amlodipine. 9. Type 2 diabetes mellitus, uncontrolled - hemoglobin A1c 9.4% on May 11, 2020 10. Stage 3 chronic kidney disease 11. Essential tremor Allergies Allergy/AdvReac Type Severity Reaction Status Date / Time amlodipine Allergy Severe SWELLING Unverified 01/02/21 14:48 AND FLUSHING mold Allergy Mild SINUS Unverified 01/02/21 14:48 DRAINAGE/COUGH hydrochlorothiazide AdvReac Severe hyponatremi Verified 01/02/21 14:48 [From Maxzide] a triamterene [From Maxzide] AdvReac Severe hyponatremi Verified 01/02/21 14:48 a LORENA Inhibitors AdvReac Unknown COUGH Verified 01/02/21 14:48 Home Medications Medication Instructions Recorded Confirmed Type atorvastatin 20 mg tablet 20 mg PO PM 03/24/18 01/14/21 History clopidogrel 75 mg tablet (Plavix) 75 mg PO DAILY 03/24/18 01/14/21 History losartan 50 mg tablet 50 mg PO BID 03/24/18 01/14/21 History escitalopram oxalate 10 mg tablet 10 mg PO PM 05/11/20 01/14/21 History mecobalamin (vitamin B12) 1,000 1,000 mcg PO DAILY 05/11/20 01/14/21 History mcg chewable tablet (B12 Active) clonidine 0.2 mg/24 hr weekly 0.2 mg TRANSDERMAL Q7D 05/12/20 01/14/21 History transdermal patch aspirin 81 mg tablet,delayed 81 mg PO QAM 30 Days #30 tab 05/15/20 01/14/21 Rx release needle (disp) 32 gauge 32 gauge x #100 ea 05/17/20 01/14/21 Rx 08/12" insulin glargine 100 unit/mL (3 14 unit SUBCUT QAM 01/02/21 01/14/21 History mL) subcutaneous pen (Basaglar KwikPen U-100 Insulin) metformin 500 mg tablet 1,000 mg PO BIDM 01/02/21 01/14/21 History metoprolol succinate 100 mg 100 mg PO DAILY 01/02/21 01/14/21 History tablet,extended release 24 hr hydralazine 100 mg tablet 100 mg PO TID #90 tab 01/08/21 01/14/21 Rx spironolactone 25 mg tablet 12.5 mg PO DAILY #30 tab 01/08/21 01/14/21 Rx Patient History Medical History Anxiety CKD (chronic kidney disease), stage III DM type 2 (diabetes mellitus, type 2) Dyslipidemia HTN (hypertension) Hypertensive urgency Hyponatremia Hyponatremia SHIVANI (obstructive sleep apnea) TIA (transient ischemic attack) TIA (transient ischemic attack) Type 2 diabetes mellitus Surgical History S/P carpal tunnel release S/P cholecystectomy Family History Other Diabetes Hypertension Social History Smoking Status: Never smoker Second Hand Exposure: No; Hx Alcohol Use: No Hx Substance Use: No Preferred Language: Vietnamese Communication Ability: Effective Lab Scientist Required: No Beliefs That Will Affect Care: None marital status: Current Living Situation: Alone Other Information That Helps Us Care for You: No Feels Safe at Home: Yes Assistive Devices: Glasses and Hearing Aid - Bilateral Physical Exam Physical Exam: General: Awake, alert and oriented x 3. No acute distress. HEENT: Normocephalic, atraumatic. Pupils equal, round and reactive to light and accommodation. Extraocular muscles are intact. Anicteric sclera. Moist mucous membranes. Neck: No JVD. No bruit. Cardiovascular: Regular. Positive S-4. Normal S-1 and S-2. No S-3. 3/6 mid to late systolic ejection murmur, greatest at the right sternal border, second intercostal space with radiation to the bilateral carotids. No rubs. Pulmonary: Clear to auscultation bilaterally. No rales, rhonchi, or wheezing. Abdomen: Bowel sounds x 4, soft. No rebound, guarding or tenderness. No organomegaly. Extremities: No clubbing, cyanosis or edema. +2 pedal pulses bilaterally. Skin: Warm and dry. Results & Data ([facility]) Vital Signs (Past 12 Hours) Vital Signs Pulse Pulse Resp BP Pulse Ox 01/15/21 03:35 77 16 94 01/15/21 02:00 77 13 95 01/15/21 01:00 74 14 94 01/15/21 00:30 71 16 94 10/19/21 00:12 91 H 17 156/75 H 95 01/15/21 00:00 77 15 94 01/14/21 23:30 76 16 93 01/14/21 23:22 77 15 95 01/14/21 23:00 79 14 01/14/21 22:45 79 15 155/63 H 93 01/14/21 22:30 75 13
[2021-01-15] MEDS ORDERED: ISOSORBIDE MONO EXTENDED REL 30 MG TABCR PO SCH (09:15)
[2021-01-15] MEDS: SODIUM CHLORIDE 0.9% 1000ML 1,000 ML IV SCH ×2 (09:21→11:13)
[2021-01-15] MEDS: FUROSEMIDE 30 MG in SYRINGE 0 ML IV SCH ×2 (10:13→17:09)
[2021-01-15] MEDS ORDERED: TERAZOSIN HCL 1 MG CAP PO ONE (11:24)
[2021-01-15] MEDS ORDERED: ACETAMINOPHEN 325 MG TAB PO PRN (12:11)
[2021-01-15] MEDS: ACETAMINOPHEN 325 MG TAB PO PRN (12:17)
--- NOTE | 2021-01-15 15:18 | Electrocardiogram Report ---
Test Reason : Blood Pressure : / mmHG Vent. Rate : 097 BPM Atrial Rate : 097 BPM P-R Int : 158 ms QRS Dur : 100 ms QT Int : 366 ms P-R-T Axes : 062 -50 088 degrees QTc Int : 464 ms Normal sinus rhythm Left axis deviation Left ventricular hypertrophy with repolarization abnormality Cannot rule out Septal infarct , age undetermined Abnormal ECG When compared with ECG of 02-JAN-2021 12:21, No significant change was found Confirmed by Johan Palma ([id number]) on 01/15/2021 3:17:44 PM Referred By: Confirmed By:Johan Palma
[2021-01-15 15:55] LABS: Phosphorus 3.8 mg/dl (2.5-4.9)
--- NOTE | 2021-01-15 16:31 | Communication Note ---
Date of Service: January 15, 2021 Received a call from bedside nurse. Patient now hypotensive at 76/42 but without complaint. We will stop hydralazine and Imdur at this time. Would co nsider normal saline bolus for blood pressure support should she become symptomatic but given her ongoing hyponatremia would need to discuss with nephrology first.
[2021-01-15] MEDS ORDERED: SODIUM CHLORIDE 1 GM TABLET PO STA (16:41)
[2021-01-15 17:15] LABS: BUN Creatinine Ratio 36.9 (10-20); Calcium 8.8 mg/dl (8.5-10.1); Creatinine Clr Calc Pharmacy 27.4 ml/min; Est GFR (African American) 42.4 ml/min; Est GFR (Non-African American) 36.5 ml/min; Potassium 4.9 mmol/L (3.5-5.1)
--- NOTE | 2021-01-15 17:42 | Consultation Report ---
NEPHROLOGY CONSULTATION NOTE DATE OF SERVICE: 01/15/2021 REASON FOR CONSULTATION: Hyponatremia. HISTORY OF PRESENT ILLNESS: The patient is an 85-year-old female who has chronic mild hyponatremia w ith a serum sodium in the low 130s as an outpatient, but during her recent hospital stay, sodium was 129 on the day of discharge on 01/08. It is worth noting that at that time she was newly started on spironolactone and the blood work yesterday was the first time she had blood work checked after the s tart of spironolactone and it was found to be 119 in the Emergency Department. The patient presented because of weakness and hypertension for 1 week. Serum sodium was 119 and since admission, we have g iven her Lasix, normal saline, urea and free fluid restriction and with that, serum sodium is 123 thi s morning. Blood pressure as an inpatient has been controlled and at this time is perfectly normal at 135/75. The patient was on triamterene before, which has been stopped because of hyponatremia. The patient was able to give me a pretty good account of her medical problem and it seems like her weakn ess has also got better with slight improvement in the serum sodium. ALLERGIES: ALLERGY LIST WAS REVIEWED AND INCLUDES AMLODIPINE, WHICH CAUSED EDEMA, MOLD, MAXZIDE CAUS ING HYPONATREMIA, AND LORENA INHIBITORS. MEDICATIONS: Home medication list was reviewed in detail and includes atorvastatin, Plavix, losartan , Lexapro, clonidine, aspirin, insulin, metformin, metoprolol, hydralazine, spironolactone 12.5 mg da juan a. PAST MEDICAL AND SURGICAL HISTORY: Includes anxiety, chronic kidney disease stage III, type 2 diabet es, dyslipidemia, hypertension, hypertensive urgency, hyponatremia, obstructive sleep apnea, transien t ischemic attack, carpal tunnel release, cholecystectomy. SOCIAL HISTORY: Never smoked. No alcohol. She is , lives alone. REVIEW OF SYSTEMS: Positive review of systems includes weakness. This was generalized type and othe r than that, 12 systems reviewed and negative. PHYSICAL EXAMINATION: GENERAL: Elderly white female who is not in any respiratory distress. She is awake, alert, oriented x3. VITAL SIGNS: Blood pressure is 135/75 at this time, 95% on room air, respiratory rate 15, pulse rate 67. HEENT: Mucous membrane is moist. NECK: Supple. No jugular venous distention. CHEST: Bilaterally clear to auscultation. CARDIOVASCULAR: S1 and S2 regular. ABDOMEN: Soft, nontender. EXTREMITIES: Show no edema. SKIN: Shows no rashes. LABORATORY TEST: Serum sodium 119 on admission yesterday, this morning is 123. BUN 34, creatinine 1 .01. WBC count 8.96, hemoglobin 13.4, platelet count 257. Chest x-ray, no abnormality. Urine sodiu m 72. Urine osmolality 253. Urine dipstick shows specific gravity of 1.006, positive nitrite. ASSESSMENT AND PLAN: An 85-year-old female was admitted because of weakness and was found to have se ruy hyponatremia with a serum sodium of 119. She was also in hypertensive urgency. Hyponatremia: She is prone to hyponatremia and has had 2 admissions in the recent past for the same p roblem. During the previous admission, hyponatremia was attributed to Maxzide, but she was then star mark on spironolactone. Prior to starting spironolactone, her sodium was 130 and as soon as the spiron olactone was started, serum sodium has started to come down and yesterday was down to 119. Given steven t spironolactone was the only new medication, I have to assume the hyponatremia is attributed to spi ronolactone. I would not use this drug ever again including Maxzide or any other type of thiazides. The only diuretic she can use if she tolerates is a loop diuretic. RECOMMENDATIONS: 1. Never use Maxzide. 2. Never use spironolactone. 3. Loop diuretic is the only diuretic she can be put on if needed. 4. For the time being, continue with normal saline at 75 mL per hour and Lasix 30 IV b.i.d. I will do another stat BMP now and we will decide further management after that. 5. Continue urea 15 g b.i.d. 6. Continue free fluid restriction to 1500 mL per day. Thank you very much for the consult. Job ID: [id number]
[2021-01-15] MEDS ORDERED: MIDODRINE HCL 10 MG TAB PO STA (17:46)
[2021-01-15] MEDS: ATORVASTATIN 20 MG TAB PO SCH (20:32)
[2021-01-15] MEDS: ENOXAPARIN INJ 40 MG/0.4 ML SYR SQ SCH (20:33)
[2021-01-15] MEDS: ESCITALOPRAM OXALATE 10 MG TAB PO SCH (20:34)
[2021-01-15 20:49] LABS: BUN Creatinine Ratio 25.9 (10-20); Calcium 8.3 mg/dl (8.5-10.1); Creatinine Clr Calc Pharmacy 21.3 ml/min; Est GFR (African American) 31.3 ml/min; Potassium 4.6 mmol/L (3.5-5.1)
[2021-01-16] MEDS: SODIUM CHLORIDE 0.9% 1000ML 1,000 ML IV SCH ×3 (00:21→17:35)
[2021-01-16] MEDS: CHECK CLONIDINE PATCH PLACEMENT SCH ×3 (00:22→17:31)
[2021-01-16 06:43] LABS: BUN Creatinine Ratio 38.3 (10-20); Calcium 8.5 mg/dl (8.5-10.1); Creatinine Clr Calc Pharmacy 28.4 ml/min; Est GFR (African American) 45.2 ml/min; Potassium 4.1 mmol/L (3.5-5.1)
[2021-01-16] MEDS: INSULIN ASPART 100 UNITS/ML 3 ML PEN SC SCH ×4 (08:00→20:41)
[2021-01-16] MEDS: UREA (UREA-NA) 15 GM PACK PO SCH ×2 (08:18→20:38)
[2021-01-16] MEDS: METOPROLOL SUCC 50MG EXT REL TAB PO SCH (08:18)
[2021-01-16] MEDS: CLOPIDOGREL BISULFATE 75 MG TAB PO SCH (08:18)
[2021-01-16] MEDS: FUROSEMIDE 30 MG in SYRINGE 0 ML IV SCH ×2 (08:19→17:31)
[2021-01-16] MEDS: CYANOCOBALAMIN 500 MCG TABLET (VITAMIN B-12) PO SCH (08:19)
[2021-01-16] MEDS: NITROFURANTOIN MONOHYDRATE 100 MG CAP PO SCH (08:19)
[2021-01-16] MEDS: ASPIRIN 81 MG ECTAB PO SCH (08:19)
[2021-01-16] MEDS: INSULIN GLARGINE SOLOSTAR 100 UNITS/ML 3 ML PEN SC SCH ×2 (08:31→20:40)
--- NOTE | 2021-01-16 10:56 | Nephrology Progress Note ---
Date of Service January 16, 2021 Assessment & Plan Admission and Anticipated Discharge Date Admission Date: January 14, 2021 Subjective had episode of Severe Hypotension yesterday after multiple BP meds. Got some iv fluid also. BP now back to normal. PHYSICAL EXAMINATION: GENERAL: Elderly white female who is not in any respiratory distress. She is awake, alert, oriented x3. HEENT: Mucous membrane is moist. NECK: Supple. No jugular venous distention. CHEST: Bilaterally clear to auscultation. CARDIOVASCULAR: S1 and S2 regular. ABDOMEN: Soft, nontender. EXTREMITIES: Show no edema. SKIN: Shows no rashes. LABORATORY TEST: Serum sodium 119 on admission , this morning is 126. creat went down a bit from last evening ASSESSMENT AND PLAN: An 85-year-old female was admitted because of weakness and was found to have severe hyponatremia with a serum sodium of 119. She was also in hypertensive urgency. Hyponatremia: She is prone to hyponatremia and has had 2 admissions in the recent past for the same problem. During the previous admission, hyponatremia was attributed to Maxzide, but she was then started on spironolactone. Prior to starting spironolactone, her sodium was 130 and as soon as the spironolactone was started, serum sodium has started to come down and yesterday was down to 119. Given that spironolactone was the only new medication, I have to assume the hyponatremia is attributed to spironolactone. I would not use this drug ever again including Maxzide or any other type of thiazides. The only diuretic she can use if she tolerates is a loop diuretic. RECOMMENDATIONS: 1. Never use Maxzide. 2. Never use spironolactone. 3. Loop diuretic is the only diuretic she can be put on if needed and if she tolerates 4. Serum Na is rising so for the time being, continue with normal saline at 75 mL per hour and Lasix 30 IV b.i.d. Another BMP in the evening. 5. Continue urea 15 g b.i.d. 6. Continue free fluid restriction to 1500 mL per day. 7 from tomorrow we will descalate her Hyponatremia regimen. Results & Data ([facility]) Vital Signs (Past 12 Hours) Vital Signs Temp Pulse Pulse Resp BP Pulse Ox 01/16/21 09:57 60 01/16/21 07:30 36.8 C 66 20 129/68 97 01/16/21 03:25 36.6 C 56 L 16 120/67 94 01/15/21 23:38 36.7 C 59 L 12 91/47 L 94 01/15/21 23:00 64 01/15/21 22:56 36.5 C 62 16 129/62 95
--- NOTE | 2021-01-16 11:40 | Cardiology Progress Note ---
Date of Service January 16, 2021 Assessment & Plan (1) Hyponatremia: (2) CKD (chronic kidney disease), stage III: (3) Weakness: (4) Hypertensive urgency: (5) SHIVANI (obstructive sleep apnea): (6) TIA (transient ischemic attack): (7) DM type 2 (diabetes mellitus, type 2): Plan: blood pressure significantly dropped after restarting her home medical regimen an addition of low-dose terazosin. Her blood pressure is now been well controlled on her home clonidine alone, will continue. Obviously, we will defer treatment of hyponatremia to our Nephrology colleagues. She should be maintained on her outpatient doses of clonidine, aspirin, Plavix, Okay to DC telemetry from a cardiac standpoint Admission and Anticipated Discharge Date Admission Date: January 14, 2021 Subjective Patient seen and examined, chart reviewed. States that she feels overall well today and denies any chest pain, shortness of breath, palpitations, lighth eadedness, dizziness or syncope. Telemetry reviewed: Normal sinus rhythm without arrhythmia. Review of Systems Review of Systems: All systems reviewed & are unremarkable except as noted in HPI & below Physical Exam Physical Exam: General: Awake, alert and oriented x 3. No acute distress. HEENT: Normocephalic, atraumatic. Pupils equal, round and reactive to light and accommodation. Extraocular muscles are intact. Anicteric sclera. Moist mucous membranes. Neck: No JVD. No bruit. Cardiovascular: Regular. Positive S-4. Normal S-1 and S-2. No S-3. 3/6 mid to late systolic ejection murmur, greatest at the right sternal border, second intercostal space with radiation to the bilateral carotids. No rubs. Pulmonary: Clear to auscultation bilaterally. No rales, rhonchi, or wheezing. Abdomen: Bowel sounds x 4, soft. No rebound, guarding or tenderness. No organomegaly. Extremities: No clubbing, cyanosis or edema. +2 pedal pulses bilaterally. Skin: Warm and dry. Results & Data ([facility]) Vital Signs (Past 12 Hours) Vital Signs Temp Pulse Pulse Resp BP Pulse Ox 01/16/21 09:57 60 01/16/21 07:30 36.8 C 66 20 129/68 97 01/16/21 03:25 36.6 C 56 L 16 120/67 94 01/15/21 23:38 36.7 C 59 L 12 91/47 L 94
[2021-01-16 15:43] LABS: BUN Creatinine Ratio 38.1 (10-20); Calcium 8.9 mg/dl (8.5-10.1); Creatinine Clr Calc Pharmacy 25.2 ml/min; Est GFR (African American) 39.2 ml/min; Est GFR (Non-African American) 33.8 ml/min; Potassium 4.2 mmol/L (3.5-5.1)
--- NOTE | 2021-01-16 19:27 | Hospitalist Progress Note ---
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 #. Weakness #. Acute on chronic hyponatremia Patient baseline sodium 132 Admitting sodium level 119. Nephrology on board: Never use Maxzide and spironolactone. Can use loop diuretic when needed and if tolerated. Continue with normal saline at 75 mL's an hour and Lasix 30 IV twice daily and urea 15 twice daily. Continue FIR 1500 mL/day. Plan to de-escalate her hyponatremia regimen tomorrow. Patient reporting improvement, no headache or dizziness. Serum sodium slowly increasing, 127 today morning. Monitor BMP daily. #. UTI prior culture ESBL resistant to rocephin Admitting UA suggestive of UTI with reflex culture growing Citrobacter pansensitive to antibiotics. Patient does not report any pain or burning while passing urine. We will change her Macrobid 01/14 to Rocephin due to concerns of decreased creatinine clearance. #. HTN Urgency #. CAD pt presents with SBP > 180 Fairly under control. Continue with home meds. Cardiology on board: Continue with outpatient doses of clonidine/aspirin/Plavix pt unable to tolerate CCB and thiazides in setting of hyponatremia #. Hypomagnesemia: Monitor replace as appropriate. #. T2DM Last A1c 7.5 on 01/03/2021 Hold Metformin and home Lantus Lantus/NovoLog per protocol DVT ppx: SQ Lovenox Dispo: Will DC telemetry. Continue medical care. PCP: Miladys FULL CODE Admission and Anticipated Discharge Date Admission Date: January 14, 2021 Subjective Patient was lying in bed, on room air, NAD, no acute events overnight. Patient reports feeling better today. Patient denies any headache/dizziness/lethargy/chest pain/palpitation/other review of symptoms. Physical Exam Physical Exam: GENERAL: Alert and oriented x3. NAD, on RA. HEENT: No pallor, no icterus. Pupils equal, round and reactive to light. Oral mucosa moist. NECK: No JVD, no neck masses. HEART: S1 and S2 heard. Regular rate and rhythm. No murmur, no gallop. RESPIRATORY SYSTEM: Normal AP diameter. No accessory muscle use. No wheezing, no crackles. ABDOMEN: Soft, bowel sounds present, nontender, no distention. CENTRAL NERVOUS SYSTEM: Alert and oriented x3. No facial droop. Speech is clear. Obeys simple commands. Moves extremities. EXTREMITIES: No edema, no erythema seen. Results & Data Results & Data ([facility]) Vital Signs (Past 12 Hours) Vital Signs Temp Pulse Pulse Resp BP Pulse Ox 01/16/21 16:00 58 L 01/16/21 15:34 36.8 C 59 L 18 117/64 96 01/16/21 11:40 36.3 C L 55 L 16 151/68 H 97 01/16/21 09:57 60 01/16/21 07:30 36.8 C 66 20 129/68 97
[2021-01-16] MEDS: ENOXAPARIN INJ 40 MG/0.4 ML SYR SQ SCH (20:37)
[2021-01-16] MEDS: ATORVASTATIN 20 MG TAB PO SCH (20:37)
[2021-01-16] MEDS: ESCITALOPRAM OXALATE 10 MG TAB PO SCH (20:38)
[2021-01-16] MEDS: cefTRIAXone SODIUM 1,000 MG in DEXTROSE 5% 50 ML IV SCH (20:47)
[2021-01-16] MEDS: LOSARTAN POTASSIUM 50 MG TAB PO SCH (22:13)
[2021-01-17] MEDS: CHECK CLONIDINE PATCH PLACEMENT SCH ×3 (00:27→16:21)
[2021-01-17] MEDS ORDERED: COUGH DROP (SUGAR FREE) LOZ 24 LOZ/1 BOX BUCCAL PRN (00:46)
[2021-01-17] MEDS: SODIUM CHLORIDE 0.9% 1000ML 1,000 ML IV SCH ×2 (07:36→19:29)
[2021-01-17 07:39] LABS: BUN Creatinine Ratio 49.9 (10-20); Calcium 9.2 mg/dl (8.5-10.1); Creatinine Clr Calc Pharmacy 34.1 ml/min; Est GFR (African American) 56.9 ml/min; Est GFR (Non-African American) 49.1 ml/min; Magnesium 1.9 mg/dl (1.8-2.4); Potassium 3.9 mmol/L (3.5-5.1)
[2021-01-17] MEDS: CYANOCOBALAMIN 500 MCG TABLET (VITAMIN B-12) PO SCH (09:18)
[2021-01-17] MEDS: FUROSEMIDE 30 MG in SYRINGE 0 ML IV SCH ×2 (09:18→17:52)
[2021-01-17] MEDS: UREA (UREA-NA) 15 GM PACK PO SCH (09:18)
[2021-01-17] MEDS: CLOPIDOGREL BISULFATE 75 MG TAB PO SCH (09:18)
[2021-01-17] MEDS: INSULIN GLARGINE SOLOSTAR 100 UNITS/ML 3 ML PEN SC SCH ×2 (09:19→21:44)
[2021-01-17] MEDS: INSULIN ASPART 100 UNITS/ML 3 ML PEN SC SCH ×4 (09:19→21:43)
[2021-01-17] MEDS: METOPROLOL SUCC 50MG EXT REL TAB PO SCH (09:19)
[2021-01-17] MEDS: LOSARTAN POTASSIUM 50 MG TAB PO SCH (09:19)
[2021-01-17] MEDS: ASPIRIN 81 MG ECTAB PO SCH (09:19)
--- NOTE | 2021-01-17 10:30 | Nephrology Progress Note ---
Date of Service January 17, 2021 Assessment & Plan Admission and Anticipated Discharge Date Admission Date: January 14, 2021 Subjective Subjective BP much better now. Still labile PHYSICAL EXAMINATION: GENERAL: Elderly white female who is not in any respiratory distress. She is awake, alert, oriented x3. HEENT: Mucous membrane is moist. NECK: Supple. No jugular venous distention. CHEST: Bilaterally clear to auscultation. CARDIOVASCULAR: S1 and S2 regular. ABDOMEN: Soft, nontender. EXTREMITIES: Show no edema. SKIN: Shows no rashes. LABORATORY TEST: Serum sodium 119 on admission , this morning is 130. ASSESSMENT AND PLAN: An 85-year-old female was admitted because of weakness and was found to have severe hyponatremia with a serum sodium of 119. She was also in hypertensive urgency. Hyponatremia: She is prone to hyponatremia and has had 2 admissions in the recent past for the same problem. During the previous admission, hyponatremia was attributed to Maxzide, but she was then started on spironolactone. Prior to starting spironolactone, her sodium was 130 and as soon as the spironolactone was started, serum sodium has started to come down and yesterday was down to 119. Given that spironolactone was the only new medication, I have to assume the hyponatremia is attributed to spironolactone. I would not use this drug ever again including Maxzide or any other type of thiazides. The only diuretic she can use if she tolerates is a loop diuretic. RECOMMENDATIONS: 1. Never use Maxzide. 2. Never use spironolactone. 3. Loop diuretic is the only diuretic she can be put on if needed and if she tolerates. Will Stop lasix also 4. Serum Na is rising so for the time being, continue with normal saline one more day. Another BMP in the evening. have started deescalting the Hyponatremia regimen now other than FFR 5. Stop urea 15 g b.i.d. 6. Continue free fluid restriction to 1500 mL per day 7 Losartan--lower to 50 daily. Continue Current regimen for HTN otherwise. . Results & Data ([facility]) Vital Signs (Past 12 Hours) Vital Signs Temp Pulse Resp BP Pulse Ox 01/17/21 07:07 36.7 C 60 16 131/69 96
[2021-01-17] MEDS: MAGNESIUM OXIDE 400 MG TAB PO SCH ×2 (11:27→21:40)
[2021-01-17 16:39] LABS: BUN Creatinine Ratio 43.5 (10-20); Calcium 9.3 mg/dl (8.5-10.1); Creatinine Clr Calc Pharmacy 29.1 ml/min; Est GFR (Non-African American) 40.5 ml/min; Potassium 3.9 mmol/L (3.5-5.1)
--- NOTE | 2021-01-17 18:43 | Hospitalist Progress Note ---
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 #. Weakness #. Acute on chronic hyponatremia Patient baseline sodium 132 Admitting sodium level 119. Nephrology on board: Never use Maxzide and spironolactone. Can use loop diuretic when needed and if tolerated. Continue with normal saline at 75 mL's an hour and stop Lasix and stop urea. Continue FIR 1500 mL/day. Lower losartan to 50 daily, continue other current regimen for hypertension. Patient reporting improvement, no headache or dizziness. Nephrology de-escalating her hyponatremia regimen, continue monitor for 1 more day. Serum sodium slowly increasing, 130 today morning. Monitor BMP daily. #. UTI prior culture ESBL resistant to rocephin Admitting UA suggestive of UTI with reflex culture growing Citrobacter pansensitive to antibiotics. Patient does not report any pain or burning while passing urine. We will change her Macrobid 01/14 to Rocephin 01/17 due to concerns of decreased creatinine clearance. #. HTN Urgency #. CAD pt presents with SBP > 180 Fairly under control. Continue with home meds. Cardiology on board: Continue with outpatient doses of clonidine/aspirin/Plavix pt unable to tolerate CCB and thiazides in setting of hyponatremia #. Hypomagnesemia: Monitor replace as appropriate. #. T2DM Last A1c 7.5 on 01/03/2021 Hold Metformin and home Lantus Lantus/NovoLog per protocol DVT ppx: SQ Lovenox Dispo: Will DC telemetry. Continue medical care. PCP: Miladys FULL CODE Admission and Anticipated Discharge Date Admission Date: January 14, 2021 Subjective Patient was sitting up in chair, was intermittent, on room air, NAD. Patient denies any acute events overnight. Patient denies any headache/dizziness/chest/ palpitation/other review of symptoms. Physical Exam Physical Exam: GENERAL: Alert and oriented x3. NAD, on RA. HEENT: No pallor, no icterus. Pupils equal, round and reactive to light. Oral mucosa moist. NECK: No JVD, no neck masses. HEART: S1 and S2 heard. Regular rate and rhythm. No murmur, no gallop. RESPIRATORY SYSTEM: Normal AP diameter. No accessory muscle use. No wheezing, no crackles. ABDOMEN: Soft, bowel sounds present, nontender, no distention. CENTRAL NERVOUS SYSTEM: Alert and oriented x3. No facial droop. Speech is clear. Obeys simple commands. Moves extremities. EXTREMITIES: No edema, no erythema seen. Results & Data Results & Data ([facility]) Vital Signs (Past 12 Hours) Vital Signs Temp Pulse Resp BP Pulse Ox 01/17/21 15:41 36.8 C 57 L 16 149/76 H 97 01/17/21 07:07 36.7 C 60 16 131/69 96
[2021-01-17] MEDS: ESCITALOPRAM OXALATE 10 MG TAB PO SCH (21:40)
[2021-01-17] MEDS: ATORVASTATIN 20 MG TAB PO SCH (21:40)
[2021-01-17] MEDS: ENOXAPARIN INJ 40 MG/0.4 ML SYR SQ SCH (21:41)
[2021-01-17] MEDS: cefTRIAXone SODIUM 1,000 MG in DEXTROSE 5% 50 ML IV SCH (21:42)
[2021-01-17] MEDS: MAGNESIUM HYDROXIDE SUSP 30 ML UDC PO PRN (22:27)
[2021-01-18] MEDS: CHECK CLONIDINE PATCH PLACEMENT SCH ×3 (01:00→18:10)
[2021-01-18] MEDS: SODIUM CHLORIDE 0.9% 1000ML 1,000 ML IV SCH (06:48)
[2021-01-18 07:09] LABS: Calcium 8.9 mg/dl (8.5-10.1); Creatinine Clr Calc Pharmacy 31.5 ml/min; Est GFR (African American) 51.5 ml/min; Est GFR (Non-African American) 44.4 ml/min; Potassium 3.9 mmol/L (3.5-5.1)
[2021-01-18] MEDS ORDERED: LOSARTAN POTASSIUM 50 MG TAB PO SCH (09:00)
[2021-01-18] MEDS: FUROSEMIDE 30 MG in SYRINGE 0 ML IV SCH (09:14)
[2021-01-18] MEDS: ASPIRIN 81 MG ECTAB PO SCH (09:15)
[2021-01-18] MEDS: CLOPIDOGREL BISULFATE 75 MG TAB PO SCH (09:16)
[2021-01-18] MEDS: CYANOCOBALAMIN 500 MCG TABLET (VITAMIN B-12) PO SCH (09:18)
[2021-01-18] MEDS: INSULIN ASPART 100 UNITS/ML 3 ML PEN SC SCH ×4 (09:20→22:03)
[2021-01-18] MEDS: INSULIN GLARGINE SOLOSTAR 100 UNITS/ML 3 ML PEN SC SCH ×2 (09:22→22:03)
[2021-01-18] MEDS: METOPROLOL SUCC 50MG EXT REL TAB PO SCH (09:29)
--- NOTE | 2021-01-18 10:00 | Nephrology Progress Note ---
Date of Service January 18, 2021 Assessment & Plan Admission and Anticipated Discharge Date Admission Date: January 14, 2021 Subjective Subjective Subjective BP much better now. Still labile. c/o Constipation now PHYSICAL EXAMINATION: GENERAL: Elderly white female who is not in any respiratory distress. She is awake, alert, oriented x3. HEENT: Mucous membrane is moist. NECK: Supple. No jugular venous distention. CHEST: Bilaterally clear to auscultation. CARDIOVASCULAR: S1 and S2 regular. ABDOMEN: Soft, nontender. EXTREMITIES: Show no edema. SKIN: Shows no rashes. LABORATORY TEST: Serum sodium 119 on admission , this morning is 130. ASSESSMENT AND PLAN: An 85-year-old female was admitted because of weakness and was found to have severe hyponatremia with a serum sodium of 119. She was also in hypertensive urgency. Hyponatremia: She is prone to hyponatremia and has had 2 admissions in the recent past for the same problem. During the previous admission, hyponatremia was attributed to Maxzide, but she was then started on spironolactone. Prior to starting spironolactone, her sodium was 130 and as soon as the spironolactone was started, serum sodium has started to come down and yesterday was down to 119. Given that spironolactone was the only new medication, I have to assume the hyponatremia is attributed to spironolactone. I would not use this drug ever again including Maxzide or any other type of thiazides. The only diuretic she can use if she tolerates is a loop diuretic. RECOMMENDATIONS: 1. Never use Maxzide. 2. Never use spironolactone. 3. Loop diuretic is the only diuretic she can be put on if needed and if she tolerates and if she needs it 4. Stop lasix and stop NS and Stop urea 15 g b.i.d. 6. Continue free fluid restriction to 1500 mL per day 7 Losartan- raise to 100 daily. Continue Current regimen for HTN otherwise. Given the range of BP from low to high ok to continue same regimen for now. 8 f/u Nephrology for Hyponatremia and HTN Results & Data ([facility]) Vital Signs (Past 12 Hours) Vital Signs Temp Pulse Resp BP Pulse Ox 01/18/21 08:21 36.4 C L 48 L 16 171/68 H 97 01/17/21 23:05 36.7 C 59 L 18 151/74 H 95
[2021-01-18] MEDS: MAGNESIUM HYDROXIDE SUSP 30 ML UDC PO PRN (12:22)
[2021-01-18] MEDS ORDERED: LACTULOSE SYRUP 20 GM/30 ML UDC PO ONE (15:21)
--- NOTE | 2021-01-18 16:27 | Hospitalist Progress Note ---
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 #. Weakness #. Acute on chronic hyponatremia Patient baseline sodium 132 Admitting sodium level 119. Nephrology on board: Never use Maxzide and spironolactone. Can use loop diuretic when needed and if tolerated. DC'd IV fluid and stop Lasix and stop urea. Continue FR 1500 mL/day. Raised losartan to 100 mg daily., continue other current regimen for hypertension. Follow-up with nephrology as an outpa tient. Patient reporting improvement, no headache or dizziness. But reports some weakness and tiredness today. Nephrology de-escalating her hyponatremia regimen, continue monitor for 1 more day. Serum sodium slowly increasing, 130 today morning. Monitor BMP daily. Patient will need BMP 5 to 7 days upon discharge. #. UTI prior culture ESBL resistant to rocephin Admitting UA suggestive of UTI with reflex culture growing Citrobacter pansensitive to antibiotics. Patient does not report any pain or burning while passing urine. We will change her Macrobid 01/14 to Rocephin 01/17 due to concerns of decreased creatinine clearance. Will DC Rocephin tomorrow. #. HTN Urgency #. CAD pt presents with SBP > 180 Fairly under control. Continue with home meds. Cardiology on board: Continue with outpatient doses of clonidine/aspirin/Plavix pt unable to tolerate CCB and thiazides in setting of hyponatremia #. Hypomagnesemia: Monitor replace as appropriate. #. T2DM Last A1c 7.5 on 01/03/2021 Hold Metformin and home Lantus Lantus/NovoLog per protocol DVT ppx: SQ Lovenox Dispo: Will DC telemetry. Continue medical care. PCP: Miladys FULL CODE Admission and Anticipated Discharge Date Admission Date: January 14, 2021 Subjective Patient was sitting up in chair, on room air, NAD. No acute events overnight. Patient is eating okay. Patient reports not moving bowels since last 5 days. Her as needed bowel regimen seems not to be utilized adequately according to MAR. Advised nurse to give her bowel regimen. Patient reports feeling weak and tired and since she lives alone and wants to go to home, will reevaluate her tomorrow for possible discharge. Patient denies headache/dizziness/chest pain/palpitation/other review of symptoms. Physical Exam Physical Exam: GENERAL: Alert and oriented x3. NAD, on RA. HEENT: No pallor, no icterus. Pupils equal, round and reactive to light. Oral mucosa moist. NECK: No JVD, no neck masses. HEART: S1 and S2 heard. Regular rate and rhythm. No murmur, no gallop. RESPIRATORY SYSTEM: Normal AP diameter. No accessory muscle use. No wheezing, no crackles. ABDOMEN: Soft, bowel sounds present, nontender, no distention. CENTRAL NERVOUS SYSTEM: Alert and oriented x3. No facial droop. Speech is mona ar. Obeys simple commands. Moves extremities. EXTREMITIES: No edema, no erythema seen. Results & Data Results & Data ([facility]) Vital Signs (Past 12 Hours) Vital Signs Temp Pulse Resp BP BP Pulse Ox 01/18/21 13:36 36.6 C 53 L 16 162/73 H 92 01/18/21 08:21 36.4 C L 48 L 16 171/68 H 97
[2021-01-18] MEDS: ATORVASTATIN 20 MG TAB PO SCH (21:44)
[2021-01-18] MEDS: cefTRIAXone SODIUM 1,000 MG in DEXTROSE 5% 50 ML IV SCH (21:44)
[2021-01-18] MEDS: ENOXAPARIN INJ 40 MG/0.4 ML SYR SQ SCH (21:44)
[2021-01-18] MEDS: ESCITALOPRAM OXALATE 10 MG TAB PO SCH (21:44)
[2021-01-18] MEDS ORDERED: SODIUM CHLORIDE 0.65% NA SOLN 45 ML (OCEAN) ONE (21:56)
[2021-01-19] MEDS: CHECK CLONIDINE PATCH PLACEMENT SCH ×2 (00:20→09:14)
[2021-01-19] MEDS ORDERED: LOSARTAN POTASSIUM 50 MG TAB PO SCH (09:00)
[2021-01-19] MEDS: ASPIRIN 81 MG ECTAB PO SCH (09:08)
[2021-01-19] MEDS: CLOPIDOGREL BISULFATE 75 MG TAB PO SCH (09:09)
[2021-01-19] MEDS: CYANOCOBALAMIN 500 MCG TABLET (VITAMIN B-12) PO SCH (09:09)
[2021-01-19] MEDS: METOPROLOL SUCC 50MG EXT REL TAB PO SCH (09:10)
[2021-01-19] MEDS: INSULIN GLARGINE SOLOSTAR 100 UNITS/ML 3 ML PEN SC SCH (09:11)
[2021-01-19] MEDS: INSULIN ASPART 100 UNITS/ML 3 ML PEN SC SCH ×2 (09:12→13:22)
[2021-01-19 09:16] LABS: BUN Creatinine Ratio 29.5 (10-20); Calcium 9.5 mg/dl (8.5-10.1); Creatinine Clr Calc Pharmacy 38.4 ml/min; Est GFR (African American) 65.9 ml/min; Est GFR (Non-African American) 56.8 ml/min; Magnesium 2.3 mg/dl (1.8-2.4); Potassium 4.3 mmol/L (3.5-5.1)
[2021-01-19] MEDS: ACETAMINOPHEN 325 MG TAB PO PRN (09:30)
--- NOTE | 2021-01-19 18:11 | Discharge Summary ---
Date of Service January 19, 2021 Admission HPI Per Admitting Provider This is a 85-year-old female who has significant past medical history of T2DM, HTN, HLD, PAF, CKD stage III, SHIVANI on CPAP, essential tremor who presents to ED secondary to weakness and hypertension x 1 week. Of significance patient was recently hospitalized January 02 through January 07 secondary to hypertensive urgency. During hospitalization her hydralazine was titrated 100 mg 3 times a day. She remains on metoprolol succinate 100 mg daily, losartan 50 mg twice daily, Aldactone 12.5 mg and clonidine 0.2 mg transdermal patch every 7 days. Previously she is intolerant to CCB's as well as thiazide secondary to worsening hyponatremia. She felt well on day of discharge for the past week has continued to felt increasingly weak, lightheaded and, "shaky." She also admits to increased urinary urgency and 2 episodes of loose stool yesterday. She does have chronic intermittent loose stool and feels this is not unusual for her. She denies any fever, chills, sweats, dizziness, syncope, chest pain, shortness of breath, cough, URI symptoms, nausea, vomiting, abdominal pain. She feels her appetite has otherwise been okay. She admits to eating 2 pieces of toast and strawberries this morning and applesauce for dinner yesterday. She also admits to drinking coffee, water and Gatorade but is having a hard time quantifying the amount she drinks. She does prepare most of her meals unless her family brings it into her. She denies any falls. Her family sets of her medications and she did take her morning medications. In ED patient was hemodynamically stable although significantly hypertensive with a BP of 184/94. She was severely hyponatremic with a sodium serum sodium of 119, corrected to 120 for hyperglycemia. Her CBC was otherwise unremarkable. She did have low magnesium at 1.7 and urinalysis concerning for UTI. Her chest x-ray and head CT was without acute abnormality. In ED she received 500ml IV fluid, 10 mg IV labetalol and 1 g IV magnesium. Admission Exam Per Admitting Provider Constitutional: WD/WN, elderly, female, noted essential head tremor, vitals as above, NAD, sitting up in bed, pleasant, conversing easily Head: Normocephalic, Atraumatic Eyes: PERRL, conjunctivae normal, anicteric sclerae ENMT: external ear and nose normal, oropharynx normal Neck: trachea midline, no thyromegaly normal visual inspection Respiratory: normal respiratory effort, lungs clear to auscultation, no wheeze, rales, rhonchi. Normal insp/exp effort, no accessory muscle use Cardiovascular: RRR, no murmur, no edema Vessels: no JVD or carotid bruit Chest: normal inspection of chest Abdomen: normal bowel sounds, soft, nontender, no hepatosplenomegaly Musculoskeletal: no cyanosis or clubbing, extremities motor strength 5/5 Skin: no rashes, warm and dry moderate turgor Neurologic: + Essential head tremor, PERRL, EOMI, accommodation nl, no face palsy, no dysarthria CN's II-XI intact bilaterally and moves all extremities Psychiatric: A+Ox3, euthymic affect Lymphatic: no cervical or axillary lymphadenopathy : deferred Principal Diagnosis Weakness Acute on chronic hyponatremia UTI Hypertensive urgency Discharge Exam GENERAL: Alert and oriented x3. NAD, on RA. HEENT: No pallor, no icterus. Pupils equal, round and reactive to light. Oral mucosa moist. NECK: No JVD, no neck masses. HEART: S1 and S2 heard. Regular rate and rhythm. No murmur, no gallop. RESPIRATORY SYSTEM: Normal AP diameter. No accessory muscle use. No wheezing, no crackles. ABDOMEN: Soft, bowel sounds present, nontender, no distention. CENTRAL NERVOUS SYSTEM: Alert and oriented x3. No facial droop. Speech is c lear. Obeys simple commands. Moves extremities. EXTREMITIES: No edema, no erythema seen. Discharge Data Allergies Allergy/AdvReac Type Severity Reaction Status Date / Time amlodipine Allergy Severe SWELLING Unverified 01/02/21 14:48 AND FLUSHING mold Allergy Mild SINUS Unverified 01/02/21 14:48 DRAINAGE/COUGH hydrochlorothiazide AdvReac Severe hyponatremi Verified 01/02/21 14:48 [From Maxzide] a triamterene [From Maxzide] AdvReac Severe hyponatremi Verified 01/02/21 14:48 a LORENA Inhibitors AdvReac Unknown COUGH Verified 01/02/21 14:48 Consultations 01/14/21 17:31 ED Decision to Admit Stat 01/14/21 18:32 Consult Cardiology Routine 01/14/21 18:38 Consult Nephrology Routine Ordered Studies 01/14/21 15:58 CT head/brain wo con Stat Hospital Course (1) Hyponatremia: (2) UTI (urinary tract infection): (3) Hypertensive emergency: This is a 85-year-old female who has significant past medical history of T2DM, HTN, HLD, PAF, CKD stage III, SHIVANI on CPAP, essential tremor who presents to ED 01/14 secondary to weakness and hypertension x 1 week [employer]. She was manag ed for the following while inpatient: #. Weakness #. Acute on chronic hyponatremia Patient baseline sodium 132 Admitting sodium level 119. Nephrology on board: Never use Maxzide and spironolactone. Can use loop diuretic when needed and if tolerated. DC'd IV fluid and stop Lasix and stop urea. Continue FR 1500 mL/day. Raised losartan to 100 mg daily., continue other current regimen for hypertension. Follow-up with nephrology as an outp atient. No headache or dizziness, patient felt better on the day of discharge. Nephrology recommended fluid restriction to 1500 mL/day upon discharge. Serum sodium slowly increasing, 131 today morning on the day of discharge. Patient will need BMP 5 to 7 days upon discharge. Patient aware. #. UTI prior culture ESBL resistant to rocephin Admitting UA suggestive of UTI with reflex culture growing Citrobacter pansensitive to antibiotics. Patient does not report any pain or burning while passing urine. Patient completed 5-day course of antibiotic. #. HTN Urgency #. CAD pt presents with SBP > 180 Fairly under control. Continue with home meds. Cardiology on board: Continue with outpatient doses of clonidine/aspirin/Plavix pt unable to tolerate CCB and thiazides in setting of hyponatremia #. Hypomagnesemia: Monitor replace as appropriate. #. T2DM Last A1c 7.5 on 01/03/2021 Hold Metformin and home Lantus Lantus/NovoLog per protocol Patient was discharged to home [patient denied rehab or home health] with following instruction at the time of discharge: Follow-up with your primary care physician within a week time. Never use Maxzide and spironolactone in future. Loop diuretic is the only diuretic you can be put on if needed and if you tolerate and if you need it. Continue fluid restriction to 1500 mL/day. Your losartan has been changed to 100 mg daily. Continue other current regimen for hypertension. Follow-up with nephrology as an outpatient in a month's time. He will need to follow-up with blood work [BMP] in 5 to 7 days upon discharge. You completed your course of antibiotic for UTI while in hospital. Total Time Total Time Spent Total Time Spent (In Minutes): 40 Discharge Plan Discharge Items Patient Disposition: Home - Self-Care Reason For Visit: ACUTE/CHRONIC HYPONATREMIA, WEAKNESS, HTN Discharge Diagnosis: Weakness Acute on chronic hyponatremia UTI Hypertensive urgency Condition on Discharge: Fair Activity: Resume your previous activity Non-emergency contact: Primary Care Provider Call non-emergency contact if: you have any medication questions and your symptoms worsen Follow-up/Referrals: Vince Hook MD [Primary Care Provider] - (Date & Time 01/28/2021 9:40 AM Provider Juve Davey MD [facility] ) Diet: Heart Healthy Addtl Attending Provider Instructions: Follow-up with your primary care physician within a week time. Never use Maxzide and spironolactone in future. Loop diuretic is the only diuretic you can be put on if needed and if you tolerate and if you need it. Continue fluid restriction to 1500 mL/day. Your losartan has been changed to 100 mg daily. Continue other current regimen for hypertension. Follow-up with nephrology as an outpatient in a month's time. He will need to follow-up with blood work [BMP] in 5 to 7 days upon discharge. You completed your course of antibiotic for UTI while in hospital. Pending Studies at Discharge: No Stand-Alone Forms: My [facility] Tackle Grab, Smoking Cessation Medications and DC Order Prescriptions: New losartan 50 mg Tablet 100 mg PO DAILY Qty: 30 RF: 0 Continued escitalopram oxalate 10 mg Tablet 10 mg PO PM RF: 0 B12 Active 1,000 mcg Tablet,Chewable 1,000 mcg PO DAILY RF: 0 clonidine 0.2 mg/24 hr patch weekly 0.2 mg transdermal Q7D RF: 0 aspirin 81 mg Tablet,Delayed Release (Dr/Ec) 81 mg PO QAM 30 Days Qty: 30 RF: 3 (DME) needle (disp) 32 gauge 32 gauge x 5/16" needle See Rx Instructions .ROUTE .MEDSUPPLY Qty: 100 RF: 3 atorvastatin 20 mg Tablet 20 mg PO PM RF: 0 clopidogrel [Plavix] 75 mg Tablet 75 mg PO DAILY RF: 0 metformin 500 mg tablet 1,000 mg PO BIDM RF: 0 Basaglar KwikPen U-100 Insulin 100 unit/mL (3 mL) insulin pen 14 unit subcut QAM RF: 0 metoprolol succinate 100 mg tablet extended release 24 hr 100 mg PO DAILY RF: 0 hydralazine 100 mg tablet 100 mg PO TID Qty: 90 RF: 0 Discontinued losartan 50 mg Tablet 50 mg PO BID RF: 0 spironolactone 25 mg Tablet 12.5 mg PO DAILY Qty: 30 RF: 0 Discharge Orders: Discharge Order (Routine); Ordered 01/19/21 Ordered By: Arley Anders/Other Patient Handouts: Diabetes and Heart Disease Admission Data Admit Date/Time: 01/14/21 17:35 Attending Provider: Arley Blair Admit Provider: Sage Amezcua Primary Care Provider: Vince Hook Other Providers: Sage Amezcua ; Surya Dsouza ; Lucas Manuel Other Interventions: Discharge Summary Assessment (RN) Last Done: 01/19/21 15:10
== END 2021-01-19 16:08 | disposition home or self-care (01) | DRG 641 ==
LOC: ED 15:36 → EDINP 17:35 → SUATTDRO 17:35 → EDINP 21:26 → 2S 01-15 14:53 → 3E 01-16 21:26
DX: G47.33 Obstructive sleep apnea (adult) (pediatric); Z79.899 Other long term (current) drug therapy; B96.89 Other specified bacterial agents as the cause of diseases classified elsewhere; E87.1 Hypo-osmolality and hyponatremia; G25.0 Essential tremor; Z79.4 Long term (current) use of insulin; Z91.14 Patient's other noncompliance with medication regimen; E83.42 Hypomagnesemia; T50.0X5A Adverse effect of mineralocorticoids and their antagonists, initial encounter; T50.2X5A Adverse effect of carbonic-anhydrase inhibitors, benzothiadiazides and other diuretics, initial encounter; E78.5 Hyperlipidemia, unspecified; Z91.048 Other nonmedicinal substance allergy status; N39.0 Urinary tract infection, site not specified; Z88.8 Allergy status to other drugs, medicaments and biological substances; Z20.822 Contact with and (suspected) exposure to COVID-19; I95.9 Hypotension, unspecified; N18.30 Chronic kidney disease, stage 3 unspecified; Z79.82 Long term (current) use of aspirin; I25.10 Atherosclerotic heart disease of native coronary artery without angina pectoris; R53.1 Weakness; I16.0 Hypertensive urgency; E11.22 Type 2 diabetes mellitus with diabetic chronic kidney disease; Z79.02 Long term (current) use of antithrombotics/antiplatelets; Z86.73 Personal history of transient ischemic attack (TIA), and cerebral infarction without residual deficits; I48.0 Paroxysmal atrial fibrillation; E11.65 Type 2 diabetes mellitus with hyperglycemia; Z79.84 Long term (current) use of oral hypoglycemic drugs; I12.9 Hypertensive chronic kidney disease with stage 1 through stage 4 chronic kidney disease, or unspecified chronic kidney disease; F41.1 Generalized anxiety disorder; K59.00 Constipation, unspecified

== ENCOUNTER 2022-07-17 08:50 | Inpatient (IN) ==
[2022-07-17] MEDS ORDERED: BENZONATATE 100 MG CAPSULE PO ONE (09:12)
--- NOTE | 2022-07-17 09:12 | Emergency Department Note ---
Impression & Plan Weakness, Hypomagnesemia, URI (upper respiratory infection), Cough ED Provider Note Provider: Patrice Portillo MD DATE OF SERVICE: 07/17/2022 CHIEF COMPLAINT: Cough HISTORY OF PRESENT ILLNESS: Patient is a 87-year-old female history of hypertension and diabetes presenting here today with family with report of 3 to 4 days of some postnasal drainage and cough. Whitish cough sputum reported. Some discomfort in the chest with coughing and states a little bit of discomfort last night started. Denies significant pain at rest now. Denies any nausea vomiting or diarrhea. Denies leg swelling. Reports a grandchild did have a bit of a cold in the around some folks several weeks ago but no other reported sick contact. No travel. Reports some nasal drainage and some slight sore throat. Reports some headaches. Cough kept her up most of the night. Andiesadiq WALTER tried at home without improvement. Bit wobbly on her feet due to fatigue but denies falls. PAST MEDICAL HISTORY: As noted above MEDICATIONS: Reviewed home medications and states has been able to take SOCIAL HISTORY: Lives at home in a single level house, non-smoker PHYSICAL EXAM: GENERAL: alert and oriented in no acute distress on stretcher occasionally coughing and fatigue Head: normocephalic and atraumatic EYES: No injection, discharge or icterus. NECK: Trachea midline. Supple. ENT: Mucous membranes pink and moist. Pharynx without erythema or exudate. LUNGS: Airway patent. No retractions. Breath sounds clear but frequent coughing. Some transmitted upper airway sounds and congestion noted. HEART: Regular rate and rhythm. No chest wall tenderness ABDOMEN: Soft and non-tender, without guarding or rebound. SKIN: Acyanotic, warm, dry, without rashes EXTREMITIES: Without swelling, tenderness or deformity NEUROLOGICAL: No focal deficits. No aphasia. No facial droop or slurred speech. EK bpm normal sinus rhythm left anterior fascicular block. No PVC or PAC noted. Nonspecific inferior lateral T wave flattening noted. QTc 446. No acute ST segment elevation. No significant acute ST segment depression noted with slight baseline artifact. CONTINUOUS CARDIAC MONITORING: was ordered and showed a heart rate of 70s bpm in normal sinus rhythm Patient's laboratory studies and imaging reviewed. Differential includes pneumonia, pneumothorax, COPD, CHF, infections, cardiac ischemia, pulmonary embolism, musculoskeletal, as well as other pathologies. IMPRESSION/MEDICAL DECISION MAKING: Patient with several days of cough and congestion. Some headaches and fatigue. No falls. Little bit of pain last night seems likely related more to cough from chest wall discomfort than true ACS but EKG and troponin sent. Upper respiratory viral panel sent. No significant leg swelling and lower suspicion for heart failure. Benign abdomen. Patient does not appear meningitic and afebrile upon arrival. Not hypoxic. Hypertensive upon arrival. Some combination of illness as well as cough medicine may be contributing. Does not appear septic at this point. History of hyponatremia issues in the past and blood work was checked. States she has been eating and did have a banana this morning. Number seems most likely provoked by infectious cause. No significant evidence of leg swelling again I doubt both CHF as well as VTE. Chest x-ray per radiology without evidence of pneumonia or pneumothorax. No significant fluid overload noted here. Blood work without evidence of leukocytosis or anemia. No significant thrombocytopenia noted. Some slight hyponatremia of 128 but not far off her baseline around the 130s. Magnesium mildly low at 1.6. No significant renal dysfunction. Troponin not elevated I doubt acute ACS that she is having some shoulder discomfort now. Likely more musculoskeletal but does obviously have some cardiac risk factors. Quite fatigued. Tried some Tessalon Perles to see if this help with cough and given some Tylenol for the shoulder upper chest discomfort. IV magnesium supplementation ordered. Patient quite fatigued and coughing. Blood pressure elevated. Again did take home medications. Ordered a dose of her home hydralazine. Respiratory viral panel positive for parainfluenza flea likely explaining her cold and respiratory symptoms. Again given her age and comorbidities and weakness discussed with her and family and they agree that she should stay for further observation. Hospitalist contacted. DIAGNOSIS: URI, cough, hypertension, weakness, hypomagnesemia DISPOSITION: Hospitalist will evaluate Patient was agreeable with this plan. Past Med/Surg History Medical History Anxiety Anxiety and depression CKD (chronic kidney disease), stage III Diarrhea DM type 2 (diabetes mellitus, type 2) Dyslipidemia HTN (hypertension) Hypertensive urgency Hyponatremia Hyponatremia Hyponatremia Hyponatremia SHIVANI (obstructive sleep apnea) Parainfluenza TIA (transient ischemic attack) TIA (transient ischemic attack) Type 2 diabetes mellitus Weakness Surgical History S/P carpal tunnel release S/P cholecystectomy Family History Other Diabetes Hypertension Social History Smoking Status: Never smoker Second Hand Exposure: No; Hx Alcohol Use: No Hx Substance Use: No Preferred Language: Upper Sorbian Communication Ability: Effective [employer] Required: No Beliefs That Will Affect Care: None marital status: Current Living Situation: Alone Feels Safe at Home: Yes Assistive Devices: Glasses Allergies Allergies Allergy/AdvReac Type Severity Reaction Status Date / Time amlodipine Allergy Severe SWELLING Unverified 07/17/22 10:48 AND FLUSHING mold Allergy Mild SINUS Unverified 07/17/22 10:48 DRAINAGE/COUGH hydrochlorothiazide AdvReac Severe hyponatremi Verified 07/17/22 10:48 [From Maxzide] a triamterene [From Maxzide] AdvReac Severe hyponatremi Verified 07/17/22 10:48 a LORENA Inhibitors AdvReac Unknown COUGH Verified 07/17/22 10:48 Home Meds Home Medications Medication Instructions Recorded Confirmed atorvastatin 20 mg tablet 20 mg PO PM 03/24/18 07/17/22 clopidogrel 75 mg tablet (Plavix) 75 mg PO DAILY 03/24/18 07/17/22 escitalopram oxalate 10 mg tablet 10 mg PO PM 05/11/20 07/17/22 mecobalamin (vitamin B12) 1,000 1,000 mcg PO DAILY 05/11/20 07/17/22 mcg chewable tablet (B12 Active) clonidine 0.2 mg/24 hr weekly 0.2 mg transdermal Q7D 05/12/20 07/17/22 transdermal patch insulin glargine 100 unit/mL (3 14 unit subcut QAM 01/02/21 07/17/22 mL) subcutaneous pen (Joseaglar KwjanPen U-100 Insulin) metformin 500 mg tablet 1,000 mg PO BIDM 01/02/21 07/17/22 metoprolol succinate 100 mg 100 mg PO DAILY 01/02/21 07/17/22 tablet,extended release 24 hr latanoprost 0.005 % eye drops 1 drp ophthalmic (eye) HS 07/17/22 07/17/22 Previous Rx's Medication Instructions Recorded aspirin 81 mg tablet,delayed 81 mg PO QAM 30 days #30 tabs 05/15/20 release needle (disp) 32 gauge 32 gauge x #100 ea 05/17/2008/12" hydralazine 100 mg tablet 100 mg PO TID #90 tabs 01/08/21 losartan 50 mg tablet 100 mg PO DAILY #30 tabs 01/19/21 Results & Data (ED) Vital Signs Vital Signs - 24 hr 07/17/22 08:55 07/17/22 09:10 07/17/22 09:20 Temperature 37.1 C Temperature Source Temporal Artery Scan Pulse Rate 75 74 77 Pulse Rate [Apical] Pulse Rate from SpO2 Sensor Pulse Rhythm Regular Pulse Rhythm [Apical] Pulse Strength [Apical] Respiratory Rate 20 20 Respiratory Effort / Characteristics Non-Labored Spontaneous Respiratory Depth Normal Respiratory Pattern Blood Pressure 180/79 H Blood Pressure [Right Arm] Blood Pressure Mean 112 Blood Pressure Mean [Right Arm] Blood Pressure Position Sitting Blood Pressure Position [Right Arm] Pulse Oximetry 96 94 Oxygen Delivery Method Room Air Room Air Oxygen Flow Rate Sepsis Recent Fever Within 48 Hours No Sepsis New/Unexplained Change in Mental Status No Sepsis Action Taken by Nursing No Action Required 07/17/22 09:20 07/17/22 10:17 07/17/22 11:05 Temperature 37.7 C H 36.9 C Temperature Source Oral Oral Pulse Rate Pulse Rate [Apical] 77 Pulse Rate from SpO2 Sensor Pulse Rhythm Pulse Rhythm [Apical] Regular Pulse Strength [Apical] Normal Respiratory Rate 20 Respiratory Effort / Characteristics Spontaneous Short of Breath SOB on Exertion Spontaneous Short of Breath SOB on Exertion Respiratory Depth Normal Normal Respiratory Pattern Regular Regular Blood Pressure Blood Pressure [Right Arm] 193/97 H Blood Pressure Mean Blood Pressure Mean [Right Arm] 129 Blood Pressure Position Blood Pressure Position [Right Arm] Sitting Pulse Oximetry 94 Oxygen Delivery Method Room Air Room Air Oxygen Flow Rate Sepsis Recent Fever Within 48 Hours Sepsis New/Unexplained Change in Mental Status Sepsis Action Taken by Nursing 07/17/22 09:07 07/17/22 10:00 07/17/22 10:31 Temperature Temperature Source Pulse Rate 74 75 81 Pulse Rate [Apical] Pulse Rate from SpO2 Sensor 74 75 106 H Pulse Rhythm Pulse Rhythm [Apical] Pulse Strength [Apical] Respiratory Rate 16 20 18 Respiratory Effort / Characteristics Respiratory Depth Respiratory Pattern Blood Pressure 184/106 H 193/97 H 244/87 H Blood Pressure [Right Arm] Blood Pressure Mean 132 129 139 Blood Pressure Mean [Right Arm] Blood Pressure Position Blood Pressure Position [Right Arm] Pulse Oximetry 95 95 92 Oxygen Delivery Method Room Air Room Air Room Air Oxygen Flow Rate Sepsis Recent Fever Within 48 Hours Sepsis New/Unexplained Change in Mental Status Sepsis Action Taken by Nursing 07/17/22 10:34 07/17/22 11:00 Temperature Temperature Source Pulse Rate 78 67 Pulse Rate [Apical] Pulse Rate from SpO2 Sensor 67 Pulse Rhythm Pulse Rhythm [Apical] Pulse Strength [Apical] Respiratory Rate 20 20 Respiratory Effort / Characteristics Respiratory Depth Respiratory Pattern Blood Pressure 198/121 H 183/82 H Blood Pressure [Right Arm] Blood Pressure Mean 146 115 Blood Pressure Mean [Right Arm] Blood Pressure Position Blood Pressure Position [Right Arm] Pulse Oximetry 95 98 Oxygen Delivery Method Room Air Nebulizer Oxygen Flow Rate 7 Sepsis Recent Fever Within 48 Hours Sepsis New/Unexplained Change in Mental Status Sepsis Action Taken by Nursing Laboratory Data 07/17/22 09:20 07/17/22 09:20 Lab Results 07/17/22 07/17/22 07/17/22 Range/Units 09:20 09:20 09:20 WBC 9.20 (4.8-10.8) K/ul RBC 4.41 (4.20-5.40) M/uL Hgb 13.1 (12.0-16.0) g/dl Hct 38.0 (37.0-47.0) % MCV 86.2 (80.0-100.0) fL MCH 29.7 (25.0-34.0) pg MCHC 34.5 (32.0-36.0) g/dL RDW Std Deviation 41.1 (36.4-46.3) fL RDW Coeff of Devyn 13.2 (11.5-14.5) % Plt Count 162 (130-400) K/uL MPV 9.9 (9.4-12.4) fL Immature Gran % (Auto) 0.3 % Neut % (Auto) 75.6 % Lymph % (Auto) 11.0 % [place] % (Auto) 11.3 % Eos % (Auto) 1.1 % Baso % (Auto) 0.7 % Neut # (Auto) 6.96 H (1.40-6.50) K/uL Lymph # (Auto) 1.01 L (1.2-3.4) K/uL [place] # (Auto) 1.04 H (0.11-0.59) K/uL Eos # (Auto) 0.10 (0-0.50) K/uL Baso # (Auto) 0.06 (0-0.2) K/uL Immature Gran # (Auto) 0.03 (0.01-0.20) K/uL PT 11.9 (9.0-12.0) Seconds INR 1.1 (0.9-1.1) APTT 29.9 (21.0-31.0) Seconds PTT Ratio 1.1 Sodium 128 L (136-145) mmol/L Potassium 4.0 (3.5-5.1) mmol/L Chloride 92 L (98-107) mmol/L Carbon Dioxide 25 (21-32) mmol/L Anion Gap 11 (3-11) BUN 11 (6-23) mg/dl Creatinine 0.85 (0.6-1.2) mg/dl Est Cr Clr Drug Dosing 41.3 ml/min Est GFR ( Amer) 72.4 ml/min Est GFR (Non-Af Amer) 62.5 ml/min BUN/Creatinine Ratio 12.9 (10-20) Glucose 200 H (70-99(Fasting)) mg/dl Calcium 9.1 (8.6-10.3) mg/dl Magnesium 1.6 L (1.7-2.4) mg/dl Total Bilirubin 0.5 (0.2-1.0) mg/dl AST 19 (13-39) U/L ALT 19 (7-52) U/L Alkaline Phosphatase 49 (34-104) U/L Troponin I High Sens 11.2 (0-14) pg/ml Total Protein 7.2 (6.0-8.3) gm/dl Albumin 4.4 (3.4-5.0) gm/dl Globulin 2.8 (2.5-4.0) gm/dl Albumin/Globulin Ratio 1.6 (0.9-2) Adenovirus (PCR) (NotDetected) B. pertussis DNA (PCR) (NotDetected) B.parapertussis DNA PCR (NotDetected) C. pneumoniae DNA (PCR) (NotDetected) Coronavirus OC43 (PCR) (NotDetected) Coronavirus HKU1 (PCR) (NotDetected) Coronavirus 229E (PCR) (NotDetected) SARS-CoV-2 (PCR) (NotDetected) Coronavirus NL63 (PCR) (NotDetected) Human Metapneumovir PCR (NotDetected) Influenza Type A (PCR) (NotDetected) Influenza Type B (PCR) (NotDetected) M. pneumoniae (PCR) (NotDetected) Parainfluenza 1 (PCR) (NotDetected) Parainfluenza 2 (PCR) (NotDetected) Parainfluenza 3 (PCR) (NotDetected) Parainfluenza 4 (PCR) (NotDetected) RSV (PCR) (NotDetected) Entero/Rhino (PCR) (NotDetected) 07/17/22 Range/Units 09:20 WBC (4.8-10.8) K/ul RBC (4.20-5.40) M/uL Hgb (12.0-16.0) g/dl Hct (37.0-47.0) % MCV (80.0-100.0) fL MCH (25.0-34.0) pg MCHC (32.0-36.0) g/dL RDW Std Deviation (36.4-46.3) fL RDW Coeff of Devyn (11.5-14.5) % Plt Count (130-400) K/uL MPV (9.4-12.4) fL Immature Gran % (Auto) % Neut % (Auto) % Lymph % (Auto) % [place] % (Auto) % Eos % (Auto) % Baso % (Auto) % Neut # (Auto) (1.40-6.50) K/uL Lymph # (Auto) (1.2-3.4) K/uL [place] # (Auto) (0.11-0.59) K/uL Eos # (Auto) (0-0.50) K/uL Baso # (Auto) (0-0.2) K/uL Immature Gran # (Auto) (0.01-0.20) K/uL PT (9.0-12.0) Seconds INR (0.9-1.1) APTT (21.0-31.0) Seconds PTT Ratio Sodium (136-145) mmol/L Potassium (3.5-5.1) mmol/L Chloride (98-107) mmol/L Carbon Dioxide (21-32) mmol/L Anion Gap (3-11) BUN (6-23) mg/dl Creatinine (0.6-1.2) mg/dl Est Cr Clr Drug Dosing ml/min Est GFR ( Amer) ml/min Est GFR (Non-Af Amer) ml/min BUN/Creatinine Ratio (10-20) Glucose (70-99(Fasting)) mg/dl Calcium (8.6-10.3) mg/dl Magnesium (1.7-2.4) mg/dl Total Bilirubin (0.2-1.0) mg/dl AST (13-39) U/L ALT (7-52) U/L Alkaline Phosphatase (34-104) U/L Troponin I High Sens (0-14) pg/ml Total Protein (6.0-8.3) gm/dl Albumin (3.4-5.0) gm/dl Globulin (2.5-4.0) gm/dl Albumin/Globulin Ratio (0.9-2) Adenovirus (PCR) Not Detected (NotDetected) B. pertussis DNA (PCR) Not Detected (NotDetected) B.parapertussis DNA PCR Not Detected (NotDetected) C. pneumoniae DNA (PCR) Not Detected (NotDetected) Coronavirus OC43 (PCR) Not Detected (NotDetected) Coronavirus HKU1 (PCR) Not Detected (NotDetected) Coronavirus 229E (PCR) Not Detected (NotDetected) SARS-CoV-2 (PCR) Not Detected (NotDetected) Coronavirus NL63 (PCR) Not Detected (NotDetected) Human Metapneumovir PCR Not Detected (NotDetected) Influenza Type A (PCR) Not Detected (NotDetected) Influenza Type B (PCR) Not Detected (NotDetected) M. pneumoniae (PCR) Not Detected (NotDetected) Parainfluenza 1 (PCR) Not Detected (NotDetected) Parainfluenza 2 (PCR) Not Detected (NotDetected) Parainfluenza 3 (PCR) DETECTED A* (NotDetected) Parainfluenza 4 (PCR) Not Detected (NotDetected) RSV (PCR) Not Detected (NotDetected) Entero/Rhino (PCR) Not Detected (NotDetected) Administered Medications Sodium Chloride (Nss 1000ml) 1,000 mls @ 80 mls/hr IV .[id number] YANA Stop: 07/18/22 14:14 Last Admin: 07/17/22 13:38 Dose: 80 mls/hr Documented By: LINK Discontinued Medications Acetaminophen (Acetaminophen 500 Mg Tab) 1,000 mg PO NOW STA Stop: 07/17/22 10:14 Last Admin: 07/17/22 10:22 Dose: 1,000 mg Documented By: MEGAN Acetaminophen/Codeine Phosphate (Acetaminophen W/Codeine #3 1 Tab) 1 tab PO HS ONE Stop: 07/17/22 13:35 Last Admin: 07/17/22 14:51 Dose: Not Given Documented By: MIGUEL Albuterol (Albut/Ipratrop 3mg/0.5mg Neb 3 Ml Vial) 3 ml NEB NOW STA; Protocol Stop: 07/17/22 10:30 Last Admin: 07/17/22 10:55 Dose: 3 ml Documented By: MEGAN Benzonatate (Benzonatate 100 Mg Capsule) 100 mg PO NOW ONE Stop: 07/17/22 09:13 Last Admin: 07/17/22 09:34 Dose: 100 mg Documented By: MEGAN Hydralazine HCl (Hydralazine Hcl 20 Mg/Ml Vial) 5 mg IV NOW ONE Stop: 07/17/22 10:37 Last Admin: 07/17/22 10:55 Dose: 5 mg Documented By: MEGAN Magnesium Sulfate/Dextrose (Magnesium Sulfate / D5w) 1 gm in 100 mls @ 200 mls/hr IV Q30M YANA Stop: 07/17/22 11:29 Last Infusion: 07/17/22 11:57 Dose: 0 mls/hr Documented By: Admin: 07/17/22 11:27 Dose: 200 mls/hr Documented By: Infusion: 07/17/22 11:25 Dose: 200 mls/hr Documented By: Admin: 04/20/23 10:55 Dose: 200 mls/hr Documented By: MEGAN Imaging Data Radiologist's Impression: Chest X-Ray 07/17/22 09:02 SINGLE VIEW CHEST CLINICAL HISTORY: Cough. FINDINGS: An AP, portable, upright chest radiograph is compared to study dated 01/14/2021. The cardiomediastinal silhouette is unremarkable noting atherosclerotic calcification of the thoracic aorta. Chronic interstitial thickening is similar to previous. There is chronic elevation of the right hemidiaphragm with bibasilar scarring/atelectasis. No airspace consolidation or large pleural effusion is identified. No pneumothorax is seen. The skeletal structures are osteopenic. The bony thorax is grossly intact. Cholecystectomy clips are seen in the right upper quadrant. IMPRESSION: No active disease in the chest. ACT 112: Negative or not required by law. Electronically signed by: Milton Roberto M.D. 07/17/2022 9:31 AM Discharge Plan Visit Data Chief Complaint: Respiratory Problems Stated Complaint: RESPIARATROY SYMPTOMS, SEVERE COUGH, HEADACHE ED Provider: Patrice Portillo Discharge Problem: Weakness, Hypomagnesemia, URI (upper respiratory infection), Cough Patient Disposition: Being Evaluated by Hospitalist Discharge Instructions Interventions: ED Discharge Assessment Last Done: 07/17/22 15:21
--- NOTE | 2022-07-17 09:34 | XRay Report ---
SINGLE VIEW CHEST CLINICAL HISTORY: Cough. FINDINGS: An AP, portable, upright chest radiograph is compared to study dated 01/14/2021. The cardio mediastinal silhouette is unremarkable noting atherosclerotic calcification of the thoracic aorta. Ch ronic interstitial thickening is similar to previous. There is chronic elevation of the right hemidia phragm with bibasilar scarring/atelectasis. No airspace consolidation or large pleural effusion is id entified. No pneumothorax is seen. The skeletal structures are osteopenic. The bony thorax is grossly intact. Cholecystectomy clips are seen in the right upper quadrant. IMPRESSION: No active disease in the chest. ACT 112: Negative or not required by law. Electronically signed by: Milton Roberto M.D. 07/17/2022 9:31 AM
[2022-07-17 09:48] LABS: Basophils # (auto) 0.06 K/uL (0-0.2); Basophils % (auto) 0.7 %; Eosinophils % (auto) 1.1 %; Hemoglobin 13.1 g/dl (12.0-16.0); Immature Granulocytes # (auto) 0.03 K/uL (0.01-0.20); Immature Granulocytes % (auto) 0.3 %; Lymphocytes # (auto) 1.01 K/uL (1.2-3.4); Mean Corpuscular Hemoglobin 29.7 pg (25.0-34.0); Mean Corpuscular Hgb Conc 34.5 g/dL (32.0-36.0); Mean Corpuscular Volume 86.2 fL (80.0-100.0); Mean Platelet Volume 9.9 fL (9.4-12.4); Monocytes # (auto) 1.04 K/uL (0.11-0.59); Monocytes % (auto) 11.3 %; Neutrophils # (auto) 6.96 K/uL (1.40-6.50); Neutrophils % (auto) 75.6 %; Platelet Count 162 K/uL (130-400); RDW Coefficient of Variation 13.2 % (11.5-14.5); RDW Standard Deviation 41.1 fL (36.4-46.3); Red Blood Count 4.41 M/uL (4.20-5.40)
[2022-07-17 10:04] LABS: Albumin Globulin Ratio 1.6 (0.9-2); Albumin Level 4.4 gm/dl (3.4-5.0); BUN Creatinine Ratio 12.9 (10-20); Bilirubin,Total 0.5 mg/dl (0.2-1.0); Calcium 9.1 mg/dl (8.6-10.3); Creatinine Clr Calc Pharmacy 41.3 ml/min; Est GFR (African American) 72.4 ml/min; Est GFR (Non-African American) 62.5 ml/min; Globulin 2.8 gm/dl (2.5-4.0); Magnesium 1.6 mg/dl (1.7-2.4); Total Protein 7.2 gm/dl (6.0-8.3)
[2022-07-17 10:10] LABS: Troponin I High Sensitivity 11.2 pg/ml (0-14)
[2022-07-17] MEDS ORDERED: ACETAMINOPHEN 500 MG TAB PO STA (10:13)
--- NOTE | 2022-07-17 10:23 | Electrocardiogram Report ---
Test Reason : Blood Pressure : / mmHG Vent. Rate : 074 BPM Atrial Rate : 074 BPM P-R Int : 152 ms QRS Dur : 098 ms QT Int : 402 ms P-R-T Axes : 067 -50 009 degrees QTc Int : 446 ms Poor data quality, interpretation may be adversely affected Normal sinus rhythm Left anterior fascicular block Voltage criteria for left ventricular hypertrophy Nonspecific T wave abnormality Abnormal ECG When compared with ECG of 14-JAN-2021 15:41, ST now depressed in Inferior leads Nonspecific T wave abnormality now evident in Inferior leads Nonspecific T wave abnormality has replaced inverted T waves in Lateral leads Confirmed by Long Olivia ([id number]) on 07/17/2022 10:23:06 AM Referred By: REFERRED SELF Confirmed By:Manoj Olivia
[2022-07-17] MEDS ORDERED: ALBUT/IPRATROP 3MG/0.5MG NEB 3 ML VIAL NEB STA (10:29)
[2022-07-17 10:36] LABS: Adenovirus PCR Not Detected (NotDetected); Bordetella parapertussis PCR Not Detected (NotDetected); Bordetella pertussis PCR Not Detected (NotDetected); Chlamydia pneumoniae PCR Not Detected (NotDetected); Coronavirus 229E PCR Not Detected (NotDetected); Coronavirus CoV-2 (COVID19)PCR Not Detected (NotDetected); Coronavirus HKU1 PCR Not Detected (NotDetected); Coronavirus NL63 PCR Not Detected (NotDetected); Coronavirus OC43PCR Not Detected (NotDetected); Human Metapneumovirus PCR Not Detected (NotDetected); Influenza A PCR Not Detected (NotDetected); Influenza B PCR Not Detected (NotDetected); Mycoplasma pneumoniae PCR Not Detected (NotDetected); Parainfluenza Virus 1 PCR Not Detected (NotDetected); Parainfluenza Virus 2 PCR Not Detected (NotDetected); Parainfluenza Virus 4 PCR Not Detected (NotDetected); Respiratory Syncytial VirusPCR Not Detected (NotDetected); Rhinovirus/Enterovirus PCR Not Detected (NotDetected)
[2022-07-17] MEDS ORDERED: hydrALAZINE HCL 20 MG/ML VIAL IV ONE (10:36)
[2022-07-17 10:38] LABS: Parainfluenza Virus 3 PCR DETECTED (NotDetected)
[2022-07-17] MEDS: MAGNESIUM SULFATE / D5W 1 GM/100 ML BAG IV SCH ×2 (10:55→11:27)
[2022-07-17 11:33] LABS: INR 1.1 (0.9-1.1); Partial Thromboplastin Ratio 1.1; Partial Thromboplastin Time 29.9 Seconds (21.0-31.0); Prothrombin Time 11.9 Seconds (9.0-12.0)
--- NOTE | 2022-07-17 11:43 | History & Physical Report ---
Date of Service July 17, 2022 Assessment & Plan (1) Parainfluenza: (2) Weakness: (3) Cough: (4) DM type 2 (diabetes mellitus, type 2): (5) Hyponatremia: (6) HTN (hypertension): (7) Anxiety and depression: (8) Dyslipidemia: (9) Hypomagnesemia: Plan 87 year old presents with cough and fatigue Parainfluenza3: Weakness: Cough: Supportive tx Sputum Culture ordered Budesonide nebulizer BID Scheduled Robitussin DM Q6 Tessilon Pearls given in ED; continue TID 0.9% NS maintenance (see below at hyponatremia) CXR negative for cardiopulmonary infection; repeat in AM UA pending PT/OT evals Consider low dose systemic steroids if no improvement Diabetes mellitus type 2: 01/18 A1C: 7.0 Takes Metformin and Basaglar; hold while here place on FSBS ACHS SSI Glycemic Rx consultation Hyponatremia: Na 128 Likely secondary to dehydration IVF at 80mL/hour x2 bags; reevaluate after AM labs Hypomagnesemia: Mg 1.6; replaced with 2G in ED; will trend in AM Hypertension: Takes Metoprolol, Hydralazine and Clonidine; continue Additional dose of Hydralazine given in ED for SBP > 180 slight HTN in the room during evaluation; she did take her AM meds Will order low dose Hydralazine PRN x1 for SBP > 180 SHIVANI: wears nasal CPAP at home HS will order while here Dyslipidemia: Lipid panel 01/18: TG 163, HDL 36, LDL 51 Takes Atorvastatin; continue Anxiety and depression: Takes Lexapro; continue Disposition: PCP: Dr. Hook CODE STATUS: Full Code VTE prophylaxis: Heparin SQ I spent a total of 88 minutes coordinating, documenting, and providing care for this patient excluding time spent in the performance of separately billed services. All of the aforementioned completed while collaborating with the assigned attending physician for a full treatment plan. Please see their addendum for further details. History of Present Illness Chief Complaint: cough/sob Primary Care Provider: Vince Hook MD Ms. Starr Carmona is an 87-year-old female that presented to the [facility] ED after experiencing congestion and a cough over the past few days. Patient does report feeling fatigued overall. Respiratory panel sent in the ED with results of parainfluenza 3. Patient was not hypoxic on arrival however SpO2 is 94% in the room. PT reports that she has had coughing exacerbation with thick white sputum, now thick sputum. She denies fevers or chills. She has report known sick contract with her grandson and daughter and son in law. She has not been exposed to many germs since covid but did attend a large family gathering for [facility]. Patient does live alone. She reports having a good diet and good PO intake over the past few days. Does report decreased urine output. No leukocytosis, hyponatremia 128 (appears chronic for her), hypomagnesemia 1.6; replace with 2 g in ED. Otherwise labs unremarkable, lactate pending, but does not appear toxic. CXR negative for cardiopulmonary infection. Pt past medical history includes PAF, seasonal allergies, CKD 3, history of TIA (on Plavix), HTN, HLD, and IDDM2 (on Basaglar and Metformin) Pt sitting upright in her hospital bed. TM pearly torres. Pt AAOx4. Coarse cough. (-) lymphadenopathy. Abdomen S/NT/ND. Appears supportive and conservative treatment for now. consider systemic steroids if no improvement. Patient will be admitted for further evaluation and management. Please see A/P for further details. Allergies Allergy/AdvReac Type Severity Reaction Status Date / Time amlodipine Allergy Severe SWELLING Unverified 07/17/22 10:48 AND FLUSHING mold Allergy Mild SINUS Unverified 07/17/22 10:48 DRAINAGE/COUGH hydrochlorothiazide AdvReac Severe hyponatremi Verified 07/17/22 10:48 [From Maxzide] a triamterene [From Maxzide] AdvReac Severe hyponatremi Verified 07/17/22 10:48 a LORENA Inhibitors AdvReac Unknown COUGH Verified 07/17/22 10:48 Home Medications Medication Instructions Recorded Confirmed Type atorvastatin 20 mg tablet 20 mg PO PM 03/24/18 07/17/22 History clopidogrel 75 mg tablet (Plavix) 75 mg PO DAILY 03/24/18 07/17/22 History escitalopram oxalate 10 mg tablet 10 mg PO PM 05/11/20 07/17/22 History mecobalamin (vitamin B12) 1,000 1,000 mcg PO DAILY 05/11/20 07/17/22 History mcg chewable tablet (B12 Active) clonidine 0.2 mg/24 hr weekly 0.2 mg transdermal Q7D 05/12/20 07/17/22 History transdermal patch aspirin 81 mg tablet,delayed 81 mg PO QAM 30 days #30 tabs 05/15/20 07/17/22 Rx release needle (disp) 32 gauge 32 gauge x #100 ea 05/17/20 07/17/22 Rx 5/16" insulin glargine 100 unit/mL (3 14 unit subcut QAM 01/02/21 07/17/22 History mL) subcutaneous pen (Basaglar KwikPen U-100 Insulin) metformin 500 mg tablet 1,000 mg PO BIDM 01/02/21 07/17/22 History metoprolol succinate 100 mg 100 mg PO DAILY 01/02/21 07/17/22 History tablet,extended release 24 hr hydralazine 100 mg tablet 100 mg PO TID #90 tabs 01/08/21 07/17/22 Rx losartan 50 mg tablet 100 mg PO DAILY #30 tabs 01/19/21 07/17/22 Rx latanoprost 0.005 % eye drops 1 drp ophthalmic (eye) HS 07/17/22 07/17/22 History Past Med/Surg History Medical History Anxiety Anxiety and depression CKD (chronic kidney disease), stage III Diarrhea DM type 2 (diabetes mellitus, type 2) Dyslipidemia HTN (hypertension) Hypertensive urgency Hyponatremia Hyponatremia Hyponatremia Hyponatremia SHIVANI (obstructive sleep apnea) Parainfluenza TIA (transient ischemic attack) TIA (transient ischemic attack) Type 2 diabetes mellitus Weakness Surgical History S/P carpal tunnel release S/P cholecystectomy Family History Other Diabetes Hypertension Social History Smoking Status: Never smoker Second Hand Exposure: No; Hx Alcohol Use: No Hx Substance Use: No Preferred Language: Emirati Communication Ability: Effective 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 Beliefs That Will Affect Care: None marital status: Current Living Situation: Alone Feels Safe at Home: Yes Assistive Devices: Glasses Review of Systems Review of Systems: Neuro: (-) Falls, trauma, slurred speech HEENT: (-) HILL, dizziness, dysphagia, visual or auditory changes CV: (-) CP, palpitations, swelling Resp: (-) SOB GI: (-) appetite changes, N/V/D, bowel changes : (-) urinary changes Skin: (-) rashes Psych: (-) anxiety, depression Physical Exam Physical Exam: Neuro: AAOx4, PERRLA, no aphagia, memory changes, CNII-XII grossly intact HEENT: head normocephalic, moist mucus membranes CV: S1/S2, (-) M/G/R, (-) edema, cap refill < 3 seconds Resp: Lungs coarse throughout; anterior lung roberts with wheezing GI: Abdomen S/NT/ND, Ax4 bowel sounds, (-) CVA tenderness. (+) nonreducible umbilical hernia Musculoskeletal: 5/5 B/L UE strength, 5/5 B/L LE strength. No gait disturbance; feels wobbly; uses a cane Skin: (-) rashes , (-) erythema. Psych: euthymic mood Results & Data Results & Data Vital Signs (Past 12 Hours) Vital Signs Temp Pulse Pulse Resp BP BP Pulse Ox 07/17/22 11:00 67 20 183/82 H 98 07/17/22 10:34 78 20 198/121 H 95 07/17/22 10:31 81 18 244/87 H 92 07/17/22 10:00 75 20 193/97 H 95 07/17/22 09:07 74 16 184/106 H 95 07/17/22 11:05 36.9 C 07/17/22 10:17 37.7 C H 77 20 193/97 H 94 07/17/22 09:20 07/17/22 09:20 77 20 94 07/17/22 09:10 74 07/17/22 08:55 37.1 C 75 20 180/79 H 96 O2 Del Method O2 Flow Rate 07/17/22 11:00 Nebulizer 7 07/17/22 10:34 Room Air 07/17/22 10:31 Room Air 07/17/22 10:00 Room Air 07/17/22 09:07 Room Air 07/17/22 11:05 07/17/22 10:17 Room Air 07/17/22 09:20 Room Air 07/17/22 09:20 Room Air 07/17/22 09:10 07/17/22 08:55 Room Air Laboratory Results Short CBC 07/17/22 Range/Units 09:20 WBC 9.20 (4.8-10.8) K/ul Hgb 13.1 (12.0-16.0) g/dl Hct 38.0 (37.0-47.0) % Plt Count 162 (130-400) K/uL BMP 07/17/22 09:20 Sodium 128 L Potassium 4.0 Chloride 92 L Carbon Dioxide 25 BUN 11 Creatinine 0.85 Glucose 200 H Calcium 9.1 Liver Function 07/17/22 Range/Units 09:20 Total Bilirubin 0.5 (0.2-1.0) mg/dl AST 19 (13-39) U/L ALT 19 (7-52) U/L Alkaline Phosphatase 49 (34-104) U/L Albumin 4.4 (3.4-5.0) gm/dl Diagnostic Findings Chest X-Ray 07/17/22 09:02 SINGLE VIEW CHEST CLINICAL HISTORY: Cough. FINDINGS: An AP, portable, upright chest radiograph is compared to study dated 01/14/2021. The cardiomediastinal silhouette is unremarkable noting atherosclerotic calcification of the thoracic aorta. Chronic interstitial thickening is similar to previous. There is chronic elevation of the right hemidiaphragm with bibasilar scarring/atelectasis. No airspace consolidation or large pleural effusion is identified. No pneumothorax is seen. The skeletal structures are osteopenic. The bony thorax is grossly intact. Cholecystectomy clips are seen in the right upper quadrant. IMPRESSION: No active disease in the chest. ACT 112: Negative or not required by law. Electronically signed by: Milton Roberto M.D. 07/17/2022 9:31 AM Code Status & VTE Plan Code Status Full code in the event of cardiac or respiratory arrest VTE Prophylaxis Plan VTE Prophylaxis will be ordered: Yes Supervising Physician Co-Signing Physician Notes Patient was seen and examined independently at bedside in presence of daughter. Chart reviewed. Case discussed with Colette MAYEN and agree with the documentation above with regards to history, physical exam and A/P. In summary, this is a 87 year old female with h/o DM, HTN, TIA etc who presented to the ED with cough and diagnosed with Parainfluenza 3 infection. She lives by herself at home and independent with her ADL. Symptoms ongoing for a week, started after gathering at [place] and worse over past 2 days. Bouts of cough interrupting her sleep. Afebrile, no dyspnea, saturating well in room air, non toxic. AAO, moderately built, not in acute distress. Coarse breath sounds bilaterally. Heart sounds normal. Abd benign. No edema. CXR with no PNA. Resp pathogen panel with parainfluenza. Labs with no leucocytosis but chronic hyponatremia and mild hypomagnesemia. Alcova better after nebs treatment in ED and brought some phlegm. Agree with admission for symptomatic treatment with nebs, antitussive/expectorant. No indication for antibiotics at this point. Hold off on systemic steroids for now given her diabetes, however if symptoms don't improve, she will benefit from systemic steroids but will need adjustment with her insulin. Plan discussed with patient and family at bedside and questions were answered. Rest as per the note above.
[2022-07-17] MEDS ORDERED: ONDANSETRON INJ 2 MG/ML 2 ML VIAL IV PRN (12:11)
[2022-07-17] MEDS ORDERED: MAGNESIUM HYDROXIDE SUSP 30 ML UDC PO PRN (12:11)
[2022-07-17] MEDS ORDERED: POLYETHYLENE (MIRALAX) 17 GM PACK PO PRN (12:11)
[2022-07-17] MEDS ORDERED: ALUMINUM/MAGNESIUM SUSP 30 ML UDC PO PRN (12:11)
[2022-07-17] MEDS ORDERED: ACETAMINOPHEN 325 MG TAB PO PRN (12:11)
[2022-07-17] MEDS ORDERED: GLUCAGON FOR INJ 1 MG VIAL SQ PRN (13:06)
[2022-07-17] MEDS ORDERED: CARBOHYDRATES FOR HYPOGLYCEMIA PO PRN (13:06)
[2022-07-17] MEDS ORDERED: DEXTROSE 50% 50 ML SYRINGE IV PRN (13:06)
[2022-07-17] MEDS ORDERED: PHARMACY GLYCEMIC MGMT CONSULT PRN (13:06)
[2022-07-17] MEDS ORDERED: GLUCOSE 40% GEL 15 GM TUBE PO PRN (13:06)
[2022-07-17] MEDS ORDERED: GLUCOSE 10 TAB/TUBE PO PRN (13:06)
[2022-07-17] MEDS ORDERED: SODIUM CHLORIDE 0.9% 1000ML 1,000 ML IV SCH (13:15)
[2022-07-17] MEDS ORDERED: ACETAMINOPHEN W/CODEINE #3 1 TAB PO ONE (13:34)
[2022-07-17] MEDS ORDERED: COUGH DROP (SUGAR FREE) LOZ 24 LOZ/1 BOX BUCCAL PRN (13:38)
--- NOTE | 2022-07-17 14:52 | Pharmacy Report ---
Pharmacy Glycemic Short Note 2 - Date of Service July 17, 2022 - Glycemic Short BSG Results (Last 24 hours): 07/17/22 09:20 Glucose 200 H OUTPATIENT ANTIDIABETIC REGIMEN: * Lantus 14 units daily, metformin ASSESSMENT: * 87 year old admitted with respiratory symptoms, pharmacy consulted for glycemic management. Plan to start stress of 2 for novolog, will cut basal insulin by ~50% as unclear of PO intake. Patient confirms she did not take any basal insulin today yet PLAN FOR INPATIENT GLYCEMIC CONTROL: * Hold outpatient oral diabetes medications * Basal insulin * Lantus 5-8 units HS * Bolus insulin * NovoLog per scale ACHS or Q6hrs while NPO * Goal Range: Low 120 mg/dL - High 160 mg/dL * Correction Factor: 35 mg/dL/unit * Nutritional / Prandial insulin per carb ratio of 1 unit per 12 grams CHO consumed
[2022-07-17] MEDS ORDERED: ALBUT/IPRATROP 3MG/0.5MG NEB 3 ML VIAL NEB SCH (15:00)
[2022-07-17] MEDS: BENZONATATE 100 MG CAPSULE PO SCH ×2 (16:08→20:25)
[2022-07-17] MEDS: guaiFENesin/DEXTROM SYRUP 200MG/20MG 10ML UDC PO SCH ×2 (16:21→20:25)
[2022-07-17] MEDS: ACETAMINOPHEN SUSP 500 MG/15.6 ML UDP PO SCH ×2 (16:21→20:25)
[2022-07-17] MEDS: hydrALAZINE TAB 50 MG TAB PO SCH ×2 (16:21→20:25)
[2022-07-17] MEDS: INSULIN ASPART PER UNIT CHARGE SC SCH ×3 (16:25→22:36)
[2022-07-17] MEDS: CHECK CLONIDINE PATCH PLACEMENT SCH ×2 (18:37→23:33)
[2022-07-17] MEDS ORDERED: LABETALOL HCL IV 5 MG/ML 20ML IV PRN (19:07)
[2022-07-17] MEDS: BUDESONIDE 0.25 MG/2 ML VIAL (PULMICORT) NEB SCH (19:32)
[2022-07-17] MEDS ORDERED: hydrALAZINE HCL 20 MG/ML VIAL IV STA (20:05)
[2022-07-17] MEDS: LATANOPROST 0.005% OP SOLN 2.5 ML BTL OP SCH (20:25)
[2022-07-17] MEDS: ESCITALOPRAM OXALATE 10 MG TAB PO SCH (20:25)
[2022-07-17] MEDS: ATORVASTATIN 20 MG TAB PO SCH (20:25)
[2022-07-17] MEDS: HEPARIN SOD 5,000 UNIT/0.5 ML VIAL SQ SCH (20:25)
[2022-07-17] MEDS ORDERED: LANTUS PER UNIT CHARGE SQ SCH ×2 (21:00)
[2022-07-17] MEDS ORDERED: guaiFENesin 600 MG TABCR PO SCH (21:00)
[2022-07-18] MEDS ORDERED: ALBUT/IPRATROP 3MG/0.5MG NEB 3 ML VIAL NEB STA (00:34)
[2022-07-18] MEDS ORDERED: MAGNESIUM SULFATE / D5W 1 GM/100 ML BAG IV ONE (00:35)
[2022-07-18 01:06] LABS: Basophils # (auto) 0.02 K/uL (0-0.2); Basophils % (auto) 0.2 %; Eosinophils # (auto) 0.06 K/uL (0-0.50); Eosinophils % (auto) 0.7 %; Hematocrit (blood only) 36.2 % (37.0-47.0); Hemoglobin 12.7 g/dl (12.0-16.0); Immature Granulocytes # (auto) 0.03 K/uL (0.01-0.20); Immature Granulocytes % (auto) 0.3 %; Lymphocytes # (auto) 1.22 K/uL (1.2-3.4); Lymphocytes % (auto) 13.6 %; Mean Corpuscular Hemoglobin 29.9 pg (25.0-34.0); Mean Corpuscular Hgb Conc 35.1 g/dL (32.0-36.0); Mean Corpuscular Volume 85.2 fL (80.0-100.0); Mean Platelet Volume 9.4 fL (9.4-12.4); Monocytes # (auto) 0.93 K/uL (0.11-0.59); Monocytes % (auto) 10.4 %; Neutrophils # (auto) 6.68 K/uL (1.40-6.50); Neutrophils % (auto) 74.8 %; Platelet Count 147 K/uL (130-400); RDW Coefficient of Variation 13.2 % (11.5-14.5); RDW Standard Deviation 40.2 fL (36.4-46.3); Red Blood Count 4.25 M/uL (4.20-5.40); White Blood Count 8.94 K/ul (4.8-10.8)
[2022-07-18 01:16] LABS: Albumin Level 4.1 gm/dl (3.4-5.0); BUN Creatinine Ratio 14.5 (10-20); Calcium 8.3 mg/dl (8.6-10.3); Creatinine Clr Calc Pharmacy 46.8 ml/min; Est GFR (African American) 74.5 ml/min; Est GFR (Non-African American) 64.3 ml/min; Magnesium 1.8 mg/dl (1.7-2.4); Phosphorus 2.3 mg/dl (2.5-4.9); Potassium 3.7 mmol/L (3.5-5.1)
--- NOTE | 2022-07-18 02:19 | Communication Note ---
Date of Service: July 18, 2022 Serum sodium noted to be 122 from 128 on admission. Patient mentating appropriately as per RN. AP Acute on chronic hyponatremia Stop NSS initiate fluid restriction as per Nephrology recommendations from last confinement. Serum sodium every 6 hours, Nephrology consult if without improvement
[2022-07-18] MEDS: guaiFENesin/DEXTROM SYRUP 200MG/20MG 10ML UDC PO SCH ×4 (03:59→20:05)
[2022-07-18] MEDS: ACETAMINOPHEN SUSP 500 MG/15.6 ML UDP PO SCH ×4 (03:59→20:04)
[2022-07-18] MEDS ORDERED: hydrALAZINE HCL 20 MG/ML VIAL IV STA (06:44)
[2022-07-18] MEDS ORDERED: FUROSEMIDE INJ 20 MG/2 ML VIAL IV ONE (06:45)
[2022-07-18] MEDS: BUDESONIDE 0.25 MG/2 ML VIAL (PULMICORT) NEB SCH ×2 (07:01→19:43)
[2022-07-18 07:37] LABS: Estimated Average Glucose 171 mg/dl; Hemoglobin A1C 7.6 % (4.5-5.6)
[2022-07-18] MEDS: hydrALAZINE TAB 50 MG TAB PO SCH ×3 (07:43→20:06)
[2022-07-18] MEDS: ASPIRIN 81 MG ECTAB PO SCH (07:44)
[2022-07-18] MEDS: METOPROLOL SUCC 50MG EXT REL TAB PO SCH (07:44)
[2022-07-18] MEDS: HEPARIN SOD 5,000 UNIT/0.5 ML VIAL SQ SCH ×2 (07:44→20:07)
[2022-07-18] MEDS: BENZONATATE 100 MG CAPSULE PO SCH ×3 (07:44→20:06)
[2022-07-18] MEDS: CHECK CLONIDINE PATCH PLACEMENT SCH ×2 (07:45→16:59)
[2022-07-18] MEDS: CLOPIDOGREL BISULFATE 75 MG TAB PO SCH (07:45)
[2022-07-18] MEDS: CYANOCOBALAMIN (B-12) 500 MCG TABLET PO SCH (07:45)
[2022-07-18] MEDS: LOSARTAN POTASSIUM 50 MG TAB PO SCH (07:45)
[2022-07-18] MEDS: INSULIN ASPART PER UNIT CHARGE SC SCH ×4 (07:49→20:33)
--- NOTE | 2022-07-18 08:11 | XRay Report ---
XR chest 1V portable HISTORY: 87 years-old Female wheeze acute shortness breath with wheezing COMPARISON: Chest radiograph 07/17/2022 TECHNIQUE: AP view of the chest FINDINGS: Cardiomediastinal and hilar silhouettes are unchanged. There is stable right hemidiaphragmatic elevat ion. No pneumothorax, pleural effusion, airspace consolidation or overt pulmonary edema. Degenerative changes of the shoulders and spine. Surgical clips of the right upper quadrant abdomen. IMPRESSION: No acute process. ACT 112: Negative or not required by law. The above report was generated using voice recognition software. It may contain grammatical, syntax o r spelling errors. Electronically signed by: Billy Jaramillo M.D. 07/18/2022 8:10 AM
[2022-07-18] MEDS ORDERED: LANTUS PER UNIT CHARGE SQ SCH ×2 (09:00→21:00)
--- NOTE | 2022-07-18 09:54 | Nephrology Consultation ---
Date of Consultation July 18, 2022 Assessment & Plan (1) Acute hyponatremia: hypotonic euvolemic acute on chronic hyponatremia; suspect multifactorial from structural acute lung disease and low solute diet; urine osms suggestive of mild polydipsia. >continue fluid limit 1.5 L >encourage protein intake - shakes don't count toward FR >target sNa for tomorrow AM is 128 >> >check bmp (not just serum sodium) q6 hrs stat > orders in thru noon 07/19 >maintain eukalemia > gave 40 mEq po K >avoid nsaids >low threshold for chest CT History of Present Illness Reason for Consultation: hyponatremia Requesting Physician: Dr Newsome Attending Physician: Agustin Newsome MD History of Present Illness 87 y/o F whom I'm asked to see for hyponatremia was admitted yesterday for parainfluenza after presenting w/ shortness of breath and cough. PMH includes pAF, chronic hyponatremia w/ sodium low 130s since at least 2016, labile renal function with past CKD 3 (resolved in late 2020), HTN w/ admission for HTN urgency fall 2020, DM, TIA, HL. She takes no thiazides; denies worse po intake recently though does tell me coughing makes it harder to eat and more appealing to sip fluids. 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 her presenting sodium was 128 > 122 and 122 this am. also w/ mag 1.6 on prese ntation > had IV repletion. creatinine 0.8. she had 1.2 L NS; IV lasix x one 20 mg dose. cough productive of thick white sputum; + sick contacts. no f/c. no falls; no edema. does c/o BL rib pain , worse w/ cough. no n/v. Allergies Allergy/AdvReac Type Severity Reaction Status Date / Time amlodipine Allergy Severe SWELLING Unverified 07/17/22 10:48 AND FLUSHING mold Allergy Mild SINUS Unverified 07/17/22 10:48 DRAINAGE/COUGH hydrochlorothiazide AdvReac Severe hyponatremi Verified 07/17/22 10:48 [From Maxzide] a triamterene [From Maxzide] AdvReac Severe hyponatremi Verified 07/17/22 10:48 a LORENA Inhibitors AdvReac Unknown COUGH Verified 07/17/22 10:48 Home Medications Medication Instructions Recorded Confirmed Type atorvastatin 20 mg tablet 20 mg PO PM 1226/18 04/20/23 History clopidogrel 75 mg tablet (Plavix) 75 mg PO DAILY 03/24/18 07/17/22 History escitalopram oxalate 10 mg tablet 10 mg PO PM 05/11/20 07/17/22 History mecobalamin (vitamin B12) 1,000 1,000 mcg PO DAILY 05/11/20 07/17/22 History mcg chewable tablet (B12 Active) clonidine 0.2 mg/24 hr weekly 0.2 mg transdermal Q7D 05/12/20 07/17/22 History transdermal patch aspirin 81 mg tablet,delayed 81 mg PO QAM 30 days #30 tabs 05/15/20 07/17/22 Rx release needle (disp) 32 gauge 32 gauge x #100 ea 05/17/20 07/17/22 Rx 5/16" insulin glargine 100 unit/mL (3 14 unit subcut QAM 01/02/21 07/17/22 History mL) subcutaneous pen ([employer] srlPen U-100 Insulin) metformin 500 mg tablet 1,000 mg PO BIDM 01/02/21 07/17/22 History metoprolol succinate 100 mg 100 mg PO DAILY 01/02/21 07/17/22 History tablet,extended release 24 hr hydralazine 100 mg tablet 100 mg PO TID #90 tabs 01/08/21 07/17/22 Rx losartan 50 mg tablet 100 mg PO DAILY #30 tabs 01/19/21 07/17/22 Rx latanoprost 0.005 % eye drops 1 drp ophthalmic (eye) HS 07/17/22 07/17/22 History Patient History Medical History (Updated 07/18/22 @ 18:40 by Nicol Michelle MD, PhD) Anxiety Anxiety and depression Diarrhea DM type 2 (diabetes mellitus, type 2) Dyslipidemia HTN (hypertension) Hypertensive urgency Hyponatremia SHIVANI (obstructive sleep apnea) Parainfluenza TIA (transient ischemic attack) TIA (transient ischemic attack) Type 2 diabetes mellitus Weakness Surgical History S/P carpal tunnel release S/P cholecystectomy Family History Other Diabetes Hypertension Social History Smoking Status: Never smoker Second Hand Exposure: No; Do You Dip or Chew Tobacco: No; Tobacco Cessation Education Requested by Patient: No Hx Alcohol Use: No Hx Substance Use: No Preferred Language: Lithuanian Communication Ability: Effective 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 Beliefs That Will Affect Care: None marital status: Current Living Situation: Alone Other Information That Helps Us Care for You: No Feels Safe at Home: Yes Safety Concerns: Feels Safe At This Time Assistive Devices: Cane and Walker Review of Systems Review of Systems: All systems reviewed & are unremarkable except as noted in HPI & below Physical Exam Constitutional: well developed and well nourished Sitting up in chair on room air Eyes: EOM intact bilaterally ENMT: Ears: no external ear abnormality Nose: no external nose abnormality Mouth: + dry oral mucous membranes Neck: no nuchal rigidity Respiratory: normal respiratory effort, + labored breathing (Slight with cough), + cough (Thick frequent), able to speak in complete sentences and + tachypneic; no respiratory distress Auscultation: + crackles, + rhonchi, + wheezes and + bronchovesicular breath sounds Cardiovascular: Rate/Rhythm: regular rate and regular rhythm Extremities: + edema (At most trace bilateral ankle) Gastrointestinal (Abdomen): Inspection/Auscultation: normal bowel sounds Percussion/Palpation: abdomen soft; abdomen nontender Musculoskeletal: Extremities: strength 5/5 throughout Skin: no rashes, warm and dry Neurologic: ramirez, fluent speech, no tremor Psychiatric: Orientation: alert and oriented x 3 Speech: normal rate/rhythm/volume of speech Results & Data Vital Signs (Past 12 Hours) Vital Signs Temp Pulse Pulse Resp BP Pulse Ox O2 Del Method 07/18/22 08:58 Room Air 07/18/22 08:48 64 07/18/22 08:00 37.1 C 57 L 20 178/74 H 96 CPAP 07/18/22 07:00 70 20 93 07/18/22 07:02 71 22 93 CPAP 07/18/22 00:41 66 07/18/22 03:38 36.7 C 62 16 184/47 H 97 BiPAP 07/18/22 02:57 58 L 19 95 07/18/22 00:48 66 19 95 CPAP 07/17/22 23:04 36.8 C 64 20 197/82 H 95 Nasal Cannula 07/17/22 23:30 63 166/77 H 07/17/22 23:18 15 95 O2 Flow Rate 07/18/22 08:58 07/18/22 08:48 07/18/22 08:00 07/18/22 07:00 1 07/18/22 07:02 1 07/18/22 00:41 07/18/22 03:38 07/18/22 02:57 1 07/18/22 00:48 1 07/17/22 23:04 2 07/17/22 23:30 07/17/22 23:18 1 Laboratory Results 07/18/22 00:45 07/18/22 06:02 sOsm 261 Urine osm 253 Urine sodium 72 Diagnostic Findings cxr Cardiomediastinal and hilar silhouettes are unchanged. There is stable right hemidiaphragmatic elevation. No pneumothorax, pleural effusion, airspace consolidation or overt pulmonary edema. Degenerative changes of the shoulders and spine. Surgical clips of the right upper quadrant abdomen. IMPRESSION: No acute process.
--- NOTE | 2022-07-18 12:55 | Pharmacy Report ---
Pharmacy Glycemic Short Note 2 - Date of Service July 18, 2022 - Glycemic Short BSG Results (Last 24 hours): 07/17/22 07/17/22 07/17/22 16:24 17:54 20:45 Glucose POC Glucose 175 H 174 H 297 H 07/18/22 07/18/22 07/18/22 00:45 07:40 11:27 Glucose 158 H POC Glucose 159 H 207 H OUTPATIENT ANTIDIABETIC REGIMEN: * Lantus 14 units daily, metformin HbA1c: 7.6% (07/18/22) ASSESSMENT: 07/18/22: * Fasting BSG of 159 mg/dL this morning (received 8 units of Lantus last evening) * Plan to increase basal insulin today * Will further tighten Novolog today * IV fluids have been discontinued * No obvious hyperglycemia stressors 07/17/22: * 87 year old admitted with respiratory symptoms, pharmacy consulted for glycemic management. Plan to start stress of 2 for novolog, will cut basal insulin by ~50% as unclear of PO intake. Patient confirms she did not take any basal insulin today yet PLAN FOR INPATIENT GLYCEMIC CONTROL: * Hold outpatient oral diabetes medications * Basal insulin * Lantus 10 units SC x 1 this morning * Lantus 0-10 units SC HS (see EHR for details) * Bolus insulin * NovoLog per scale ACHS or Q6hrs while NPO * Goal Range: Low 110 mg/dL - High 140 mg/dL * Correction Factor: 30 mg/dL/unit * Nutritional / Prandial insulin per carb ratio of 1 unit per 10 grams CHO consumed
--- NOTE | 2022-07-18 17:31 | Hospitalist Progress Note ---
Date of Service July 18, 2022 Assessment & Plan (1) Parainfluenza: (2) Weakness: (3) Cough: (4) DM type 2 (diabetes mellitus, type 2): (5) Hyponatremia: (6) HTN (hypertension): (7) Anxiety and depression: (8) Dyslipidemia: (9) Hypomagnesemia: Plan Patient is an 87 year old female who presents with cough and fatigue Parainfluenza Infection: Generalized Weakness due to above --CXR:No acute process. --BioFire:parainfluenza Saturating well on room air Continue supportive care Consider stool studies if continues to have diarrhea Continue nebs, antitussives We will consider steroids if needed Acute on chronic hyponatremia Sodium 121 Serum osmolality 261 No mental status change Received IV fluids Monitor sodium level closely Urine studies pending Appreciate nephrology input Continue fluid restriction Diabetes mellitus type 2: HbA1c 7.6 Hold Metformin Continue insulin per protocol Hypomagnesemia: Replace and monitor Hypertension: Continue Metoprolol, Hydralazine, losartan and Clonidine Monitor SHIVANI: CPAP at HS Dyslipidemia: Continue Atorvastatin Anxiety,Depression: Continue Lexapro DVT Px: Heparin SQ CODE STATUS: Full Code Admission and Anticipated Discharge Date Admission Date: July 17, 2022 Subjective Patient is seen and examined at bedside States having cough, mild chest discomfort associated with cough Also reports loose stools Denies any dyspnea, dizziness, nausea, abdominal pain No other complaints Review of Systems Review of Systems: All systems reviewed & are unremarkable except as noted in Subjective Physical Exam Physical Exam: Physical Exam: Vitals signs as noted above General Appearance:Elderly, no apparent distress Head: normocephalic, Atraumatic Eyes: normal inspection, EOMI Neck: supple, Trachea midline Respiratory/Chest: Coarse breath sounds, No accessory muscle use Cardiovascular: S1, S2, No murmur Abdomen/GI:Soft, Non tender, Bowel sounds present Extremities/Musculoskeletal:normal inspection, no edema Neurologic/Psych:AAOX3, grossly no focal neurological deficits Skin: normal color, warm Results & Data Results & Data Vital Signs (Past 12 Hours) Vital Signs Temp Pulse Pulse Resp BP BP Pulse Ox 07/18/22 15:12 36.7 C 66 20 172/76 H 96 07/18/22 13:00 07/18/22 11:39 36.9 C 66 20 185/70 H 95 07/18/22 11:20 93 07/18/22 08:58 07/18/22 08:48 64 07/18/22 08:00 37.1 C 57 L 20 178/74 H 96 07/18/22 07:00 70 20 93 07/18/22 07:02 71 22 93 Pulse Ox O2 Del Method O2 Del Method O2 Flow Rate 07/18/22 15:12 Room Air 07/18/22 13:00 94 Room Air 07/18/22 11:39 Room Air 07/18/22 11:20 07/18/22 08:58 Room Air 07/18/22 08:48 07/18/22 08:00 CPAP 07/18/22 07:00 1 07/18/22 07:02 CPAP 1 Laboratory Results Short CBC 07/18/22 Range/Units 00:45 WBC 8.94 (4.8-10.8) K/ul Hgb 12.7 (12.0-16.0) g/dl Hct 36.2 L (37.0-47.0) % Plt Count 147 (130-400) K/uL BMP 07/18/22 07/18/22 07/18/22 00:45 06:02 12:23 Sodium 122 L 122 L 121 L Potassium 3.7 Chloride 87 L Carbon Dioxide 28 BUN 12 Creatinine 0.83 Glucose 158 H Calcium 8.3 L Liver Function 07/18/22 Range/Units 00:45 Albumin 4.1 (3.4-5.0) gm/dl
--- NOTE | 2022-07-18 18:10 | Electrocardiogram Report ---
Test Reason : Blood Pressure : / mmHG Vent. Rate : 066 BPM Atrial Rate : 066 BPM P-R Int : 158 ms QRS Dur : 118 ms QT Int : 458 ms P-R-T Axes : 065 -46 005 degrees QTc Int : 480 ms Poor data quality, interpretation may be adversely affected Normal sinus rhythm Left anterior fascicular block Left ventricular hypertrophy with QRS widening Poor R wave progression, consider anterior [place] vs. lead placement vs. LVH Abnormal ECG When compared with ECG of 17-JUL-2022 09:10, No significant change was found Confirmed by Long Olivia ([id number]) on 07/18/2022 6:10:35 PM Referred By: REFERRED SELF Confirmed By:Manoj Olivia
[2022-07-18] MEDS ORDERED: POTASSIUM CHLORIDE 20 MEQ/15 ML UDC PO STA (18:45)
[2022-07-18] MEDS: LATANOPROST 0.005% OP SOLN 2.5 ML BTL OP SCH (20:05)
[2022-07-18] MEDS: ATORVASTATIN 20 MG TAB PO SCH (20:06)
[2022-07-18] MEDS: ESCITALOPRAM OXALATE 10 MG TAB PO SCH (20:06)
[2022-07-19] MEDS: CHECK CLONIDINE PATCH PLACEMENT SCH ×4 (00:25→21:46)
[2022-07-19 00:54] LABS: BUN Creatinine Ratio 23.1 (10-20); Calcium 8.4 mg/dl (8.6-10.3); Creatinine Clr Calc Pharmacy 50.1 ml/min; Est GFR (African American) 80.3 ml/min; Est GFR (Non-African American) 69.3 ml/min; Potassium 3.6 mmol/L (3.5-5.1)
[2022-07-19] MEDS: guaiFENesin/DEXTROM SYRUP 200MG/20MG 10ML UDC PO SCH ×2 (03:28→08:32)
[2022-07-19] MEDS: ACETAMINOPHEN SUSP 500 MG/15.6 ML UDP PO SCH ×4 (03:28→21:38)
[2022-07-19] MEDS: BUDESONIDE 0.25 MG/2 ML VIAL (PULMICORT) NEB SCH ×2 (07:17→19:48)
[2022-07-19] MEDS: INSULIN ASPART PER UNIT CHARGE SC SCH ×4 (08:19→21:32)
[2022-07-19] MEDS: hydrALAZINE TAB 50 MG TAB PO SCH ×3 (08:32→21:39)
[2022-07-19] MEDS: METOPROLOL SUCC 50MG EXT REL TAB PO SCH (08:37)
[2022-07-19] MEDS: ASPIRIN 81 MG ECTAB PO SCH (08:37)
[2022-07-19] MEDS: LOSARTAN POTASSIUM 50 MG TAB PO SCH (08:39)
[2022-07-19] MEDS: CLOPIDOGREL BISULFATE 75 MG TAB PO SCH (08:39)
[2022-07-19] MEDS: CYANOCOBALAMIN (B-12) 500 MCG TABLET PO SCH (08:39)
[2022-07-19] MEDS: HEPARIN SOD 5,000 UNIT/0.5 ML VIAL SQ SCH ×2 (08:40→21:34)
[2022-07-19] MEDS: BENZONATATE 100 MG CAPSULE PO SCH ×3 (08:48→21:44)
[2022-07-19] MEDS ORDERED: LANTUS PER UNIT CHARGE SQ SCH ×3 (09:00→21:00)
[2022-07-19] MEDS: SODIUM CHLORIDE 1 GM TABLET PO SCH ×3 (09:03→21:38)
[2022-07-19] MEDS: UREA (UREA-NA) 15 GM PACK PO SCH ×2 (09:03→21:31)
[2022-07-19 09:46] LABS: Hematocrit (blood only) 35.8 % (37.0-47.0); Hemoglobin 12.8 g/dl (12.0-16.0); Mean Corpuscular Hemoglobin 29.8 pg (25.0-34.0); Mean Corpuscular Hgb Conc 35.8 g/dL (32.0-36.0); Mean Corpuscular Volume 83.3 fL (80.0-100.0); Platelet Count 158 K/uL (130-400); RDW Coefficient of Variation 12.9 % (11.5-14.5); RDW Standard Deviation 38.9 fL (36.4-46.3); White Blood Count 9.99 K/ul (4.8-10.8)
[2022-07-19 10:08] LABS: BUN Creatinine Ratio 19.5 (10-20); Calcium 8.5 mg/dl (8.6-10.3); Creatinine Clr Calc Pharmacy 47.2 ml/min; Est GFR (African American) 75.6 ml/min; Est GFR (Non-African American) 65.3 ml/min; Magnesium 1.5 mg/dl (1.7-2.4); Potassium 3.9 mmol/L (3.5-5.1)
--- NOTE | 2022-07-19 10:59 | Nephrology Progress Note ---
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 Sodium is down to 121 this morning. -We will give urea 15 g twice daily -We will give salt tablets 1 g 3 times daily. -We will give potassium chloride 40 mEq daily. -Monitor sodium daily Admission and Anticipated Discharge Date Admission Date: July 17, 2022 Subjective Seen for hyponatremia. Sodium is down to 120. No shortness of breath or leg swelling. Review of Systems Review of Systems: All other systems were reviewed and negative except as noted in HPI Physical Exam Physical Exam: General exam: Appears comfortable, no acute distress HEENT: Pupils are equal and reactive to light Neck: No JVD, neck is supple trachea is midline Respiratory system: Clear breath sounds bilaterally. Gastrointestinal: Abdomen is soft, non distended, non tender, bowel sounds are present CVS: Regular rate and rhythm. No murmurs, rubs or gallops Musculoskeletal: No joint or muscle tenderness Extremities: Non tender, no edema, peripheral pulses are present Neuro: Oriented, no tremors, no focal neurological deficits Skin: No rashes Results & Data Vital Signs (Past 12 Hours) Vital Signs Temp Pulse Resp BP BP Pulse Ox O2 Del Method 07/19/22 07:51 36.6 C 65 20 153/83 H 95 Room Air 07/19/22 05:07 157/89 H 07/19/22 03:44 36.8 C 61 18 212/82 H 94 Room Air, BiPAP 07/19/22 02:49 14 07/18/22 23:14 37 C 62 18 146/73 H 93 Room Air FiO2 07/19/22 07:51 07/19/22 05:07 07/19/22 03:44 07/19/22 02:49 21 07/18/22 23:14 Laboratory Results 07/19/22 09:09 07/19/22 09:09 WBC 9.99 RBC 4.30 MCV 83.3 MCH 29.8 MCHC 35.8 RDW Std Deviation 38.9 RDW Coeff of Devyn 12.9 Plt Count 158 MPV 10.0
[2022-07-19] MEDS: POTASSIUM CHLORIDE 20 MEQ/15 ML UDC PO SCH (11:39)
[2022-07-19] MEDS ORDERED: DEXTROMETHORPHAN POLYMR COMPLX 60 MG/10 ML UDP PO PRN (12:08)
[2022-07-19] MEDS: guaiFENesin 600 MG TABCR PO SCH ×2 (12:46→21:37)
[2022-07-19] MEDS ORDERED: ALBUT/IPRATROP 3MG/0.5MG NEB 3 ML VIAL NEB PRN (13:20)
[2022-07-19] MEDS ORDERED: ALBUT/IPRATROP 3MG/0.5MG NEB 3 ML VIAL NEB STA (14:07)
[2022-07-19] MEDS ORDERED: MAGNESIUM SULFATE / D5W 1 GM/100 ML BAG IV ONE (14:09)
--- NOTE | 2022-07-19 18:04 | Hospitalist Progress Note ---
Date of Service July 19, 2022 Assessment & Plan (1) Parainfluenza: (2) Weakness: (3) Cough: (4) DM type 2 (diabetes mellitus, type 2): (5) Hyponatremia: (6) HTN (hypertension): (7) Anxiety and depression: (8) Dyslipidemia: (9) Hypomagnesemia: Plan Patient is an 87 year old female who presents with cough and fatigue Parainfluenza Infection: Generalized Weakness due to above --CXR:No acute process. 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 Sodium 122 today Serum osmolality 261 Urine osmolality 292 Urine sodium 31 No mental status change Received IV fluids Monitor sodium level closely Appreciate nephrology input Continue fluid restriction Started on salt tablets, urea Diabetes mellitus type 2: HbA1c 7.6 Hold Metformin Continue insulin per protocol Hypomagnesemia: Replace and monitor Hypertension: Continue Metoprolol, Hydralazine, losartan and Clonidine Monitor SHIVANI: CPAP at HS Dyslipidemia: Continue Atorvastatin Anxiety,Depression: Continue Lexapro DVT Px: Heparin SQ CODE STATUS: Full Code Admission and Anticipated Discharge Date Admission Date: July 17, 2022 Subjective Patient is seen and examined at bedside States feeling chest congestion Reports thick secretions Saturating well on room air Denies any dyspnea, dizziness, nausea, abdominal pain No other complaints Review of Systems Review of Systems: All systems reviewed & are unremarkable except as noted in Subjective Physical Exam Physical Exam: Physical Exam: Vitals signs as noted above General Appearance:Elderly, no apparent distress Head: normocephalic, Atraumatic Eyes: normal inspection, EOMI Neck: supple, Trachea midline Respiratory/Chest: Coarse breath sounds, No accessory muscle use Cardiovascular: S1, S2, No murmur Abdomen/GI:Soft, Non tender, Bowel sounds present Extremities/Musculoskeletal:normal inspection, no edema Neurologic/Psych:AAOX3, grossly no focal neurological deficits Skin: normal color, warm Results & Data Results & Data Vital Signs (Past 12 Hours) Vital Signs Temp Pulse Resp BP BP Pulse Ox Pulse Ox 07/19/22 15:19 37.1 C 66 20 159/67 H 96 07/19/22 15:10 68 18 96 07/19/22 11:27 96 07/19/22 11:03 36.6 C 68 20 172/73 H 96 07/19/22 07:51 36.6 C 65 20 153/83 H 95 O2 Del Method 07/19/22 15:19 Room Air 07/19/22 15:10 Room Air 07/19/22 11:27 07/19/22 11:03 Room Air 07/19/22 07:51 Room Air Laboratory Results Short CBC 07/19/22 Range/Units 09:09 WBC 9.99 (4.8-10.8) K/ul Hgb 12.8 (12.0-16.0) g/dl Hct 35.8 L (37.0-47.0) % Plt Count 158 (130-400) K/uL BMP 07/18/22 07/18/22 07/19/22 18:04 23:47 09:09 Sodium 121 L 120 L 121 L Potassium 3.6 3.9 Chloride 86 L 86 L Carbon Dioxide 28 26 BUN 18 16 Creatinine 0.78 0.82 Glucose 165 H 245 H Calcium 8.4 L 8.5 L 07/19/22 14:02 Sodium 122 L Potassium Chloride Carbon Dioxide BUN Creatinine Glucose Calcium
[2022-07-19] MEDS: LATANOPROST 0.005% OP SOLN 2.5 ML BTL OP SCH (21:39)
[2022-07-19] MEDS: ESCITALOPRAM OXALATE 10 MG TAB PO SCH (21:40)
[2022-07-19] MEDS: ATORVASTATIN 20 MG TAB PO SCH (21:40)
[2022-07-20] MEDS: ACETAMINOPHEN SUSP 500 MG/15.6 ML UDP PO SCH ×4 (03:06→21:13)
[2022-07-20] MEDS: BUDESONIDE 0.25 MG/2 ML VIAL (PULMICORT) NEB SCH ×2 (06:49→19:22)
[2022-07-20] MEDS: CHECK CLONIDINE PATCH PLACEMENT SCH ×3 (08:22→23:48)
[2022-07-20] MEDS: hydrALAZINE TAB 50 MG TAB PO SCH ×3 (08:23→21:13)
[2022-07-20] MEDS: METOPROLOL SUCC 50MG EXT REL TAB PO SCH (08:23)
[2022-07-20] MEDS: UREA (UREA-NA) 15 GM PACK PO SCH ×2 (08:23→21:14)
[2022-07-20] MEDS: POTASSIUM CHLORIDE 20 MEQ/15 ML UDC PO SCH (08:24)
[2022-07-20] MEDS: guaiFENesin 600 MG TABCR PO SCH ×2 (08:24→21:14)
[2022-07-20] MEDS: ASPIRIN 81 MG ECTAB PO SCH (08:25)
[2022-07-20] MEDS: LOSARTAN POTASSIUM 50 MG TAB PO SCH (08:25)
[2022-07-20] MEDS: CYANOCOBALAMIN (B-12) 500 MCG TABLET PO SCH (08:25)
[2022-07-20] MEDS: SODIUM CHLORIDE 1 GM TABLET PO SCH ×3 (08:25→21:13)
[2022-07-20] MEDS: CLOPIDOGREL BISULFATE 75 MG TAB PO SCH (08:25)
[2022-07-20] MEDS: INSULIN ASPART PER UNIT CHARGE SC SCH ×4 (08:41→21:06)
[2022-07-20] MEDS: BENZONATATE 100 MG CAPSULE PO SCH ×3 (08:41→21:17)
[2022-07-20] MEDS: LANTUS PER UNIT CHARGE SQ SCH ×2 (08:42→21:06)
[2022-07-20] MEDS: HEPARIN SOD 5,000 UNIT/0.5 ML VIAL SQ SCH ×2 (08:43→21:08)
[2022-07-20 09:00] LABS: BUN Creatinine Ratio 47.7 (10-20); Calcium 9.5 mg/dl (8.6-10.3); Creatinine Clr Calc Pharmacy 45.1 ml/min; Est GFR (African American) 71.4 ml/min; Est GFR (Non-African American) 61.6 ml/min
--- NOTE | 2022-07-20 10:16 | Nephrology Progress Note ---
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 Sodium is 129 this morning. -We will give urea 15 g twice daily -We will give salt tablets 1 g 3 times daily. -We will give potassium chloride 40 mEq daily. -Monitor sodium daily Admission and Anticipated Discharge Date Admission Date: July 17, 2022 Subjective Seen for hyponatremia. She feels better today. Main complaint is cough. No shortness of breath. Sodium uptrending Review of Systems Review of Systems: All other systems were reviewed and negative except as noted in HPI Physical Exam Physical Exam: General exam: Appears comfortable, no acute distress HEENT: Pupils are equal and reactive to light Neck: No JVD, neck is supple trachea is midline Respiratory system: Clear breath sounds bilaterally. Gastrointestinal: Abdomen is soft, non distended, non tender, bowel sounds are present CVS: Regular rate and rhythm. No murmurs, rubs or gallops Musculoskeletal: No joint or muscle tenderness Extremities: Non tender, no edema, peripheral pulses are present Neuro: Oriented, no tremors, no focal neurological deficits Skin: No rashes Results & Data Vital Signs (Past 12 Hours) Vital Signs Temp Pulse Pulse Resp BP BP Pulse Ox 07/20/22 07:32 36.6 C 69 20 137/70 94 07/20/22 07:27 59 L 07/20/22 06:49 80 18 94 07/20/22 03:12 36.9 C 66 16 140/67 95 07/20/22 03:12 17 07/19/22 22:34 64 07/19/22 23:16 37 C 65 18 157/78 H 93 07/19/22 22:35 87 22 91 O2 Del Method 07/20/22 07:32 Room Air 07/20/22 07:27 07/20/22 06:49 Room Air 07/20/22 03:12 Room Air, CPAP 07/20/22 03:12 07/19/22 22:34 07/19/22 23:16 Room Air 07/19/22 22:35 Laboratory Results 07/20/22 08:09
[2022-07-20] MEDS: predniSONE 10 MG TABLET PO SCH (13:53)
--- NOTE | 2022-07-20 13:54 | Pharmacy Report ---
Pharmacy Glycemic Short Note 2 - Date of Service July 20, 2022 - Glycemic Short BSG Results (Last 24 hours): 07/19/22 07/19/22 07/20/22 16:37 20:22 07:30 Glucose POC Glucose 172 H 178 H 186 H 07/20/22 07/20/22 08:09 11:30 Glucose 180 H POC Glucose 232 H OUTPATIENT ANTIDIABETIC REGIMEN: * Lantus 14 units daily, metformin HbA1c: 7.6% (07/18/22) ASSESSMENT: 07/20/22: * BSGs yesterday ranging 172-193 mg/dL * Received 49 units of insulin (~50/50 basal/bolus split) * Prednisone 10 mg PO daily initiated today at lunchtime * Will increase basal and tighten Novolog parameters today 07/18/22: * Fasting BSG of 159 mg/dL this morning (received 8 units of Lantus last evening) * Plan to increase basal insulin today * Will further tighten Novolog today * IV fluids have been discontinued * No obvious hyperglycemia stressors 07/17/22: * 87 year old admitted with respiratory symptoms, pharmacy consulted for glycemic management. Plan to start stress of 2 for novolog, will cut basal insulin by ~50% as unclear of PO intake. Patient confirms she did not take any basal insulin today yet PLAN FOR INPATIENT GLYCEMIC CONTROL: * Hold outpatient oral diabetes medications * Basal insulin * Lantus 15 units SC BID * Bolus insulin * NovoLog per scale ACHS or Q6hrs while NPO * Goal Range: Low 110 mg/dL - High 140 mg/dL * Correction Factor: 20 mg/dL/unit * Nutritional / Prandial insulin per carb ratio of 1 unit per 6 grams CHO consumed
--- NOTE | 2022-07-20 16:44 | Hospitalist Progress Note ---
Date of Service July 20, 2022 Assessment & Plan (1) Parainfluenza: (2) Weakness: (3) Cough: (4) DM type 2 (diabetes mellitus, type 2): (5) Hyponatremia: (6) HTN (hypertension): (7) Anxiety and depression: (8) Dyslipidemia: (9) Hypomagnesemia: Plan Patient is an 87 year old female who presents with cough and fatigue Parainfluenza Infection: Generalized Weakness due to above --CXR:No acute process. 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 Sodium 122>125>129 Serum osmolality 261 Urine osmolality 292 Urine sodium 31 No mental status change Received IV fluids Monitor sodium level closely Appreciate nephrology input Continue fluid restriction Started on salt tablets, urea Continue current management Diabetes mellitus type 2: HbA1c 7.6 Hold Metformin Continue insulin per protocol Hypomagnesemia: Replace and monitor Hypertension: Continue Metoprolol, Hydralazine, losartan and Clonidine Monitor SHIVANI: CPAP at HS Dyslipidemia: Continue Atorvastatin Anxiety,Depression: Continue Lexapro DVT Px: Heparin SQ CODE STATUS: Full Code Admission and Anticipated Discharge Date Admission Date: July 17, 2022 Subjective Patient is seen and examined at bedside States only feeling slightly better Chest tightness improved Saturating well on room air Denies any dyspnea, dizziness, nausea, abdominal pain Review of Systems Review of Systems: All systems reviewed & are unremarkable except as noted in Subjective Physical Exam Physical Exam: Physical Exam: Vitals signs as noted above General Appearance:Elderly, no apparent distress Head: normocephalic, Atraumatic Eyes: normal inspection, EOMI Neck: supple, Trachea midline Respiratory/Chest: Coarse breath sounds, No accessory muscle use Cardiovascular: S1, S2, No murmur Abdomen/GI:Soft, Non tender, Bowel sounds present Extremities/Musculoskeletal:normal inspection, no edema Neurologic/Psych:AAOX3, grossly no focal neurological deficits Skin: normal color, warm Results & Data Results & Data Vital Signs (Past 12 Hours) Vital Signs Temp Pulse Pulse Resp BP BP Pulse Ox 07/20/22 15:47 64 07/20/22 14:59 37.0 C 57 L 20 100/60 95 07/20/22 11:08 37.1 C 59 L 20 123/69 94 07/20/22 10:25 07/20/22 07:32 36.6 C 69 20 137/70 94 07/20/22 07:27 59 L 07/20/22 06:49 80 18 94 O2 Del Method 07/20/22 15:47 07/20/22 14:59 Room Air 07/20/22 11:08 Room Air 07/20/22 10:25 Room Air 07/20/22 07:32 Room Air 07/20/22 07:27 07/20/22 06:49 Room Air Laboratory Results BMP 07/19/22 07/20/22 19:41 08:09 Sodium 125 L 129 L Potassium 4.0 Chloride 94 L Carbon Dioxide 28 BUN 41 H D Creatinine 0.86 Glucose 180 H Calcium 9.5
[2022-07-20] MEDS: LATANOPROST 0.005% OP SOLN 2.5 ML BTL OP SCH (21:09)
[2022-07-20] MEDS: ATORVASTATIN 20 MG TAB PO SCH (21:14)
[2022-07-20] MEDS: ESCITALOPRAM OXALATE 10 MG TAB PO SCH (21:15)
[2022-07-21] MEDS: ACETAMINOPHEN SUSP 500 MG/15.6 ML UDP PO SCH ×4 (01:34→22:16)
[2022-07-21 06:37] LABS: BUN Creatinine Ratio 58.7 (10-20); Calcium 9.4 mg/dl (8.6-10.3); Creatinine Clr Calc Pharmacy 42.2 ml/min; Est GFR (African American) 65.8 ml/min; Est GFR (Non-African American) 56.8 ml/min; Magnesium 1.9 mg/dl (1.7-2.4); Potassium 4.3 mmol/L (3.5-5.1)
[2022-07-21] MEDS: BUDESONIDE 0.25 MG/2 ML VIAL (PULMICORT) NEB SCH ×2 (07:22→19:15)
[2022-07-21] MEDS: INSULIN ASPART PER UNIT CHARGE SC SCH ×4 (08:35→22:14)
[2022-07-21] MEDS: LANTUS PER UNIT CHARGE SQ SCH ×2 (08:36→22:14)
--- NOTE | 2022-07-21 08:40 | Nephrology Progress Note ---
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 Sodium is 131 this morning. BUN has gone up very fast since urea started so will stop give urea Bp is high so will lower salt tab to 1 gm bid. as long as Sodium is higher than 127 we are good for discharge and may not even improve much. potassium chloride 40 mEq daily. Daily BMP Subjective Seen for hyponatremia. She feels better today. No shortness of breath. Sodium uptrending Review of Systems Review of Systems: All other systems were reviewed and negative except as noted in HPI Physical Exam Physical Exam: General exam: Appears comfortable, no acute distress HEENT: Pupils are equal and reactive to light Neck: No JVD, neck is supple trachea is midline Respiratory system: Clear breath sounds bilaterally. Gastrointestinal: Abdomen is soft, non distended, non tender, bowel sounds are present CVS: Regular rate and rhythm. No murmurs, rubs or gallops Musculoskeletal: No joint or muscle tenderness Extremities: Non tender, no edema, peripheral pulses are present Neuro: Oriented, no tremors, no focal neurological deficits Skin: No rashes Results & Data Vital Signs (Past 12 Hours) Vital Signs Temp Pulse Pulse Resp BP BP Pulse Ox 07/21/22 07:45 36.5 C 65 20 172/63 H 96 07/21/22 07:22 53 L 15 97 07/21/22 06:04 59 L 07/21/22 03:36 36.7 C 60 17 135/56 L 94 07/20/22 21:30 07/20/22 23:00 37.0 C 65 18 148/74 H 96 07/20/22 22:59 60 07/20/22 22:40 71 18 92 O2 Del Method FiO2 07/21/22 07:45 Room Air 07/21/22 07:22 Room Air 21 07/21/22 06:04 07/21/22 03:36 Room Air 07/20/22 21:30 Room Air 07/20/22 23:00 Room Air 07/20/22 22:59 07/20/22 22:40 21
[2022-07-21] MEDS: ASPIRIN 81 MG ECTAB PO SCH (08:44)
[2022-07-21] MEDS: CLOPIDOGREL BISULFATE 75 MG TAB PO SCH (08:44)
[2022-07-21] MEDS: CYANOCOBALAMIN (B-12) 500 MCG TABLET PO SCH (08:45)
[2022-07-21] MEDS: guaiFENesin 600 MG TABCR PO SCH ×2 (08:45→22:18)
[2022-07-21] MEDS: HEPARIN SOD 5,000 UNIT/0.5 ML VIAL SQ SCH ×2 (08:46→22:16)
[2022-07-21] MEDS: hydrALAZINE TAB 50 MG TAB PO SCH ×3 (08:46→22:15)
[2022-07-21] MEDS: METOPROLOL SUCC 50MG EXT REL TAB PO SCH (08:47)
[2022-07-21] MEDS: POTASSIUM CHLORIDE 20 MEQ/15 ML UDC PO SCH (08:47)
[2022-07-21] MEDS: LOSARTAN POTASSIUM 50 MG TAB PO SCH (08:47)
[2022-07-21] MEDS: predniSONE 10 MG TABLET PO SCH (08:48)
[2022-07-21] MEDS: BENZONATATE 100 MG CAPSULE PO SCH ×3 (08:59→22:14)
[2022-07-21] MEDS: SODIUM CHLORIDE 1 GM TABLET PO SCH ×2 (08:59→22:16)
[2022-07-21] MEDS: CHECK CLONIDINE PATCH PLACEMENT SCH ×2 (09:05→17:46)
--- NOTE | 2022-07-21 13:33 | CT Scan Report ---
CT chest diagnostic wo con CT DOSE: 288.83 mGycm HISTORY: Wheezing. Persistent cough TECHNIQUE: Multiaxial CT images of the chest were performed without contrast. A dose lowering techni que was utilized adhering to the principles of ALARA. COMPARISON: CT of neck 01/04/2021. FINDINGS: There is a stable 1.1 cm right thyroid nodule. This does not meet CT criteria for follow-up the visualized liver, spleen, and adrenal glands unremarkable. Prior cholecystectomy. Normal esophag us. Mild calcified plaque within the normal caliber thoracic aorta. There are moderate coronary arter y calcifications noted. The heart is normal in size. No pleural or pericardial effusions. No mediasti nal or hilar lymphadenopathy. No acute fractures identified within the chest. No pneumothorax. Trace mucoid material within the bronchus intermedius. Otherwise, the central airways are patent. A 3 mm gr oundglass nodule within the left upper lobe on image 78. Focal scarlike density within the right lowe r lobe medially. There are the small area of groundglass nodular densities within the base the right lower lobe on images 179 through 107. This favors a small focus of inflammatory/infectious change. IMPRESSION: 1. Small area of groundglass nodular densities within the base of the right lower lobe as described a tea. This favors a small focus of inflammatory/infectious change. [address] follow-up recomme nded to ensure resolution. 2. A 3 mm groundglass nodule within the left upper lobe. This is likely benign. Attention at follow-u p recommended. 3. Trace mucoid material within the bronchus intermedius. ACT 112: Positive. There are findings on this exam that require communication between the performing entity and the patient following Patient Test Result Information Act ([place] Act 112) guidelines. Follow up right lower lobe nodular airspace opacities. Electronically signed by: Dave Cano M.D. 07/21/2022 1:32 PM
--- NOTE | 2022-07-21 18:08 | Hospitalist Progress Note ---
Date of Service July 21, 2022 Assessment & Plan (1) Parainfluenza: (2) Weakness: (3) Cough: (4) DM type 2 (diabetes mellitus, type 2): (5) Hyponatremia: (6) HTN (hypertension): (7) Anxiety and depression: (8) Dyslipidemia: (9) Hypomagnesemia: Plan Patient is an 87 year old female who presents with cough and fatigue Parainfluenza Infection: Possible developing right lower lobe pneumonia Left upper lobe pulmonary nodule Generalized Weakness due to above --CXR:No acute process. --BioFire:parainfluenza --CT Chest:Small area of groundglass nodular densities within the base of the right lower lobe as described above. This favors a small focus of inflammatory/infectious change. [address] follow-up recommended to ensure resolution. A 3 mm groundglass nodule within the left upper lobe. This is likely benign. Attention at follow-up recommended. Trace mucoid material within the bronchus intermedius. 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 Sodium 122>125>129>131 Serum osmolality 261 Urine osmolality 292 Urine sodium 31 No mental status change Appreciate nephrology input Continue fluid restriction Urea discontinued Salt tablets decreased to 1 g twice daily Monitor sodium levels Diabetes mellitus type 2: HbA1c 7.6 Hold Metformin Continue insulin per protocol Hypomagnesemia: Replace and monitor Hypertension: Continue Metoprolol, Hydralazine, losartan and Clonidine Monitor SHIVANI: CPAP at HS Dyslipidemia: Continue Atorvastatin Anxiety,Depression: Continue Lexapro DVT Px: Heparin SQ CODE STATUS: Full Code Admission and Anticipated Discharge Date Admission Date: July 17, 2022 Subjective Patient is seen and examined at bedside No new complaints Sodium levels improved Cough intermittent Saturating well on room air Denies any chest pain, dyspnea, dizziness, nausea, abdominal pain Review of Systems Review of Systems: All systems reviewed & are unremarkable except as noted in Subjective Physical Exam Physical Exam: Physical Exam: Vitals signs as noted above General Appearance:Elderly, no apparent distress Head: normocephalic, Atraumatic Eyes: normal inspection, EOMI Neck: supple, Trachea midline Respiratory/Chest: Coarse breath sounds, No accessory muscle use Cardiovascular: S1, S2, No murmur Abdomen/GI:Soft, Non tender, Bowel sounds present Extremities/Musculoskeletal:normal inspection, no edema Neurologic/Psych:AAOX3, grossly no focal neurological deficits Skin: normal color, warm Results & Data Results & Data Vital Signs (Past 12 Hours) Vital Signs Temp Pulse Pulse Resp BP BP Pulse Ox 07/21/22 14:40 36.6 C 58 L 20 97 07/21/22 14:36 128/63 07/21/22 10:53 36.4 C L 56 L 20 151/73 H 97 07/21/22 09:48 07/21/22 07:45 36.5 C 65 20 172/63 H 96 07/21/22 07:22 53 L 15 97 07/21/22 06:04 59 L O2 Del Method FiO2 07/21/22 14:40 Room Air 07/21/22 14:36 07/21/22 10:53 Room Air 07/21/22 09:48 Room Air 07/21/22 07:45 Room Air 07/21/22 07:22 Room Air 21 07/21/22 06:04 Laboratory Results BMP 07/21/22 06:04 Sodium 131 L Potassium 4.3 Chloride 97 L Carbon Dioxide 27 BUN 54 H Creatinine 0.92 Glucose 169 H Calcium 9.4
[2022-07-21] MEDS: LATANOPROST 0.005% OP SOLN 2.5 ML BTL OP SCH (22:17)
[2022-07-21] MEDS: ATORVASTATIN 20 MG TAB PO SCH (22:18)
[2022-07-21] MEDS: ESCITALOPRAM OXALATE 10 MG TAB PO SCH (22:18)
[2022-07-21] MEDS: DOXYCYCLINE HYCLATE 100 MG CAP PO SCH (22:22)
[2022-07-22] MEDS: CHECK CLONIDINE PATCH PLACEMENT SCH ×3 (00:46→14:11)
[2022-07-22] MEDS: ACETAMINOPHEN SUSP 500 MG/15.6 ML UDP PO SCH ×2 (02:44→09:00)
[2022-07-22] MEDS: BUDESONIDE 0.25 MG/2 ML VIAL (PULMICORT) NEB SCH (06:53)
[2022-07-22 07:57] LABS: BUN Creatinine Ratio 39.3 (10-20); Calcium 9.7 mg/dl (8.6-10.3); Creatinine Clr Calc Pharmacy 43.4 ml/min; Est GFR (African American) 68.5 ml/min; Est GFR (Non-African American) 59.1 ml/min; Potassium 4.3 mmol/L (3.5-5.1)
[2022-07-22] MEDS: LANTUS PER UNIT CHARGE SQ SCH (08:54)
[2022-07-22] MEDS: BENZONATATE 100 MG CAPSULE PO SCH ×2 (08:54→14:10)
[2022-07-22] MEDS: INSULIN ASPART PER UNIT CHARGE SC SCH ×2 (08:54→12:16)
[2022-07-22] MEDS: ASPIRIN 81 MG ECTAB PO SCH (09:00)
[2022-07-22] MEDS: CLOPIDOGREL BISULFATE 75 MG TAB PO SCH (09:02)
[2022-07-22] MEDS: CYANOCOBALAMIN (B-12) 500 MCG TABLET PO SCH (09:02)
[2022-07-22] MEDS: DOXYCYCLINE HYCLATE 100 MG CAP PO SCH (09:03)
[2022-07-22] MEDS: guaiFENesin 600 MG TABCR PO SCH (09:03)
[2022-07-22] MEDS: HEPARIN SOD 5,000 UNIT/0.5 ML VIAL SQ SCH (09:04)
[2022-07-22] MEDS: hydrALAZINE TAB 50 MG TAB PO SCH ×2 (09:05→14:10)
[2022-07-22] MEDS: LOSARTAN POTASSIUM 50 MG TAB PO SCH (09:06)
[2022-07-22] MEDS: METOPROLOL SUCC 50MG EXT REL TAB PO SCH (09:06)
[2022-07-22] MEDS: predniSONE 10 MG TABLET PO SCH (09:07)
[2022-07-22] MEDS: POTASSIUM CHLORIDE 20 MEQ/15 ML UDC PO SCH (09:07)
[2022-07-22] MEDS: SODIUM CHLORIDE 1 GM TABLET PO SCH (09:08)
[2022-07-22] MEDS ORDERED: ACETAMINOPHEN SUSP 500 MG/15.6 ML UDP PO PRN (09:24)
[2022-07-22] MEDS ORDERED: traMADol HCL 50 MG TABLET PO ONE (09:25)
[2022-07-22] MEDS ORDERED: DICLOFENAC SOD 1% GEL 100 GM TUBE EXT PRN (09:26)
--- NOTE | 2022-07-22 10:10 | Nephrology Progress Note ---
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 BUN had gone up very fast since urea started so stopped that already. Bp is high so will Stop salt tab. as long as Sodium is higher than 127 we are good for discharge and may not even improve to normal. now 132. Lower potassium chloride to 20 mEq daily. Daily BMP. maintain current FFR of 1200 ml though. repeat urine Osm today for f/u. Subjective Seen for hyponatremia. She feels better today. No shortness of breath. Sodium uptrending Review of Systems Review of Systems: All other systems were reviewed and negative except as noted in HPI Physical Exam Physical Exam: General exam: Appears comfortable, no acute distress HEENT: Pupils are equal and reactive to light Neck: No JVD, neck is supple trachea is midline Respiratory system: Clear breath sounds bilaterally. Gastrointestinal: Abdomen is soft, non distended, non tender, bowel sounds are present CVS: Regular rate and rhythm. No murmurs, rubs or gallops Musculoskeletal: No joint or muscle tenderness Extremities: Non tender, no edema, peripheral pulses are present Neuro: Oriented, no tremors, no focal neurological deficits Skin: No rashes Results & Data Vital Signs (Past 12 Hours) Vital Signs Temp Pulse Pulse Resp BP Pulse Ox O2 Del Method 07/22/22 05:59 57 L 07/22/22 07:47 36.3 C L 52 L 16 161/68 H 95 Room Air 07/22/22 06:53 59 L 16 95 Room Air 07/22/22 04:16 36.6 C 55 L 18 173/67 H 95 Room Air, CPAP 07/22/22 02:31 27 H 07/22/22 00:48 53 L 151/69 H 07/22/22 00:34 36.4 C L 66 18 198/71 H 96 Room Air 07/21/22 22:35 58 L 12 97 07/21/22 22:13 36.7 C 55 L 20 157/75 H 97 Room Air
[2022-07-22] MEDS ORDERED: MAGNESIUM HYDROXIDE SUSP 30 ML UDC PO PRN (10:11)
--- NOTE | 2022-07-22 10:16 | XRay Report ---
XR shoulder RT min 2V routine CLINICAL HISTORY: Shoulder pain TECHNIQUE: 3 views of the right shoulder were obtained. Comparison: None available at the time of this dictation. FINDINGS: There is no evidence of an acute fracture. Degenerative changes are seen in the glenohumeral joint. T he overlying soft tissues are unremarkable. The visualized portions of the lungs are clear. IMPRESSION: Degenerative changes without evidence of acute abnormality. ACT 112: Negative or not required by law. Electronically signed by: Ubaldo Ahn M.D. 07/22/2022 10:15 AM
--- NOTE | 2022-07-22 13:40 | Hospitalist Progress Note ---
Date of Service July 22, 2022 Assessment & Plan (1) Parainfluenza: (2) Weakness: (3) Cough: (4) DM type 2 (diabetes mellitus, type 2): (5) Hyponatremia: (6) HTN (hypertension): (7) Anxiety and depression: (8) Dyslipidemia: (9) Hypomagnesemia: Plan Patient is an 87 year old female who presents with cough and fatigue Parainfluenza Infection: Possible developing right lower lobe pneumonia Left upper lobe pulmonary nodule Generalized Weakness due to above --CXR:No acute process. --BioFire:parainfluenza --CT Chest:Small area of groundglass nodular densities within the base of the right lower lobe as described above. This favors a small focus of inflammatory/infectious change. [address] follow-up recommended to ensure resolution. A 3 mm groundglass nodule within the left upper lobe. This is likely benign. Attention at follow-up recommended. Trace mucoid material within the bronchus intermedius. Saturating well on room air Continue supportive care Consider stool studies if continues to have diarrhea Continue nebs, antitussives Chest percussion therapy Continue low-dose prednisone for 3 more days upon discharge Started on doxycycline Needs repeat CT in 6 months upon discharge Clinically improved Plan to discharge home today Acute on chronic hyponatremia Likely SIADH Sodium 122>125>129>131>132 Serum osmolality 261 Urine osmolality 292 Urine sodium 31 No mental status change Appreciate nephrology input Continue fluid restriction Urea discontinued Salt tablets discontinued Monitor sodium levels Diabetes mellitus type 2: HbA1c 7.6 Hold Metformin Continue insulin per protocol Hypomagnesemia: Replace and monitor Hypertension: Continue Metoprolol, Hydralazine, losartan and Clonidine Monitor SHIVANI: CPAP at HS Dyslipidemia: Continue Atorvastatin Anxiety,Depression: Continue Lexapro DVT Px: Heparin SQ CODE STATUS: Full Code Disposition Home Admission and Anticipated Discharge Date Admission Date: July 17, 2022 Subjective Patient is seen and examined at bedside Cough improving Feels better today Complained shoulder pain this morning that later improved Denies any chest pain, dyspnea, dizziness, nausea, abdominal pain Sodium level simproved Review of Systems Review of Systems: All systems reviewed & are unremarkable except as noted in Subjective Physical Exam Physical Exam: Physical Exam: Vitals signs as noted above General Appearance:Elderly, no apparent distress Head: normocephalic, Atraumatic Eyes: normal inspection, EOMI Neck: supple, Trachea midline Respiratory/Chest: Coarse breath sounds, No accessory muscle use Cardiovascular: S1, S2, No murmur Abdomen/GI:Soft, Non tender, Bowel sounds present Extremities/Musculoskeletal:normal inspection, no edema Neurologic/Psych:AAOX3, grossly no focal neurological deficits Skin: normal color, warm Results & Data Results & Data Vital Signs (Past 12 Hours) Vital Signs Temp Pulse Pulse Resp BP Pulse Ox O2 Del Method 07/22/22 11:33 36.5 C 51 L 16 131/70 97 Room Air 07/22/22 10:47 Room Air 07/22/22 05:59 57 L 07/22/22 07:47 36.3 C L 52 L 16 161/68 H 95 Room Air 07/22/22 06:53 59 L 16 95 Room Air 07/22/22 04:16 36.6 C 55 L 18 173/67 H 95 Room Air, CPAP 07/22/22 02:31 27 H Laboratory Results [facility] 07/22/22 06:56 Sodium 132 L Potassium 4.3 Chloride 98 Carbon Dioxide 25 BUN 35 H Creatinine 0.89 Glucose 107 H Calcium 9.7
--- NOTE | 2022-07-22 13:56 | Pharmacy Report ---
Pharmacy Glycemic Short Note 2 - Date of Service July 22, 2022 - Glycemic Short BSG Results (Last 24 hours): 07/21/22 07/21/22 07/22/22 16:41 20:23 06:56 Glucose 107 H POC Glucose 177 H 140 H 07/22/22 07/22/22 07:20 11:10 Glucose POC Glucose 115 H 195 H OUTPATIENT ANTIDIABETIC REGIMEN: * Lantus 14 units daily, metformin HbA1c: 7.6% (07/18/22) ASSESSMENT: 07/22/22: * BSGs yesterday 172-110-069-140 mg/dL. Patient received 53 units of insulin (30 units basal, 23 units bolus). * Fasting BSG today 115 mg/dL. Values have been downtrending over the past few days (115-482-028-115 mg/dL), will reduce tonight's Lantus dose by 5 units to decrease total Lantus dose today by 15%. * Prednisone 10mg discontinued today at ~1300, patient did take today's dose. Lunchtime BSG elevated at 195 mg/dL. Will continue current NovoLog parameters and adjust tomorrow as clinically appropriate. 07/20/22: * BSGs yesterday ranging 172-193 mg/dL * Received 49 units of insulin (~50/50 basal/bolus split) * Prednisone 10 mg PO daily initiated today at lunchtime * Will increase basal and tighten Novolog parameters today 07/18/22: * Fasting BSG of 159 mg/dL this morning (received 8 units of Lantus last evenin g) * Plan to increase basal insulin today * Will further tighten Novolog today * IV fluids have been discontinued * No obvious hyperglycemia stressors 07/17/22: * 87 year old admitted with respiratory symptoms, pharmacy consulted for glycemic management. Plan to start stress of 2 for novolog, will cut basal insulin by ~50% as unclear of PO intake. Patient confirms she did not take any basal insulin today yet PLAN FOR INPATIENT GLYCEMIC CONTROL: * Hold outpatient oral diabetes medications * Basal insulin * Lantus 15 units SQ AM, 10 units SQ HS * Bolus insulin * NovoLog per scale ACHS or Q6hrs while NPO * Goal Range: Low 110 mg/dL - High 140 mg/dL * Correction Factor: 20 mg/dL/unit * Nutritional / Prandial insulin per carb ratio of 1 unit per 6 grams CHO consumed
--- NOTE | 2022-07-22 13:57 | Discharge Summary ---
Date of Service July 22, 2022 Admission HPI Per Admitting Provider Ms. Starr Carmona is an 87-year-old female that presented to the [facility] ED after experiencing congestion and a cough over the past few days. Patient does report feeling fatigued overall. Respiratory panel sent in the ED with results of parainfluenza 3. Patient was not hypoxic on arrival however SpO2 is 94% in the room. PT reports that she has had coughing exacerbation with thick white sputum, now thick sputum. She denies fevers or chills. She has report known sick contract with her grandson and daughter and son in law. She has not been exposed to many germs since covid but did attend a large family gathering for [employer]. Patient does live alone. She reports having a good diet and good PO intake over the past few days. Does report decreased urine output. No leukocytosis, hyponatremia 128 (appears chronic for her), hypomagnesemia 1.6; replace with 2 g in ED. Otherwise labs unremarkable, lactate pending, but does not appear toxic. CXR negative for cardiopulmonary infection. Pt past medical history includes PAF, seasonal allergies, CKD 3, history of TIA (on Plavix), HTN, HLD, and IDDM2 (on Basaglar and Metformin) Pt sitting upright in her hospital bed. TM pearly torres. Pt AAOx4. Coarse cough. (-) lymphadenopathy. Abdomen S/NT/ND. Appears supportive and conservative treatment for now. consider systemic steroids if no improvement. Patient will be admitted for further evaluation and management. Please see A/P for further details. Admission Exam Per Admitting Provider Physical Exam Physical Exam: Neuro: AAOx4, PERRLA, no aphagia, memory changes, CNII-XII grossly intact HEENT: head normocephalic, moist mucus membranes CV: S1/S2, (-) M/G/R, (-) edema, cap refill < 3 seconds Resp: Lungs coarse throughout; anterior lung roberts with wheezing GI: Abdomen S/NT/ND, Ax4 bowel sounds, (-) CVA tenderness. (+) nonreducible umbilical hernia Musculoskeletal: 5/5 B/L UE strength, 5/5 B/L LE strength. No gait disturbance; feels wobbly; uses a cane Skin: (-) rashes , (-) erythema. Psych: euthymic mood Principal Diagnosis Parainfluenza Infection Possible Pneumonia Pulmonary nodule Acute on chronic hyponatremia Discharge Data Allergies Allergy/AdvReac Type Severity Reaction Status Date / Time amlodipine Allergy Severe SWELLING Unverified 07/17/22 10:48 AND FLUSHING mold Allergy Mild SINUS Unverified 07/17/22 10:48 DRAINAGE/COUGH hydrochlorothiazide AdvReac Severe hyponatremi Verified 07/17/22 10:48 [From Maxzide] a triamterene [From Maxzide] AdvReac Severe hyponatremi Verified 07/17/22 10:48 a LORENA Inhibitors AdvReac Unknown COUGH Verified 07/17/22 10:48 Consultations 07/17/22 11:37 ED Decision to Admit Stat 07/18/22 13:51 Consult Nephrology Routine Procedures Performed Laboratory Results WBC 9.99 K/ul (4.8-10.8) 07/19/22 09:09 RBC 4.30 M/uL (4.20-5.40) 07/19/22 09:09 Hgb 12.8 g/dl (12.0-16.0) 07/19/22 09:09 Hct 35.8 % (37.0-47.0) L 07/19/22 09:09 MCV 83.3 fL (80.0-100.0) 07/19/22 09:09 MCH 29.8 pg (25.0-34.0) 07/19/22 09:09 MCHC 35.8 g/dL (32.0-36.0) 07/19/22 09:09 RDW Std Deviation 38.9 fL (36.4-46.3) 07/19/22 09:09 RDW Coeff of Devyn 12.9 % (11.5-14.5) 07/19/22 09:09 Plt Count 158 K/uL (130-400) 07/19/22 09:09 MPV 10.0 fL (9.4-12.4) 07/19/22 09:09 Immature Gran % (Auto) 0.3 % 07/18/22 00:45 Neut % (Auto) 74.8 % 07/18/22 00:45 Lymph % (Auto) 13.6 % 07/18/22 00:45 [facility] [place] % (Auto) 10.4 % 07/18/22 00:45 Eos % (Auto) 0.7 % 07/18/22 00:45 Baso % (Auto) 0.2 % 07/18/22 00:45 Neut # (Auto) 6.68 K/uL (1.40-6.50) H 07/18/22 00:45 Lymph # (Auto) 1.22 K/uL (1.2-3.4) 07/18/22 00:45 [facility] [place] # (Auto) 0.93 K/uL (0.11-0.59) H 07/18/22 00:45 Eos # (Auto) 0.06 K/uL (0-0.50) 07/18/22 00:45 Baso # (Auto) 0.02 K/uL (0-0.2) 07/18/22 00:45 Immature Gran # (Auto) 0.03 K/uL (0.01-0.20) 07/18/22 00:45 PT 11.9 Seconds (9.0-12.0) 07/17/22 09:20 INR 1.1 (0.9-1.1) 07/17/22 09:20 APTT 29.9 Seconds (21.0-31.0) 07/17/22 09:20 PTT Ratio 1.1 07/17/22 09:20 Sodium 132 mmol/L (136-145) L 07/22/22 06:56 Potassium 4.3 mmol/L (3.5-5.1) 07/22/22 06:56 Chloride 98 mmol/L (98-107) 07/22/22 06:56 Carbon Dioxide 25 mmol/L (21-32) 07/22/22 06:56 Anion Gap 9 (3-11) 07/22/22 06:56 BUN 35 mg/dl (6-23) H 07/22/22 06:56 Creatinine 0.89 mg/dl (0.6-1.2) 07/22/22 06:56 Est Cr Clr Drug Dosing 43.4 ml/min 07/22/22 06:56 Est GFR ( Amer) 68.5 ml/min 07/22/22 06:56 Est GFR (Non-Af Amer) 59.1 ml/min 07/22/22 06:56 BUN/Creatinine Ratio 39.3 (10-20) H 07/22/22 06:56 Glucose 107 mg/dl (70-99(Fasting)) H 07/22/22 06:56 POC Glucose 195 mg/dl (70-99) H 07/22/22 11:10 Estimat Average Glucose 171 mg/dl 07/18/22 00:45 Hemoglobin A1c 7.6 % (4.5-5.6) H 07/18/22 00:45 Osmolality 261 mOsm/kg (280-300) L 07/18/22 00:45 Lactate 2.0 mmol/L (0.4-2.0) 07/18/22 00:45 Calcium 9.7 mg/dl (8.6-10.3) 07/22/22 06:56 Phosphorus 2.3 mg/dl (2.5-4.9) L 07/18/22 00:45 Magnesium 1.9 mg/dl (1.7-2.4) 07/21/22 06:04 Total Bilirubin 0.5 mg/dl (0.2-1.0) 07/17/22 09:20 AST 19 U/L (13-39) 07/17/22 09:20 ALT 19 U/L (7-52) 07/17/22 09:20 Alkaline Phosphatase 49 U/L (34-104) 07/17/22 09:20 Troponin I High Sens 11.2 pg/ml (0-14) 07/17/22 09:20 Total Protein 7.2 gm/dl (6.0-8.3) 07/17/22 09:20 Albumin 4.1 gm/dl (3.4-5.0) 07/18/22 00:45 Globulin 2.8 gm/dl (2.5-4.0) 07/17/22 09:20 Albumin/Globulin Ratio 1.6 (0.9-2) 07/17/22 09:20 Procalcitonin < 0.05 ng/ml (0-0.5) 07/18/22 00:45 TSH 1.871 uIu/ml (0.300-4.500) 07/18/22 00:45 Urine Osmolality 292 mOsm/kg (500-800) L 07/19/22 03:40 Ur Random Sodium 31 mmol/L 07/19/22 03:40 Adenovirus (PCR) Not Detected (NotDetected) 07/17/22 09:20 B. pertussis DNA (PCR) Not Detected (NotDetected) 07/17/22 09:20 B.parapertussis DNA PCR Not Detected (NotDetected) 07/17/22 09:20 C. pneumoniae DNA (PCR) Not Detected (NotDetected) 07/17/22 09:20 Coronavirus OC43 (PCR) Not Detected (NotDetected) 07/17/22 09:20 Coronavirus HKU1 (PCR) Not Detected (NotDetected) 07/17/22 09:20 Coronavirus 229E (PCR) Not Detected (NotDetected) 07/17/22 09:20 SARS-CoV-2 (PCR) Not Detected (NotDetected) 07/17/22 09:20 Coronavirus NL63 (PCR) Not Detected (NotDetected) 07/17/22 09:20 Human Metapneumovir PCR Not Detected (NotDetected) 07/17/22 09:20 Influenza Type A (PCR) Not Detected (NotDetected) 07/17/22 09:20 Influenza Type B (PCR) Not Detected (NotDetected) 07/17/22 09:20 M. pneumoniae (PCR) Not Detected (NotDetected) 07/17/22 09:20 Parainfluenza 1 (PCR) Not Detected (NotDetected) 07/17/22 09:20 Parainfluenza 2 (PCR) Not Detected (NotDetected) 07/17/22 09:20 Parainfluenza 3 (PCR) DETECTED (NotDetected) A* 07/17/22 09:20 Parainfluenza 4 (PCR) Not Detected (NotDetected) 07/17/22 09:20 RSV (PCR) Not Detected (NotDetected) 07/17/22 09:20 Entero/Rhino (PCR) Not Detected (NotDetected) 07/17/22 09:20 Impressions Chest X-Ray 07/18/22 01:28 XR chest 1V portable HISTORY: 87 years-old Female wheeze acute shortness breath with wheezing COMPARISON: Chest radiograph 07/17/2022 TECHNIQUE: AP view of the chest FINDINGS: Cardiomediastinal and hilar silhouettes are unchanged. There is stable right hemidiaphragmatic elevation. No pneumothorax, pleural effusion, airspace consolidation or overt pulmonary edema. Degenerative changes of the shoulders and spine. Surgical clips of the right upper quadrant abdomen. IMPRESSION: No acute process. ACT 112: Negative or not required by law. The above report was generated using voice recognition software. It may contain grammatical, syntax or spelling errors. Electronically signed by: Billy Jaramillo M.D. 07/18/2022 8:[address] 07/20/22 12:12 CT chest diagnostic wo con CT DOSE: 288.83 mGycm HISTORY: Wheezing. Persistent cough TECHNIQUE: Multiaxial CT images of the chest were performed without contrast. A dose lowering technique was utilized adhering to the principles of ALARA. COMPARISON: CT of neck 01/04/2021. FINDINGS: There is a stable 1.1 cm right thyroid nodule. This does not meet CT criteria for follow-up the visualized liver, spleen, and adrenal glands unremarkable. Prior cholecystectomy. Normal esophagus. Mild calcified plaque within the normal caliber thoracic aorta. There are moderate coronary artery calcifications noted. The heart is normal in size. No pleural or pericardial effusions. No mediastinal or hilar lymphadenopathy. No acute fractures identified within the chest. No pneumothorax. Trace mucoid material within the bronchus intermedius. Otherwise, the central airways are patent. A 3 mm groundglass nodule within the left upper lobe on image 78. Focal scarlike density within the right lower lobe medially. There are the small area of groundglass nodular densities within the base the right lower lobe on images 179 through 107. This favors a small focus of inflammatory/infectious change. IMPRESSION: 1. Small area of groundglass nodular densities within the base of the right lower lobe as described above. This favors a small focus of inflammatory/infectious change. [address] follow-up recommended to ensure resolution. 2. A 3 mm groundglass nodule within the left upper lobe. This is likely benign. Attention at follow-up recommended. 3. Trace mucoid material within the bronchus intermedius. ACT 112: Positive. There are findings on this exam that require communication between the performing entity and the patient following Patient Test Result Information Act ([place] Act 112) guidelines. Follow up right lower lobe nodular airspace opacities. Electronically signed by: Dave Cano M.D. 07/21/2022 1:32 PM Shoulder X-Ray 07/22/22 09:26 XR shoulder RT min 2V routine CLINICAL HISTORY: Shoulder pain TECHNIQUE: 3 views of the right shoulder were obtained. Comparison: None available at the time of this dictation. FINDINGS: There is no evidence of an acute fracture. Degenerative changes are seen in the glenohumeral joint. The overlying soft tissues are unremarkable. The visualized portions of the lungs are clear. IMPRESSION: Degenerative changes without evidence of acute abnormality. ACT 112: Negative or not required by law. Electronically signed by: Ubaldo Ahn M.D. 07/22/2022 10:15 AM Ordered Studies 07/20/22 12:12 CT chest diagnostic wo con Routine Hospital Course (1) Parainfluenza: (2) Weakness: (3) Cough: (4) DM type 2 (diabetes mellitus, type 2): (5) Hyponatremia: (6) HTN (hypertension): (7) Anxiety and depression: (8) Dyslipidemia: (9) Hypomagnesemia: Plan Patient is an 87 year old female who presents with cough and fatigue Parainfluenza Infection: Possible developing right lower lobe pneumonia Left upper lobe pulmonary nodule Generalized Weakness due to above --CXR:No acute process. --BioFire:parainfluenza --CT Chest:Small area of groundglass nodular densities within the base of the right lower lobe as described above. This favors a small focus of inflammatory/infectious change. [address] follow-up recommended to ensure resolution. A 3 mm groundglass nodule within the left upper lobe. This is likely benign. Attention at follow-up recommended. Trace mucoid material within the b ronchus intermedius. Saturating well on room air Continue supportive care Consider stool studies if continues to have diarrhea Continue nebs, antitussives Chest percussion therapy Continue low-dose prednisone for 3 more days upon discharge Started on doxycycline Needs repeat CT in 6 months upon discharge Clinically improved Plan to discharge home today Acute on chronic hyponatremia Likely SIADH Sodium 122>125>129>131>132 Serum osmolality 261 Urine osmolality 292 Urine sodium 31 No mental status change Appreciate nephrology input Continue fluid restriction Urea discontinued Salt tablets discontinued Monitor sodium levels Diabetes mellitus type 2: HbA1c 7.6 Hold Metformin Continue insulin per protocol Hypomagnesemia: Replace and monitor Hypertension: Continue Metoprolol, Hydralazine, losartan and Clonidine Monitor SHIVANI: CPAP at HS Dyslipidemia: Continue Atorvastatin Anxiety,Depression: Continue Lexapro DVT Px: Heparin SQ CODE STATUS: Full Code Disposition Home Total Time Total Time Spent Total Time Spent (In Minutes): 47 minutes Discharge Plan Discharge Items Patient Disposition: Home - Self-Care Reason For Visit: WEAKNESS/FATIGUE/PARAINFLUENZA Discharge Diagnosis: Parainfluenza Infection Possible Pneumonia Pulmonary nodule Acute on chronic hyponatremia Activity: Per Instructions section Exercise/Sports: Gradually increase as tolerated Non-emergency contact: Primary Care Provider and Manufacturing Engineering Technician Call non-emergency contact if: you have any medication questions, your symptoms worsen, your pain is concerning for you and you have a fever Follow-up/Referrals: Vince Hook MD [Primary Care Provider] - (Date & Time 07/25/2022 11:40 AM Provider Waqas aLguna MD [facility] ) Diet: Carb Consistent or DM2 and Heart Healthy Fluids: 1200ml (5 cups) Addtl Attending Provider Instructions: Follow-up with your primary care physician Dr. Hook on 07/25/2022 11:40 AM Follow-up with your disc inspector in 3-4 weeks -- Complete antibiotic (doxycycline) and prednisone course as prescribed. --Obtain CT chest in 6 months for further evaluation of left upper lobe pulmonary nodule and right lower lobe pneumonia resolution as outpatient --Continue fluid restriction 1200 mL/day as recommended by her disc inspector -- Obtain blood test (basic metabolic panel) in 1 week and follow-up with your primary care physician Seek immediate medical attention if your symptoms reoccur or worsen Please take all medications as instructed on discharge list below. Please call if you have any questions or problems. You can reach a [facility] hospitalist on duty at [facility] 24 hours a day by calling [phone] Pending Studies at Discharge: No Stand-Alone Forms: My [facility] [employer], Smoking Cessation Medications and DC Order Prescriptions: New doxycycline hyclate 100 mg Capsule 100 mg PO BID Qty: 12 0RF benzonatate 100 mg Capsule 100 mg PO TID PRN (Reason: Cough) Qty: 30 0RF prednisone 10 mg tablet 10 mg PO DAILY Qty: 3 0RF Continued escitalopram oxalate 10 mg Tablet 10 mg PO PM mecobalamin (vitamin B12) [B12 Active] 1,000 mcg Tablet,Chewable 1,000 mcg PO DAILY clonidine 0.2 mg/24 hr patch weekly 0.2 mg transdermal Q7D Rx Instructions: Pt replaces patch every Thursday aspirin 81 mg Tablet,Delayed Release (Dr/Ec) 81 mg PO QAM 30 Days Qty: 30 3RF (DME) needle (disp) 32 gauge 32 gauge x 5/16" needle See Rx Instructions .ROUTE .MEDSUPPLY Qty: 100 3RF Rx Instructions: As directed atorvastatin 20 mg Tablet 20 mg PO PM clopidogrel [Plavix] 75 mg Tablet 75 mg PO DAILY metformin 500 mg tablet 1,000 mg PO BIDM insulin glargine [Basaglar KwikPen U-100 Insulin] 100 unit/mL (3 mL) insulin pen 14 unit subcut QAM metoprolol succinate 100 mg tablet extended release 24 hr 100 mg PO DAILY hydralazine 100 mg tablet 100 mg PO TID Qty: 90 0RF losartan 50 mg Tablet 100 mg PO DAILY Qty: 30 0RF Rx Instructions: take 100 mg daily. latanoprost 0.005 % drops 1 drp ophthalmic (eye) HS Discharge Orders: Discharge Order (Routine); Ordered 07/22/22 Ordered By: Agustin Anders/Other Patient Handouts: Managing Type 2 Diabetes Admission Data Admit Date/Time: 07/17/22 12:11 Attending Provider: Agustin Newsome Admit Provider: Wenceslao Ludwig Primary Care Provider: Vince Hook Other Providers: Wenceslao Ludwig ; Nicol Michelle
[2022-07-22] MEDS ORDERED: LANTUS PER UNIT CHARGE SQ SCH (21:00)
[2022-07-23] MEDS ORDERED: POTASSIUM CHLORIDE 20 MEQ/15 ML UDC PO SCH (09:00)
== END 2022-07-22 17:15 | disposition home or self-care (01) | DRG 194 ==
LOC: ED 08:50 → SUATTDRO 12:11 → EDINP 12:11 → 2W 15:21

== ENCOUNTER 2023-06-26 14:21 | Inpatient (IN) ==
[2023-06-26 15:06] LABS: Appearance Urine Clear (Clear); Bacteria Urine Automated Negative (Negative); Bilirubin Urine Negative (Negative); Blood Urine Negative (Negative); Cast Urine Automated 0 /lpf (0-5); Color Urine Yellow; Glucose Urine UA Trace (Negative); Ketones Urine Negative (Negative); Leukocyte Esterase Urine Negative (Negative); Nitrite Urine Negative (Negative); Protein Urine 2+ (Negative); RBC Urine Automated 0-4 /hpf (0-4); Specific Gravity Urine 1.011 (1.000-1.030); Urobilinogen Urine Negative (Negative); pH Urine 5.5 (4.5-7.5)
[2023-06-26 15:18] LABS: Basophils # (auto) 0.08 K/uL (0.00-0.20); Eosinophils # (auto) 0.34 K/uL (0.00-0.50); Eosinophils % (auto) 4.1 %; Hematocrit (blood only) 39.1 % (37.0-47.0); Hemoglobin 13.2 g/dl (12.0-16.0); Immature Granulocytes # (auto) 0.02 K/uL (0.01-0.20); Immature Granulocytes % (auto) 0.2 %; Lymphocytes # (auto) 1.22 K/uL (1.20-3.40); Lymphocytes % (auto) 14.7 %; Mean Corpuscular Hemoglobin 29.1 pg (25.0-34.0); Mean Corpuscular Hgb Conc 33.8 g/dL (32.0-36.0); Mean Corpuscular Volume 86.1 fL (80.0-100.0); Mean Platelet Volume 9.6 fL (9.4-12.4); Monocytes # (auto) 1.03 K/uL (0.11-0.59); Monocytes % (auto) 12.4 %; Neutrophils # (auto) 5.63 K/uL (1.40-6.50); Neutrophils % (auto) 67.6 %; Platelet Count 215 K/uL (130-400); RDW Coefficient of Variation 13.9 % (11.5-14.5); Red Blood Count 4.54 M/uL (4.20-5.40); White Blood Count 8.32 K/ul (4.8-10.8)
[2023-06-26 15:21] LABS: Albumin Globulin Ratio 1.6 (0.9-2); Albumin Level 4.6 gm/dl (3.4-5.0); BUN Creatinine Ratio 21.3 (10-20); Bilirubin,Total 0.5 mg/dl (0.2-1.0); Calcium 9.6 mg/dl (8.6-10.3); Creatinine Clr Calc Pharmacy 38.6 ml/min; Est GFR (Non-African American) 58.7 ml/min; Globulin 2.9 gm/dl (2.5-4.0); Potassium 3.9 mmol/L (3.5-5.1); Total Protein 7.5 gm/dl (6.0-8.3)
[2023-06-26 15:38] LABS: Partial Thromboplastin Time 29 Seconds (21-31); Prothrombin Time 11.3 Seconds (9.0-12.0)
--- NOTE | 2023-06-26 17:29 | Emergency Department Note ---
Impression & Plan Hallucinations ADMIT ED Provider Note HPI: History obtained from patient. The patient is a 88-year-old female who presents emergency department with her daughter at the bedside over concern for hallucinations. Patient's daughter states that over the past 2 to 3 days the patient has exhibited some acute change in her mental status. Patient called her the other night and stated that "aliens are coming out of the burns". Today the patient's daughter states that the patient had some Gatorade and some crackers placed on the couch today that she stated were for "the little girl". Patient then went to her neighbor's house and asked for help removing the little girl from her house. Patient's daughter states there was no little girl in the house. On arrival here to the ED, the patient is alert and oriented x 3, she does not have any focal deficits, she is cooperative on exam. ROS: - Per HPI Differential Diagnosis: Intracranial hemorrhage, acute ischemic stroke, urinary tract infection, sepsis, critical electrolyte abnormalities to include hyponatremia, dementia, delirium, amongst other potential pathologies. *Outpatient medications and allergy history reviewed. PE: General: Alert, frail-appearing, no acute distress HEENT: Normocephalic, trachea midline Eyes: Extraocular eye movement is intact, no scleral erythema Pulmonary: Clear to auscultation bilaterally, no wheezing Cardio: Regular rate and rhythm GI: Abdomen is soft to palpation : No suprapubic tenderness MSK: No evidence of trauma or malformation of the extremities, no edema Skin: No evidence of rash Neuro: Alert, no focal deficits, equal bilateral publication director strength, symmetrical facial movements are appreciated, no drift of the upper extremities or lower extremities with testing against gravity Psychiatric: Cooperative INDEPENDENT INTERPRETATIONS: classroom monitor: (As interpreted by myself): - An order was placed for continuous cardiac monitoring - Patient was noted to be in sinus rhythm with a rate of 75 EKG: (As interpreted by myself): Rate: 73 Rhythm: Normal sinus rhythm Intervals: Within normal limits ST changes: No ST elevation Time: 1443 Interventions provided in ED: -IV hydralazine Medical Decision Making: IV was established and lab work obtained, patient was placed on monitor technician. Lab work shows no leukocytosis, hemoglobin is normal, platelet count is normal, CMP does not show any critical findings, there is baseline hyponatremia at 131, no evidence of acute kidney injury, urinalysis does not show any evidence of infection. CT imaging of the head was obtained that does not show any evidence of any acute intracranial process. Patient was given IV hydralazine here in the ED for hypertension. On my reassessment the patient is resting comfortably in bed, daughter expresses concern for the patient's recent hallucinations in addition to her continued hypertension. On my reassessment the patient's blood pressure is 207/98 and therefore was ordered an additional dose of IV hydralazine. Unclear source for the patient's hallucinations, denies any recent medication changes, patient does not appear to have any findings concerning for sepsis. No evidence of urinary tract infection. I suspect that she likely has some delirium with dementia. Patient does live alone, patient's daughter expressed that she would like the patient to be admitted to the hospital for further workup and management. I discussed the case with the on-call hospitalist, Dr. Buitrago, the patient was accepted for inpatient care. Patient's daughter is in agreement to this plan and the patient was placed for admission in stable condition. Consultants/Discussions held with other healthcare providers: -Hospitalist, Dr. Buitrago Disposition discussion held by myself with: -Patient and daughter at bedside Diagnosis: 1. Hallucinations, acute 2. Hypertensive urgency, acute 3. Hyponatremia, chronic, stable Disposition: Admission Vince Carter DO Emergency Medicine Past Med/Surg History Medical History (Updated 06/26/23 @ 22:39 by Vince Carter DO) Anxiety and depression Parainfluenza Diarrhea Weakness Hypertensive urgency Anxiety SHIVANI (obstructive sleep apnea) Type 2 diabetes mellitus TIA (transient ischemic attack) DM type 2 (diabetes mellitus, type 2) Dyslipidemia Hyponatremia HTN (hypertension) TIA (transient ischemic attack) Surgical History S/P carpal tunnel release S/P cholecystectomy Family History Other Diabetes Hypertension Social History Smoking Status: Never smoker Second Hand Exposure: No; Do You Dip or Chew Tobacco: No; Hx Alcohol Use: No Hx Substance Use: No Preferred Language: Occitan Communication Ability: Effective [place] Worker Required: No Beliefs That Will Affect Care: None marital status: Current Living Situation: Alone Feels Safe at Home: Yes Assistive Devices: Cane and Walker Allergies Allergies Allergy/AdvReac Type Severity Reaction Status Date / Time amlodipine Allergy Severe SWELLING Verified 06/26/23 18:49 AND FLUSHING mold Allergy Mild SINUS Verified 06/26/23 18:49 DRAINAGE/COUGH hydrochlorothiazide AdvReac Severe hyponatremi Verified 06/26/23 18:49 [From Maxzide] a triamterene [From Maxzide] AdvReac Severe hyponatremi Verified 06/26/23 18:49 a LORENA Inhibitors AdvReac Intermediate COUGH Verified 06/26/23 18:49 Home Meds Home Medications Medication Instructions Recorded Confirmed atorvastatin 20 mg tablet 20 mg PO PM 03/24/18 06/26/23 clopidogrel 75 mg tablet (Plavix) 75 mg PO DAILY 03/24/18 06/26/23 escitalopram oxalate 10 mg tablet 10 mg PO PM 05/11/20 06/26/23 mecobalamin (vitamin B12) 1,000 1,000 mcg PO DAILY 05/11/20 06/26/23 mcg chewable tablet (B12 Active) clonidine 0.2 mg/24 hr weekly 0.2 mg transdermal Q7D 05/12/20 06/26/23 transdermal patch insulin glargine 100 unit/mL (3 14 unit subcut QAM 01/02/21 06/26/23 mL) subcutaneous pen (Basaglar KwikPen U-100 Insulin) metoprolol succinate 100 mg 100 mg PO DAILY 01/02/21 06/26/23 tablet,extended release 24 hr latanoprost 0.005 % eye drops 1 drp ophthalmic (eye) HS 07/17/22 06/26/23 [id number]-JD-acetaminophen 1 ea PO DIRECTED PRN Cold 06/26/23 06/26/23 2 mg-5 mg-10 mg-325mg d/n tablets Symptoms dextromethorphan-guaifenesin 10 10 ml PO Q4H PRN Cough 06/26/23 06/26/23 mg-100 mg/5 mL oral liquid (Tussin DM) fluticasone propionate 50 2 spray intranasal DAILY PRN 06/26/23 06/26/23 mcg/actuation nasal Congestion spray,suspension losartan 50 mg tablet 50 mg PO DAILY 06/26/23 06/26/23 magnesium oxide 400 mg PO DAILY 06/26/23 06/26/23 metformin 1,000 mg tablet 1,000 mg PO BID 06/26/23 06/26/23 montelukast 10 mg tablet 10 mg PO QAM PRN Congestion 06/26/23 06/26/23 sodium chloride 0.65 % nasal spray 2 spray intranasal DIRECTED PRN 06/26/23 06/26/23 aerosol (Saline Nasal) Congestion timolol maleate 0.5 % once daily 1 drp OPB DAILY 06/26/23 06/26/23 eye drops Previous Rx's Medication Instructions Recorded aspirin 81 mg tablet,delayed 81 mg PO QAM 30 days #30 tabs 05/15/20 release needle (disp) 32 gauge 32 gauge x #100 ea 05/17/2008/12" hydralazine 100 mg tablet 100 mg PO TID #90 tabs 01/08/21 benzonatate 100 mg capsule 100 mg PO TID PRN Cough #30 caps 07/22/22 Results & Data (ED) Vital Signs Vital Signs - 24 hr 06/26/23 14:37 06/26/23 16:44 06/26/23 16:45 Temperature 36.8 C Temperature Source Temporal Artery Scan Pulse Rate 79 71 71 Pulse Rate [Apical] Pulse Rate from SpO2 Sensor 71 71 Respiratory Rate 17 20 16 Respiratory Effort / Characteristics Respiratory Depth Blood Pressure 204/54 H 209/96 H Blood Pressure [Right Arm] Blood Pressure Mean 104 133 Blood Pressure Mean [Right Arm] Pulse Oximetry 95 95 95 Oxygen Delivery Method Sepsis Recent Fever Within 48 Hours No Sepsis New/Unexplained Change in Mental Status No Sepsis Action Taken by Nursing No Action Required 06/26/23 16:46 06/26/23 16:46 06/26/23 16:46 Temperature Temperature Source Pulse Rate 71 Pulse Rate [Apical] 70 Pulse Rate from SpO2 Sensor Respiratory Rate 20 Respiratory Effort / Characteristics Non-Labored Spontaneous Respiratory Depth Normal Blood Pressure Blood Pressure [Right Arm] 209/96 H Blood Pressure Mean Blood Pressure Mean [Right Arm] 133 Pulse Oximetry 96 96 Oxygen Delivery Method Room Air Room Air Sepsis Recent Fever Within 48 Hours Sepsis New/Unexplained Change in Mental Status Sepsis Action Taken by Nursing 06/26/23 16:50 06/26/23 17:00 06/26/23 17:10 Temperature Temperature Source Pulse Rate 62 64 Pulse Rate [Apical] Pulse Rate from SpO2 Sensor 62 64 Respiratory Rate 19 18 Respiratory Effort / Characteristics Respiratory Depth Blood Pressure 205/85 H Blood Pressure [Right Arm] Blood Pressure Mean 151 Blood Pressure Mean [Right Arm] Pulse Oximetry 97 97 Oxygen Delivery Method Sepsis Recent Fever Within 48 Hours Sepsis New/Unexplained Change in Mental Status Sepsis Action Taken by Nursing 06/26/23 17:15 06/26/23 17:20 06/26/23 17:30 Temperature Temperature Source Pulse Rate 66 65 67 Pulse Rate [Apical] Pulse Rate from SpO2 Sensor 66 64 Respiratory Rate 19 18 19 Respiratory Effort / Characteristics Respiratory Depth Blood Pressure 216/92 H 209/89 H Blood Pressure [Right Arm] Blood Pressure Mean 133 129 Blood Pressure Mean [Right Arm] Pulse Oximetry 96 95 Oxygen Delivery Method Sepsis Recent Fever Within 48 Hours Sepsis New/Unexplained Change in Mental Status Sepsis Action Taken by Nursing 06/26/23 17:40 06/26/23 17:45 06/26/23 17:50 Temperature Temperature Source Pulse Rate 65 67 68 Pulse Rate [Apical] Pulse Rate from SpO2 Sensor Respiratory Rate 21 18 23 Respiratory Effort / Characteristics Respiratory Depth Blood Pressure 204/87 H Blood Pressure [Right Arm] Blood Pressure Mean 126 Blood Pressure Mean [Right Arm] Pulse Oximetry Oxygen Delivery Method Sepsis Recent Fever Within 48 Hours Sepsis New/Unexplained Change in Mental Status Sepsis Action Taken by Nursing 06/26/23 18:00 06/26/23 18:33 06/26/23 18:34 Temperature Temperature Source Pulse Rate 69 72 72 Pulse Rate [Apical] Pulse Rate from SpO2 Sensor 73 72 Respiratory Rate 23 24 14 Respiratory Effort / Characteristics Respiratory Depth Blood Pressure 199/132 H 236/105 H Blood Pressure [Right Arm] Blood Pressure Mean 154 148 Blood Pressure Mean [Right Arm] Pulse Oximetry 94 97 Oxygen Delivery Method Sepsis Recent Fever Within 48 Hours Sepsis New/Unexplained Change in Mental Status Sepsis Action Taken by Nursing 06/26/23 18:43 06/26/23 18:43 06/26/23 18:44 Temperature Temperature Source Pulse Rate 66 66 Pulse Rate [Apical] Pulse Rate from SpO2 Sensor 66 66 Respiratory Rate 17 18 Respiratory Effort / Characteristics Respiratory Depth Blood Pressure 213/107 H Blood Pressure [Right Arm] Blood Pressure Mean 216 142 Blood Pressure Mean [Right Arm] Pulse Oximetry 95 94 Oxygen Delivery Method Sepsis Recent Fever Within 48 Hours Sepsis New/Unexplained Change in Mental Status Sepsis Action Taken by Nursing 06/26/23 18:45 06/26/23 19:00 06/26/23 19:15 Temperature Temperature Source Pulse Rate 68 65 66 Pulse Rate [Apical] Pulse Rate from SpO2 Sensor 67 65 Respiratory Rate 19 20 22 Respiratory Effort / Characteristics Respiratory Depth Blood Pressure 200/82 H 181/89 H 161/71 H Blood Pressure [Right Arm] Blood Pressure Mean 121 119 101 Blood Pressure Mean [Right Arm] Pulse Oximetry 94 93 Oxygen Delivery Method Sepsis Recent Fever Within 48 Hours Sepsis New/Unexplained Change in Mental Status Sepsis Action Taken by Nursing 06/26/23 19:30 06/26/23 19:45 06/26/23 20:00 Temperature Temperature Source Pulse Rate 65 65 64 Pulse Rate [Apical] Pulse Rate from SpO2 Sensor 64 Respiratory Rate 19 14 18 Respiratory Effort / Characteristics Respiratory Depth Blood Pressure 185/68 H 175/84 H 176/93 H Blood Pressure [Right Arm] Blood Pressure Mean 107 114 120 Blood Pressure Mean [Right Arm] Pulse Oximetry 93 Oxygen Delivery Method Sepsis Recent Fever Within 48 Hours Sepsis New/Unexplained Change in Mental Status Sepsis Action Taken by Nursing 06/26/23 20:15 06/26/23 20:30 06/26/23 20:43 Temperature Temperature Source Pulse Rate 64 69 66 Pulse Rate [Apical] Pulse Rate from SpO2 Sensor Respiratory Rate 14 17 Respiratory Effort / Characteristics Respiratory Depth Blood Pressure 192/85 H 223/83 H Blood Pressure [Right Arm] Blood Pressure Mean 120 129 Blood Pressure Mean [Right Arm] Pulse Oximetry Oxygen Delivery Method Sepsis Recent Fever Within 48 Hours Sepsis New/Unexplained Change in Mental Status Sepsis Action Taken by Nursing 06/26/23 20:45 06/26/23 21:00 06/26/23 21:08 Temperature Temperature Source Pulse Rate 66 68 64 Pulse Rate [Apical] Pulse Rate from SpO2 Sensor Respiratory Rate 22 18 Respiratory Effort / Characteristics Respiratory Depth Blood Pressure 201/102 H 207/98 H 207/98 H Blood Pressure [Right Arm] Blood Pressure Mean 135 134 Blood Pressure Mean [Right Arm] Pulse Oximetry Oxygen Delivery Method Sepsis Recent Fever Within 48 Hours Sepsis New/Unexplained Change in Mental Status Sepsis Action Taken by Nursing 06/26/23 21:15 06/26/23 21:30 06/26/23 21:45 Temperature Temperature Source Pulse Rate 71 72 72 Pulse Rate [Apical] Pulse Rate from SpO2 Sensor Respiratory Rate 22 23 20 Respiratory Effort / Characteristics Respiratory Depth Blood Pressure 157/71 H 141/71 H 150/67 H Blood Pressure [Right Arm] Blood Pressure Mean 99 94 94 Blood Pressure Mean [Right Arm] Pulse Oximetry Oxygen Delivery Method Sepsis Recent Fever Within 48 Hours Sepsis New/Unexplained Change in Mental Status Sepsis Action Taken by Nursing 06/26/23 22:11 Temperature Temperature Source Pulse Rate 71 Pulse Rate [Apical] Pulse Rate from SpO2 Sensor Respiratory Rate Respiratory Effort / Characteristics Respiratory Depth Blood Pressure 165/61 H Blood Pressure [Right Arm] Blood Pressure Mean Blood Pressure Mean [Right Arm] Pulse Oximetry Oxygen Delivery Method Sepsis Recent Fever Within 48 Hours Sepsis New/Unexplained Change in Mental Status Sepsis Action Taken by Nursing Laboratory Data 06/26/23 14:50 06/26/23 14:50 Lab Results 06/26/23 06/26/23 06/26/23 Range/Units 14:50 14:54 20:57 WBC 8.32 (4.8-10.8) K/ul RBC 4.54 (4.20-5.40) M/uL Hgb 13.2 (12.0-16.0) g/dl Hct 39.1 (37.0-47.0) % MCV 86.1 (80.0-100.0) fL MCH 29.1 (25.0-34.0) pg MCHC 33.8 (32.0-36.0) g/dL RDW Std Deviation 43.0 (36.4-46.3) fL RDW Coeff of Devyn 13.9 (11.5-14.5) % Plt Count 215 (130-400) K/uL MPV 9.6 (9.4-12.4) fL Immature Gran % (Auto) 0.2 % Neut % (Auto) 67.6 % Lymph % (Auto) 14.7 % [place] % (Auto) 12.4 % Eos % (Auto) 4.1 % Baso % (Auto) 1.0 % Neut # (Auto) 5.63 (1.40-6.50) K/uL Lymph # (Auto) 1.22 (1.20-3.40) K/uL [place] # (Auto) 1.03 H (0.11-0.59) K/uL Eos # (Auto) 0.34 (0.00-0.50) K/uL Baso # (Auto) 0.08 (0.00-0.20) K/uL Immature Gran # (Auto) 0.02 (0.01-0.20) K/uL PT 11.3 (9.0-12.0) Seconds INR 1.0 (0.9-1.1) APTT 29 (21-31) Seconds PTT Ratio 1.0 ABG pH 7.47 H (7.35-7.45) ABG pCO2 37 (35-46) mmHg ABG pO2 101 H (80-95) mmHg ABG HCO3 27 H (19-24) mmol/L ABG O2 Saturation 97.8 H (90-95) % ABG Base Excess 3.2 H (-9-1.8) mEq/L Baudilio Test Pos (Pos) Oxygen Given ROOM AIR Sodium 131 L (136-145) mmol/L Potassium 3.9 (3.5-5.1) mmol/L Chloride 95 L (98-107) mmol/L Carbon Dioxide 25 (21-32) mmol/L Anion Gap 11 (3-11) BUN 19 (6-23) mg/dl Creatinine 0.89 (0.6-1.2) mg/dl Est Cr Clr Drug Dosing 38.6 ml/min Est GFR ( Amer) 68.0 ml/min Est GFR (Non-Af Amer) 58.7 ml/min BUN/Creatinine Ratio 21.3 H (10-20) Glucose 163 H (70-99(Fasting)) mg/dl Calcium 9.6 (8.6-10.3) mg/dl Total Bilirubin 0.5 (0.2-1.0) mg/dl AST 15 (13-39) U/L ALT 14 (7-52) U/L Alkaline Phosphatase 58 (34-104) U/L Total Protein 7.5 (6.0-8.3) gm/dl Albumin 4.6 (3.4-5.0) gm/dl Globulin 2.9 (2.5-4.0) gm/dl Albumin/Globulin Ratio 1.6 (0.9-2) Urine Color Yellow Urine Appearance Clear (Clear) Urine pH 5.5 (4.5-7.5) Ur Specific [place] 1.011 (1.000-1.030) Urine Protein 2+ H (Negative) Urine Glucose (UA) Trace H (Negative) Urine Ketones Negative (Negative) Urine Blood Negative (Negative) Urine Nitrite Negative (Negative) Urine Bilirubin Negative (Negative) Urine Urobilinogen Negative (Negative) Ur Leukocyte Esterase Negative (Negative) Urine WBC (Auto) 1-5 (0-5) /hpf Urine RBC (Auto) 0-4 (0-4) /hpf U Hyaline Cast (Auto) 0 (0-5) /lpf U Epithel Cells (Auto) 5-10 H (0-5) /lpf Urine Bacteria (Auto) Negative (Negative) Administered Medications Discontinued Medications Hydralazine HCl (Hydralazine Hcl 20 Mg/Ml Vial) 5 mg IV NOW ONE Stop: 06/26/23 17:28 Last Admin: 06/26/23 17:34 Dose: 5 mg Documented By: LAUREN Hydralazine HCl (Hydralazine Hcl 20 Mg/Ml Vial) 5 mg IV NOW ONE Stop: 06/26/23 18:48 Last Admin: 06/26/23 18:51 Dose: 5 mg Documented By: LAUREN Labetalol HCl (Labetalol Hcl Iv 5 Mg/Ml 20ml) 10 mg IV NOW STA Stop: 06/26/23 20:43 Last Admin: 06/26/23 21:08 Dose: 10 mg Documented By: LAUREN Co-signed By: NIKKI Imaging Data Radiologist's Impression: Head CT 06/26/23 17:[address] DOSE: 547.75 mGy.cm HISTORY: Altered mental status. TECHNIQUE: Multiaxial CT images of the head were performed without the use of intravenous contrast. Automated exposure control was utilized for this study. A dose lowering technique was utilized adhering to the principles of ALARA. Comparison: Head CT 01/14/2021. Findings: The paranasal sinuses and mastoid air cells are clear. The calvarium and skull base are intact. There is no mass, hematoma, midline shift, acute infarct. White matter hypodensity is nonspecific but suggestive of microvascular ischemic change. The ventricles and sulci demonstrate mild age-related involutional changes. Impression: No significant change compared to the prior study. No acute intracranial abnormality. ACT 112: Negative or not required by law. Electronically signed by: Dave Cano M.D. 06/26/2023 6:30 PM Discharge Plan Visit Data Chief Complaint: Altered Mental Status Stated Complaint: HALLUCINATIONS, POSSIBLE BLADDER INFECTION ED Provider: Vince Carter Discharge Problem: Hallucinations Forms Stand Alone Forms: My [facility] [employer] Prescriptions Prescriptions: No Action escitalopram oxalate 10 mg Tablet 10 mg PO PM mecobalamin (vitamin B12) [B12 Active] 1,000 mcg Tablet,Chewable 1,000 mcg PO DAILY clonidine 0.2 mg/24 hr patch weekly 0.2 mg transdermal Q7D Rx Instructions: Pt replaces patch every Thursday aspirin 81 mg Tablet,Delayed Release (Dr/Ec) 81 mg PO QAM 30 Days Qty: 30 3RF (DME) needle (disp) 32 gauge 32 gauge x 5/16" needle See Rx Instructions .ROUTE .MEDSUPPLY Qty: 100 3RF Rx Instructions: As directed atorvastatin 20 mg Tablet 20 mg PO PM clopidogrel [Plavix] 75 mg Tablet 75 mg PO DAILY insulin glargine [Basaglar KwikPen U-100 Insulin] 100 unit/mL (3 mL) insulin pen 14 unit subcut QAM metoprolol succinate 100 mg tablet extended release 24 hr 100 mg PO DAILY hydralazine 100 mg tablet 100 mg PO TID Qty: 90 0RF latanoprost 0.005 % drops 1 drp ophthalmic (eye) HS benzonatate 100 mg Capsule 100 mg PO TID PRN (Reason: Cough) Qty: 30 0RF dextromethorphan-guaifenesin [Tussin DM] 10-100 mg/5 mL Liquid 10 ml PO Q4H PRN (Reason: Cough) metformin 1,000 mg tablet 1,000 mg PO BID montelukast 10 mg tablet 10 mg PO QAM PRN (Reason: Congestion) fluticasone propionate [Flonase] 50 mcg/actuation [place],Suspension 2 spray INTRANASAL DAILY PRN (Reason: Congestion) Rx Instructions: administer into each nostril Saline Nasal 0.65 % Aerosol,[place] 2 spray INTRANASAL DIRECTED PRN (Reason: Congestion) timolol maleate 0.5 % Drops, Once Daily 1 drp OPB DAILY Daytime and Nighttime Cold 2-5-10-325 mg Tablets, Sequential 1 ea PO DIRECTED PRN (Reason: Cold Symptoms) magnesium oxide 400 mg magnesium Tablet 400 mg PO DAILY losartan 50 mg tablet 50 mg PO DAILY Referrals Referrals: Vince Hook MD [Primary Care Provider] -
[2023-06-26] MEDS: hydrALAZINE HCL 20 MG/ML VIAL IV ONE ×2 (17:34→18:51)
--- NOTE | 2023-06-26 18:33 | CT Scan Report ---
HEAD CT NONCONTRAST CT DOSE: 547.75 mGy.cm HISTORY: Altered mental status. TECHNIQUE: Multiaxial CT images of the head were performed without the use of intravenous contrast. A utomated exposure control was utilized for this study. A dose lowering technique was utilized adheri ng to the principles of ALARA. Comparison: Head CT 01/14/2021. Findings: The paranasal sinuses and mastoid air cells are clear. The calvarium and skull base are int act. There is no mass, hematoma, midline shift, acute infarct. White matter hypodensity is nonspecifi c but suggestive of microvascular ischemic change. The ventricles and sulci demonstrate mild age-rela mark involutional changes. Impression: No significant change compared to the prior study. No acute intracranial abnormality. ACT 112: Negative or not required by law. Electronically signed by: Dave Cano M.D. 06/26/2023 6:30 PM
[2023-06-26 21:05] LABS: Allen Test Pos (Pos); Base Excess ABG 3.2 mEq/L (-9-1.8); HCO3 ABG 27 mmol/L (19-24); Oxygen Saturation ABG 97.8 % (90-95); PCO2 ABG 37 mmHg (35-46); PO2 ABG 101 mmHg (80-95); pH ABG 7.47 (7.35-7.45)
--- NOTE | 2023-06-26 21:06 | History & Physical Report ---
Date of Service June 26, 2023 Assessment & Plan (1) AMS (altered mental status): Plan: 88-year-old female with past medical history significant for type 2 diabetes, hypomagnesemia, hyperlipidemia, congenital hiatal hernia, obstructive sleep apnea on CPAP, history of hypertensive urgency, paroxysmal atrial fibrillation, diastolic dysfunction, LVH, essential tremor, history of hyponatremia, history of TIA, history of anxiety, who lives alone at home and walks with a cane was brought in by daughter because of hallucinations. Since last Thursday patient is seeing people. She was seeing aliens coming from the wall. And seems she was offering food to a little girl sitting on the table while there was no girl. Her granddaughter lives close by and daughter also lives close by. Patient is alert and oriented x 3. Somewhat hard of hearing. Daughter is in the room. Recently she was taking medications for congestion daytime and nighttime cold medications. She did not use her CPAP last night. Patient denies any fevers. Has some runny nose and ticklish throat. No cough. No headache. No dizziness. Vision is not great because of cataracts. Appetite is okay. No difficulty swallowing. No chest pain. Sometimes gets short of breath. No nausea. No abdominal pain. Normal bowel and bladder movements. No rash. Hemodynamics are okay. Altered mental status Visual hallucinations CT head is okay Will follow ABG Labs are okay UA is unremarkable No obvious source of infection Will hold nighttime and daytime cold medications Gentle fluids If not improving will do MRI and neuroconsult Monitor for delirium Hypertensive urgency Could be contributing to her symptoms Continue home clonidine patch, hydralazine, losartan and metoprolol succinate IV hydralazine as needed Close monitor Type 2 diabetes Continue home Lantus Hold metformin Sliding scale Will monitor Questionable A-fib No records as per cardiology notes Will monitor Obstructive sleep apnea CPAP nightly Chronic hyponatremia Sodium 131 today Will follow labs History of TIA On aspirin, Plavix and statin Hyperlipidemia On statin Anxiety On Lexapro Diastolic CHF Monitor for volume overload DVT prophylaxis Heparin subcu Disposition Med/telemetry Full code as per my discussion with the patient History of Present Illness Chief Complaint: Altered mental status Primary Care Provider: Vince Hook MD 88-year-old female with past medical history significant for type 2 diabetes, hypomagnesemia, hyperlipidemia, congenital hiatal hernia, obstructive sleep apnea on CPAP, history of hypertensive urgency, paroxysmal atrial fibrillation, diastolic dysfunction, LVH, essential tremor, history of hyponatremia, history of TIA, history of anxiety, who lives alone at home and walks with a cane was brought in by daughter because of hallucinations. Since last Thursday patient is seeing people. She was seeing aliens coming from the wall. And seems she was offering food to a little girl sitting on the table while there was no girl. Her granddaughter lives close by and daughter also lives close by. Patient is alert and oriented x 3. Somewhat hard of hearing. Daughter is in the room. Recently she was taking medications for congestion daytime and nighttime cold medications. She did not use her CPAP last night. Patient denies any fevers. Has some runny nose and ticklish throat. No cough. No headache. No dizziness. Vision is not great because of cataracts. Appetite is okay. No difficulty swallowing. No chest pain. Sometimes gets short of breath. No nausea. No abdominal pain. Normal bowel and bladder movements. No rash. Hemodynamics are okay. Past medical history. As mentioned above Past surgical history. Right carpal tunnel surgery. Colonoscopy biopsy. Cholecystectomy. Social history. Lives alone. Family is close by. No smoking. No alcohol use. No drug use. Family history. Mother had diabetes. Depression anxiety. Father had heart disorder. Allergies Allergy/AdvReac Type Severity Reaction Status Date / Time amlodipine Allergy Severe SWELLING Verified 06/26/23 18:49 AND FLUSHING mold Allergy Mild SINUS Verified 06/26/23 18:49 DRAINAGE/COUGH hydrochlorothiazide AdvReac Severe hyponatremi Verified 06/26/23 18:49 [From Maxzide] a triamterene [From Maxzide] AdvReac Severe hyponatremi Verified 06/26/23 18:49 a LORENA Inhibitors AdvReac Intermediate COUGH Verified 06/26/23 18:49 Home Medications Medication Instructions Recorded Confirmed Type atorvastatin 20 mg tablet 20 mg PO PM 03/24/18 06/26/23 History clopidogrel 75 mg tablet (Plavix) 75 mg PO DAILY 03/24/18 06/26/23 History escitalopram oxalate 10 mg tablet 10 mg PO PM 05/11/20 06/26/23 History mecobalamin (vitamin B12) 1,000 1,000 mcg PO DAILY 05/11/20 06/26/23 History mcg chewable tablet (B12 Active) clonidine 0.2 mg/24 hr weekly 0.2 mg transdermal Q7D 05/12/20 06/26/23 History transdermal patch aspirin 81 mg tablet,delayed 81 mg PO QAM 30 days #30 tabs 05/15/20 06/26/23 Rx release needle (disp) 32 gauge 32 gauge x #100 ea 05/17/20 07/17/22 Rx 5/16" insulin glargine 100 unit/mL (3 14 unit subcut QAM 01/02/21 06/26/23 History mL) subcutaneous pen (Saray Posadas U-100 Insulin) metoprolol succinate 100 mg 100 mg PO DAILY 01/02/21 06/26/23 History tablet,extended release 24 hr hydralazine 100 mg tablet 100 mg PO TID #90 tabs 01/08/21 06/26/23 Rx latanoprost 0.005 % eye drops 1 drp ophthalmic (eye) HS 07/17/22 06/26/23 History benzonatate 100 mg capsule 100 mg PO TID PRN Cough #30 caps 07/22/22 06/26/23 Rx [id number]-AW-acetaminophen 1 ea PO DIRECTED PRN Cold 06/26/23 06/26/23 History 2 mg-5 mg-10 mg-325mg d/n tablets Symptoms dextromethorphan-guaifenesin 10 10 ml PO Q4H PRN Cough 06/26/23 06/26/23 History mg-100 mg/5 mL oral liquid (Tussin DM) fluticasone propionate 50 2 spray intranasal DAILY PRN 06/26/23 06/26/23 History mcg/actuation nasal Congestion spray,suspension losartan 50 mg tablet 50 mg PO DAILY 06/26/23 06/26/23 History magnesium oxide 400 mg PO DAILY 06/26/23 06/26/23 History metformin 1,000 mg tablet 1,000 mg PO BID 06/26/23 06/26/23 History montelukast 10 mg tablet 10 mg PO QAM PRN Congestion 06/26/23 06/26/23 History sodium chloride 0.65 % nasal spray 2 spray intranasal DIRECTED PRN 06/26/23 06/26/23 History aerosol (Saline Nasal) Congestion timolol maleate 0.5 % once daily 1 drp OPB DAILY 06/26/23 06/26/23 History eye drops Past Med/Surg History Medical History (Updated 06/26/23 @ 22:39 by Vince Carter, DO) Anxiety and depression Parainfluenza Diarrhea Weakness Hypertensive urgency Anxiety SHIVNAI (obstructive sleep apnea) Type 2 diabetes mellitus TIA (transient ischemic attack) DM type 2 (diabetes mellitus, type 2) Dyslipidemia Hyponatremia HTN (hypertension) TIA (transient ischemic attack) Surgical History S/P carpal tunnel release S/P cholecystectomy Family History Other Diabetes Hypertension Social History Smoking Status: Never smoker Second Hand Exposure: No; Do You Dip or Chew Tobacco: No; Hx Alcohol Use: No Hx Substance Use: No Preferred Language: Uzbek Communication Ability: Effective Fusing Machine Tender Required: No Beliefs That Will Affect Care: None marital status: Current Living Situation: Alone Current Living Situation Comment: pt states granddaughter lives "a few houses away" to assist if need be. Other Information That Helps Us Care for You: No Feels Safe at Home: Yes Assistive Devices: Cane, CPAP, Glasses, Hearing Aid - Bilateral and Walker Review of Systems Review of Systems: All systems reviewed & are unremarkable except as noted in HPI & below Physical Exam Physical Exam: General- Not in distress Head- atraumatic Eyes- PERRL. ENT- oropharynx clear Neck- supple, no JVD. Lungs- clear to auscultation no wheezing or crackles Heart- regular rhythm; no murmur, no gallop. Abdomen- normal bowel sounds, soft, nontender, no distension Extremities- no pretibial edema, no erythema seen Neuro- alert, oriented x 3; PERRL, no facial palsy; no dysarthria;obeys commands, motor 5/5 bilaterally;, finger nose test normal Skin- warm & dry Results & Data Results & Data Vital Signs (Past 12 Hours) Vital Signs Temp Pulse Pulse Resp BP BP Pulse Ox 06/26/23 20:43 66 06/26/23 19:30 65 19 185/68 H 06/26/23 19:15 66 22 161/71 H 06/26/23 19:00 65 20 181/89 H 93 06/26/23 18:45 68 19 200/82 H 94 06/26/23 18:44 66 18 213/107 H 94 06/26/23 18:43 66 17 95 06/26/23 18:34 72 14 236/105 H 97 06/26/23 18:33 72 24 94 06/26/23 18:00 69 23 199/132 H 06/26/23 17:50 68 23 06/26/23 17:45 67 18 204/87 H 06/26/23 17:40 65 21 06/26/23 17:30 67 19 209/89 H 06/26/23 17:20 65 18 95 06/26/23 17:15 66 19 216/92 H 96 06/26/23 17:10 64 18 97 06/26/23 17:00 205/85 H 06/26/23 16:50 62 19 97 06/26/23 16:46 71 06/26/23 16:46 70 20 209/96 H 96 06/26/23 16:46 96 06/26/23 16:45 71 16 209/96 H 95 06/26/23 16:44 71 20 95 06/26/23 14:37 36.8 C 79 17 204/54 H 95 O2 Del Method 06/26/23 20:43 06/26/23 19:30 06/26/23 19:15 06/26/23 19:00 06/26/23 18:45 06/26/23 18:44 06/26/23 18:43 06/26/23 18:34 06/26/23 18:33 06/26/23 18:00 06/26/23 17:50 06/26/23 17:45 06/26/23 17:40 06/26/23 17:30 06/26/23 17:20 06/26/23 17:15 06/26/23 17:10 06/26/23 17:00 06/26/23 16:50 06/26/23 16:46 06/26/23 16:46 Room Air 06/26/23 16:46 Room Air 06/26/23 16:45 06/26/23 16:44 06/26/23 14:37 Diagnostic Findings Laboratory Results WBC 8.32 K/ul (4.8-10.8) 06/26/23 14:50 RBC 4.54 M/uL (4.20-5.40) 06/26/23 14:50 Hgb 13.2 g/dl (12.0-16.0) 06/26/23 14:50 Hct 39.1 % (37.0-47.0) 06/26/23 14:50 MCV 86.1 fL (80.0-100.0) 06/26/23 14:50 MCH 29.1 pg (25.0-34.0) 06/26/23 14:50 MCHC 33.8 g/dL (32.0-36.0) 06/26/23 14:50 RDW Std Deviation 43.0 fL (36.4-46.3) 06/26/23 14:50 RDW Coeff of Devyn 13.9 % (11.5-14.5) 06/26/23 14:50 Plt Count 215 K/uL (130-400) 06/26/23 14:50 MPV 9.6 fL (9.4-12.4) 06/26/23 14:50 Immature Gran % (Auto) 0.2 % 06/26/23 14:50 Neut % (Auto) 67.6 % 06/26/23 14:50 Lymph % (Auto) 14.7 % 06/26/23 14:50 [place] % (Auto) 12.4 % 06/26/23 14:50 Eos % (Auto) 4.1 % 06/26/23 14:50 Baso % (Auto) 1.0 % 06/26/23 14:50 Neut # (Auto) 5.63 K/uL (1.40-6.50) 06/26/23 14:50 Lymph # (Auto) 1.22 K/uL (1.20-3.40) 06/26/23 14:50 [place] # (Auto) 1.03 K/uL (0.11-0.59) H 06/26/23 14:50 Eos # (Auto) 0.34 K/uL (0.00-0.50) 06/26/23 14:50 Baso # (Auto) 0.08 K/uL (0.00-0.20) 06/26/23 14:50 Immature Gran # (Auto) 0.02 K/uL (0.01-0.20) 06/26/23 14:50 PT 11.3 Seconds (9.0-12.0) 06/26/23 14:50 INR 1.0 (0.9-1.1) 06/26/23 14:50 APTT 29 Seconds (21-31) 06/26/23 14:50 PTT Ratio 1.0 06/26/23 14:50 Sodium 131 mmol/L (136-145) L 06/26/23 14:50 Potassium 3.9 mmol/L (3.5-5.1) 06/26/23 14:50 Chloride 95 mmol/L (98-107) L 06/26/23 14:50 Carbon Dioxide 25 mmol/L (21-32) 06/26/23 14:50 Anion Gap 11 (3-11) 06/26/23 14:50 BUN 19 mg/dl (6-23) 06/26/23 14:50 Creatinine 0.89 mg/dl (0.6-1.2) 06/26/23 14:50 Est Cr Clr Drug Dosing 38.6 ml/min 06/26/23 14:50 Est GFR ( Amer) 68.0 ml/min 06/26/23 14:50 Est GFR (Non-Af Amer) 58.7 ml/min 06/26/23 14:50 BUN/Creatinine Ratio 21.3 (10-20) H 06/26/23 14:50 Glucose 163 mg/dl (70-99(Fasting)) H 06/26/23 14:50 Calcium 9.6 mg/dl (8.6-10.3) 06/26/23 14:50 Total Bilirubin 0.5 mg/dl (0.2-1.0) 06/26/23 14:50 AST 15 U/L (13-39) 06/26/23 14:50 ALT 14 U/L (7-52) 06/26/23 14:50 Alkaline Phosphatase 58 U/L (34-104) 06/26/23 14:50 Total Protein 7.5 gm/dl (6.0-8.3) 06/26/23 14:50 Albumin 4.6 gm/dl (3.4-5.0) 06/26/23 14:50 Globulin 2.9 gm/dl (2.5-4.0) 06/26/23 14:50 Albumin/Globulin Ratio 1.6 (0.9-2) 06/26/23 14:50 Urine Color Yellow 06/26/23 14:54 Urine Appearance Clear (Clear) 06/26/23 14:54 Urine pH 5.5 (4.5-7.5) 06/26/23 14:54 Ur Specific [place] 1.011 (1.000-1.030) 06/26/23 14:54 Urine Protein 2+ (Negative) H 06/26/23 14:54 Urine Glucose (UA) Trace (Negative) H 06/26/23 14:54 Urine Ketones Negative (Negative) 06/26/23 14:54 Urine Blood Negative (Negative) 06/26/23 14:54 Urine Nitrite Negative (Negative) 06/26/23 14:54 Urine Bilirubin Negative (Negative) 06/26/23 14:54 Urine Urobilinogen Negative (Negative) 06/26/23 14:54 Ur Leukocyte Esterase Negative (Negative) 06/26/23 14:54 Urine WBC (Auto) 1-5 /hpf (0-5) 06/26/23 14:54 Urine RBC (Auto) 0-4 /hpf (0-4) 06/26/23 14:54 U Hyaline Cast (Auto) 0 /lpf (0-5) 06/26/23 14:54 U Epithel Cells (Auto) 5-10 /lpf (0-5) H 06/26/23 14:54 Urine Bacteria (Auto) Negative (Negative) 06/26/23 14:[address] 06/26/23 17:[address] DOSE: 547.75 mGy.cm HISTORY: Altered mental status. TECHNIQUE: Multiaxial CT images of the head were performed without the use of intravenous contrast. Automated exposure control was utilized for this study. A dose lowering technique was utilized adhering to the principles of ALARA. Comparison: Head CT 01/14/2021. Findings: The paranasal sinuses and mastoid air cells are clear. The calvarium and skull base are intact. There is no mass, hematoma, midline shift, acute infarct. White matter hypodensity is nonspecific but suggestive of microvascular ischemic change. The ventricles and sulci demonstrate mild age-related involutional changes. Impression: No significant change compared to the prior study. No acute intracranial abnormality. ACT 112: Negative or not required by law. Electronically signed by: Dave Cano M.D. 06/26/2023 6:30 PM ECG Additional Comments: ECG. Normal sinus rhythm with rate of 73. Left anterior fascicular block. Left ventricular hypertrophy. No significant change was found. Code Status & VTE Plan VTE Prophylaxis Plan VTE Prophylaxis will be ordered: Yes
[2023-06-26] MEDS: LABETALOL HCL IV 5 MG/ML 20ML IV STA (21:08)
[2023-06-26] MEDS ORDERED: SODIUM CHLORIDE 0.65% NA SOLN 45 ML (OCEAN) PRN (23:53)
[2023-06-26] MEDS ORDERED: GLUCOSE 40% GEL 15 GM TUBE PO PRN (23:53)
[2023-06-26] MEDS ORDERED: DEXTROSE 50% 50 ML SYRINGE IV PRN (23:53)
[2023-06-26] MEDS ORDERED: NITROGLYCERIN SL 0.4 MG/TAB TAB SL PRN (23:53)
[2023-06-26] MEDS ORDERED: GLUCAGON FOR INJ 1 MG VIAL SQ PRN (23:53)
[2023-06-26] MEDS ORDERED: FLUTICASONE PROPIONATE NA SPR 16 GM BTL NAE PRN (23:53)
[2023-06-26] MEDS ORDERED: POLYETHYLENE (MIRALAX) 17 GM PACK PO PRN (23:53)
[2023-06-26] MEDS ORDERED: BENZONATATE 100 MG CAPSULE PO PRN (23:53)
[2023-06-26] MEDS ORDERED: CARBOHYDRATES FOR HYPOGLYCEMIA PO PRN (23:53)
[2023-06-26] MEDS ORDERED: GLUCOSE 10 TAB/TUBE PO PRN (23:53)
[2023-06-27] MEDS: ATORVASTATIN 20 MG TAB PO SCH (00:50)
[2023-06-27] MEDS: HEPARIN SOD 5,000 UNIT/0.5 ML VIAL SQ SCH (00:51)
[2023-06-27] MEDS: ESCITALOPRAM OXALATE 10 MG TAB PO SCH (00:51)
[2023-06-27] MEDS: LATANOPROST 0.005% OP SOLN 2.5 ML BTL OP SCH (00:51)
[2023-06-27] MEDS: INSULIN ASPART PER UNIT CHARGE SC SCH (00:51)
[2023-06-27] MEDS: hydrALAZINE TAB 50 MG TAB PO SCH (00:52)
[2023-06-27] MEDS ORDERED: guaiFENesin/DEXTROM SYRUP 200MG/20MG 10ML UDC PO PRN (00:54)
[2023-06-27] MEDS: CHECK CLONIDINE PATCH PLACEMENT SCH (00:55)
[2023-06-27] MEDS: SODIUM CHLORIDE 0.9% 1,000 ML IV SCH (01:05)
--- OUTSIDE RECORDS SUMMARY | 2023-06-27 04:42 | External Medical Summary | Summary of Care ---
Author Name Unknown Organization [facility] Address [address] [facility] [place] [address] Phone [phone] Care Team Providers Care Canvas Worker Apprentice Name Role Phone Ericka Hook MD Primary Care Provider Reason for Visit * Reason Onset Date Comments Medication Refill 03/24/2023 Encounter Details Date Type Department Care Team (Late st Contact Info) Description 03/24/2023 Refill [facility] [address] [place] [address] Ericka Hook MD [address] [place] [address] HTN, goal below 150/90 Allergies Active Allergy Reactions Criticality Noted Date Comments Rafita Inhibitors 11/16/2002 cough Amlodipine Edema Other,Rash 04/05/2015 Hydrochlorothiazide W-Triamterene Other (Please comment) 05/10/2015 Hyponatremia Molds & Smuts Other (Please comment) Low 01/02/2021 documented as of this encounter (statuses as of 03/24/2023) Medications Medication Sig Dispensed Refills Start Date End Date Status ASPIRIN EC LOW STRENGTH TBEC 81 MG ORIndications:DM type 2, not at goal (HCC) one by mouth daily 100 3 12/04/2000 Active PENLET BLOOD SAMPLING PEN MISCIndications:D M type 2, not at goal (HCC) as directed 200 3 01/14/2002 Active LANCETS MISCIndications:D M type 2, not at goal (HCC) once daily 50 11 12/10/2006 Active saline (OCEAN NASAL SPRAY) 0.65 % nasal sprayIndications: Sinus congestion,Dysfun ction of eustachian tube,Allergic rhinitis Administer 2 Sprays into each nostril as needed for Congestion. for nasal dryness or congestion 1 Bottle 5 07/25/2014 Active magnesium chloride ER (SLOW MAG) 535 (64 MG) MG TBCR Take 535 mg by mouth 2 times a day. 0 Active zoster vac recomb adjuvanted (SHINGRIX) 50 MCG injectionIndicati ons:Need for shingles vaccine Inject 0.5 mL into a large muscle now and repeat dose in 60 to 180 days 1 Each 1 10/16/2017 Active Additional Information Patient not taking.Reported on 07/25/2022 TRUEPLUS LANCETS 33G MISC Testing once daily 100 Each 0 11/09/2017 Active Blood Glucose Calibration (TRUE METRIX LEVEL 1) Low SOLN Used to calibrate meter 1 Each 0 12/16/2018 Active Cyanocobalamin (B-12) 1000 MCG TABS Take 1 Tab by mouth daily. 30 Tab 11 11/06/2019 Active BD Pen Needle Short U/F 31G X 8 MM use 1 PEN NEEDLE to inject MEDICATION subcutaneously as directed 0 03/28/2021 Active Losartan Potassium 50 MG Oral Tablet (Cozaar) take 1 tablet by mouth every morning 90 Tablet 3 04/01/2022 Active Clopidogrel Bisulfate 75 MG Oral Tablet (pLAVix) take 1 tablet by mouth once daily 90 Tablet 2 06/16/2022 Active Droplet Pen [place] 31G X 5 MM (Insulin Pen Needle) use with BASAGLAR daily 90 Each 3 07/07/2022 Active Escitalopram Oxalate 10 MG Oral Tablet (Lexapro) take 1 tablet by mouth once daily (MAY TAKE AT BEDTIME) 90 Tablet 2 07/15/2022 Active Doxycycline Hyclate 100 MG Oral Capsule Take 1 Capsule by mouth in the morning and 1 Capsule before bedtime. 0 Active Benzonatate 100 MG Oral Capsule (Tessalon Perles) Take 1 Capsule by mouth 3 times a day as needed. 0 Active Latanoprost 0.005 % Ophthalmic Solution (Xalatan) Instill 1 Drop into both eyes at bedtime. 0 Active Magnesium Oxide -Mg Supplement 400 MG Oral CapsuleIndication s:Hypomagnesemia Take 1 Capsule by mouth daily. 90 Capsule 3 08/06/2022 Active Basaglar KwikPen 100 UNIT/ML Subcutaneous Solution Pen-injector inject 14 units UNDER THE SKIN once daily 15 mL 3 08/06/2022 Active Metoprolol Succinate ER 100 MG Oral Tablet Extended Release 24 Hour (toPROL XL)Indications:HT N, goal below 140/90 take 1 tablet by mouth once daily 90 Tablet 1 09/17/2022 Active True Metrix Blood Glucose Test In Vitro Strip (Glucose Blood) Test blood sugar twice daily as directed E11.9 (using insulin) 200 Strip 3 09/21/2022 Active hydrALAZINE HCl 100 MG Oral TabletIndications :HTN, goal below 150/90 take 1 tablet by mouth three times a day 90 Tablet 5 09/22/2022 Active Azithromycin 250 MG Oral Tablet (Zithromax Z-Luis) Take two tablets by mouth on first day, then 1 tablet daily until gone 6 Tablet 0 01/05/2023 Active Additional Information Patient not taking.Reported on 02/09/2023 Montelukast Sodium 10 MG Oral Tablet (Singulair) Take 1 Tablet by mouth in the morning. 90 Tablet 3 01/05/2023 Active Fluticasone Propionate 50 MCG/ACT Nasal Suspension (Flonase) Administer 2 Sprays into each nostril in the morning. 16 g 1 01/05/2023 Active Atorvastatin Calcium 20 MG Oral Tablet (Lipitor)Indicati ons:Dyslipidemia, goal LDL below 100 take 1 tablet by mouth once daily 90 Tablet 1 01/26/2023 Active Timolol Maleate (Once-Daily) 0.5 % Ophthalmic Solution (Istalol) INSTILL 1 DROP INTO BOTH EYES EVERY MORNING 0 02/01/2023 Active True Metrix Meter DeviceIndications :Type 2 diabetes mellitus with hemoglobin A1c goal of less than 8.0% (HCC) Use to test blood sugar up to 2 times daily dx e11.9 1 Each 0 02/09/2023 Active metFORMIN HCl 1000 MG Oral Tablet (Glucophage) take 1 tablet by mouth twice a day WITH MORNING AND EVENING MEALS 180 Tablet 1 02/20/2023 Active cloNIDine 0.2 MG/24HR Transdermal Patch Weekly (Catapres-Tts- 2)Indications:HTN , goal below 150/90 apply 1 patch every WEEK 4 Patch 5 03/24/2023 Active cloNIDine 0.2 MG/24HR Transdermal Patch Weekly (Catapres-Tts- 2)Indications:HTN , goal below 150/90 apply 1 patch every WEEK 4 Patch 5 09/22/2022 03/24/20 23 Discontinu ed(Refill) documented as of this encounter (statuses as of 03/24/2023) Active Problems Problem Noted Date Diagnosed Date Hospital discharge follow-up 06/11/2020 Diastolic dysfunction 06/11/2020 LVH (left ventricular hypertrophy) 06/11/2020 Mild mitral regurgitation 06/11/2020 Type 2 diabetes mellitus with chronic kidney dis ease 10/26/2019 Paroxysmal atrial fibrillation 10/04/2018 Essential tremor 09/24/2016 SHIVANI on CPAP 08/08/2016 Overview: APAP 5-15 cwp [facility] Oxygen Anxiety state 07/18/2016 HTN, goal below 150/90 06/05/2015 Hypertensive urgency 04/23/2015 Hypomagnesemia 04/23/2015 Hyponatremia 04/23/2015 Dyslipidemia, goal LDL below 100 04/23/2015 History of TIA (transient ischemic attack) 04/23 Type 2 diabetes mellitus wit h hemoglobin A1c goal of less than 8.0% 10/09/2014 Overview: ICD-10 update of inactive term Allergic rhinitis 07/25/2014 Congenital hiatus hernia 01/30/2010 Other specified forms of hearing loss 01/30/2010 Temporomandibular joint disorders, unspecified 1 04/01/2009 ADVANCE DIRECTIVE INFORMATION 09/23/2004 Overview: No, Advance Directive brochure given to patient at prior appointment. Myalgia and myositis documented as of this encounter (statuses as of 03/24/2023) Resolved Problems Problem Noted Date Diagnosed Date Resolved Date Stage 3 chronic kidney disease 04/26/2019 07/25/2022 Bronchitis, complicated 06/12/201502/28 Viral URI with cough 06/12/2015 017 Mixed rhinitis 06/12/2015 03/27/2017 Sinus congestion 07/25/2014 03/27/2017 Dysfunction of eustachian tube 07/25/2014 03/27/2017 HTN, goal below 140/90 05/29/201406/04 Type II or unspecified type diabetes mellitus without mention of complication, not stated as uncontrolled 12/27/2013 10/09/2014 UTI (urinary tract infection) 07/22/2012 03/27/2017 HTN, goal below 140/80 11/17/201105/29 Overview: Per HTN Protocol #27. Dysphagia, pharyngoesophageal phase 01/30/2010 03/27/2017 HTN, GOAL BELOW 130/80 04/25/200911/19 Overview: Per HTN Taxonomy. Dyslipidemia, goal LDL below 100 03/08/2009 04/23/2015 Overview: Per Lipid Taxonomy. Type 2 diabetes mellitus wit h hemoglobin A1c goal of less than 7.0% 01/25/2009 07/08/2013 Overview: Per Diabetes Taxonomy. ICD-10 update of inactive term Cough 05/25/2008 03/27/2017 Allergic rhinitis 05/25/2008 07/25/2014 Dysfunction of eustachian tube 05/25/2008 07/25/2014 Benign neoplasm of colon 12/31/2006 Overview: hyperplastic polyps--repeat 3 years HTN, goal below 140/90 05/13/200104/25 Overview: Per HTN Taxonomy. HYPERTENSION NOS 02/02/2009 Overview: Per HTN Taxonomy Dyslipidemia, goal to be determined 03/08/2009 Overview: Per Lipid Taxonomy. Type 2 diabetes mellitus wit h hemoglobin A1c goal of less than 7.0% 01/25/2009 Overview: Per Diabetes Taxonomy. ICD-10 update of inactive term documented as of this encounter (statuses as of 03/24/2023) Immunizations Name Administration Dates Next Due Pneumococcal Conjugate Vacc, 13 Valent (Prevnar) 10/09/2014 Pneumococcal Polysaccharide PPV23 (Pneumovax) 12/14/2007 Season Influenza, Quad, PF, Adjuvanted, 65+ Yrs, IM (FLUAD) 01/25/2020 Seasonal Influenza, PF, 6 M & above, IM , (FluLaval or Fluzone) 01/18/2018,02/27/2017 Seasonal Influenza, Quadriva lent Hd (Fluzone Hd) 02/09/2023,01/28/2022 Seasonal Influenza, Quadriva lent, No Preserve, IM 05/06/2016,02/16/2015 Seasonal Influenza, Split, I IV3, With Preserve, Inj 01/30/2014,03/02/2012,01/17/2011,01/14,02/19/2009,02/11/2008,01/28/2007 ,01/16/2006 Seasonal Influenza, Trivalen t, Adjuvanted, 65+ yrs 01/02/2021,02/15/2019 TD, Preservative Free 12/14/2007 TDAP (age 10 and older)(Boostrix) 10/16/2017 documented as of this encounter Social History Tobacco Use Types Packs/Day Years Used Date Smoking Tobacco: Never Smokeless Tobacco: Never Comments:no passive smoke Alcohol Use Standard Drinks/Week Comments No 0 (1 standard drink = 0.6 oz pur e alcohol) PHQ-2 Answer Date Recorded PHQ-2 Score 0 10/26/2019 Hunger Vital Sign Answer Date Recorded Within the past 12 months, y ou worried that your food would run out before you got the money to buy more. Never true 07/26/19 23 Within the past 12 months, t he food you bought just didn't last and you didn't have money to get more. Never true 07/25/2022 Sex and Gender Information Value Date Recorded Sex Assigned at Female 10/04/2018 10:45 AM EDT Gender Identity Female 10/04/2018 10:45 AM EDT Sexual Orientation Straight 10/04/2018 10 :45 AM EDT Job Start Date Occupation Industry Not on file Not on file Not on file documented as of this encounter Miscellaneous Notes * Telephone Encounter - Ericka Hook MD - 03/24/2023 4:09 PM ESTSigned Prescriptions: Disp Refills cloNIDine 0.2 MG/24HR Transdermal Patch We*4 Patch5 Sig: apply 1 patch every WEEK Authorizing Provider: ERICKA HOOK * Telephone Encounter - Jose Linton, fashion director party plan sales - 03/24/2023 2:57 PM EST Pt is out of medication Did you pend patient's preferred pharmacy and medication before forwarding?yes Pharmacy: [id number] Pending Prescriptions: Disp Refills cloNIDine 0.2 MG/24HR Transdermal Patch W*4 Patch5 Sig: apply 1 patch every WEEK Last Visit: 02/09/2023 (in office), Visit date not found (telemedicine) Next Visit: 08/10/2023 If no future appointments scheduled, and last appointment is greater than a year ago, please schedule patient for a follow-up appointment Last date the medication was ordered: 09/22/2022 Is this request for a controlled substance?No Urine Drug Screen:No results found for this or any previous visit. Patient Phone Numbers Labs: Lab Results Component Value Date/Time CREAT 0.9 01/02/2023 10:03 AM CREAT 0.9 10/26/2019 03:13 PM POTASSIUM 4.6 01/02/2023 10:03 AM POTASSIUM 4.3 10/26/2019 03:13 PM POTASSIUM 4.3 07/01/1996 08:30 AM TSH 1.63 07/18/2016 03:08 PM LDLCALC UNINTERPRETABLE RESULT 10/04/2018 11:54 AM LDLCALC 161. (HH) 07/01/1996 08:30 AM LDLDIRECT 51 02/12/2023 12:24 PM LDLDIRECT 57 10/26/2019 03:13 PM ALT 23 01/20/2022 10:40 AM ALT 29 10/26/2019 03:13 PM HGBA1C 7.5 (H) 02/12/2023 12:24 PM HGBA1C 7.4 (H) 10/26/2019 03:13 PM documented in this encounter Plan of Treatment Upcoming Encounters Date Type Department Care Team (Late st Contact Info) Description 04/21/2023 11:40 AM EST Office Visit Nephrology, [facility] [address] [place] [address] MichelleNicol howard MD [address] [place] [address] 08/10/2023 12:20 PM EDT Office Visit [facility] [address] [place] [phone] Ericka Hook MD [address] [place] [address] 02/15/2024 2:00 PM EST Imaging Radiology [address] [facility] [facility] [place] [address] Health Maintenance Due Date Last Done Comments COVID-19 Vaccine (#1) 1935 Zoster Vaccines (1 of 2) 1987 DXA Scan 01/30/2012 01/29/2010, 04/2009, 12/21/2007, Additional history exists Depression Screening 10/25/2020 10/26/2019 Influenza Vaccine (FLU shot) Completed , 01/28/2022, 01/08/2021, Additional history exists documented as of this encounter Medical Devices Not on filedocumented as of this encounter Visit Diagnoses Diagnosis HTN, goal below 150/90 documented in this encounter Care Teams Canvas Worker Apprentice Relationship Specialty Start Date End Date Ericka Hook MD [address] [place] [address], [place] [phone] PCP - General 08/27/00 documented as of this encounter
--- OUTSIDE RECORDS SUMMARY | 2023-06-27 04:42 | External Medical Summary | Summary of Care ---
Author Name Unknown Organization [facility] Address [address] [facility] [address] Phone [phone] Care Team Providers Care Certified Lactation Educator Name Role Phone Ericka Hook MD Primary Care Provider Reason for Visit * Reason Onset Date Comments Medication Refill 03/31/2023 Encounter Details Date Type Department Care Team (Late st Contact Info) Description 03/31/2023 Refill [facility] [address] [place] [address] Ericka Hook MD [address] [place] [address] Encounter for long-term (current) use of medications* Allergies Active Allergy Reactions Criticality Noted Date Comments Rafita Inhibitors 11/16/2002 cough Amlodipine Edema Other,Rash 04/05/2015 Hydrochlorothiazide W-Triamterene Other (Please comment) 05/10/2015 Hyponatremia Molds & Smuts Other (Please comment) Low 01/02/2021 documented as of this encounter (statuses as of 03/31/2023) Medications Medication Sig Dispensed Refills Start Date End Date Status ASPIRIN EC LOW STRENGTH TBEC 81 MG ORIndications:DM type 2, not at goal (HCC) one by mouth daily 100 3 12/04/2000 Active PENLET BLOOD SAMPLING PEN MISCIndications:DM type 2, not at goal (HCC) as directed 200 3 01/14/2002 Active LANCETS MISCIndications:DM type 2, not at goal (HCC) once daily 50 11 12/10/2006 Active saline (OCEAN NASAL SPRAY) 0.65 % nasal sprayIndications:S inus congestion,Dysfunc tion of eustachian tube,Allergic rhinitis Administer 2 Sprays into each nostril as needed for Congestion. for nasal dryness or congestion 1 Bottle 5 07/25/2014 Active magnesium chloride ER (SLOW MAG) 535 (64 MG) MG TBCR Take 535 mg by mouth 2 times a day. 0 Active zoster vac recomb adjuvanted (SHINGRIX) 50 MCG injectionIndicatio ns:Need for shingles vaccine Inject 0.5 mL into [...] mouth daily. 30 Tab 11 11/06/2019 Active Doxycycline Hyclate 100 MG Oral Capsule Take 1 Capsule by mouth in the morning and 1 Capsule before bedtime. 0 Active Benzonatate 100 MG Oral Capsule (Tessalon Perles) Take 1 Capsule by mouth 3 times a day as needed. 0 Active Latanoprost 0.005 % Ophthalmic Solution (Xalatan) Instill 1 Drop into both eyes at bedtime. 0 Active Azithromycin 250 MG Oral Tablet (Zithromax Z-Luis) Take two tablets by mouth on first day, then 1 tablet daily until gone 6 Tablet 0 01/05/2023 Active Additional Information Patient not taking.Reported on 02/09/2023 Timolol Maleate (Once-Daily) 0.5 % Ophthalmic Solution (Istalol) INSTILL 1 DROP INTO BOTH EYES EVERY MORNING 0 02/01/2023 Active True Metrix Meter DeviceIndications: Type 2 diabetes mellitus with hemoglobin A1c goal of less than 8.0% (HCC) Use to test blood sugar up to 2 times daily dx e11.9 1 Each 0 02/09/2023 Active Atorvastatin Calcium 20 MG Oral Tablet (Lipitor)Indicatio ns:Dyslipidemia, goal LDL below 100 Take 1 Tablet by mouth in the morning. 90 Tablet 0 03/25/2023 Active Basaglar KwikPen 100 UNIT/ML Subcutaneous Solution Pen-injector Inject 14 units under the skin once daily 15 mL 1 03/25/2023 Active Fluticasone Propionate 50 MCG/ACT Nasal Suspension (Flonase) Administer 2 Sprays into each nostril in the morning. 16 g 0 03/25/2023 Active Magnesium Oxide -Mg Supplement 400 MG Oral CapsuleIndications :Hypomagnesemia Take 1 Capsule by mouth daily. 90 Capsule 0 03/25/2023 Active metFORMIN HCl 1000 MG Oral Tablet (Glucophage) take 1 tablet by mouth twice a day WITH MORNING AND EVENING MEALS 180 Tablet 0 03/25/2023 Active Montelukast Sodium 10 MG Oral Tablet (Singulair) Take 1 Tablet by mouth in the morning. 90 Tablet 2 03/25/2023 Active cloNIDine 0.2 MG/24HR Transdermal Patch Weekly (Catapres-Tts- 2)Indications:HTN, goal below 150/90 apply 1 patch every WEEK 4 Patch 5 03/24/2023 Active Droplet Pen [place] 31G X 5 MM (Insulin Pen Needle) use with BASAGLAR daily 100 Each 3 03/25/2023 Active Escitalopram Oxalate 10 MG Oral Tablet (Lexapro) take 1 tablet by mouth once daily (MAY TAKE AT BEDTIME) 90 Tablet 3 03/25/2023 Active hydrALAZINE HCl 100 MG Oral TabletIndications: HTN, goal below 150/90 Take 1 Tablet by mouth in the morning and 1 Tablet at noon and 1 Tablet before bedtime. 90 Tablet 5 03/25/2023 Active Losartan Potassium 50 MG Oral Tablet (Cozaar) Take 1 Tablet by mouth in the morning. 90 Tablet 1 03/25/2023 Active Metoprolol Succinate ER 100 MG Oral Tablet Extended Release 24 Hour (toPROL XL)Indications:HTN , goal below 140/90 Take 1 Tablet by mouth in the morning. 90 Tablet 1 03/25/2023 Active True Metrix Blood Glucose Test In Vitro Strip (Glucose Blood) Test blood sugar twice daily as directed E11.9 (using insulin) 200 Strip 3 03/25/2023 Active Clopidogrel Bisulfate 75 MG Oral Tablet (pLAVix) Take 1 Tablet by mouth in the morning. 90 Tablet 0 03/31/2023 Active Clopidogrel Bisulfate 75 MG Oral Tablet (pLAVix) take 1 tablet by mouth once daily 90 Tablet 2 06/16/2022 Discontinue d(Refill) documented as of this encounter (statuses as of 03/31/2023) Active Problems Problem Noted Date Diagnosed Date [...] as of this encounter (statuses as of 03/31/2023) Resolved Problems Problem Noted Date Diagnosed Date [...] as of this encounter (statuses as of 03/31/2023) Immunizations Name Administration Dates Next Due Pneumococcal [...] encounter Miscellaneous Notes * Telephone Encounter - Meme De Guzman, gas producer - 03/31/2023 11:33 AM EST Received message from [facility] regarding patient needing labs. Placed call to patient to advise. Left message on voicemail advising of required labs Thank you, Meme De Guzman Driver Manager [facility] 03/31/2023, 11:33 AM * Telephone Encounter - Clemencia Caro [facility] - 03/31/2023 11:06 AM EST Signed Prescriptions: Disp Refills Clopidogrel Bisulfate 75 MG Oral Tablet (p*90 Tab*0 Sig: Take 1 Tablet by mouth in the morning. Authorizing Provider: ERICKA HOOK Ordering User: CLEMENCIA CARO * Telephone Encounter - Clemencia Caro [facility] - 03/31/2023 11:05 AM EST Provided 90 days supply with 0 refill(s). Per refill protocol patient should have CBC on file within past year. Reviewed AMP report, Care Gaps/Health Maintenance, medications list, and for any routine labs typically ordered for this patient. Lab orders placed. Please contact patient to advise of labs ordered for blood draw. Fasting is not required. Advise toobtain labs before requesting the next refill. Thanks, Clemencia Caro [facility] Clinical Pharmacist [facility] [phone] * Telephone Encounter - Azul Lee CPhT - 03/31/2023 10:45 AM EST Pt is out. Did you pend patient's preferred pharmacy and medication before forwarding?yes Pharmacy: [id number] [facility] Pending Prescriptions: Disp Refills Clopidogrel Bisulfate 75 MG Oral Tablet (*90 Tab*2 Sig: Take 1 Tablet by mouth in the morning. Last Visit: 02/09/2023 (in office), Visit date not found (telemedicine) Next Visit: 08/10/2023 If no future appointments scheduled, and last appointment is greater than a year ago, please schedule patient for a follow-up appointment Last date the medication was ordered: 06/16/22 Is this request for a controlled substance?No [...] EST Office Visit Nephrology, [facility] [address] [place] [address] Nicol Michelle MD [address] [place] [address] 08/10/2023 12:20 PM EDT Office Visit [address] [place] [address] Ericka Hook MD [address] [place] [address] 02/15/2024 2:00 PM EST Imaging Radiology [address], [address] [place] [address] Scheduled Orders Name Type Priority Associated Diagnoses Orde r Schedule CBC Lab Routine Encounter for long-term (current) use of medications Expected: 04/07/2023 (Approximate), Expires: 03/31/2024 Health Maintenance Due Date Last Done Comments COVID-19 Vaccine (#1) 1935 Zoster Vaccines (1 of 2) 1987 DXA Scan 01/30/2012 01/29/2010, 04/2009, 12/21/2007, Additional history exists Depression Screening 10/25/2020 10/26/2019 Influenza Vaccine (FLU shot) Completed , 01/28/2022, 01/08/2021, Additional history exists documented as of this encounter Medical Devices Not on filedocumented as of this encounter Visit Diagnoses Diagnosis Encounter for long-term (current) use of medications- Primary Encounter for long-term (current) use of other medications documented in this encounter Care Teams Certified Lactation Educator Relationship Specialty Start Date End Date Ericka Hook MD [address] [place] [address] PCP - General 08/27/00 documented as of this encounter
--- OUTSIDE RECORDS SUMMARY | 2023-06-27 04:42 | External Medical Summary | Summary of Care ---
Author Name Unknown Organization [facility] Address [address] [place] [facility] [facility] [place] [address] Phone [phone] Care Team Providers Care Medication Specialist Name Role Phone Vince Hook MD Primary Care Provider Reason for Visit * Reason Onset Date Comments Medication Problem 06/15/2023 Fluticasone p ropionate nasal spray Encounter Details Date Type Department Care Team (Late st Contact Info) Description 06/15/2023 Telephone [facility] [address] [place] [address] Vince Hook MD [address] [place] [address] Medication Problem (Fluticasone propionate... Allergies Active Allergy Reactions Criticality Noted Date Comments Rafita Inhibitors 11/16/2002 cough Amlodipine Edema Other,Rash 04/05/2015 Hydrochlorothiazide W-Triamterene Other (Please comment) 05/10/2015 Hyponatremia Molds & Smuts Other (Please comment) Low 01/02/2021 documented as of this encounter (statuses as of 06/15/2023) Medications Medication Sig Dispensed Refills Start Date [...] saline (OCEAN NASAL SPRAY) 0.65 % nasal sprayIndications:Si nus congestion,Dysfunct ion of eustachian tube,Allergic rhinitis Administer 2 Sprays into each nostril as needed for Congestion. for nasal dryness or congestion 1 Bottle 5 07/25/2014 Active magnesium chloride ER (SLOW MAG) 535 (64 MG) MG TBCR Take 535 mg by mouth 2 times a day. 0 Active zoster vac recomb adjuvanted (SHINGRIX) 50 MCG injectionIndication s:Need for shingles vaccine Inject 0.5 mL into [...] MORNING 0 02/01/2023 Active True Metrix Meter DeviceIndications:T ype 2 diabetes mellitus with hemoglobin A1c goal of less than 8.0% ([facility]) Use to test blood sugar up to 2 times daily dx e11.9 1 Each 0 02/09/2023 Active Atorvastatin Calcium 20 MG Oral Tablet (Lipitor)Indication s:Dyslipidemia, goal LDL below 100 Take 1 Tablet by mouth in the morning. 90 Tablet 0 03/25/2023 Active Basaglar KwikPen 100 UNIT/ML Subcutaneous Solution Pen-injector Inject 14 units under the skin once daily 15 mL 1 03/25/2023 Active Magnesium Oxide -Mg Supplement 400 MG Oral CapsuleIndications: Hypomagnesemia Take 1 Capsule by mouth daily. 90 [...] 4 Patch 5 03/24/2023 Active Droplet Pen Kamas 31G X 5 MM (Insulin Pen Needle) use with BASAGLAR daily 100 Each 3 03/25/2023 Active Escitalopram Oxalate 10 MG Oral Tablet (Lexapro) take 1 tablet by mouth once daily (MAY TAKE AT BEDTIME) 90 Tablet 3 03/25/2023 Active hydrALAZINE HCl 100 MG Oral TabletIndications:H TN, goal below 150/90 Take 1 Tablet by mouth in the morning and 1 Tablet at noon and 1 Tablet before bedtime. 90 Tablet 5 03/25/2023 Active Losartan Potassium 50 MG Oral Tablet (Cozaar) Take 1 Tablet by mouth in the morning. 90 Tablet 1 03/25/2023 Active Metoprolol Succinate ER 100 MG Oral Tablet Extended Release 24 Hour (toPROL XL)Indications:HTN, goal below 140/90 Take 1 Tablet by mouth in the morning. 90 Tablet 1 03/25/2023 Active True Metrix Blood Glucose Test In Vitro Strip (Glucose Blood) Test blood sugar twice daily as directed E11.9 (using insulin) 200 Strip 3 03/25/2023 Active Clopidogrel Bisulfate 75 MG Oral Tablet (pLAVix) Take 1 Tablet by mouth in the morning. 90 Tablet 0 03/31/2023 Active Fluticasone Propionate 50 MCG/ACT Nasal Suspension (Flonase) USE 2 SPRAYS IN EACH NOSTRIL EVERY MORNING 16 g 5 04/20/2023 Active documented as of this encounter (statuses as of 06/15/2023) Active Problems Problem Noted Date Diagnosed Date [...] as of this encounter (statuses as of 06/15/2023) Resolved Problems Problem Noted Date Diagnosed Date [...] as of this encounter (statuses as of 06/15/2023) Immunizations Name Administration Dates Next Due Pneumococcal [...] encounter Miscellaneous Notes * Telephone Encounter - Belen Márquez LPN - 06/15/2023 3:23 PM EDT Notified pt of the recall of Fluticasone propionate nasal spray. Pt stated she had received a letter informing her of the recall. documented in this encounter Plan of Treatment Upcoming Encounters Date Type Department Care Team (Late st Contact Info) Description 08/10/2023 12:20 PM EDT Office Visit [facility] [address] [place] [phone] Vince Hook MD [address] [place] [phone] 02/15/2024 2:00 PM EST Imaging Radiology [facility] [address] [facility], [place] [address] [facility] [place] [address] Health Maintenance Due Date Last Done Comments Zoster Vaccines (1 of 2) 1987 DXA Scan 01/30/2012 01/29/2010, 04/2009, 12/21/2007, Additional history exists Depression Screening 10/25/2020 10/26/2019 COVID-19 Vaccine (2022-2 4 season) 2022 Influenza Vaccine (FLU shot) Completed , 01/28/2022, 01/08/2021, Additional history exists documented as of this encounter Medical Devices Not on filedocumented as of this encounter Care Teams Medication Specialist Relationship Specialty Start Date End Date Vince Hook MD [address] [place] [id number] PCP - General 08/27/00 documented as of this encounter
--- OUTSIDE RECORDS SUMMARY | 2023-06-27 04:42 | External Medical Summary | Summary of Care ---
Author Name Unknown Organization [facility] Address [address] [place] [facility] [place] [address] Phone [phone] Care Team Providers Care Cryptoanalysis Teacher Name Role Phone Ericka Hook MD Primary Care Provider Reason for Visit * Reason Onset Date Comments Medication Refill 03/24/2023 Encounter Details Date Type Department Care Team (Late st Contact Info) Description 03/24/2023 Refill [facility] [address] [place] [address] Ericka Hook MD [address] [place] [address] Dyslipidemia, goal LDL below 100; Hypomagnesemia Allergies Active Allergy Reactions Criticality Noted Date Comments Rafita Inhibitors 11/16/2002 cough Amlodipine Edema Other,Rash 04/05/2015 Hydrochlorothiazide W-Triamterene Other (Please comment) 05/10/2015 Hyponatremia Molds & Smuts Other (Please comment) Low 01/02/2021 documented as of this encounter (statuses as of 03/25/2023) Medications Medication Sig Dispensed Refills Start Date [...] mouth daily. 30 Tab 11 11/06/2019 Active Clopidogrel Bisulfate 75 MG Oral Tablet (pLAVix) take 1 tablet by mouth once daily 90 Tablet 2 06/16/2022 Active Doxycycline Hyclate 100 MG Oral Capsule Take 1 Capsule by mouth in the morning and 1 Capsule before bedtime. 0 Active Benzonatate 100 MG Oral Capsule (Tessalon Perles) Take 1 Capsule by mouth 3 times a day as needed. 0 Active Latanoprost 0.005 % Ophthalmic Solution (Xalatan) Instill 1 Drop into both eyes at bedtime. 0 Active hydrALAZINE HCl 100 MG Oral TabletIndications: HTN, goal below 150/90 take 1 tablet by [...] hemoglobin A1c goal of less than 8.0% ([facility]) Use to test blood sugar up to [...] the morning. 90 Tablet 2 03/25/2023 Active Magnesium Oxide -Mg Supplement 400 MG Oral CapsuleIndications :Hypomagnesemia Take 1 Capsule by mouth daily. 90 Capsule 3 08/06/2022 3 Discontinue d(Refill) Basaglar KwikPen 100 UNIT/ML Subcutaneous Solution Pen-injector inject 14 units UNDER THE SKIN once daily 15 mL 3 08/06/2022 3 Discontinue d(Refill) Montelukast Sodium 10 MG Oral Tablet (Singulair) Take 1 Tablet by mouth in the morning. 90 Tablet 3 01/05/2023 3 Discontinue d(Refill) Fluticasone Propionate 50 MCG/ACT Nasal Suspension (Flonase) Administer 2 Sprays into each nostril in the morning. 16 g 1 01/05/2023 3 Discontinue d(Refill) Atorvastatin Calcium 20 MG Oral Tablet (Lipitor)Indicatio ns:Dyslipidemia, goal LDL below 100 take 1 tablet by mouth once daily 90 Tablet 1 01/26/2023 3 Discontinue d(Refill) metFORMIN HCl 1000 MG Oral Tablet (Glucophage) take 1 tablet by mouth twice a day WITH MORNING AND EVENING MEALS 180 Tablet 1 02/20/2023 3 Discontinue d(Refill) documented as of this encounter (statuses as of 03/25/2023) Active Problems Problem Noted Date Diagnosed Date [...] as of this encounter (statuses as of 03/25/2023) Resolved Problems Problem Noted Date Diagnosed Date [...] as of this encounter (statuses as of 03/25/2023) Immunizations Name Administration Dates Next Due Pneumococcal [...] encounter Miscellaneous Notes * Telephone Encounter - Amelia Cleveland, [facility] - 03/25/2023 12:23 PM ESTSigned Prescriptions: Disp Refills Atorvastatin Calcium 20 MG Oral Tablet (Li*90 Tab*0 Sig: Take 1 Tablet by mouth in the morning.Authorizing Provider: ERICKA HOOK User: WILCHA, AMELIA M Basaglar KwikPen 100 UNIT/ML Subcutaneous *15 mL 1 Sig: Inject 14 units under the skin once dailyAutho rizing Provider: ERICKA HOOK User: AMELIA CLEVELAND Fluticasone Propionate 50 MCG/ACT Nasal Arboleda*16 g 0 Sig: Administer 2 Sprays into each nostril in the morning.Authorizing Provider: Reny HUMPHREYS User: AMELIA CLEVELAND Magnesium Oxide -Mg Supplement 400 MG Oral*90 Cap*0 Sig: Take 1 Capsule by mouth daily.Authorizing Provider: ERICKA HOOK User: AMELIA CLEVELAND metFORMIN HCl 1000 MG Oral Tablet (Glucoph*180 Ta*0 Sig: take 1 tablet by mouth twice a day WITH MORNING ANDEVENING MEALSAuthorizing Provider: ERICKA HOOK User: AMELIA CLEVELAND Montelukast Sodium 10 MG Oral Tablet (Sing*90 Tab*2 Sig: Take 1 Tablet by mouth in the morning.Authorizing Provider: Reny HUMPHREYS User: AMELIA CLEVELAND * Telephone Encounter - Amelia Cleveland RP - 03/25/2023 12:19 PM EST Rerouted remaining refills to new pharmacy as requested. Thank you, Amelia Cleveland, [facility] Clinical Pharmacist [facility] ([facility]) 03/25/23 12:19 PM [phone] * Telephone Encounter - Jose Linton PHARM Tech - 03/24/2023 2:49 PM EST Please reroute Rx to [id number] [address] Pending Prescriptions: Disp Refills Atorvastatin Calcium 20 MG Oral Tablet (L*90 Tab*1 Sig: Take 1 Tablet by mouth in the morning. Basaglar KwikPen 100 UNIT/ML Subcutaneous*15 mL 1 Sig: Inject 14 units under the skin once daily Fluticasone Propionate 50 MCG/ACT Nasal S*16 g 1 Sig: Administer 2 Sprays into each nostril in the morning. Magnesium Oxide -Mg Supplement 400 MG Ora*90 Cap*1 Sig: Take 1 Capsule by mouth daily. metFORMIN HCl 1000 MG Oral Tablet (Glucop*180 Ta*1 Sig: take 1 tablet by mouth twice a day WITH MORNING AND EVENING MEALS Montelukast Sodium 10 MG Oral Tablet (Sin*90 Tab*3 Sig: Take 1 Tablet by mouth in the morning. Last Visit: 02/09/2023 (in office), Visit date not found (telemedicine) 08/10/2023 If no future appointments scheduled, and last appointment is greater than a year ago, please schedule patient for a follow-up appointment Last date the medication was ordered: 01/26/2023, 08/06/2022, 01/05/2023, 08/06/2022, 02/20/2023, 01/05/2023 Patient Phone Numbers Labs: Lab Results Component [...] Visit Nephrology, [facility] [address] [place] [address] Nicol Michelle MD [address] [facility] [place] [address] 08/10/2023 12:20 PM EDT Office Visit [facility] [place] [address] [facility] [address] Ericka Hook MD [address] [place] [address] 02/15/2024 2:00 PM EST Imaging Radiology [address], [place] [address] [facility] [place] [address] Health Maintenance Due Date Last Done Comments COVID-19 Vaccine (#1) 1935 Zoster Vaccines (1 of 2) 1987 DXA Scan 01/30/2012 01/29/2010, 04/2009, 12/21/2007, Additional history exists Depression Screening 10/25/2020 10/26/2019 Influenza Vaccine (FLU shot) Completed , 01/28/2022, 01/08/2021, Additional history exists documented as of this encounter Medical Devices Not on filedocumented as of this encounter Visit Diagnoses Diagnosis Dyslipidemia, goal LDL below 100 Other and unspecified hyperlipidemia Hypomagnesemia Disorders of magnesium metabolism documented in this encounter Care Teams Cryptoanalysis Teacher Relationship Specialty Start Date End Date Ericka Hook MD [address] [place] [facility] [place] [address] PCP - General 08/27/00 documented as of this encounter
--- OUTSIDE RECORDS SUMMARY | 2023-06-27 04:42 | External Medical Summary | Summary of Care ---
Author Name Unknown Organization [facility] Address [address] [place] [facility] [place] [place] [place] [address] Phone [phone] Care Team Providers Care Icu Staff Nurse Name Role Phone Ericka Hook MD Primary Care Provider Reason for Visit * Reason Onset Date Comments Medication Refill 03/24/2023 Encounter Details Date Type Department Care Team (Late st Contact Info) Description 03/24/2023 Refill [facility] [address] [place] [address] Ericka Hook MD [address] [place] [address] HTN, goal below 150/90; HTN, goal below 140/90 Allergies Active Allergy Reactions Criticality Noted Date [...] (HCC) one by mouth daily 100 3 12/05/19 01 Active PENLET BLOOD SAMPLING PEN MISCIndications: DM type 2, not at goal (HCC) as directed 200 3 01/15/20 02 Active LANCETS MISCIndications: DM type 2, not at goal ([facility]) once daily 50 11 12/11/19 07 Active saline (OCEAN NASAL SPRAY) 0.65 % nasal sprayIndications :Sinus congestion,Dysfu nction of eustachian tube,Allergic rhinitis Administer 2 Sprays into each nostril as needed for Congestion. for nasal dryness or congestion 1 Bottle 5 07/26/19 15 Active magnesium chloride ER (SLOW MAG) 535 (64 MG) MG TBCR Take 535 mg by mouth 2 times a day. 0 Active zoster vac recomb adjuvanted (SHINGRIX) 50 MCG injectionIndicat ions:Need for shingles vaccine Inject 0.5 mL into a large muscle now and repeat dose in 60 to 180 days 1 Each 1 10/17/19 18 Active Additional Information Patient not taking.Reported on 07/25/2022 TRUEPLUS LANCETS 33G MISC Testing once daily 100 Each 0 11/10/19 18 Active Blood Glucose Calibration (TRUE METRIX LEVEL 1) Low SOLN Used to calibrate meter 1 Each 0 12/17/19 19 Active Cyanocobalamin (B-12) 1000 MCG TABS Take 1 Tab by mouth daily. 30 Tab 11 11/06/19 20 Active Clopidogrel Bisulfate 75 MG Oral Tablet (pLAVix) take 1 tablet by mouth once daily 90 Tablet 2 06/17/19 23 Active Doxycycline Hyclate 100 MG Oral Capsule [...] tablet daily until gone 6 Tablet 0 01/06/20 23 Active Additional Information Patient not taking.Reported on 02/09/2023 Timolol Maleate (Once-Daily) 0.5 % Ophthalmic Solution (Istalol) INSTILL 1 DROP INTO BOTH EYES EVERY MORNING 0 02/02/20 23 Active True Metrix Meter DeviceIndication s:Type 2 diabetes mellitus with hemoglobin A1c goal of less than 8.0% ([facility]) Use to test blood sugar up to 2 times daily dx e11.9 1 Each 0 02/10/20 Active Droplet Pen Priddy 31G X 5 MM (Insulin Pen Needle) use with BASAGLAR daily 100 Each 3 03/25/20 Active Escitalopram Oxalate 10 MG Oral Tablet (Lexapro) take 1 tablet by mouth once daily (MAY TAKE AT BEDTIME) 90 Tablet 3 03/25/20 Active hydrALAZINE HCl 100 MG Oral TabletIndication s:HTN, goal below 150/90 Take 1 Tablet by mouth in the morning and 1 Tablet at noon and 1 Tablet before bedtime. 90 Tablet 5 03/25/20 Active Losartan Potassium 50 MG Oral Tablet (Cozaar) Take 1 Tablet by mouth in the morning. 90 Tablet 1 03/25/20 Active Metoprolol Succinate ER 100 MG Oral Tablet Extended Release 24 Hour (toPROL XL)Indications:H TN, goal below 140/90 Take 1 Tablet by mouth in the morning. 90 Tablet 1 03/25/20 Active True Metrix Blood Glucose Test In Vitro Strip (Glucose Blood) Test blood sugar twice daily as directed E11.9 (using insulin) 200 Strip 3 03/25/20 Active BD Pen Needle Short U/F 31G X 8 MM use 1 PEN NEEDLE to inject MEDICATION subcutaneously as directed 0 03/28/20 21 023 Discontinued Losartan Potassium 50 MG Oral Tablet (Cozaar) take 1 tablet by mouth every morning 90 Tablet 3 04/01/19 23 023 Discontinued(Re fill) Droplet Pen Priddy 31G X 5 MM (Insulin Pen Needle) use with BASAGLAR daily 90 Each 3 07/08/19 23 023 Discontinued(Re fill) Escitalopram Oxalate 10 MG Oral Tablet (Lexapro) take 1 tablet by mouth once daily (MAY TAKE AT BEDTIME) 90 Tablet 2 07/16/19 23 023 Discontinued(Re fill) Magnesium Oxide -Mg Supplement 400 MG Oral CapsuleIndicatio ns:Hypomagnesemi a Take 1 Capsule by mouth daily. 90 Capsule 3 08/07/19 23 023 Discontinued(Re fill) Basaglar KwikPen 100 UNIT/ML Subcutaneous Solution Pen-injector inject 14 units UNDER THE SKIN once daily 15 mL 3 08/07/19 23 023 Discontinued(Re fill) Metoprolol Succinate ER 100 MG Oral Tablet Extended Release 24 Hour (toPROL XL)Indications:H TN, goal below 140/90 take 1 tablet by mouth once daily 90 Tablet 1 09/18/19 23 023 Discontinued(Re fill) True Metrix Blood Glucose Test In Vitro Strip (Glucose Blood) Test blood sugar twice daily as directed E11.9 (using insulin) 200 Strip 3 09/22/19 23 023 Discontinued(Re fill) hydrALAZINE HCl 100 MG Oral TabletIndication s:HTN, goal below 150/90 take 1 tablet by mouth three times a day 90 Tablet 5 09/23/19 23 023 Discontinued(Re fill) Montelukast Sodium 10 MG Oral Tablet (Singulair) Take 1 Tablet by mouth in the morning. 90 Tablet 3 01/06/20 23 023 Discontinued(Re fill) Fluticasone Propionate 50 MCG/ACT Nasal Suspension (Flonase) Administer 2 Sprays into each nostril in the morning. 16 g 1 01/06/20 23 023 Discontinued(Re fill) Atorvastatin Calcium 20 MG Oral Tablet (Lipitor)Indicat ions:Dyslipidemi a, goal LDL below 100 take 1 tablet by mouth once daily 90 Tablet 1 01/27/20 23 023 Discontinued(Re fill) metFORMIN HCl 1000 MG Oral Tablet (Glucophage) take 1 tablet by mouth twice a day WITH MORNING AND EVENING MEALS 180 Tablet 1 02/21/20 23 023 Discontinued(Re fill) documented as of this encounter (statuses as [...] Telephone Encounter - Ericka Hook MD - 03/25/2023 6:25 PM ESTSigned Prescriptions: Disp Refills Droplet Pen Priddy 31G X 5 MM (Insulin Pe*100 Ea*3 Sig: use with BASAGLAR dailyAuthorizing Provider: ERICKA HOOK User: BESSIE CROWELL EscitalopramOxalate 10 MG Oral Tablet (Le*90 Tab*3 Sig: take 1 tablet by mouth once daily (MAY TAKE AT BEDTIME)Authorizing Provider: ERICKA HOOK User: BESSIE CROWELL hydrALAZINE HCl 100 MGOral Tablet 90 Tab*5 Sig: Take 1 Tablet by mouth in the morning and 1 Tablet at noon and 1 Tablet before bedtime.Authorizing Provider: ERICKA HOOK Losartan Potassium 50 MG Oral Tablet (Coza*90 Tab*1 Sig: Take 1 Tablet by mouth in the morning.Authorizing Provider: ERICKA HOOK User: BESSIE LUCIO Metoprolol Succinate ER 100 MG Oral Tablet*90 Tab*1 Sig: Take 1 Tablet by mouth inthe morning.Authorizing Provider: ERICKA HOOK User: BESSIE CROWELL True Metrix Blood Glucose Test In Vitro St*200 St*3 Sig: Test blood sugar twice daily as directed E11.9 (using insulin)Authorizing Provider: ERICKA HOOK User: BESSIE CROWELL * Telephone Encounter - Ericka Hook MD - 03/25/2023 6:25 PM ESTSigned Prescriptions: Disp Refills Droplet Pen Priddy 31G X 5 MM (Insulin Pe*100 Ea*3 Sig: use with BASAGLAR daily Authorizing Provider: ERICKA HOOK Ordering User: BESSIE CROWELL Escitalopram Oxalate 10 MG Oral Tablet (Le*90 Tab*3 Sig: take 1 tablet by mouth once daily (MAY TAKE AT BEDTIME) Authorizing Provider: ERICKA HOOK Ordering User: BESSIE CROWELL hydrALAZINE HCl 100 MG Oral Tablet 90 Tab*5 Sig: Take 1 Tablet by mouth in the morning and 1 Tablet at noon and 1 Tablet before bedtime. Authorizing Provider: ERICKA HOOK Losartan Potassium 50 MG Oral Tablet (Coza*90 Tab*1 Sig: Take 1 Tablet by mouth in the morning. Authorizing Provider: ERICKA HOOK Ordering User: BESSIE CROWELL Metoprolol Succinate ER 100 MG Oral Tablet*90 Tab*1 Sig: Take 1 Tablet by mouth in the morning. Authorizing Provider: ERICKA HOOK Ordering User: BESSIE CROWELL True Metrix Blood Glucose Test In Vitro St*200 St*3 Sig: Test blood sugar twice daily as directed E11.9 (using insulin) Authorizing Provider: ERICKA HOOK Ordering User: BESSIE CROWELL * Telephone Encounter - Terrie Mohamud PHARM Tech - 03/25/2023 3:14 PM EST Daughter calling to check on status of rx. Pt is out of hydralazine. Caller can be reached at [phone]. Thanks, Terrie Mohamud Primer Assembler [facility] ([facility]) 03/25/2023,3:14 PM * Telephone Encounter - Bessie Crowell [facility] - 03/25/2023 12:14 PM EST Pending Prescriptions: Disp Refills hydrALAZINE HCl 100 MG Oral Tablet 90 Tab*5 Sig: Take 1 Tablet by mouth in the morning and 1 Tablet at noon and 1 Tablet before bedtime. Signed Prescriptions: Disp Refills Droplet Pen Priddy 31G X 5 MM (Insulin Pe*100 Ea*3 Sig: use with BASAGLAR daily Authorizing Provider: ERICKA HOOK Orde ring User: BESSIE CROWELL Escitalopram Oxalate 10 MG Oral Tablet (Le*90 Tab*3 Sig: take 1 tablet by mouth once daily (MAY TAKE AT BEDTIME) Authorizing Provider: ERICKA HOOK Ordering User: BESSIE CROWELL Losartan Potassium 50 MG Oral Tablet (Coza*90 Tab*1 Sig: Take 1 Tablet by mouth in the morning. Authorizing Provider: ERICKA HOOK Ordering User: BESSIE CROWELL Metoprolol Succinate ER 100 MG Oral Tablet*90 Tab*1 Sig: Take 1 Tablet by mouth in the morning. Authorizing Provider: ERICKA HOOK Ordering User: BESSIE CROWELL True Metrix Blood Glucose Test In Vitro St*200 St*3 Sig: Test blood sugar twice daily as directed E11.9 (using insulin) Authorizing Provider: ERICKA HOOK Ordering User: BESSIE CROWELL * Telephone Encounter - Bessie Crowell [facility] - 03/25/2023 12:14 PM EST Refill pharmacists currently not authorized to approve refills for this class of medication per refill protocol. Please approve if appropriate. Thank you, Bessie Crowell, PharmD. Clinical Pharmacist Pharmacy Refill Call Center 03/25/2023, 12:14 PM * Telephone Encounter - Jose Linton PHARM Tech - 03/24/2023 2:59 PM EST Did you pend patient's preferred pharmacy and medication before forwarding?yes [id number] [address] [facility] Pending Prescriptions: Disp Refills Droplet Pen Priddy 31G X 5 MM (Insulin P*90 Each3 Sig: use with BASAGLAR daily Escitalopram Oxalate 10 MG Oral Tablet (L*90 Tab*2 Sig: take 1 tablet by mouth once daily (MAY TAKE AT BEDTIME) hydrALAZINE HCl 100 MG Oral Tablet 90 Tab*5 Sig: Take 1 Tablet by mouth in the morning and 1 Tablet at noon and 1 Tablet before bedtime. Losartan Potassium 50 MG Oral Tablet (Coz*90 Tab*3 Sig: Take 1 Tablet by mouth in the morning. In the morning.. Metoprolol Succinate ER 100 MG Oral Table*90 Tab*1 Sig: Take 1 Tablet by mouth in the morning. True Metrix Blood Glucose Test In Vitro S*200 St*3 Sig: Test blood sugar twice daily as directed E11.9 (using insulin) Last Visit: 02/09/2023 (in office), Visit date not found (telemedicine) Next Visit: 08/10/2023 If no future appointments scheduled, and last appointment is greater than a year ago, please schedule patient for a follow-up appointment Last date the medication was ordered: 07/07/2022, 07/15/2022, 09/22/2022, 04/01/2022, 09/17/2022 Is this request for a controlled substance?No [...] Description 04/21/2023 11:40 AM EST Office [facility] [address] [place] [address] Nicol Michelle MD [address] [place] [address] 08/10/2023 12:20 PM EDT Office Visit [facility] [address] [facility] [id number] Ericka Hook MD [address] [place], [place] [id number] 02/15/2024 2:00 PM EST Imaging Radiology [address], [place] [address] [place] [address] Health Maintenance Due Date Last Done Comments COVID-19 Vaccine (#1) 1935 Zoster Vaccines (1 of 2) 1987 DXA Scan 01/30/2012 01/29/2010, 04/2009, 12/21/2007, Additional history exists Depression Screening 10/25/2020 10/26/2019 Influenza Vaccine (FLU shot) Completed , 01/28/2022, 01/08/2021, Additional history exists documented as of this encounter Medical Devices Not on filedocumented as of this encounter Visit Diagnoses Diagnosis HTN, goal below 150/90 HTN, goal below 140/90 Unspecified essential hypertension documented in this encounter Care Teams Icu Staff Nurse Relationship Specialty Start Date End Date Ericka Hook MD [address] [facility] [place] [address] PCP - General 08/27/00 documented as of this encounter
--- OUTSIDE RECORDS SUMMARY | 2023-06-27 04:42 | External Medical Summary | Summary of Care ---
Author Name Unknown Organization [facility] Address [address] [facility] [place] [address] Phone [phone] Care Team Providers Care Graphic Editor Name Role Phone Ericka Hook MD Primary Care Provider [phone] Reason for Visit * Reason Comments eRx-Medication Refill Encounter Details Date Type Department Care Team (Late st Contact Info) Description 02/19/2023 Refill [facility] [address] [place] [address] Ericka Hook MD [address] [place] [address] Allergies Active Allergy Reactions Criticality Noted Date Comments Rafita Inhibitors 11/16/2002 cough Amlodipine Edema Other,Rash 04/05/2015 Hydrochlorothiazide W-Triamterene Other (Please comment) 05/10/2015 Hyponatremia Molds & Smuts Other (Please comment) Low 01/02/2021 documented as of this encounter (statuses as of 02/20/2023) Medications Medication Sig Dispensed Refills Start Date End Date Status ASPIRIN EC LOW STRENGTH TBEC 81 MG ORIndications:DM type 2, not at goal (HCC) one by mouth daily 100 3 1 Active PENLET BLOOD SAMPLING PEN MISCIndications: DM type 2, not at goal (HCC) as directed 200 3 2 Active LANCETS MISCIndications: DM type 2, not at goal ([facility]) once daily 50 11 7 Active saline (OCEAN NASAL SPRAY) 0.65 % nasal sprayIndications :Sinus congestion,Dysfu nction of eustachian tube,Allergic rhinitis Administer 2 Sprays into each nostril as needed for Congestion. for nasal dryness or congestion 1 Bottle 5 5 Active magnesium chloride ER (SLOW MAG) 535 (64 MG) MG TBCR Take 535 mg by mouth 2 times a day. 0 Active zoster vac recomb adjuvanted (SHINGRIX) 50 MCG injectionIndicat ions:Need for shingles vaccine Inject 0.5 mL into a large muscle now and repeat dose in 60 to 180 days 1 Each 1 8 Active Additional Information Patient not taking.Reported on 07/25/2022 TRUEPLUS LANCETS 33G MISC Testing once daily 100 Each 0 8 Active Blood Glucose Calibration (TRUE METRIX LEVEL 1) Low SOLN Used to calibrate meter 1 Each 0 9 Active Cyanocobalamin (B-12) 1000 MCG TABS Take 1 Tab by mouth daily. 30 Tab 11 0 Active BD Pen Needle Short U/F 31G X 8 MM use 1 PEN NEEDLE to inject MEDICATION subcutaneously as directed 0 1 Active Losartan Potassium 50 MG Oral Tablet (Cozaar) take 1 tablet by mouth every morning 90 Tablet 3 3 Active Clopidogrel Bisulfate 75 MG Oral Tablet (pLAVix) take 1 tablet by mouth once daily 90 Tablet 2 3 Active Droplet Pen [place] 31G X 5 MM (Insulin Pen Needle) use with BASAGLAR daily 90 Each 3 3 Active Escitalopram Oxalate 10 MG Oral Tablet (Lexapro) take 1 tablet by mouth once daily (MAY TAKE AT BEDTIME) 90 Tablet 2 3 Active Doxycycline Hyclate 100 MG Oral Capsule [...] Capsule by mouth daily. 90 Capsule 3 3 Active Basaglar KwikPen 100 UNIT/ML Subcutaneous Solution Pen-injector inject 14 units UNDER THE SKIN once daily 15 mL 3 3 Active Metoprolol Succinate ER 100 MG Oral Tablet Extended Release 24 Hour (toPROL XL)Indications:H [place], goal below 140/90 take 1 tablet by mouth once daily 90 Tablet 1 3 Active cloNIDine 0.2 MG/24HR Transdermal Patch Weekly (Catapres-Tts- 2)Indications:HT N, goal below 150/90 apply 1 patch every WEEK 4 Patch 5 3 Active True Metrix Blood Glucose Test In Vitro Strip (Glucose Blood) Test blood sugar twice daily as directed E11.9 (using insulin) 200 Strip 3 3 Active hydrALAZINE HCl 100 MG Oral TabletIndication s:HTN, goal below 150/90 take 1 tablet by mouth three times a day 90 Tablet 5 3 Active Azithromycin 250 MG Oral Tablet (Zithromax Z-Luis) Take two tablets by mouth on first day, then 1 tablet daily until gone 6 Tablet 0 3 Active Additional Information Patient not taking.Reported on 02/09/2023 Montelukast Sodium 10 MG Oral Tablet (Singulair) Take 1 Tablet by mouth in the morning. 90 Tablet 3 3 Active Fluticasone Propionate 50 MCG/ACT Nasal Suspension (Flonase) Administer 2 Sprays into each nostril in the morning. 16 g 1 3 Active Atorvastatin Calcium 20 MG Oral Tablet (Lipitor)Indicat ions:Dyslipidemi a, goal LDL below 100 take 1 tablet by mouth once daily 90 Tablet 1 3 Active Timolol Maleate (Once-Daily) 0.5 % Ophthalmic Solution (Istalol) INSTILL 1 DROP INTO BOTH EYES EVERY MORNING 0 3 Active True Metrix Meter DeviceIndication s:Type 2 diabetes mellitus with hemoglobin A1c goal of less than 8.0% ([facility]) Use to test blood sugar up to 2 times daily dx e11.9 1 Each 0 3 Active metFORMIN HCl 1000 MG Oral Tablet (Glucophage) take 1 tablet by mouth twice a day WITH MORNING AND EVENING MEALS 180 Tablet 1 3 Active metFORMIN HCl 1000 MG Oral Tablet (Glucophage) take 1 tablet by mouth twice a day WITH MORNING AND EVENING MEALS 180 Tablet 1 3 02/21/20 23 Discontinued documented as of this encounter (statuses as of 02/20/2023) Active Problems Problem Noted Date Diagnosed Date [...] as of this encounter (statuses as of 02/20/2023) Resolved Problems Problem Noted Date Diagnosed Date [...] as of this encounter (statuses as of 02/20/2023) Immunizations Name Administration Dates Next Due Pneumococcal Conjugate Vacc, 13 Valent (Prevnar) 10/09/2014 Pneumococcal Polysaccharide PPV23 (Pneumovax) 12/14/2007 SEASONAL INFLUENZA, PF, 6 M & Above, IM , (FLULAVAL or FLUZONE) 01/18/2018,02/27/2017 Season Influenza, Quad, PF, Adjuvanted, 65+ Yrs, IM (FLUAD) 01/25/2020 Seasonal Influenza, Quadriva lent Hd (Fluzone Hd) [...] 10/26/2019 Hunger Vital Sign Answer Date Recorded Worried About Running Out of Food in the Last Ye ar Never true 04/26/2019 Ran Out of Food in the Last Year Never true 04/26/2019 Sex and Gender Information Value Date Recorded Sex Assigned at Female 10/04/2018 10:45 AM EDT Gender Identity Female 10/04/2018 10:45 AM EDT Sexual Orientation Straight 10/04/2018 10 :45 AM EDT Job Start Date Occupation Industry Not on file Not on file Not on file documented as of this encounter Miscellaneous Notes * Telephone Encounter - Paul Ugalde, [facility] - 02/20/2023 10:45 AM EST Signed Prescriptions: Disp Refills metFORMIN HCl 1000 MG Oral Tablet (Glucoph*180 Ta*1 Sig: take 1 tablet by mouth twice a day WITH MORNING AND EVENING MEALSAuthorizing Provider: ERICKA HOOK User: PAUL UGALDE documented in this encounter Plan of Treatment Upcoming Encounters Date Type Department Care Team (Late st Contact Info) Description 04/21/2023 11:40 AM EST Office Visit Nephrology, [facility] [address] [place] [address] MichelleNicol howard MD [address] [facility] [place] [address] 08/10/2023 12:20 PM EDT Office Visit [facility] [address] [place] [phone] Ericka Hook MD [address] [place] [address] 02/15/2024 2:00 PM EST Imaging Radiology [address] [place] [address] Health Maintenance Due Date Last Done Comments COVID-19 Vaccine (#1) 1935 Zoster Vaccines (1 of 2) 1987 DXA Scan 01/30/2012 01/29/2010, 04/2009, 12/21/2007, Additional history exists Depression Screening 10/25/2020 10/26/2019 Influenza Vaccine (FLU shot) Completed , 01/28/2022, 01/08/2021, Additional history exists documented as of this encounter Medical Devices Not on filedocumented as of this encounter Care Teams Graphic Editor Relationship Specialty Start Date End Date Ericka Hook MD [address] [place] [address] PCP - General 08/27/00 documented as of this encounter
--- OUTSIDE RECORDS SUMMARY | 2023-06-27 04:42 | External Medical Summary | Summary of Care ---
Author Name Unknown Organization [facility] Address [address] [place] [place] [address] Phone [phone] Care Team Providers Care Acid Operator Name Role Phone Ericka Hook MD Primary Care Provider Reason for Visit * Reason Comments eRx-Medication Refill Encounter Details Date Type Department Care Team (Late st Contact Info) Description 04/19/2023 Refill [facility] [address] [place] [address] Waqas Laguna MD [address] [place] [address] Allergies Active Allergy Reactions Criticality Noted Date Comments Rafita Inhibitors 11/16/2002 cough Amlodipine Edema Other,Rash 04/05/2015 Hydrochlorothiazide W-Triamterene Other (Please comment) 05/10/2015 Hyponatremia Molds & Smuts Other (Please comment) Low 01/02/2021 documented as of this encounter (statuses as of 04/20/2023) Medications Medication Sig Dispensed Refills Start Date End Date Status ASPIRIN EC LOW STRENGTH TBEC 81 MG ORIndications:DM type 2, not at goal (HCC) one by mouth daily 100 3 12/04/2000 Active PENLET BLOOD SAMPLING PEN MISCIndications:D M type 2, not at goal (HCC) as directed 200 3 01/14/2002 Active LANCETS MISCIndications:D M type 2, not at goal ([facility]) once daily 50 11 12/10/2006 Active saline [...] Tablet (Lipitor)Indicati ons:Dyslipidemia, goal LDL below 100 Take 1 Tablet [...] 4 Patch 5 03/24/2023 Active Droplet Pen [place] 31G X 5 MM (Insulin Pen Needle) use with BASAGLAR daily 100 Each 3 03/25/2023 Active Escitalopram Oxalate 10 MG Oral Tablet (Lexapro) take 1 tablet by mouth once daily (MAY TAKE AT BEDTIME) 90 Tablet 3 03/25/2023 Active hydrALAZINE HCl 100 MG Oral TabletIndications :HTN, goal below 150/90 Take 1 Tablet by mouth in the morning and 1 Tablet at noon and 1 Tablet before bedtime. 90 Tablet 5 03/25/2023 Active Losartan Potassium 50 MG Oral Tablet (Cozaar) Take 1 Tablet by mouth in the morning. 90 Tablet 1 03/25/2023 Active Metoprolol Succinate ER 100 MG Oral Tablet Extended Release 24 Hour (toPROL XL)Indications:HT N, goal below 140/90 Take 1 Tablet by [...] EVERY MORNING 16 g 5 04/20/2023 Active Fluticasone Propionate 50 MCG/ACT Nasal Suspension (Flonase) Administer 2 Sprays into each nostril in the morning. 16 g 0 03/25/2023 04/20/19 24 Discontinued documented as of this encounter (statuses as of 04/20/2023) Active Problems Problem Noted Date Diagnosed Date [...] as of this encounter (statuses as of 04/20/2023) Resolved Problems Problem Noted Date Diagnosed Date [...] as of this encounter (statuses as of 04/20/2023) Immunizations Name Administration Dates Next Due Pneumococcal [...] Telephone Encounter - Ericka Hook MD - 04/20/2023 4:56 PM ESTSigned Prescriptions: Disp Refills Fluticasone Propionate 50 MCG/ACT Nasal [place]boleda*16 g 5 Sig: USE 2 SPRAYS IN EACH NOSTRIL EVERY MORNINGAuthorizing Provider: ERICKA HOOK * Telephone Encounter - Lonny Pena [facility] - 04/20/2023 2:40 PM ESTPending Prescriptions: Disp Refills Fluticasone Propionate 50 MCG/ACT Nasal Arboleda*16 g 1 Sig: USE 2 SPRAYS IN EACH NOSTRIL EVERY MORNING * Telephone Encounter - Lonny Pena [facility] - 04/20/2023 2:40 PM EST Med initially ordered for an acute issue. Please approve if appropriate to continue. Thanks, Lonny Pena, R.Ph. Clinical Pharmacist [facility] [phone] 04/20/2023,2:40 PM Pending Prescriptions: Disp Refills Fluticasone Propionate 50 MCG/ACT Nasal Arboleda*16 g 1 Sig: USE 2 SPRAYS IN EACH NOSTRIL EVERY MORNING Last Visit: 02/09/2023 (in office), Visit date not found (telemedicine) Next Visit: 08/10/2023 If no future appointments scheduled, and last appointment is greater than a year ago, please schedule patient for a follow-up appointment Last date the medication was ordered: 01-05-23 Pharmacy: [id number] [place] Is this request for a controlled substance?No [...] Description 08/10/2023 12:20 PM EDT Office Visit [facility] [address] [place] [phone] Ericka Hook MD [address] [place], [place] [phone] 02/15/2024 2:00 PM EST Imaging Radiology [address] [place] [id number] Health Maintenance Due Date Last Done Comments COVID-19 Vaccine (#1) 1935 Zoster Vaccines (1 of 2) 1987 DXA Scan 01/30/2012 01/29/2010, 04/2009, 12/21/2007, Additional history exists Depression Screening 10/25/2020 10/26/2019 Influenza Vaccine (FLU shot) Completed , 01/28/2022, 01/08/2021, Additional history exists documented as of this encounter Medical Devices Not on filedocumented as of this encounter Care Teams Acid Operator Relationship Specialty Start Date End Date Ericka Hook MD [address] [place] [address] PCP - General 08/27/00 documented as of this encounter
--- OUTSIDE RECORDS SUMMARY | 2023-06-27 04:43 | External Medical Summary ---
Author Name Unknown Address Unknown Organization [id number]:LABORATORY [facility] [place] - [address] [place] [address] Laboratory Report Ordering Provider Test Date Status MARNIE RIVERA 02/12/2023 12:24:48 Final Observation Date Value Abnormality Reference (Units ) Status MYCODE SPECIMEN-SST 02/12/2023 12:24:48 Freezing of extracted DNA, whole blood and/or serum. Final Performing Location LABORATORY [facility] - [address] [place] [address]
--- OUTSIDE RECORDS SUMMARY | 2023-06-27 04:43 | External Medical Summary ---
Author Name Unknown Address Unknown Organization [id number]:LAB[facility]ATORY [facility] [place] - [address] [place] [address] Laboratory Report Ordering Provider Test Date Status MARNIE RIVERA 02/12/2023 12:24:48 Final Observation Date Value Abnormality Reference (Units ) Status MYCODE SPECIMEN-SST 02/12/2023 12:24:48 Freezing of extracted DNA, whole blood and/or serum. Final Performing Location [facility]ORY [facility] - [address] [place] [address]
--- OUTSIDE RECORDS SUMMARY | 2023-06-27 04:43 | External Medical Summary ---
Author Name Unknown Address Unknown Organization [id number]:[facility] - [address] [place] [address] Laboratory Report Ordering Provider Test Date Status XAVIER BARNETTASHLEIGH 02/12/2023 12:24:48 Final Observation Date Value Abnormality Reference (Units ) Status LDL, (direct) 02/12/2023 12:24:48 51 <=129 (mg/dL) Final LDL Cholesterol Reference Ra nges (mg/dL):
<70 Target level for high risk ASCVD patient
<100 Optimal for general population
100-129 Near optimal for general population
130-159 Borderline high
160-189 High
>=190 Very high Performing Location LABORATORY [facility] - [address] [place] [address]
--- OUTSIDE RECORDS SUMMARY | 2023-06-27 04:43 | External Medical Summary | Summary of Care ---
Author Name Unknown Organization [facility] Address [address] [place] [address] Phone [phone] Care Team Providers Care Reel Worker Name Role Phone Vince Hook MD Primary Care Provider [phone] Encounter Details Date Type Department Care Team (Late st Contact Info) Description 02/03/2023 Telephone [facility] [address] [place] [address] Waqas Laguna MD [address] [place] [address] Allergies Active Allergy Reactions Criticality Noted Date Comments Rafita Inhibitors 11/16/2002 cough Amlodipine Edema Other,Rash 04/05/2015 Hydrochlorothiazide W-Triamterene Other (Please comment) 05/10/2015 Hyponatremia Molds & Smuts Other (Please comment) Low 01/02/2021 documented as of this encounter (statuses as of 02/03/2023) Medications Medication Sig Dispensed Refills Start Date [...] 100 Each 0 11/09/2017 Active Blood Glucose Monitoring Suppl (TRUE METRIX METER) ROLANDO Use to test blood sugar up to 2 times daily dx e11.9 1 Device 5 11/22/2018 Active Blood Glucose Calibration (TRUE METRIX LEVEL [...] 90 Tablet 2 06/16/2022 Active Droplet Pen [place] 31G X 5 MM (Insulin Pen Needle) [...] once daily 15 mL 3 08/06/2022 Active metFORMIN HCl 1000 MG Oral Tablet (Glucophage) take 1 tablet by mouth twice a day WITH MORNING AND EVENING MEALS 180 Tablet 1 08/18/2022 Active Metoprolol Succinate ER 100 MG Oral Tablet Extended Release 24 Hour (toPROL XL)Indications:HTN , goal below 140/90 take 1 tablet by mouth once daily 90 Tablet 1 09/17/2022 Active cloNIDine 0.2 MG/24HR Transdermal Patch Weekly (Catapres-Tts- 2)Indications:HTN, goal below 150/90 apply 1 patch every WEEK 4 Patch 5 09/22/2022 Active True Metrix Blood Glucose Test In Vitro Strip (Glucose Blood) Test blood sugar twice daily as directed E11.9 (using insulin) 200 Strip 3 09/21/2022 Active hydrALAZINE HCl 100 MG Oral TabletIndications: HTN, goal below 150/90 take 1 tablet by mouth three times a day 90 Tablet 5 09/22/2022 Active Azithromycin 250 MG Oral Tablet (Zithromax Z-Luis) Take two tablets by mouth on first day, then 1 tablet daily until gone 6 Tablet 0 01/05/2023 Active Montelukast Sodium 10 MG Oral Tablet [...] once daily 90 Tablet 1 01/26/2023 Active documented as of this encounter (statuses as of 02/03/2023) Active Problems Problem Noted Date Diagnosed Date [...] as of this encounter (statuses as of 02/03/2023) Resolved Problems Problem Noted Date Diagnosed Date [...] as of this encounter (statuses as of 02/03/2023) Immunizations Name Administration Dates Next Due Pneumococcal Conjugate Vacc, 13 Valent (Prevnar) 10/09/2014 Pneumococcal Polysaccharide PPV23 (Pneumovax) 12/14/2007,12/04/2000 SEASONAL INFLUENZA, PF, 6 M & Above, IM , (FLULAVAL or FLUZONE) 01/18/2018,02/27/2017 Season Influenza, Quad, PF, Adjuvanted, 65+ Yrs, IM (FLUAD) 01/25/2020 Seasonal Influenza, Quadriva lent Hd (Fluzone Hd) 01/28/2022 Seasonal Influenza, Quadriva lent, No Preserve, IM 05/06/2016,02/16/2015 Seasonal Influenza, Split, I IV3, With Preserve, Inj 01/30/2014,03/02/2012,01/17/2011,01/14,02/19/2009,02/11/2008,01/28/2007 ,01/16/2006,03/08/2003 Seasonal Influenza, Trivalen t, Adjuvanted, 65+ yrs 01/02/2021,02/15/2019 TD - Tetanus/Diptheria (ADULT) 05/27/1995 TD, Preservative Free 12/14/2007 TDAP (age 10 [...] Telephone Encounter - Belen Márquez LPN - 02/03/2023 11:54 AM EST Spoke to pt and made her aware of message below. She stated understanding. * Telephone Encounter - Waqas Laguna MD - 02/03/2023 10:[address] chest for nodule f/u showed A couple of 4 mm nodules Previous one at [facility] were around 3-4 mm So please f/u in one year CT lung with PCP documented in this encounter Plan of Treatment Upcoming Encounters Date Type Department Care Team (Late st Contact Info) Description 02/09/2023 12:20 PM EST Office Visit [place] [address] [place] [address] Vince Hook MD [address] [place] [address] 04/21/2023 11:40 AM EST Office Visit Nephrology, [facility] [address] [place] [address] Nicol Michelle MD [address] [place] [address] Health Maintenance Due Date Last Done Comments COVID-19 Vaccine (#1) 1935 Zoster Vaccines (1 of 2) 1987 DXA Scan 01/30/2012 01/29/2010, 04/2009, 12/21/2007, Additional history exists Depression Screening 10/25/2020 10/26/2019 Influenza Vaccine (FLU shot) (#1) 2022 01/28/2022, 01/03/2021, 01/02/2021, Additional history exists documented as of this encounter Medical Devices Not on filedocumented as of this encounter Care Teams Reel Worker Relationship Specialty Start Date End Date Vince Hook MD [address] [facility] [place] [id number] PCP - General 08/27/00 documented as of this encounter
--- OUTSIDE RECORDS SUMMARY | 2023-06-27 04:43 | External Medical Summary ---
Author Name Unknown Address Unknown Organization [id number]:LABORATORY [facility] [place] - [address] [place] [address] Laboratory Report Ordering Provider Test Date Status MUNA BARNETT 02/12/2023 12:24:48 Final Observation Date Value Abnormality Reference (Units ) Status Triglyceride 02/12/2023 12:24:48 178 Above high normal <=174 (mg/dL) Final Triglyceride Reference Range s (mg/dL):
<150 Acceptable
150-174 Borderline high
175-499 High
>=500 Very high Cholesterol 02/12/2023 12:24:48 110 <200 (mg /dL) Final Total Cholesterol Reference Ranges (mg/dL):
<200 Desirable
200-239 Borderline high
>=240 High HDL 02/12/2023 12:24:48 34 Below low normal >49 (mg/dL) Final HDL Cholesterol Reference Ra nges (mg/dL):
>=60 High (Desirable)
<50 Low (Undesirable) For Females
<40 Low (Undesirable) For Males NON-HDL CHOLESTEROL 02/12/2023 12:24:48 76 <=159 (mg/dL) Final Non-HDL Cholesterol Referenc e Range (mg/dL):
<100 Target level for high risk ASCVD patient
<130 Optimal for general population
130-159 Near optimal for general population
160-189 Borderline High
190-219 High
>=220 Very High Performing Location LABORATORY [facility] [place] - [address] [place] [address]
--- OUTSIDE RECORDS SUMMARY | 2023-06-27 04:43 | External Medical Summary | Summary of Care ---
Author Name Unknown Organization [facility] Address [address] [place] [address] Phone [phone] Care Team Providers Care Independent Consultant Name Role Phone Vince Hook MD Primary Care Provider Encounter Details Date Type Department Care Team (Late st Contact Info) Description 02/03/2023 Telephone [facility] [address] [place] [address] Waqas Laguna MD [address] [place] [address] Allergies Active Allergy Reactions Criticality [...] 90 Tablet 2 06/16/2022 Active Droplet Pen [place] 31G X 5 MM (Insulin Pen Needle) [...] encounter Miscellaneous Notes * Telephone Encounter - Waqas Laguna MD - 02/03/2023 10:[address] chest for nodule f/u showed A couple of 4 mm nodules Previous one at [facility] were around 3-4 mm So please f/u in one year CT lung with PCP documented in this encounter Plan of Treatment Upcoming Encounters Date Type Department Care Team (Late st Contact Info) Description 02/09/2023 12:20 PM EST Office Visit [facility] [address] [place] [facility] [place] [address] Vince Hook MD [address] [facility] [place] [phone] 04/21/2023 11:40 AM EST Office Visit [facility] [address] [place], [place] [address] Nicol Michelle MD [address] [place] [address] Health Maintenance Due Date Last Done Comments COVID-19 Vaccine (#1) 1935 Zoster Vaccines (1 of 2) 1987 DXA Scan 01/30/2012 01/29/2010, 04/2009, 12/21/2007, Additional history exists Depression Screening 10/25/2020 10/26/2019 Influenza Vaccine (FLU shot) (#1) 2022 01/28/2022, 01/03/2021, 01/02/2021, Additional history exists documented as of this encounter Medical Devices Not on filedocumented as of this encounter Care Teams Independent Consultant Relationship Specialty Start Date End Date Vince Hook MD [address] [facility] [place] [address] PCP - General 08/27/00 documented as of this encounter
--- OUTSIDE RECORDS SUMMARY | 2023-06-27 04:43 | External Medical Summary ---
Author Name Unknown Address Unknown Organization [id number]:LABORATORY [facility] [place] - [address] [facility] [address] Laboratory Report Ordering Provider Test Date Status MUNA BARNETT 02/12/2023 12:24:48 Final Observation Date Value Abnormality Reference (Units ) Status HbA1C 02/12/2023 12:24:48 7.5 Above high normal 4. 0-5.6 (%) Final The use of HbA1c to monitor glycemic status is based on normal hemoglobin and HbA composition. This test should not be used in patients with abnormal hemoglobin that affects the half life of the red blood cell or the in vivo glycation rates. Glucose, estimated average 02/12/2023 12:24:48 169 Above high normal <126 (mg/dL) Eyad leyva Performing Location LABORATORY [facility] [place] - [address] [place] [address]
--- OUTSIDE RECORDS SUMMARY | 2023-06-27 04:43 | External Medical Summary | Summary of Care ---
Author Name Unknown Organization [facility] Address [address] [place] [address] Phone [phone] Care Team Providers Care Stock Worker Name Role Phone Vince Hook MD Primary Care Provider Reason for Visit * Reason Comments Outpatient Testing Encounter Details Date Type Department Care Team (Late st Contact Info) Description 02/12/2023 12:20 PM EST Laboratory Laboratory, [facility] [address] [place] [address] [facility] [address] [place] [address] [employer] Other*[id number]; Type 2 diabetes mellitus with hemoglobin A1c goal of less than 8.0% ([facility]); Dyslipidemia, goal LDL below 100 Allergies Active Allergy Reactions Criticality Noted Date Comments Rafita Inhibitors 11/16/2002 cough Amlodipine Edema Other,Rash 04/05/2015 Hydrochlorothiazide W-Triamterene Other (Please comment) 05/10/2015 Hyponatremia Molds & Smuts Other (Please comment) Low 01/02/2021 documented as of this encounter (statuses as of 02/12/2023) Medications Medication Sig Dispensed Refills Start Date [...] 90 Tablet 2 06/16/2022 Active Droplet Pen [place] 31G X 5 MM (Insulin Pen Needle) [...] dx e11.9 1 Each 0 02/09/2023 Active documented as of this encounter (statuses as of 02/12/2023) Active Problems Problem Noted Date Diagnosed Date [...] as of this encounter (statuses as of 02/12/2023) Resolved Problems Problem Noted Date Diagnosed Date [...] as of this encounter (statuses as of 02/12/2023) Immunizations Name Administration Dates Next Due Pneumococcal [...] on file documented as of this encounter Plan of Treatment Upcoming Encounters Date Type Department Care Team (Late st Contact Info) Description 04/21/2023 11:40 AM EST Office Visit Nephrology, [facility] [address] [place], [place] [address] Nicol Michelle MD [address] [place] [address] 08/10/2023 12:20 PM EDT Office Visit [place] [address] [facility] [place] [address] Vince Hook MD [address] [facility] [place] [address] 02/15/2024 2:00 PM EST Imaging Radiology [address], [address] [place] [address] Pending Results Name Type Priority Associated Diagnoses Date /Time MYCODE SUBSEQUENT ADULT Lab Routine [employer] Other*[id number] 02/12/2023 12:24 PM EST HEMOGLOBIN A1C Lab Routine Type 2 diabetes mellitus with hemoglobin A1c goal of less than 8.0% (HCC) 02/12/2023 12:24 PM EST LIPID PANEL WITH DIRECT LDL IF TG IS HIGH Lab Routine Dyslipidemia, goal LDL below 100 02/12/2023 12:24 PM EST MYCODE SST1 Lab Routine [employer] Other*[id number] 02/12/2023 12:24 PM EST MYCODE SST2 Lab Routine [employer] Other*[id number] 02/12/2023 12:24 PM EST Health Maintenance Due Date Last Done Comments COVID-19 Vaccine (#1) 1935 Zoster Vaccines (1 of 2) 1987 DXA Scan 01/30/2012 01/29/2010, 04/2009, 12/21/2007, Additional history exists Depression Screening 10/25/2020 10/26/2019 Influenza Vaccine (FLU shot) Completed , 01/28/2022, 01/08/2021, Additional history exists documented as of this encounter Medical Devices Not on filedocumented as of this encounter Visit Diagnoses Diagnosis [employer] Other*[id number] Type 2 diabetes mellitus with hemoglobin A1c goal of less than 8.0% (HCC) Dyslipidemia, goal LDL below 100 Other and unspecified hyperlipidemia documented in this encounter Care Teams Stock Worker Relationship Specialty Start Date End Date Vince Hook MD [address] [facility] [place] [id number] PCP - General 08/27/00 documented as of this encounter
--- OUTSIDE RECORDS SUMMARY | 2023-06-27 04:43 | External Medical Summary | Summary of Care ---
Author Name Unknown Organization [facility] Address [address] [place] [address] Phone [phone] Care Team Providers Care Magazine Journalist Name Role Phone Ericka Hook MD Primary Care Provider Reason for Visit * Reason Comments eRx-Medication Refill Encounter Details Date Type Department Care Team (Late st Contact Info) Description 01/25/2023 Refill Merged [facility] [address] [place] [address] Ericka Hook MD [address] [place] [address] Dyslipidemia, goal LDL below 100 Allergies Active Allergy Reactions Criticality Noted Date Comments Rafita Inhibitors 11/16/2002 cough Amlodipine Edema Other,Rash 04/05/2015 Hydrochlorothiazide W-Triamterene Other (Please comment) 05/10/2015 Hyponatremia Molds & Smuts Other (Please comment) Low 01/02/2021 documented as of this encounter (statuses as of 01/26/2023) Medications Medication Sig Dispensed Refills Start Date End Date Status ASPIRIN EC LOW STRENGTH TBEC 81 MG ORIndications:DM type 2, not at goal (HCC) one by mouth daily 100 3 200 1 Active PENLET BLOOD SAMPLING PEN MISCIndications: DM type 2, not at goal (HCC) as directed 200 3 2 Active LANCETS MISCIndications: DM type 2, not at goal (HCC) once daily 50 11 7 Active saline [...] 100 Each 0 8 Active Blood Glucose Monitoring Suppl (TRUE METRIX METER) ROLANDO Use to test blood sugar up to 2 times daily dx e11.9 1 Device 5 9 Active Blood Glucose Calibration (TRUE METRIX LEVEL [...] 90 Tablet 2 3 Active Droplet Pen [place] 31G X 5 MM (Insulin Pen Needle) [...] once daily 15 mL 3 3 Active metFORMIN HCl 1000 MG Oral Tablet (Glucophage) take 1 tablet by mouth twice a day WITH MORNING AND EVENING MEALS 180 Tablet 1 3 Active Metoprolol Succinate ER 100 MG [...] until gone 6 Tablet 0 3 Active Montelukast Sodium 10 MG Oral Tablet [...] once daily 90 Tablet 1 3 Active Atorvastatin Calcium 20 MG Oral Tablet (Lipitor)Indicat ions:Dyslipidemi a, goal LDL below 100 take 1 tablet by mouth once daily 90 Tablet 1 3 01/27/20 23 Discontinued documented as of this encounter (statuses as of 01/26/2023) Active Problems Problem Noted Date Diagnosed Date [...] as of this encounter (statuses as of 01/26/2023) Resolved Problems Problem Noted Date Diagnosed Date [...] as of this encounter (statuses as of 01/26/2023) Immunizations Name Administration Dates Next Due Pneumococcal [...] encounter Miscellaneous Notes * Telephone Encounter - Nisha Kent RPh - 01/26/2023 10:46 AM EDT Signed Prescriptions: Disp Refills Atorvastatin Calcium 20 MG Oral Tablet (Li*90 Tab*1 Sig: take 1 tablet by mouth once dailyAuthorizing Provider: ERICKA HOOK User: NISHA KENT---- documented in this encounter Plan of Treatment Upcoming Encounters Date Type Department Care Team (Late st Contact Info) Description 02/09/2023 12:20 PM EST Office Visit [facility] [place] [address] [facility] [id number] Ericka Hook MD [address] [place] [facility] [address] 04/21/2023 11:40 AM EST Office Visit Nephrology, [facility] [address] [facility] [place] [address] MichelleNicol howard MD [address] [facility] [place] [address] Health Maintenance Due Date Last Done Comments [...] hyperlipidemia documented in this encounter Care Teams Magazine Journalist Relationship Specialty Start Date End Date Ericka Hook MD [address] [place] [address] PCP - General 08/27/00 documented as of this encounter
--- OUTSIDE RECORDS SUMMARY | 2023-06-27 04:43 | External Medical Summary | Summary of Care ---
Author Name Unknown Organization [facility] Address [address] [place] [place] [address] Phone [phone] Care Team Providers Care Milking Machine Mechanic Name Role Phone Vince Hook MD Primary Care Provider Reason for Visit * Reason Onset Date Comments Health Maintenance 01/22/2023 Encounter Details Date Type Department Care Team (Late st Contact Info) Description 01/22/2023 Telephone [facility] [address] [place] [address] Vince Hook MD [address] [place] [address] Health Maintenance Allergies Active Allergy Reactions Criticality Noted Date Comments Rafita Inhibitors 11/16/2002 cough Amlodipine Edema Other,Rash 04/05/2015 Hydrochlorothiazide W-Triamterene Other (Please comment) 05/10/2015 Hyponatremia Molds & Smuts Other (Please comment) Low 01/02/2021 documented as of this encounter (statuses as of 01/22/2023) Medications Medication Sig Dispensed Refills Start Date [...] 90 Tablet 2 06/16/2022 Active Droplet Pen [place] 31G X 5 MM (Insulin Pen Needle) use with BASAGLAR daily 90 Each 3 07/07/2022 Active Escitalopram Oxalate 10 MG Oral Tablet (Lexapro) take 1 tablet by mouth once daily (MAY TAKE AT BEDTIME) 90 Tablet 2 07/15/2022 Active Atorvastatin Calcium 20 MG Oral Tablet (Lipitor)Indicatio ns:Dyslipidemia, goal LDL below 100 take 1 tablet by mouth once daily 90 Tablet 1 07/23/2022 Active Doxycycline Hyclate 100 MG Oral Capsule [...] the morning. 16 g 1 01/05/2023 Active documented as of this encounter (statuses as of 01/22/2023) Active Problems Problem Noted Date Diagnosed Date [...] as of this encounter (statuses as of 01/22/2023) Resolved Problems Problem Noted Date Diagnosed Date [...] as of this encounter (statuses as of 01/22/2023) Immunizations Name Administration Dates Next Due Pneumococcal [...] encounter Miscellaneous Notes * Telephone Encounter - Winnie Crow LPN - 01/22/2023 10:18 AM EDT Care Gaps Comprehensive Care Outreach Last Office/Telemedicine Visit: 01/05/2023 (in office), Visit date not found (telemedicine) Next Office Visit: 02/09/2023 Hemoglobin AIC Results: Lab Results Component Value Date/Time HEMOGLOBIN A1C - [facility] 7.5 (H) 08/06/2022 11:21 AM HEMOGLOBIN A1C - [facility] 7.0 (H) 01/20/2022 10:40 AM HEMOGLOBIN A1C - [facility] 7.1 (H) 02/20/2021 11:51 AM HEMOGLOBIN A1C - [facility] 7.4 (H) 10/26/2019 03:13 PM HEMOGLOBIN A1C - [facility] 6.7 (H) 04/26/2019 03:30 PM HEMOGLOBIN A1C - [facility] 7.6 (H) 01/04/2019 11:29 AM Reviewed Health Maintenance below: Health Maintenance Topic Date Due COVID-19 Vaccine (1) Never done Zoster Vaccines (1 of 2) Never done DXA Scan 01/30/2012 Depression Screening 10/25/2020 Influenza Vaccine (FLU shot) (1) 11/28/2022 dexa awv Care Gap Outreach Action Taken: Unable to reach no answer documented in this encounter Plan of Treatment Upcoming Encounters Date Type Department Care Team (Late st Contact Info) Description 01/26/2023 10:30 AM EDT Imaging Radiology [address], [place] [address] [facility] [place] [address] 02/09/2023 12:20 PM EST Office Visit [facility] [address] [place] [phone] Vince Hook MD [address] [place] [address] 04/21/2023 11:40 AM EST Office Visit Nephrology, [facility] [address] [place] [address] MichelleNicol howard MD [address] [place] [address] Health Maintenance Due Date Last Done Comments COVID-19 Vaccine (#1) 1935 Zoster Vaccines (1 of 2) 1987 DXA Scan 01/30/2012 01/29/2010, 1104/2009, 12/21/2007, Additional history exists Depression Screening 10/25/2020 10/26/2019 Influenza Vaccine (FLU shot) (#1) 2022 01/28/2022, 01/03/2021, 01/02/2021, Additional history exists documented as of this encounter Medical Devices Not on filedocumented as of this encounter Care Teams Milking Machine Mechanic Relationship Specialty Start Date End Date Vince Hook MD [address] [place] [address] PCP - General 08/27/00 documented as of this encounter
--- OUTSIDE RECORDS SUMMARY | 2023-06-27 04:43 | External Medical Summary | Summary of Care ---
Author Name Unknown Organization [facility] Address [address] [place] [address] Phone [phone] Care Team Providers Care Shell Molding Roller Blast Operator Name Role Phone Vince Hook MD Primary Care Provider [phone] Reason for Referral * Precert (Within 10 days (routine)) - Authorized Specialty Diagnoses / Procedures Referred By Contac t Referred To Contact Radiology Diagnoses Lung nodules Procedures CT CHEST WO CONTRAST Vince Hook MD [address] [place] [address] Referral ID Status Reason Start Date Expiration Date V isits Requested Visits Authorized [id number] Authorized 02/01/2024 999 [id number] Reason for Visit * Reason Onset Date Comments Re-Check Medication Administration 02/09/2023 Flu an d/or Pneumo Inj Encounter Details Date Type Department Care Team (Late st Contact Info) Description 02/09/2023 12:20 PM EST Office Visit [facility] [address] [place] [id number] Vince Hook MD [address] [place] [address] Lung nodules*; Type 2 diabetes mellitus with hemoglobin A1c goal of less than 8.0% (HCC); HTN, goal below 150/90; Dyslipidemia, goal LDL below 100; Need for prophylactic vaccination and inoculation against influenza Allergies Active Allergy Reactions Criticality Noted Date Comments Rafita Inhibitors 11/16/2002 cough Amlodipine Edema Other,Rash 04/05/2015 Hydrochlorothiazide W-Triamterene Other (Please comment) 05/10/2015 Hyponatremia Molds & Smuts Other (Please comment) Low 01/02/2021 documented as of this encounter (statuses as of 02/10/2023) Medications Medication Sig Dispensed Refills Start Date [...] 90 Tablet 2 06/16/2022 Active Droplet Pen Novelty 31G X 5 MM (Insulin Pen Needle) [...] dx e11.9 1 Each 0 02/09/2023 Active Blood Glucose Monitoring Suppl (TRUE METRIX METER) ROLANDO Use to test blood sugar up to 2 times daily dx e11.9 1 Device 5 11/22/2018 02/10/20 23 Discontinu ed(Refill) documented as of this encounter (statuses as of 02/10/2023) Active Problems Problem Noted Date Diagnosed Date [...] as of this encounter (statuses as of 02/10/2023) Resolved Problems Problem Noted Date Diagnosed Date [...] as of this encounter (statuses as of 02/10/2023) Immunizations Name Administration Dates Next Due Pneumococcal [...] on file documented as of this encounter Last Filed Vital Signs Vital Sign Reading Time Taken Comments Blood Pressure 178/74 02/09/2023 12:47 PM EST Pulse 65 02/09/2023 12:47 PM EST Temperature 36.7 C (98 F) 02/09/2023 12:47 PM EST Respiratory Rate 16 02/09/2023 12:47 PM EST Oxygen Saturation 95% 02/09/2023 12:47 PM EST Inhaled Oxygen Concentration - - Weight 68.1 kg (150 lb 3.2 oz) 02/09/2023 12:47 PM EST Height - - Body Mass Index 29.33 01/28/2022 12:56 PM EDT documented in this encounter Patient Instructions * Patient Instructions* Victorina Maxwell LPN - 02/09/2023 1:36 PM EST ~~PATIENT INSTRUCTIONS FOR FLU SHOT~~ Possible side effects of influenza vaccine, (flu shot), are usually mild and include: 1. Soreness or redness at injection site 2. Low grade fever 3. Body aches You may use Tylenol/Acetaminophen as needed for these symptoms. LET YOUR DOCTOR KNOW IMMEDIATELY IF YOU HAVE DIFFICULTY BREATHING OR SWALLOWING, EXPERIENCE ITCHINGOF FEET OR HANDS, HAVE SWELLING OF EYES, FACE OR INSIDE OF NOSE. documented in this encounter Progress Notes * Victorina Maxwell LPN - 02/09/2023 1:35 PM EST PRE - ADMINISTRATION DOCUMENTATION Are you experiencing any cold symptoms or fever? No Have you had Guillain-[place]ola Syndrome (an illness that causes paralysis) within the last 6 weeks? No Have you had the flu shot in the past? YES Have you ever had a reaction to the flu shot? No Victorina Maxwell LPN, 02/09/2023 1:35 PM Immunization Administration Documentation Time Out Procedure Performed: Yes Patient Identified (Ask Name/Date of ): Yes Does the patient have a fever greater than 101 degrees today? No Patient allergic to latex? No VFC Stock: No Immunization(s) verified: Yes, Immunization Name: Flu, VIS Sheet(s) given: Yes Verified Side and Site: Yes Verified Shot(s) with Parent(s)/Patient: Yes * Vince Hook MD - 02/09/2023 1:21 PM EST Subjective: Starr Carmona is a 87 year old female. Chief Complaint Patient presents with Re-Check HPI: 87-year-old seen today for routine recheck. Known history type 2 diabetes, hyponatremia, dyslipidemia, hypertension, prior Um CVA/TIA, obstructive sleep apnea on CPAP, essential tremor and paroxysmal atrial fib. She feels Um that her blood sugars are under reasonable control. No hypoglycemia Had a CT scan of the chest in follow-up of nodules in questions with this showed in what is the plan. The recent CT scan showed resolution of the ground-glass opacity that had been noted 6 months prior but showed 2 4 mm nodules. Overall, she feels her mood is pretty good. She does remain on escitalopram 10 mg daily. 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 Allergic rhinitis J30.9 Type 2 diabetes mellitus with hemoglobin A1c goal of less than 8.0% (HCC) E11.9 Hypertensive urgency I16.0 Hypomagnesemia E83.42 Hyponatremia E87.1 Dyslipidemia, goal LDL below 100 E78.5 History of TIA (transient ischemic attack) Z86.73 HTN, goal below 150/90 I10 Anxiety state F41.1 SHIVANI on CPAP G47.33 Essential tremor G25.0 Paroxysmal atrial fibrillation (HCC) I48.0 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 for nasal dryness or congestion 1 Bottle 5 Cyanocobalamin (B-12) 1000 MCG TABS Take 1 Tab by mouth daily. 30 Tab 11 Losartan Potassium 50 MG Oral Tablet (Cozaar) take 1 tablet by mouth every morning 90 Tablet 3 Clopidogrel Bisulfate 75 MG Oral Tablet (pLAVix) take 1 tablet by mouth once daily 90 Tablet 2 Escitalopram Oxalate 10 MG Oral Tablet (Lexapro) take 1 tablet by mouth once daily (MAY TAKE AT BEDTIME) 90 Tablet 2 Latanoprost 0.005 % Ophthalmic Solution (Xalatan) Instill 1 Drop into both eyes at bedtime. Magnesium Oxide -Mg Supplement 400 MG Oral Capsule Take 1 Capsule by mouth daily. 90 Capsule 3 Basaglar KwikPen 100 UNIT/ML Subcutaneous Solution Pen-injector inject 14 units UNDER THE SKIN oncedaily 15 mL 3 metFORMIN HCl 1000 MG Oral Tablet (Glucophage) take 1 tablet by mouth twice a day WITH MORNING AND EVENING MEALS 180 Tablet 1 Metoprolol Succinate ER 100 MG Oral Tablet Extended Release 24 Hour (toPROL XL) take 1 tablet by mouth once daily 90 Tablet 1 cloNIDine 0.2 MG/24HR Transdermal Patch Weekly (Catapres-Tts- 2) apply 1 patch every WEEK 4 Patch 5 hydrALAZINE HCl 100 MG Oral Tablet take 1 tablet by mouth three times a day 90 Tablet 5 Montelukast Sodium 10 MG Oral Tablet (Singulair) Take 1 Tablet by mouth in the morning. 90 Tablet 3 Fluticasone Propionate 50 MCG/ACT Nasal Suspension (Flonase) Administer 2 Sprays into each nostril in the morning. 16 g 1 Atorvastatin Calcium 20 MG Oral Tablet (Lipitor) take 1 tablet by mouth once daily 90 Tablet 1 Timolol Maleate (Once-Daily) 0.5 % Ophthalmic Solution (Istalol) INSTILL 1 DROP INTO BOTH EYES EVERY MORNING True Metrix Meter Device Use to test blood sugar up to 2 times daily dx e11.9 1 Each 0 PENLET BLOOD SAMPLING PEN MISC as directed 200 3 LANCETS MISC once daily 50 11 magnesium chloride ER (SLOW MAG) 535 (64 MG) MG TBCR Take 535 mg by mouth 2 times a day. zoster vac recomb adjuvanted (SHINGRIX) 50 MCG injection Inject 0.5 mL into a large muscle now and repeat dose in 60 to 180 days (Patient not taking: Reported on 01/28/2022) 1 Each 1 TRUEPLUS LANCETS 33G MISC Testing once daily 100 Each 0 Blood Glucose Calibration (TRUE METRIX LEVEL 1) Low SOLN Used to calibrate meter 1 Each 0 BD Pen Needle Short U/F 31G X 8 MM use 1 PEN NEEDLE to inject MEDICATION subcutaneously as directed Droplet Pen Novelty 31G X 5 MM (Insulin Pen Needle) use with BASAGLAR daily 90 Each 3 Doxycycline Hyclate 100 MG Oral Capsule Take 1 Capsule by mouth in the morning and 1 Capsule beforebedtime. (Patient not taking: Reported on 02/09/2023) Benzonatate 100 MG Oral Capsule (Tessalon Perles) Take 1 Capsule by mouth 3 times a day as needed. True Metrix Blood Glucose Test In Vitro Strip (Glucose Blood) Test blood sugar twice daily as directed E11.9 (using insulin) 200 Strip 3 Azithromycin 250 MG Oral Tablet (Zithromax Z-Luis) Take two tablets by mouth on first day, then 1 tablet daily until gone (Patient not taking: Reported on 02/09/2023) 6 Tablet 0 No current facility-administered medications for this visit. Review of patient's allergies indicates: Allergen Reactions Rafita Inhibitors cough Amlodipine Edema Other and Rash Maxzide [Hydrochlorothiazide W-Triamterene] Other (Please comment) Hyponatremia Molds & Smuts Other (Please comment) Objective: BP 178/74 | Pulse 65 | Temp 36.7 C (98 F) | Resp 16 | Wt 68.1 kg (150 lb 3.2 oz) | SpO2 95% | BMI 29.33 kg/m | BSA 1.7 m Physical Exam: CONST: alert, pleasant, no acute distress HEAD: normocephalic, atraumatic NECK: supple, soft, no adenopathy EARS: canals normal, TMs normal NARES: clear Eyes - PERRLA, EOM'I OROPHARYNX: clear, no swelling or erythema, moist CV: regular rate and rhythm, no murmur CHEST: clear to auscultation bilaterally, no rales or wheezing ABD: soft, non tender, non distended, no masses or hepatosplenomegaly EXT: no edema, no joint swelling or deformities, NEURO: AAOx3, no gross focal deficits, cerebellar signs normal, affect appropriate MENTAL STATUS: no evidence of thought disorder, no delusional thought, no evidence of paranoia, thought is non-tangential. SKIN: no rash or significant lesions ASSESSMENT/PLAN: Lung nodules (Primary) - CT CHEST WO CONTRAST; Future; Expected date: 02/01/2024 Type 2 diabetes mellitus with hemoglobin A1c goal of less than 8.0% ([facility]) - HEMOGLOBIN A1C; Future; Expected date: 02/09/2023 - True Metrix Meter Device; Use to test blood sugar up to 2 times daily dx e11.9 HTN, goal below 150/90-she is on relatively complicated regimen that includes hydralazine 100 mg 3 times a day, metoprolol succinate 100 mg daily, clonidine 0.2 mg per 24 hour patch -1 per week, losartan 50 mg daily Dyslipidemia, goal LDL below 100 - LIPID PANEL WITH DIRECT LDL IF TG IS HIGH; Future; Expected date: 02/09/2023 Continue atorvastatin 20 mg daily Follow Up: Return in about 6 months (around 08/10/2023) for Return with Physician. | For: Return with Physician Vince Hook MD documented in this encounter Nursing Notes * Patti Hernandez LPN - 02/09/2023 12:48 PM EST 6 month return Would like ears checked Left ear still getting some pain Discuss CT scan documented in this encounter Plan of Treatment Upcoming Encounters Date Type Department Care Team (Late st Contact Info) Description 02/16/2023 12:45 PM EST Imaging Radiology [facility] [address] [facility], [place] [address] [facility] [place] [id number] 04/21/2023 11:40 AM EST Office Visit Nephrology, [facility] [address] [place] [address] Nicol Michelle MD [address] [place] [address] 08/10/2023 12:20 PM EDT Office Visit [facility] [address] [facility] [place] [phone] Vince Hook MD [address] [facility] [place] [address] Scheduled Orders Name Type Priority Associated Diagnoses Orde r Schedule HEMOGLOBIN A1C Lab Routine Type 2 diabetes mellitus with hemoglobin A1c goal of less than 8.0% (HCC) Expected: 02/09/2023 (Approximate), Expires: 02/09/2024 LIPID PANEL WITH DIRECT LDL IF TG IS HIGH Lab Routine Dyslipidemia, goal LDL below 100 Expected: 02/09/2023, Expires: 02/10/2024 CT CHEST WO CONTRAST Medical Imaging Routine Lung nodules Expected: 02/01/2024, Expires: 03/11/2024 Health Maintenance Due Date Last Done Comments COVID-19 Vaccine (#1) 1935 Zoster Vaccines (1 of 2) 1987 DXA Scan 01/30/2012 01/29/2010, 04/2009, 12/21/2007, Additional history exists Depression Screening 10/25/2020 10/26/2019 Influenza Vaccine (FLU shot) Completed , 01/28/2022, 01/03/2021, Additional history exists documented as of this encounter Medical Devices Not on filedocumented as of this encounter Visit Diagnoses Diagnosis Lung nodules- Primary Other nonspecific abnormal finding of lung field Type 2 diabetes mellitus with hemoglobin A1c goal of less than 8.0% (HCC) HTN, goal below 150/90 Dyslipidemia, goal LDL below 100 Other and unspecified hyperlipidemia Need for prophylactic vaccination and inoculation against influenza documented in this encounter Care Teams Shell Molding Roller Blast Operator Relationship Specialty Start Date End Date Vince Hook MD [address] [facility] [place] [phone] PCP - General 08/27/00 documented as of this encounter"
--- OUTSIDE RECORDS SUMMARY | 2023-06-27 04:44 | External Medical Summary | Summary of Care ---
Author Name Unknown Organization [facility] Address [address] [facility] [place] [address] Phone [phone] Care Team Providers Care Pile Driver Engineer Name Role Phone Vince Hook MD Primary Care Provider Reason for Visit * Reason Comments Outpatient Testing Encounter Details Date Type Department Care Team Description 01/02/2023 Laboratory Laboratory, [place] [address] [place] [address] [place] [address] [place] [address] Hyponatremia Allergies Active Allergy Reactions Severity Noted Date Comments Rafita Inhibitors 11/16/2002 cough Amlodipine Edema Other,Rash 04/05/2015 Hydrochlorothiazide W-Triamterene Other (Please comment) 05/10/2015 Hyponatremia Molds & Smuts Other (Please comment) Low 01/02/2021 documented as of this encounter (statuses as of 01/02/2023) Medications Medication Sig Dispensed Refills Start Date [...] 90 Tablet 2 06/16/2022 Active Droplet Pen Dalton 31G X 5 MM (Insulin Pen Needle) [...] 0 Active Benzonatate 100 MG Oral Capsule (Tessalfrancisco Perlodilia) Take 1 Capsule by mouth 3 times [...] a day 90 Tablet 5 09/22/2022 Active documented as of this encounter (statuses as of 01/02/2023) Active Problems Problem Noted Date Hospital discharge follow-up 06/11/2020 Diastolic dysfunction 06/11/2020 LVH (left ventricular hypertrophy) 06/11 Mild mitral regurgitation 06/11/2020 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 10/26/2019 Paroxysmal atrial fibrillation 9 Essential tremor 09/24/2016 SHIVANI on CPAP 08/08/2016 Overview: APAP 5-15 [facility] Oxygen Anxiety state 07/18/2016 HTN, goal below 150/90 06/05/2015 Hypertensive urgency 04/23/2015 Hypomagnesemia 04/23/2015 Hyponatremia 04/23/2015 Dyslipidemia, goal LDL below 100 016 History of TIA (transient ischemic attac k) 04/23/2015 Type 2 diabetes mellitus with hemoglobin A1c goal of less than 8.0% 10/09/2014 Overview: ICD-10 update of inactive term Allergic rhinitis 07/25/2014 Congenital hiatus hernia 01/30/2010 Other specified forms of hearing loss Temporomandibular joint disorders, unspe cified 01/30/2010 ADVANCE DIRECTIVE INFORMATION 09/23/2004 Overview: No, Advance Directive brochure given to patient at prior appointment. Myalgia and myositis documented as of this encounter (statuses as of 01/02/2023) Resolved Problems Problem Noted Date Resolved Date Stage 3 chronic kidney disease 04/26/2019 0 07/25/2022 Bronchitis, complicated 06/12/2015 03/27/20 17 Viral URI with cough 06/12/2015 03/27/2017 Mixed rhinitis 06/12/2015 03/27/2017 Sinus congestion 07/25/2014 03/27/2017 Dysfunction of eustachian tube 07/25/2014 1 HTN, goal below 140/90 05/29/2014 6 Type II or unspecified type diabetes mellitus without mention of complication, not stated as uncontrolled 12/27/2013 UTI (urinary tract infection) 07/22/2012 HTN, goal below 140/80 11/17/2011 5 Overview: Per HTN Protocol #27. Dysphagia, pharyngoesophageal phase 01/30/2010 03/27/2017 HTN, GOAL BELOW 130/80 04/25/2009 2 Overview: Per HTN Taxonomy. Dyslipidemia, goal LDL below 100 03/08/2009 04/23/2015 Overview: Per Lipid Taxonomy. Type 2 diabetes mellitus wit h hemoglobin A1c goal of less than 7.0% 01/25/2009 07/08/2013 Overview: Per Diabetes Taxonomy. ICD-10 update of inactive term Cough 05/25/2008 03/27/2017 Allergic rhinitis 05/25/2008 07/25/2014 Dysfunction of eustachian tube 05/25/2008 0 07/25/2014 Benign neoplasm of colon 12/31/2006 017 Overview: hyperplastic polyps--repeat 3 years HTN, goal below 140/90 05/13/2001 0 Overview: Per HTN Taxonomy. HYPERTENSION NOS 02/02/2009 Overview: Per HTN Taxonomy Dyslipidemia, goal to be determined 03/08/2009 Overview: Per Lipid Taxonomy. Type 2 diabetes mellitus wit h hemoglobin A1c goal of less than 7.0% 01/25/2009 Overview: Per Diabetes Taxonomy. ICD-10 update of inactive term documented as of this encounter (statuses as of 01/02/2023) Immunizations Name Administration Dates Next Due Pneumococcal [...] drink = 0.6 oz pur e alcohol) Food Insecurity Answer Date Recorded Within the past 12 months, y ou worried that your food would run out before you got money to buy more. Never true 04/26/2019 Within the past 12 months, t he food you bought just didn't last and you didn't have money to get more. Never true 04/26/2019 Sex Assigned at Date Recorded Female 10/04/2018 10:45 AM EDT Job Start Date Occupation Industry Not on file Not on file Not on file documented as of this encounter Plan of Treatment Upcoming Encounters Date Type Specialty Care Team Description 01/05/2023 Office Visit Family Medicine Waqas Laguna MD [address] [place] [facility] [place] [address] 01/26/2023 Imaging Radiology 02/09/2023 Office Visit Family Medicine Vince Hook MD [address] [facility] [place] [phone] 04/21/2023 Office Visit Nephrology Nicol Michelle MD [address] [place], [place] [phone] Pending Results Name Type Priority Associated Diagnoses Date /Time BASIC METABOLIC PANEL Lab Routine Hyponatremia 01/02/2023 10:03 AM EDT Health Maintenance Due Date Last Done Comments COVID-19 Vaccine (#1) 1935 Zoster Vaccines (1 of 2) 1987 DXA Scan 01/30/2012 01/29/2010, 04/2009, 12/21/2007, Additional history exists Depression Screening 10/25/2020 10/26/2019 Influenza Vaccine (FLU shot) (#1) 2022 01/28/2022, 01/03/2021, 01/02/2021, Additional history exists documented as of this encounter Medical Devices Not on filedocumented as of this encounter Visit Diagnoses Diagnosis Hyponatremia Hyposmolality and/or hyponatremia documented in this encounter Care Teams Pile Driver Engineer Relationship Specialty Start Date End Date Vince Hook MD [address] [place] [facility] [place] [address] PCP - General 08/27/00 documented as of this encounter
--- OUTSIDE RECORDS SUMMARY | 2023-06-27 04:44 | External Medical Summary | Summary of Care ---
Author Name Unknown Organization [facility] Address [address] [place] [facility] [place] [address] Phone [phone] Care Team Providers Care Chief Cook Name Role Phone Vince Hook MD Primary Care Provider [phone] Reason for Visit * Reason Comments Acute Pt presents with ear pain. Was on antibiotics for URI but still having issues with her ears. Encounter Details Date Type Department Care Team Description 01/05/2023 Office Visit [facility] [address] [place] [address] Waqas Laguna MD [address] [place] [address] Chronic sinusitis, unspecified location*; Chronic ear infection, left; Chronic allergic rhinitis; Type 2 diabetes mellitus with hemoglobin A1c goal of less than 8.0% ([facility]) Allergies Active Allergy Reactions Severity Noted Date Comments Rafita Inhibitors 11/16/2002 cough Amlodipine Edema Other,Rash 04/05/2015 Hydrochlorothiazide W-Triamterene Other (Please comment) 05/10/2015 Hyponatremia Molds & Smuts Other (Please comment) Low 01/02/2021 documented as of this encounter (statuses as of 01/05/2023) Medications Medication Sig Dispensed Refills Start Date End Date Status ASPIRIN EC LOW STRENGTH TBEC 81 MG ORIndications:DM type 2, not at goal ([facility]) one by mouth daily 100 3 12/04/2000 [...] 90 Tablet 2 06/16/2022 Active Droplet Pen [place] 31G X 5 MM (Insulin Pen Needle) [...] as of this encounter (statuses as of 01/05/2023) Active Problems Problem Noted Date Hospital discharge [...] as of this encounter (statuses as of 01/05/2023) Resolved Problems Problem Noted Date Resolved Date [...] as of this encounter (statuses as of 01/05/2023) Immunizations Name Administration Dates Next Due Pneumococcal [...] Sign Reading Time Taken Comments Blood Pressure 154/76 01/05/2023 1:20 PM EDT Pulse 62 01/05/2023 1:20 PM EDT Temperature 36.3 C (97.3 F) 01/05/2023 1:20 PM ED T Respiratory Rate 16 01/05/2023 1:20 PM EDT Oxygen Saturation - - Inhaled Oxygen Concentration - - Weight 66.8 kg (147 lb 3.2 oz) 01/05/2023 1:20 P M EDT Height - - Body Mass Index 28.75 01/28/2022 12:56 PM EDT documented in this encounter Progress Notes * Waqas Laguna MD - 01/05/2023 1:37 PM EDT Subjective Starr Carmona is a 87 year old female. Chief Complaint Patient presents with Acute Pt presents with ear pain. Was on antibiotics for URI but still having issues with her ears. HPI: Here for persistent lt ear pain She was treated one mo ago for URI sx and ear problem Finished amoxicillin early Sep But has been bothering still, Denies fever, Gets cough, chest congestion with drainage Has chronic sinus drainage, but taking only saline Known type 2 DM , taking meds , insulin dependent PMH: Patient Active Problem List Diagnosis Code Myalgia and myositis [id number] ADVANCE DIRECTIVE INFORMATION Congenital hiatus hernia Q40.1 Other specified forms of hearing loss H91.8X9 Temporomandibular joint disorders, unspecified M26.609 Allergic rhinitis J30.9 Type 2 diabetes mellitus with hemoglobin A1c goal of less than 8.0% ([facility]) E11.9 Hypertensive urgency I16.0 Hypomagnesemia E83.42 Hyponatremia E87.1 Dyslipidemia, goal LDL below 100 E78.5 History of TIA (transient ischemic attack) Z86.73 HTN, goal below 150/90 I10 Anxiety state F41.1 SHIVANI on CPAP G47.33 Essential tremor G25.0 Paroxysmal atrial fibrillation ([facility]) I48.0 Type 2 diabetes mellitus with chronic kidney disease ([facility]) E11.22 Hospital discharge follow-up Z09 Diastolic dysfunction [...] nasal dryness or congestion 1 Bottle 5 magnesium chloride ER (SLOW MAG) 535 (64 MG) MG TBCR Take 535 mg by mouth 2 times a day. Blood Glucose Monitoring Suppl (TRUE METRIX METER) ROLANDO Use to test blood sugar up to 2 times dailydx e11.9 1 Device 5 Blood Glucose Calibration (TRUE METRIX LEVEL 1) Low SOLN Used to calibrate meter 1 Each 0 Cyanocobalamin (B-12) 1000 MCG TABS Take 1 Tab by mouth daily. 30 Tab 11 Losartan Potassium 50 MG Oral Tablet (Cozaar) take 1 tablet by mouth every morning 90 Tablet 3 Clopidogrel Bisulfate 75 MG Oral Tablet (pLAVix) take 1 tablet by mouth once daily 90 Tablet 2 Droplet Pen [place] 31G X 5 MM (Insulin Pen Needle) use with BASAGLAR daily 90 Each 3 Escitalopram Oxalate 10 MG Oral Tablet (Lexapro) take 1 tablet by mouth once daily (MAY TAKE AT BEDTIME) 90 Tablet 2 Atorvastatin Calcium 20 MG Oral Tablet (Lipitor) take 1 tablet by mouth once daily 90 Tablet 1 Doxycycline Hyclate 100 MG Oral Capsule Take 1 Capsule by mouth in the morning and 1 Capsule beforebedtime. Benzonatate 100 MG Oral Capsule (Tessalon Perles) Take 1 Capsule by mouth 3 times a day as needed. Latanoprost 0.005 % Ophthalmic Solution (Xalatan) Instill [...] 1 patch every WEEK 4 Patch 5 True Metrix Blood Glucose Test In Vitro Strip (Glucose Blood) Test blood sugar twice daily as directed E11.9 (using insulin) 200 Strip 3 hydrALAZINE HCl 100 MG Oral Tablet take 1 tablet by mouth three times a day 90 Tablet 5 Azithromycin 250 MG Oral Tablet (Zithromax Z-Luis) Take two tablets by mouth on first day, then 1 tablet daily until gone 6 Tablet 0 Montelukast Sodium 10 MG Oral Tablet (Singulair) Take 1 Tablet by mouth in the morning. 90 Tablet 3 Fluticasone Propionate 50 MCG/ACT Nasal Suspension (Flonase) Administer 2 Sprays into each nostril in the morning. 16 g 1 PENLET BLOOD SAMPLING PEN MISC as directed 200 3 LANCETS MISC once daily 50 11 zoster vac recomb adjuvanted (SHINGRIX) 50 MCG injection Inject 0.5 mL into a large muscle now and repeat dose in 60 to 180 days (Patient not taking: Reported on 01/28/2022) 1 Each 1 TRUEPLUS LANCETS 33G MISC Testing once daily 100 Each 0 BD Pen Needle Short U/F 31G X 8 MM use 1 PEN NEEDLE to inject MEDICATION subcutaneously as directed No current facility-administered medications for this visit. Past Medical History: Diagnosis Date Benign neoplasm of colon 12/31/06 hyperplastic polyps--repeat 3 years Cough 03/18/2006 lasting 2 1/2 weeks DM type 2, goal A1c below 7 Dyslipidemia, goal to be determined HTN, goal below 140/90 Myalgia and myositis SHIVANI on CPAP 08/08/2016 APAP 5-15 cwp Care Plus Oxygen Past Surgical History: Procedure Laterality Date CARPAL TUNNEL SURGERY right COLONOSCOPY W/ BIOPSY (RECTUM) 12/31/06 hyperplastic polyps--repeat 3 years COLONOSCOPY, DIAGNOSTIC (RECTUM) 02/13/11 diverticulosis REMOVE GALLBLADDER 1971 Review of patient's allergies indicates: Allergen Reactions Rafita Inhibitors cough Amlodipine Edema Other and Rash Maxzide [Hydrochlorothiazide W-Triamterene] Other (Please comment) Hyponatremia Molds & Smuts Other (Please comment) Family History Problem Relation Age of Onset Diabetes Mother 90 Lived to 99 1/2 Mental Disorder Mother Depression/anxiety Heart Disorder Father Allergies Aunt (Unspecified) maternal; hayfever Asthma Aunt (Unspecified) maternal Family Status Relation Status Mo at age 99 HTN, Fa at age 68 ASHD Sis Alive Sis Alive AUNT (Not Specified) AUNT (Not Specified) Social History Socioeconomic History Marital status: Spouse name: Not on file Number of children: 4 Years of education: Not on file Highest education level: Not on file Occupational History Comment: disability Tobacco Use Smoking status: Never Smokeless tobacco: Never Tobacco comments: no passive smoke Vaping Use Vaping Use: Never used Substance and Sexual Activity Alcohol use: No Drug use: No Sexual activity: Not on file Other Topics Concern Not on file Social History Narrative [employer] [place] [place] INFORMATION ENVIRONMENTAL HISTORY: Type of Home: Mobile Home Type of Heating System: Oil and Forced air Air Conditioning: Yes Living room Basement: None Home have cockroaches: no Irritants in the home: Scented air fresheners Patient's bedroom location: Floor: first Type of jorge: Carpeting Beds: Number: 1 Type of beds: Mattress and Box spring Pillows: Number: 2 Type of pillows: Synthetic (hypoallergenic, polyester) Bedroom contains: Minimal items Pets: none Lives on a farm: No Retired; not working outside of home Entered by: Matt Tejada MD 05/25/2008 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 Negative for activity change, appetite change, chills, diaphoresis, fever and unexpected weight change. HENT: Positive for congestion, ear pain (lt), hearing loss, postnasal drip, sinus pressure and tinnitus. Negative for rhinorrhea, sinus pain and sneezing. Respiratory: Positive for cough and chest tightness. Negative for shortness of breath and wheezing. Cardiovascular: Negative for chest pain, palpitations and leg swelling. Musculoskeletal: Positive for arthralgias and gait problem (cane). Allergic/Immunologic: Positive for environmental allergies. Neurological: Positive for weakness (generalized). Negative for dizziness, light-headedness and headaches. Psychiatric/Behavioral: Negative for agitation and behavioral problems. Objective BP 154/76 | Pulse 62 | Temp 36.3 C (97.3 F) | Resp 16 | Wt 66.8 kg (147 lb 3.2 oz) | BMI 28.75 kg/m | BSA 1.68 m Physical Exam Constitutional: General: She is not in acute distress. Appearance: Normal appearance. She is not ill-appearing, toxic-appearing or diaphoretic. HENT: Head: Normocephalic and atraumatic. Ears: Comments: Fluid bulging TMs Lt ear infection mild B/L hearing aids Nose: Congestion present. Eyes: Extraocular Movements: Extraocular movements intact. Pupils: Pupils are equal, round, and reactive to light. Cardiovascular: Rate and Rhythm: Normal rate and regular rhythm. Pulses: Normal pulses. Heart sounds: Murmur heard. Pulmonary: Effort: Pulmonary effort is normal. No respiratory distress. Breath sounds: No stridor. Rhonchi (mild only with cough) present. No wheezing or rales. Chest: Chest wall: No tenderness. Musculoskeletal: Right lower leg: No edema. Left lower leg: No edema. Neurological: General: No focal deficit present. Mental Status: She is alert and oriented to person, place, and time. Psychiatric: Behavior: Behavior normal. ASSESSMENT/PLAN: Chronic sinusitis, unspecified location (Primary) Chronic ear infection, left Chronic allergic rhinitis Type 2 diabetes mellitus with hemoglobin A1c goal of less than 8.0% ([facility]) Other orders - Azithromycin 250 MG Oral Tablet (Zithromax Z-Luis); Take two tablets by mouth on first day, then 1tablet daily until gone - Montelukast Sodium 10 MG Oral Tablet (Singulair); Take 1 Tablet by mouth in the morning. - Fluticasone Propionate 50 MCG/ACT Nasal Suspension (Flonase); Administer 2 Sprays into each nostril in the morning. Take meds Waqas Laguna MD documented in this encounter Nursing Notes * AGUILA Junior - 01/05/2023 1:20 PM EDT The patient has been properly identified by confirmation of name and date of . Chief Complaint Patient presents with Acute Pt presents with ear pain. Was on antibiotics for URI but still having issues with her ears. documented in this encounter Plan of Treatment Upcoming Encounters Date Type Specialty Care Team Description 01/26/2023 Imaging Radiology 02/09/2023 Office Visit Family Medicine Vince Hook MD [address] [place] [address] 04/21/2023 Office Visit Nephrology Nicol Michelle MD [address] [place] [address] Health Maintenance Due Date Last Done Comments COVID-19 Vaccine (#1) 1935 Zoster Vaccines (1 of 2) 1987 DXA Scan 01/30/2012 01/29/2010, 04/2009, 12/21/2007, Additional history exists Depression Screening 10/25/2020 10/26/2019 Influenza Vaccine (FLU shot) (#1) 2022 01/28/2022, 01/03/2021, 01/02/2021, Additional history exists documented as of this encounter Medical Devices Not on filedocumented as of this encounter Visit Diagnoses Diagnosis Chronic sinusitis, unspecified location- Primary Chronic ear infection, left Chronic allergic rhinitis Allergic rhinitis, cause unspecified Type 2 diabetes mellitus with hemoglobin A1c goal of less than 8.0% ([facility]) documented in this encounter Care Teams Chief Cook Relationship Specialty Start Date End Date Vince Hook MD [facility] [place] [address] PCP - General 08/27/00 documented as of this encounter"
--- OUTSIDE RECORDS SUMMARY | 2023-06-27 04:44 | External Medical Summary | Summary of Care ---
Author Name Unknown Organization [facility] Address [address] [place] [address] Phone [phone] Care Team Providers Care Educational Therapy Teacher Name Role Phone Vince Hook MD Primary Care Provider [phone] Reason for Visit * Reason Onset Date Comments Left Message 01/08/2023 Encounter Details Date Type Department Care Team Description 01/08/2023 Plastic Sewer Telephone Care Coordination [address] [place], [place] [phone] Madai Mcmahan, ZOIE [address] [place], [place] [phone] Left Message Allergies Active Allergy Reactions Severity Noted Date Comments Rafita Inhibitors 11/16/2002 cough Amlodipine Edema Other,Rash 04/05/2015 Hydrochlorothiazide W-Triamterene Other (Please comment) 05/10/2015 Hyponatremia Molds & Smuts Other (Please comment) Low 01/02/2021 documented as of this encounter (statuses as of 01/08/2023) Medications Medication Sig Dispensed Refills Start Date [...] 90 Tablet 2 06/16/2022 Active Droplet Pen [place] 31G X 5 MM (Insulin Pen Needle) [...] as of this encounter (statuses as of 01/08/2023) Active Problems Problem Noted Date Hospital discharge [...] as of this encounter (statuses as of 01/08/2023) Resolved Problems Problem Noted Date Resolved Date [...] as of this encounter (statuses as of 01/08/2023) Immunizations Name Administration Dates Next Due Pneumococcal [...] encounter Miscellaneous Notes * Telephone Encounter - Madai Mcmahan RN - 01/08/2023 3:11 PM EDT Follow-up Routine Attempted Phone Call First Attempt Call Outcome Left Voicemail/Message Plan To attempt another outreach Madai Mcmahan RN documented in this encounter Plan of Treatment Upcoming Encounters Date Type Specialty Care Team Description 01/26/2023 Imaging Radiology 02/09/2023 Office Visit Family Medicine Vince Hook MD [address], [place] [phone] 04/21/2023 Office Visit Nephrology Nicol Michelle MD [address] [place] [address] Health Maintenance Due Date Last Done Comments COVID-19 Vaccine (#1) 1935 Zoster Vaccines (1 of 2) 1987 DXA Scan 01/30/2012 01/29/2010, 04/2009, 12/21/2007, Additional history exists Depression Screening 10/25/2020 10/26/2019 Influenza Vaccine (FLU shot) (#1) 2022 01/28/2022, 01/03/2021, 01/02/2021, Additional history exists documented as of this encounter Medical Devices Not on filedocumented as of this encounter Care Teams Educational Therapy Teacher Relationship Specialty Start Date End Date Vince Hook MD [address] [place] [address] PCP - General 08/27/00 documented as of this encounter
--- OUTSIDE RECORDS SUMMARY | 2023-06-27 04:44 | External Medical Summary ---
Author Name Unknown Address Unknown Organization K01:[facility] - [facility] [address] [place] [address] Laboratory Report Ordering Provider Test Date Status AGNIESZKA ESPANA 01/02/2023 10:03:11 Final Observation Date Value Abnormality Reference (Units ) Status BUN 01/02/2023 10:03:11 13 6-20 (mg/dL) Final Creatinine 01/02/2023 10:03:11 0.9 0.5-1.0 (mg/dL) Final Glomerular filtration rate/1.73 sq M.predicted [Volume Rate/Area] in Serum, Plasma or Blood by Creatinine-based formula (CKD-EPI) 01/02/2023 10:03:11 63 >=60 (mL/min) Final eGFR is calculated based on the CKD-EPI 2020 equation SODIUM 01/02/2023 10:03:11 134 Below low normal 135 -146 (mmol/L) Final Potassium 01/02/2023 10:03:11 4.6 3.5-5.1 (m mol/L) Final Cl 01/02/2023 10:03:11 96 Below low normal 98- 107 (mmol/L) Final CO2 01/02/2023 10:03:11 29 22-32 (mmo l/L) Final Anion gap 01/02/2023 10:03:11 9 7-15 (mmol /L) Final Glucose 01/02/2023 10:03:11 177 Above high normal 70 -120 (mg/dL) Final Calcium 01/02/2023 10:03:11 9.4 8.4-10.2 ( mg/dL) Final Performing Location [facility] - [address] [place] [id number]
--- OUTSIDE RECORDS SUMMARY | 2023-06-27 04:44 | External Medical Summary | Summary of Care ---
Author Name Unknown Organization [facility] Address [address] [facility] [place] [address] Phone [phone] Care Team Providers Care Maternity Floor Supervisor Name Role Phone Vince Hook MD Primary Care Provider [phone] Reason for Visit * Reason Onset Date Comments Outpatient Testing 12/26/2022 Encounter Details Date Type Department Care Team Description 12/26/2022 Telephone Nephrology, Lico Jacobs [address] [facility] [place] [address] Nicol Michelle MD [address] [facility] [place] [address] Outpatient Testing Allergies Active Allergy Reactions Severity Noted Date Comments Rafita Inhibitors 11/16/2002 cough Amlodipine Edema Other,Rash 04/05/2015 Hydrochlorothiazide W-Triamterene Other (Please comment) 05/10/2015 Hyponatremia Molds & Smuts Other (Please comment) Low 01/02/2021 documented as of this encounter (statuses as of 12/29/2022) Medications Medication Sig Dispensed Refills Start Date [...] 90 Tablet 2 06/16/2022 Active Droplet Pen [place] 31G X 5 MM (Insulin Pen Needle) [...] as of this encounter (statuses as of 12/29/2022) Active Problems Problem Noted Date Hospital discharge [...] as of this encounter (statuses as of 12/29/2022) Resolved Problems Problem Noted Date Resolved Date [...] as of this encounter (statuses as of 12/29/2022) Immunizations Name Administration Dates Next Due Pneumococcal [...] encounter Miscellaneous Notes * Telephone Encounter - Jennifer Hand CPhT - 12/29/2022 2:10 PM EDT Patient stating someone called her, informed patient it may be because of required labs. Transferred patent to scheduling. Thank you, Jennifer Hand, Clinical Unit Educator [facility]) 12/29/2022, 2:11 PM * Telephone Encounter - Amy Langston RN - 12/26/2022 8:39 AM EDT Message sent via [employer]. * Telephone Encounter - Amy Langston RN - 12/26/2022 8:30 AM EDT ----- Message from Nicol Michelle MD sent at 12/25/2022 4:56 PM EDT ----- It's been 3 mos > recommend recheck bmp to f/u sodium and K. How is she doing on fluid limit 1.5L daily? documented in this encounter Plan of Treatment Upcoming Encounters Date Type Specialty Care Team Description 01/02/2023 Laboratory Laboratory [place], [address] [address] 01/26/2023 Imaging Radiology 02/09/2023 Office Visit Family Medicine Vince Hook MD [address] [place] [address] 04/21/2023 Office Visit Nephrology Nicol Michelle MD [address] [place] [address] Scheduled Orders Name Type Priority Associated Diagnoses Orde r Schedule BASIC METABOLIC PANEL Lab Routine Hyponatremia Expected: 12/26/2022 (Approximate), Expires: 12/27/2023 Health Maintenance Due Date Last Done Comments COVID-19 Vaccine (#1) 1935 Zoster Vaccines (1 of 2) 1987 DXA Scan 01/30/2012 01/29/2010, 04/2009, 12/21/2007, Additional history exists Depression Screening 10/25/2020 10/26/2019 Influenza Vaccine (FLU shot) (#1) 2022 01/28/2022, 01/03/2021, 01/02/2021, Additional history exists documented as of this encounter Medical Devices Not on filedocumented as of this encounter Visit Diagnoses Diagnosis Hyponatremia- Primary Hyposmolality and/or hyponatremia documented in this encounter Care Teams Maternity Floor Supervisor Relationship Specialty Start Date End Date Vince Hook MD [address] [facility] [place] [address] PCP - General 08/27/00 documented as of this encounter
--- OUTSIDE RECORDS SUMMARY | 2023-06-27 04:44 | External Medical Summary | Summary of Care ---
Author Name Unknown Organization [facility] Address [address] [place] [address] Phone [phone] Care Team Providers Care U.S. Revenue Officer Name Role Phone Vince Hook MD Primary Care Provider [phone] Encounter Details Date Type Department Care Team Description 01/14/2023 Induction Coordination Power Engineer Care Coordination [address] [place] [address] Madai Mcmahan RN [address], [place] [phone] HTN, goal below 150/90* Allergies Active Allergy Reactions Severity Noted Date Comments Rafita Inhibitors 11/16/2002 cough Amlodipine Edema Other,Rash 04/05/2015 Hydrochlorothiazide W-Triamterene Other (Please comment) 05/10/2015 Hyponatremia Molds & Smuts Other (Please comment) Low 01/02/2021 documented as of this encounter (statuses as of 01/14/2023) Medications Medication Sig Dispensed Refills Start Date [...] 90 Tablet 2 06/16/2022 Active Droplet Pen [place] 31G X 5 MM (Insulin Pen Needle) [...] as of this encounter (statuses as of 01/14/2023) Active Problems Problem Noted Date Hospital discharge [...] as of this encounter (statuses as of 01/14/2023) Resolved Problems Problem Noted Date Resolved Date [...] as of this encounter (statuses as of 01/14/2023) Immunizations Name Administration Dates Next Due Pneumococcal [...] on file documented as of this encounter Progress Notes * Madai Mcmahan RN - 01/14/2023 2:26 PM EDT CM Transition/Closure: Review of current patient status: patient denies SOB, cough, LE edema or angina Has a good appetite, denies bowel/bladder complaints Has some discomfort to her joints, says she is going to a Chiropractor with some relief Patient using a cane when outside, no report of falls Family checks on her several times a week Confirmed patient has a follow up appointment with Dr. Hook on 02/09/23 SNP LOB: no Outstanding Goals: NONE Current Status of Advanced Care Planning: Ongoing progress toward ACP conversation as documented inACP activity. Medications: Medications Reviewed and Optimized Current Exacerbation Plan: encouraged to call clinic with worsening SOB, cough, fever, chills Community Resource Needs: All necessary community resource needs met/in place. Future Appointments Scheduled: Future Appointments-next 60 days Date/Time Provider Specialty Dept Phone 01/26/2023 10:30 AM [facility] Radiology [phone] 02/09/2023 12:20 PM (Arrive by 12:05 PM) Vince Hook MD Family Medicine [phone] 04/21/2023 11:40 AM (Arrive by 11:25 AM) Nicol Michelle MD Nephrology [phone] No Appointment needed at this time. Health Plan Benefits assessed: yes Pt. Has had no utilization for a period of 6 months. Upon review of patient status plan to close patient from Outpatient Case Management services.. Reinforced CM contact information as well as PCP office contact information for any change in status or questions. Pt. made aware of this transition. Warm Hand-off: This note serves as written notification of Transition/Closure plan as well as handoff details. Warm hand-off conducted: No. Madai Mcmahan RN Outpatient Case Management documented in this encounter Plan of Treatment Upcoming Encounters Date Type Specialty Care Team Description 01/26/2023 Imaging Radiology 02/09/2023 Office Visit Family Medicine Vince Hook MD [address] [place] [phone] 04/21/2023 Office Visit Nephrology Nicol Michelle MD [address] [place] [phone] Health Maintenance Due Date Last Done Comments COVID-19 Vaccine (#1) 1935 Zoster Vaccines (1 of 2) 1987 DXA Scan 01/30/2012 01/29/2010, 04/2009, 12/21/2007, Additional history exists Depression Screening 10/25/2020 10/26/2019 Influenza Vaccine (FLU shot) (#1) 2022 01/28/2022, 01/03/2021, 01/02/2021, Additional history exists documented as of this encounter Medical Devices Not on filedocumented as of this encounter Visit Diagnoses Diagnosis HTN, goal below 150/90- Primary documented in this encounter Care Teams U.S. Revenue Officer Relationship Specialty Start Date End Date Vince Hook MD [address] [place], [place] [phone] PCP - General 08/27/00 documented as of this encounter
--- OUTSIDE RECORDS SUMMARY | 2023-06-27 04:45 | External Medical Summary | Summary of Care ---
Author Name Unknown Organization [facility] Address [address] [address] Phone [phone] Care Team Providers Care Material Inspector Name Role Phone Vince Hook MD Primary Care Provider Reason for Visit * Reason Onset Date Comments Medication Question 12/29/2022 Encounter Details Date Type Department Care Team Description 12/29/2022 Telephone [facility] [address] [place] [facility] [place] [address] Vince Hook MD [address] [place] [address] Medication Question Allergies Active Allergy Reactions Severity Noted Date [...] 90 Tablet 2 06/16/2022 Active Droplet Pen [place] 31G X 5 MM (Insulin Pen Needle) [...] encounter Miscellaneous Notes * Telephone Encounter - SHIVANI Welsh - 12/29/2022 12:45 PM EDT Pt called asking about a phone call that she received yesterday 12/28. I informed the pt that there is no documentation of any outgoing phone calls yesterday so unfortunately I am not sure who or why she got a call from [employer]. * Telephone Encounter - Azul Lee CPhT - 12/29/2022 12:42 PM EDT Pt calling and said someone called her yesterday so she is retuning the call. Unable to locate any documentation of anyone calling. Thank you, Azul Lee Financial Management Analyst [facility] ([facility] ([facility]) 12/29/2022, 12:43 PM documented in this encounter Plan of Treatment Upcoming Encounters Date Type Specialty Care Team Description 01/26/2023 Imaging Radiology 02/09/2023 Office Visit Family Medicine Vince Hook MD [address] [place], [place] [id number] 04/21/2023 Office Visit Nephrology Nicol Michelle MD [address] [place] [phone] Health Maintenance Due Date Last Done Comments COVID-19 Vaccine (#1) 1935 Zoster Vaccines (1 of 2) 1987 DXA Scan 01/30/2012 01/29/2010, 04/2009, 12/21/2007, Additional history exists Depression Screening 10/25/2020 10/26/2019 Influenza Vaccine (FLU shot) (#1) 2022 01/28/2022, 01/03/2021, 01/02/2021, Additional history exists documented as of this encounter Medical Devices Not on filedocumented as of this encounter Care Teams Material Inspector Relationship Specialty Start Date End Date Vince Hook MD [address] [place] [phone] PCP - General 08/27/00 documented as of this encounter
--- OUTSIDE RECORDS SUMMARY | 2023-06-27 04:45 | External Medical Summary | Summary of Care ---
Author Name Unknown Organization [facility] Address [address] [place] [facility] [place] [facility] [place] [address] Phone [phone] Care Team Providers Care Thoracic Surgeon Name Role Phone Vince Hook MD Primary Care Provider Reason for Visit * Reason Onset Date Comments Medication Question 12/29/2022 Encounter Details Date Type Department Care Team Description 12/29/2022 Telephone [facility] [address] [place] [facility] [place] [address] Vince Hook MD [address] [place] [address] Medication Question Allergies Active Allergy [...] 90 Tablet 2 06/16/2022 Active Droplet Pen [place] 31G X 5 MM (Insulin Pen Needle) [...] or why she got a call from [employer]. * Telephone Encounter - Azul Lee CPhT - 12/29/2022 12:42 PM EDT Pt calling and said someone called her yesterday so she is retuning the call. Unable to locate any documentation of anyone calling. Thank you, Azul Lee Financial Professional [facility] ([facility] ([facility]) 12/29/2022, 12:43 PM documented in this encounter Plan of Treatment Upcoming Encounters Date Type Specialty Care Team Description 01/26/2023 Imaging Radiology 02/09/2023 Office Visit Family Medicine Vince Hook MD [address] [place], [place] [phone] 04/21/2023 Office Visit Nephrology Nicol Michelle MD [address] [place] [phone] Health Maintenance Due Date Last Done Comments COVID-19 Vaccine (#1) 1935 Zoster Vaccines (1 of 2) 1987 DXA Scan 01/30/2012 01/29/2010, 04/2009, 12/21/2007, Additional history exists Depression Screening 10/25/2020 10/26/2019 Influenza Vaccine (FLU shot) (#1) 2022 01/28/2022, 01/03/2021, 01/02/2021, Additional history exists documented as of this encounter Medical Devices Not on filedocumented as of this encounter Care Teams Thoracic Surgeon Relationship Specialty Start Date End Date Vince Hook MD [address] [place] [phone] PCP - General 08/27/00 documented as of this encounter
[2023-06-27 06:50] LABS: Basophils # (auto) 0.08 K/uL (0.00-0.20); Basophils % (auto) 0.9 %; Eosinophils # (auto) 0.33 K/uL (0.00-0.50); Eosinophils % (auto) 3.8 %; Hematocrit (blood only) 36.3 % (37.0-47.0); Hemoglobin 12.5 g/dl (12.0-16.0); Immature Granulocytes # (auto) 0.03 K/uL (0.01-0.20); Immature Granulocytes % (auto) 0.3 %; Lymphocytes # (auto) 1.16 K/uL (1.20-3.40); Lymphocytes % (auto) 13.4 %; Mean Corpuscular Hemoglobin 29.2 pg (25.0-34.0); Mean Corpuscular Hgb Conc 34.4 g/dL (32.0-36.0); Mean Corpuscular Volume 84.8 fL (80.0-100.0); Mean Platelet Volume 9.9 fL (9.4-12.4); Monocytes # (auto) 1.02 K/uL (0.11-0.59); Monocytes % (auto) 11.8 %; Neutrophils # (auto) 6.06 K/uL (1.40-6.50); Neutrophils % (auto) 69.8 %; Platelet Count 204 K/uL (130-400); RDW Coefficient of Variation 14.1 % (11.5-14.5); RDW Standard Deviation 43.6 fL (36.4-46.3); Red Blood Count 4.28 M/uL (4.20-5.40); White Blood Count 8.68 K/ul (4.8-10.8)
[2023-06-27 06:52] LABS: BUN Creatinine Ratio 23.7 (10-20); Calcium 9.2 mg/dl (8.6-10.3); Est GFR (African American) 82.3 ml/min; Magnesium 1.5 mg/dl (1.7-2.4); Potassium 3.9 mmol/L (3.5-5.1)
[2023-06-27 07:08] LABS: Estimated Average Glucose 177 mg/dl; Hemoglobin A1C 7.8 % (4.5-5.6)
[2023-06-27] MEDS: ACETAMINOPHEN 325 MG TAB PO PRN (09:02)
[2023-06-27] MEDS: cefTRIAXone SODIUM 2,000 MG in DEXTROSE 5 % MINI-B 50 ML IV SCH (09:03)
[2023-06-27] MEDS: LANTUS PER UNIT CHARGE SQ SCH (09:03)
[2023-06-27] MEDS: MAGNESIUM OXIDE 400 MG TAB PO SCH (09:04)
[2023-06-27] MEDS: LOSARTAN POTASSIUM 50 MG TAB PO SCH (09:04)
[2023-06-27] MEDS: ASPIRIN 81 MG ECTAB PO SCH (09:04)
[2023-06-27] MEDS: CLOPIDOGREL BISULFATE 75 MG TAB PO SCH (09:04)
[2023-06-27] MEDS: CYANOCOBALAMIN (B-12) 500 MCG TABLET PO SCH (09:05)
[2023-06-27] MEDS: METOPROLOL SUCC 50MG EXT REL TAB PO SCH (09:05)
[2023-06-27] MEDS: TIMOLOL MALEATE 0.5% OP SOLN 5 ML BTL OPB SCH (09:06)
--- OUTSIDE RECORDS SUMMARY | 2023-06-27 09:51 | External Medical Summary | Summary of Care ---
Author Name Unknown Organization [facility] Address [address] [place] [facility] [place] [place] [address] Phone [phone] Care Team Providers Care Java Tech Lead Name Role Phone Ericka Hook MD Primary Care Provider Reason for Visit * Reason Comments eRx-Medication Refill Encounter Details Date Type Department Care Team (Late st Contact Info) Description 06/26/2023 Refill [facility] [address] [place] [address] Ericka Hook MD [address] [place] [address] Allergies Active Allergy Reactions Criticality Noted Date Comments Rafita Inhibitors 11/16/2002 cough Amlodipine Edema Other,Rash 04/05/2015 Hydrochlorothiazide W-Triamterene Other (Please comment) 05/10/2015 Hyponatremia Molds & Smuts Other (Please comment) Low 01/02/2021 documented as of this encounter (statuses as of 06/26/2023) Medications Medication Sig Dispensed Refills Start Date End Date Status ASPIRIN EC LOW STRENGTH TBEC 81 MG ORIndications:DM type 2, not at goal (HCC) one by mouth daily 100 3 12/04/2000 Active PENLET BLOOD SAMPLING PEN MISCIndications:D M type 2, not at goal (HCC) as directed 200 3 01/14/2002 Active LANCETS MISCIndications:D M type 2, not at goal ([facility]) once daily 50 11 12/10/2006 Active saline [...] 4 Patch 5 03/24/2023 Active Droplet Pen [place] 31G X 5 MM (Insulin Pen Needle) [...] (using insulin) 200 Strip 3 03/25/2023 Active Fluticasone Propionate 50 MCG/ACT Nasal Suspension (Flonase) USE 2 SPRAYS IN EACH NOSTRIL EVERY MORNING 16 g 5 04/20/2023 Active Clopidogrel Bisulfate 75 MG Oral Tablet (pLAVix) Take 1 Tablet by mouth in the morning. 90 Tablet 0 06/26/2023 Active Clopidogrel Bisulfate 75 MG Oral Tablet (pLAVix) Take 1 Tablet by mouth in the morning. 90 Tablet 0 03/31/2023 06/26/19 24 Discontinued documented as of this encounter (statuses as of 06/26/2023) Active Problems Problem Noted Date Diagnosed Date [...] as of this encounter (statuses as of 06/26/2023) Resolved Problems Problem Noted Date Diagnosed Date [...] as of this encounter (statuses as of 06/26/2023) Immunizations Name Administration Dates Next Due Pneumococcal [...] encounter Miscellaneous Notes * Telephone Encounter - Jory Chua, [facility] - 06/26/2023 6:11 PM EDTSigned Prescriptions: Disp Refills Clopidogrel Bisulfate 75 MG Oral Tablet (p*90 Tab*0 Sig: Take 1 Tablet by mouth in the morning.Authorizing Provider: ERICKA HOOK User: JORY CHUA * Telephone Encounter - Jory Chua [facility] - 06/26/2023 6:10 PM EDT RX authorized. Zero refills given until upcoming appt. 08/10/2023 and repeat lab work is completed Thank you, Jory Chua, PharmD Clinical Pharmacist [facility] 06/26/23 6:10 PM [phone] documented in this encounter Plan of Treatment Upcoming Encounters Date Type Department Care Team (Late st Contact Info) Description 08/10/2023 12:20 PM EDT Office Visit [facility] [address] [facility] [place] [id number] Ericka Hook MD [address] [facility] [place] [phone] 02/15/2024 2:00 PM EST Imaging Radiology [address] [address] Health Maintenance Due Date Last Done Comments Zoster Vaccines (1 of 2) 1987 DXA Scan 01/30/2012 01/29/2010, 04/2009, 12/21/2007, Additional history exists Depression Screening 10/25/2020 10/26/2019 COVID-19 Vaccine (2022-2 4 season) 2022 Influenza Vaccine (FLU shot) Completed , 01/28/2022, 01/08/2021, Additional history exists documented as of this encounter Medical Devices Not on filedocumented as of this encounter Care Teams Java Tech Lead Relationship Specialty Start Date End Date Ericka Hook MD [address] [place] [facility] [place] [address] PCP - General 08/27/00 documented as of this encounter
[2023-06-27] MEDS: ALPRAZolam 0.25 MG TABLET PO PRN (10:53)
[2023-06-27] MEDS: GADOBUTROL 7.5ML VIAL IV ONE (11:54)
--- NOTE | 2023-06-27 12:47 | Magnetic Resonance Report ---
Brain MRI WITH AND WITHOUT CONTRAST HISTORY: Hallucinations, headache TECHNIQUE: Multiplanar multisequence MRI of the brain was performed both before and after the intrave nous administration of contrast. COMPARISON STUDY: Brain MRI 05/14/2020. Head CT 06/26/2023. FINDINGS: There is no mass, hematoma, midline shift, or acute infarct. The paranasal sinuses are benjamin r. The mastoid air cells are clear. The ventricles and sulci demonstrate mild age-related involutiona l changes. Scattered foci of T2 hyperintensity seen within the periventricular and subcortical white matter are nonspecific but suggestive of mild microvascular ischemic changes. The major vascular flow voids at the skull base are well-maintained. IMPRESSION: No acute intracranial abnormality. Scattered foci of T2 hyperintensity seen within the periventricula r and subcortical white matter are nonspecific but favor microvascular ischemic change. ACT 112: Negative or not required by law. Electronically signed by: Dave Cano M.D. 06/27/2023 12:45 PM
--- NOTE | 2023-06-27 14:42 | Hospitalist Progress Note ---
Date of Service June 27, 2023 Assessment & Plan (1) AMS (altered mental status): Plan: 88-year-old female with past medical history significant for type 2 diabetes, hypomagnesemia, hyperlipidemia, congenital hiatal hernia, obstructive sleep apnea on CPAP, history of hypertensive urgency, paroxysmal atrial fibrillation, diastolic dysfunction, LVH, essential tremor, history of hyponatremia, history of TIA, history of anxiety, who lives alone at home and walks with a cane was brought in by daughter because of hallucinations. Altered mental status Visual hallucinations Rule out toxic encephalopathy Stroke ruled out Patient was brought to the hospital due to concern for hallucinations. No leukocytosis Electrolytes within normal limits Urinalysis does not suggest infection CT head without contrast did not show any acute finding MRI brain with and without contrast showed scattered focus of T2 hyperintensity seen within periventricular and subcortical white matter which are nonspecific. Will start empiric antibiotics with ceftriaxone. Obtain blood culture. Stop dextromethorphan as it can cause confusion Delirium precaution PT OT evaluation Hypertensive urgency Could be contributing to her symptoms Continue home clonidine patch, hydralazine, losartan and metoprolol succinate IV hydralazine as needed Close monitor Type 2 diabetes Continue home Lantus Hold metformin Sliding scale Will monitor Obstructive sleep apnea CPAP nightly Chronic hyponatremia Sodium around 1 31-1 34 History of TIA On aspirin, Plavix and statin Hyperlipidemia On statin Anxiety On Lexapro Diastolic CHF Monitor for volume overload DVT prophylaxis Heparin subcu Disposition Med/telemetry Full code Please note the above document was generated using voice recognition software. It may contain grammatical, syntax or spelling errors. Any formal questions or concerns about the content, text or information contained within the body of this dictation should be directly addressed to the provider for clarification Admission and Anticipated Discharge Date Admission Date: June 26, 2023 Subjective Patient seen and examined at bedside. She is alert, oriented x 4. She reports having hallucinations prior to admission. No hallucinations reported presently. Review of Systems Review of Systems: All systems reviewed & are unremarkable except as noted in Subjective Physical Exam Physical Exam: Constitutional: Alert oriented x 3; not in distress. Respiratory: Bilateral vesicular breath sound Cardiovascular: RRR, no murmur, no edema Vessels: no JVD or carotid bruit Chest: normal inspection of chest Abdomen: normal bowel sounds, soft, nontender, no hepatosplenomegaly Musculoskeletal: no cyanosis or clubbing, extremities motor strength 5/5 Skin: no rashes, warm and dry normal turgor Neurologic: PERRL, EOMI, accommodation nl, no face palsy, no dysarthria CN's II- XI intact bilaterally and moves all extremities Psychiatric: A+Ox3, euthymic affect Results & Data Results & Data Vital Signs (Past 12 Hours) Vital Signs Temp Pulse Pulse Resp BP Pulse Ox O2 Del Method 06/27/23 10:58 36.6 C 64 15 156/83 H 92 Room Air 06/27/23 07:18 36.6 C 67 16 165/72 H 93 Room Air 06/27/23 07:11 72
[2023-06-28] MEDS: hydrALAZINE HCL 20 MG/ML VIAL IV PRN (00:06)
[2023-06-28] MEDS: LOSARTAN POTASSIUM 25 MG TAB PO STA (05:31)
[2023-06-28 06:30] LABS: Basophils # (auto) 0.09 K/uL (0.00-0.20); Basophils % (auto) 1.3 %; Eosinophils # (auto) 0.41 K/uL (0.00-0.50); Eosinophils % (auto) 5.9 %; Hematocrit (blood only) 38.1 % (37.0-47.0); Hemoglobin 12.7 g/dl (12.0-16.0); Immature Granulocytes # (auto) 0.02 K/uL (0.01-0.20); Immature Granulocytes % (auto) 0.3 %; Lymphocytes # (auto) 1.28 K/uL (1.20-3.40); Lymphocytes % (auto) 18.4 %; Mean Corpuscular Hgb Conc 33.3 g/dL (32.0-36.0); Mean Platelet Volume 9.7 fL (9.4-12.4); Monocytes % (auto) 11.5 %; Neutrophils # (auto) 4.36 K/uL (1.40-6.50); Neutrophils % (auto) 62.6 %; Platelet Count 191 K/uL (130-400); RDW Coefficient of Variation 13.9 % (11.5-14.5); RDW Standard Deviation 44.4 fL (36.4-46.3); Red Blood Count 4.38 M/uL (4.20-5.40); White Blood Count 6.96 K/ul (4.8-10.8)
[2023-06-28 07:53] LABS: BUN Creatinine Ratio 22.1 (10-20); Calcium 9.2 mg/dl (8.6-10.3); Creatinine Clr Calc Pharmacy 43.6 ml/min; Est GFR (Non-African American) 69.9 ml/min; Potassium 3.9 mmol/L (3.5-5.1)
[2023-06-28] MEDS: CHECK CLONIDINE PATCH PLACEMENT SCH (07:59)
[2023-06-28] MEDS: MONTELUKAST SODIUM 10 MG TABLET PO PRN (08:09)
[2023-06-28] MEDS: LOSARTAN POTASSIUM 50 MG TAB PO SCH (08:56)
--- NOTE | 2023-06-28 11:21 | Hospitalist Progress Note ---
Date of Service June 28, 2023 Assessment & Plan (1) AMS (altered mental status): Plan: 88-year-old female with past medical history significant for type 2 diabetes, hypomagnesemia, hyperlipidemia, congenital hiatal hernia, obstructive sleep apnea on CPAP, history of hypertensive urgency, paroxysmal atrial fibrillation, diastolic dysfunction, LVH, essential tremor, history of hyponatremia, history of TIA, history of anxiety, who lives alone at home and walks with a cane was brought in by daughter because of hallucinations. Altered mental status Visual hallucinations Rule out toxic encephalopathy Stroke ruled out Patient was brought to the hospital due to concern for hallucinations. No leukocytosis Electrolytes within normal limits Urinalysis does not suggest infection CT head without contrast did not show any acute finding MRI brain with and without contrast showed scattered focus of T2 hyperintensity seen within periventricular and subcortical white matter which are nonspecific. On empiric antibiotics with ceftriaxone. Blood culture negative so far. Stop dextromethorphan as it can cause confusion Delirium precaution PT OT evaluation Hypertensive urgency Could be contributing to her symptoms Continue home clonidine patch, hydralazine, losartan and metoprolol succinate Increase losartan to 100 mg once a day Type 2 diabetes Continue home Lantus Hold metformin Sliding scale Will monitor Obstructive sleep apnea CPAP nightly Chronic hyponatremia Sodium around 1 31-1 34 History of TIA On aspirin, Plavix and statin Hyperlipidemia On statin Anxiety On Lexapro Diastolic CHF Monitor for volume overload DVT prophylaxis Heparin subcu Disposition Med/telemetry Full code Discussed with daughter at bedside on 06/26. Answer questions/queries. Please note the above document was generated using voice recognition software. It may contain grammatical, syntax or spelling errors. Any formal questions or concerns about the content, text or information contained within the body of this dictation should be directly addressed to the provider for clarification Admission and Anticipated Discharge Date Admission Date: June 26, 2023 Subjective Patient seen and examined at bedside. She is sitting up on the chair comfortably; not in distress. No significant overnight events. Denies any hallucinations. Review of Systems Review of Systems: All systems reviewed & are unremarkable except as noted in Subjective Physical Exam Physical Exam: Constitutional: Alert oriented x 3; not in distress. Respiratory: Bilateral vesicular breath sound Cardiovascular: RRR, no murmur, no edema Vessels: no JVD or carotid bruit Chest: normal inspection of chest Abdomen: normal bowel sounds, soft, nontender, no hepatosplenomegaly Musculoskeletal: no cyanosis or clubbing, extremities motor strength 5/5 Skin: no rashes, warm and dry normal turgor Neurologic: PERRL, EOMI, accommodation nl, no face palsy, no dysarthria CN's II- XI intact bilaterally and moves all extremities Psychiatric: A+Ox3, euthymic affect Results & Data Results & Data Vital Signs (Past 12 Hours) Vital Signs Temp Pulse Pulse Resp BP BP Pulse Ox 06/28/23 11:11 36.6 C 61 15 147/74 H 96 06/28/23 09:37 06/28/23 07:14 36.7 C 62 15 184/76 H 93 06/28/23 07:04 63 06/28/23 04:46 74 187/69 H 06/28/23 04:27 36.6 C 57 L 16 188/70 H 96 06/28/23 00:54 O2 Del Method 06/28/23 11:11 Room Air 06/28/23 09:37 Room Air, CPAP 06/28/23 07:14 Room Air 06/28/23 07:04 06/28/23 04:46 06/28/23 04:27 CPAP 06/28/23 00:54 Nasal CPAP
[2023-06-28] MEDS ORDERED: PHARMACY GLYCEMIC MGMT CONSULT PRN (12:41)
[2023-06-28] MEDS: LANTUS PER UNIT CHARGE SQ ONE (17:23)
[2023-06-29] MEDS ORDERED: LANTUS PER UNIT CHARGE SQ SCH (09:00)
[2023-06-29] MEDS: LANTUS PER UNIT CHARGE SQ SCH (09:14)
[2023-06-29 09:25] LABS: Basophils # (auto) 0.08 K/uL (0.00-0.20); Basophils % (auto) 1.1 %; Eosinophils # (auto) 0.37 K/uL (0.00-0.50); Eosinophils % (auto) 5.1 %; Hematocrit (blood only) 39.4 % (37.0-47.0); Hemoglobin 13.1 g/dl (12.0-16.0); Immature Granulocytes # (auto) 0.02 K/uL (0.01-0.20); Immature Granulocytes % (auto) 0.3 %; Mean Corpuscular Hemoglobin 28.9 pg (25.0-34.0); Mean Corpuscular Hgb Conc 33.2 g/dL (32.0-36.0); Mean Corpuscular Volume 86.8 fL (80.0-100.0); Mean Platelet Volume 9.7 fL (9.4-12.4); Monocytes # (auto) 0.75 K/uL (0.11-0.59); Monocytes % (auto) 10.4 %; Neutrophils # (auto) 4.71 K/uL (1.40-6.50); Neutrophils % (auto) 65.1 %; Platelet Count 213 K/uL (130-400); RDW Coefficient of Variation 14.1 % (11.5-14.5); RDW Standard Deviation 44.6 fL (36.4-46.3); Red Blood Count 4.54 M/uL (4.20-5.40); White Blood Count 7.23 K/ul (4.8-10.8)
--- NOTE | 2023-06-29 09:26 | Pharmacy Report ---
Pharmacy Glycemic Short Note 2 - Date of Service June 29, 2023 - Glycemic Short BSG Results (Last 24 hours): 06/28/23 06/28/23 06/28/23 12:10 17:13 20:24 POC Glucose 274 H 162 H 185 H 06/29/23 07:56 POC Glucose 191 H OUTPATIENT ANTIDIABETIC REGIMEN: * Metformin 1000 mg PO BIDM * Basaglar 14 units SC daily * HbA1c: 7.8% (06/27/23) ASSESSMENT: * 88 yo F admitted on 06/26/23 secondary to altered mental status. Pharmacy has been consulted to assist with inpatient glycemic management. Patient is a Type 2 diabetic as an outpatient. Please refer to outpatient regimen and most recent HbA1c above. * Patient's BSGs were above goal on 06/26 on home insulin regimen. Pharmacy was consulted on the afternoon of 06/27. Basal was increased by ~30% yesterday. Novolog was also tightened to reflect weight/stress of 3. Patient ended up received 18 units of basal + 27 units of bolus (45 units total) yesterday. BSGs were: [phone] mg/dL. * Fasting BSG remains elevated at 191 mg/dL this AM. Will increase basal an additional 10% today (~40% from admission). Hoping this will bring fasting BSGs back down near goal range. Patient is tolerating a T2DM diet. * Novolog was also tightened further this AM. Will monitor throughout the day. PLAN FOR INPATIENT GLYCEMIC CONTROL: * Hold outpatient oral diabetes medications * Basal insulin * Lantus 20 units SC daily * Bolus insulin * NovoLog per scale ACHS or Q6hrs while NPO * Goal Range: Low 110 mg/dL - High 140 mg/dL * Correction Factor: 20 mg/dL/unit * Nutritional / Prandial insulin per carb ratio of 1 unit per 7 grams CHO consumed
[2023-06-29 09:42] LABS: BUN Creatinine Ratio 18.8 (10-20); Calcium 9.4 mg/dl (8.6-10.3); Est GFR (African American) 77.4 ml/min; Est GFR (Non-African American) 66.8 ml/min
--- NOTE | 2023-06-29 13:54 | Hospitalist Progress Note ---
Date of Service June 29, 2023 Assessment & Plan (1) AMS (altered mental status): Plan: 88-year-old female with past medical history significant for type 2 diabetes, hypomagnesemia, hyperlipidemia, congenital hiatal hernia, obstructive sleep apnea on CPAP, history of hypertensive urgency, paroxysmal atrial fibrillation, diastolic dysfunction, LVH, essential tremor, history of hyponatremia, history of TIA, history of anxiety, who lives alone at home and walks with a cane was brought in by daughter because of hallucinations. Altered mental status Visual hallucinations Rule out toxic encephalopathy Stroke ruled out Patient was brought to the hospital due to concern for hallucinations. No leukocytosis Electrolytes within normal limits Urinalysis does not suggest infection CT head without contrast did not show any acute finding MRI brain with and without contrast showed scattered focus of T2 hyperintensity seen within periventricular and subcortical white matter which are nonspecific. On empiric antibiotics with ceftriaxone. Blood culture negative so far. Stop dextromethorphan as it can cause confusion Delirium precaution Continue PT OT Hypertensive urgency Could be contributing to her symptoms Continue home clonidine patch, hydralazine, losartan and metoprolol succinate Increase losartan to 100 mg once a day Type 2 diabetes Continue home Lantus Hold metformin Sliding scale Will monitor Obstructive sleep apnea CPAP nightly Chronic hyponatremia Sodium around 1 31-1 34 History of TIA On aspirin, Plavix and statin Hyperlipidemia On statin Anxiety On Lexapro Diastolic CHF Monitor for volume overload DVT prophylaxis Heparin subcu Disposition Med/telemetry Full code Discussed with daughter at bedside on 06/26. Answer questions/queries. Possible DC in a.m. Monitor closely for delirium Please note the above document was generated using voice recognition software. It may contain grammatical, syntax or spelling errors. Any formal questions or concerns about the content, text or information contained within the body of this dictation should be directly addressed to the provider for clarification Admission and Anticipated Discharge Date Admission Date: June 26, 2023 Subjective Patient seen and examined at bedside. She is sitting up on the chair eating breakfast. Denies fever, chills, chest pain, shortness of breath, abdominal pain or urinary symptoms. Review of Systems Review of Systems: All systems reviewed & are unremarkable except as noted in Subjective Physical Exam Physical Exam: Constitutional: Alert oriented x 3; not in distress. Respiratory: Bilateral vesicular breath sound Cardiovascular: RRR, no murmur, no edema Vessels: no JVD or carotid bruit Chest: normal inspection of chest Abdomen: normal bowel sounds, soft, nontender, no hepatosplenomegaly Musculoskeletal: no cyanosis or clubbing, extremities motor strength 5/5 Skin: no rashes, warm and dry normal turgor Neurologic: PERRL, EOMI, accommodation nl, no face palsy, no dysarthria CN's II- XI intact bilaterally and moves all extremities Psychiatric: A+Ox3, euthymic affect Results & Data Results & Data Vital Signs (Past 12 Hours) Vital Signs Temp Pulse Pulse Resp BP BP Pulse Ox 06/29/23 11:32 36.7 C 57 L 18 131/77 95 06/29/23 10:00 06/29/23 08:35 63 06/29/23 07:31 36.3 C L 64 18 161/67 H 95 06/29/23 05:34 62 162/71 H 06/29/23 03:26 36.5 C 66 16 195/76 H 95 O2 Del Method 06/29/23 11:32 Room Air 06/29/23 10:00 Room Air 06/29/23 08:35 06/29/23 07:31 Room Air 06/29/23 05:34 06/29/23 03:26 Room Air
--- NOTE | 2023-06-29 14:17 | Electrocardiogram Report ---
Test Reason : Blood Pressure : / mmHG Vent. Rate : 073 BPM Atrial Rate : 073 BPM P-R Int : 162 ms QRS Dur : 100 ms QT Int : 412 ms P-R-T Axes : 061 -46 040 degrees QTc Int : 453 ms Normal sinus rhythm Left anterior fascicular block Left ventricular hypertrophy ( R in aVL , Crescent product , Romhilt-Burton ) Abnormal ECG When compared with ECG of 18-JUL-2022 12:47, No significant change was found Confirmed by Johan Palma ([id number]) on 06/29/2023 2:17:07 PM Referred By: Confirmed By:Johan Palma
[2023-06-29] MEDS: DOCUSATE SODIUM SYRUP 100 MG/10 ML UDC PO STA (15:40)
[2023-06-29] MEDS: ONDANSETRON 4 MG OD TAB PO STA (15:40)
[2023-06-30 08:28] LABS: Basophils # (auto) 0.07 K/uL (0.00-0.20); Basophils % (auto) 1.2 %; Eosinophils # (auto) 0.42 K/uL (0.00-0.50); Hematocrit (blood only) 34.4 % (37.0-47.0); Hemoglobin 11.5 g/dl (12.0-16.0); Immature Granulocytes # (auto) 0.02 K/uL (0.01-0.20); Immature Granulocytes % (auto) 0.3 %; Lymphocytes # (auto) 1.31 K/uL (1.20-3.40); Lymphocytes % (auto) 21.7 %; Mean Corpuscular Hgb Conc 33.4 g/dL (32.0-36.0); Mean Corpuscular Volume 86.6 fL (80.0-100.0); Mean Platelet Volume 9.4 fL (9.4-12.4); Monocytes # (auto) 0.75 K/uL (0.11-0.59); Monocytes % (auto) 12.4 %; Neutrophils # (auto) 3.46 K/uL (1.40-6.50); Neutrophils % (auto) 57.4 %; Platelet Count 187 K/uL (130-400); RDW Coefficient of Variation 13.8 % (11.5-14.5); RDW Standard Deviation 43.5 fL (36.4-46.3); Red Blood Count 3.97 M/uL (4.20-5.40); White Blood Count 6.03 K/ul (4.8-10.8)
[2023-06-30] MEDS: LANTUS PER UNIT CHARGE SQ SCH (09:09)
[2023-06-30 09:12] LABS: BUN Creatinine Ratio 24.1 (10-20); Creatinine Clr Calc Pharmacy 31.9 ml/min; Est GFR (African American) 53.8 ml/min; Est GFR (Non-African American) 46.4 ml/min; Potassium 3.9 mmol/L (3.5-5.1)
--- NOTE | 2023-06-30 14:24 | Discharge Summary ---
Date of Service June 30, 2023 Admission HPI Per Admitting Provider 88-year-old female with past medical history significant for type 2 diabetes, hypomagnesemia, hyperlipidemia, congenital hiatal hernia, obstructive sleep apnea on CPAP, history of hypertensive urgency, paroxysmal atrial fibrillation, diastolic dysfunction, LVH, essential tremor, history of hyponatremia, history of TIA, history of anxiety, who lives alone at home and walks with a cane was brought in by daughter because of hallucinations. Since last Thursday patient is seeing people. She was seeing aliens coming from the wall. And seems she was offering food to a little girl sitting on the table while there was no girl. Her granddaughter lives close by and daughter also lives close by. Patient is alert and oriented x 3. Somewhat hard of hearing. Daughter is in the room. Recently she was taking medications for congestion daytime and nighttime cold medications. She did not use her CPAP last night. Patient denies any fevers. Has some runny nose and ticklish throat. No cough. No headache. No dizziness. Vision is not great because of cataracts. Appetite is okay. No difficulty swallowing. No chest pain. Sometimes gets short of breath. No nausea. No abdominal pain. Normal bowel and bladder movements. No rash. Hemodynamics are okay. Past medical history. As mentioned above Past surgical history. Right carpal tunnel surgery. Colonoscopy biopsy. Cholecystectomy. Social history. Lives alone. Family is close by. No smoking. No alcohol use. No drug use. Family history. Mother had diabetes. Depression anxiety. Father had heart disorder. Admission Exam Per Admitting Provider General- Not in distress Head- atraumatic Eyes- PERRL. ENT- oropharynx clear Neck- supple, no JVD. Lungs- clear to auscultation no wheezing or crackles Heart- regular rhythm; no murmur, no gallop. Abdomen- normal bowel sounds, soft, nontender, no distension Extremities- no pretibial edema, no erythema seen Neuro- alert, oriented x 3; PERRL, no facial palsy; no dysarthria;obeys commands, motor 5/5 bilaterally;, finger nose test normal Skin- warm & dry Principal Diagnosis Visual hallucination Hypertensive urgency Discharge Exam Constitutional: Alert oriented x 3; not in distress. Respiratory: Bilateral vesicular breath sound Cardiovascular: RRR, no murmur, no edema Vessels: no JVD or carotid bruit Chest: normal inspection of chest Abdomen: normal bowel sounds, soft, nontender, no hepatosplenomegaly Musculoskeletal: no cyanosis or clubbing, extremities motor strength 5/5 Skin: no rashes, warm and dry normal turgor Neurologic: PERRL, EOMI, accommodation nl, no face palsy, no dysarthria CN's II- XI intact bilaterally and moves all extremities Psychiatric: A+Ox3, euthymic affect Discharge Data Allergies Allergy/AdvReac Type Severity Reaction Status Date / Time amlodipine Allergy Severe SWELLING Verified 06/26/23 18:49 AND FLUSHING mold Allergy Mild SINUS Verified 06/26/23 18:49 DRAINAGE/COUGH hydrochlorothiazide AdvReac Severe hyponatremi Verified 06/26/23 18:49 [From Maxzide] a triamterene [From Maxzide] AdvReac Severe hyponatremi Verified 06/26/23 18:49 a LORENA Inhibitors AdvReac Intermediate COUGH Verified 06/26/23 18:49 Consultations 06/26/23 19:03 ED Decision to Admit Stat Ordered Studies 06/26/23 17:27 CT head/brain wo con Stat 06/27/23 08:08 MRI Brain [MR brain wo/w con] Routine Hospital Course (1) AMS (altered mental status): 88-year-old female with past medical history significant for type 2 diabetes, hypomagnesemia, hyperlipidemia, congenital hiatal hernia, obstructive sleep apnea on CPAP, history of hypertensive urgency, paroxysmal atrial fibrillation, diastolic dysfunction, LVH, essential tremor, history of hyponatremia, history of TIA, history of anxiety, who lives alone at home was brought in by daughter because of hallucinations. Altered mental status Visual hallucinations Rule out toxic encephalopathy Stroke ruled out Patient was brought to the hospital due to concern for hallucinations. No leukocytosis Electrolytes within normal limits Urinalysis does not suggest infection CT head without contrast did not show any acute finding MRI brain with and without contrast showed scattered focus of T2 hyperintensity seen within periventricular and subcortical white matter which are nonspecific. During the hospitalization, patient underwent infectious workup, MRI of the brain which did not show any acute finding Patient did not have any episode of hallucinations during the hospitalization She was recommended to stop any cough medication. Patient to follow-up with her primary care doctor. Patient might need neurology and psychiatry evaluation if she continues to have visual hallucination as outpatient Hypertensive urgency Could be contributing to her symptoms Continue home clonidine patch, hydralazine, losartan and metoprolol succinate Increase losartan to 100 mg once a day Please note the above document was generated using voice recognition software. It may contain grammatical, syntax or spelling errors. Any formal questions or concerns about the content, text or information contained within the body of this dictation should be directly addressed to the provider for clarification Total Time Total Time Spent Total Time Spent (In Minutes): 35 Total Time Includes: Examination of the Patient, Discharge Planning, Medication Reconciliation, Communication With Other Providers and Other Discharge Plan Discharge Items Patient Disposition: Home - Self-Care Reason For Visit: AMS Activity: Resume your previous activity Non-emergency contact: Primary Care Provider Call non-emergency contact if: you have any medication questions and your symptoms worsen Follow-up/Referrals: Vince Hook MD [Primary Care Provider] - (Date & Time 07/03/2023 11:20 AM Provider Vince Hook MD [facility] ) Diet: Regular Fluids: 1500ml (6 cups) Addtl Attending Provider Instructions: You were admitted to the hospital due to hallucinations. You underwent workup with blood work, MRI of the brain and infectious workup; did not reveal any significant abnormal finding. Please stop taking any cough syrups as they can contribute to altered mental status/hallucinations. For the high blood pressure, your losartan is increased from 50 mg to 100 mg once a day. Please limit your fluid intake to 1500 cc(6 cups) in 24 hours An appointment with your primary care doctor has been set up. Please follow-up with him. Pending Studies at Discharge: No Stand-Alone Forms: My [facility], Smoking Cessation Medications and DC Order Prescriptions: New losartan 100 mg tablet 100 mg PO DAILY Qty: 30 0RF Continued escitalopram oxalate 10 mg Tablet 10 mg PO PM mecobalamin (vitamin B12) [B12 Active] 1,000 mcg Tablet,Chewable 1,000 mcg PO DAILY clonidine 0.2 mg/24 hr patch weekly 0.2 mg transdermal Q7D Rx Instructions: Pt replaces patch every Thursday aspirin 81 mg Tablet,Delayed Release (Dr/Ec) 81 mg PO QAM 30 Days Qty: 30 3RF (DME) needle (disp) 32 gauge 32 gauge x 5/16" needle See Rx Instructions .ROUTE .MEDSUPPLY Qty: 100 3RF Rx Instructions: As directed atorvastatin 20 mg Tablet 20 mg PO PM clopidogrel [Plavix] 75 mg Tablet 75 mg PO DAILY insulin glargine [Basaglar LeannPen U-100 Insulin] 100 unit/mL (3 mL) insulin pen 14 unit subcut QAM metoprolol succinate 100 mg tablet extended release 24 hr 100 mg PO DAILY hydralazine 100 mg tablet 100 mg PO TID Qty: 90 0RF latanoprost 0.005 % drops 1 drp ophthalmic (eye) HS benzonatate 100 mg Capsule 100 mg PO TID PRN (Reason: Cough) Qty: 30 0RF metformin 1,000 mg tablet 1,000 mg PO BID montelukast 10 mg tablet 10 mg PO QAM PRN (Reason: Congestion) fluticasone propionate 50 mcg/actuation Delton,Suspension 2 spray INTRANASAL DAILY PRN (Reason: Congestion) Rx Instructions: administer into each nostril Saline Nasal 0.65 % Aerosol,Delton 2 spray INTRANASAL DIRECTED PRN (Reason: Congestion) timolol maleate 0.5 % Drops, Once Daily 1 drp OPB DAILY magnesium oxide 400 mg magnesium Tablet 400 mg PO DAILY Discontinued dextromethorphan-guaifenesin [Tussin DM] 10-100 mg/5 mL Liquid 10 ml PO Q4H PRN (Reason: Cough) Daytime and Nighttime Cold 2-5-10-325 mg Tablets, Sequential 1 ea PO DIRECTED PRN (Reason: Cold Symptoms) losartan 50 mg tablet 50 mg PO DAILY Discharge Orders: Discharge Order (Routine); Ordered 06/30/23 Ordered By: Clemente Anders/Other Patient Handouts: Managing Type 2 Diabetes Admission Data Admit Date/Time: 06/26/23 20:38 Attending Provider: Clemente Tijerina Admit Provider: Bharath Buitrago Primary Care Provider: Vince Hook Other Providers: Bharath Buitrago Other Interventions: Discharge Summary Assessment (RN) Last Done: 06/30/23 13:17
== END 2023-06-30 14:49 | disposition home or self-care (01) | DRG 92 ==
LOC: ED 14:21 → 2W 20:38